=== PATIENT | female | born 2000 | race Caucasian/White ===

== ENCOUNTER 2023-03-21 08:12 | Emergency (ER) | payer BC, SELFPAY ==
[2023-03-21] VITALS (15 sets, daily range): BP systolic 108–192; BP diastolic 69–108; PULSE 79–118; RESP 2–32; TEMP 36.8; O2SAT 95–100; BMI 46.5
--- NOTE | 2023-03-21 08:24 | CT_ITS ---
The [address] [address] Patient Name: FOREIGN BOTELLO MRN: [id number] date: 2000 Sex: F Assigned Patient Location: ER Current Patient Location: ER Accession/Order Number: [id number] Exam Date: 03/21/2023 08:33 Report Date: 03/21/2023 08:50 At the request of: NAJMA PARIS Procedure: CT stroke head/brain wo con HEAD CT WITHOUT CONTRAST: 03/21/2023 8:33 AM EST Clinical Data: new onset seizure, headache Comparison: No previous Unenhanced axial data from base to vertex. INTRA-AXIAL: No acute hemorrhage. No acute infarction is evident. EXTRA-AXIAL: No acute hemorrhage. No focal fluid collection. BRAIN VOLUME: Unremarkable for age. VENTRICLES: No hydrocephalus PARANASAL SINUSES: No air-fluid levels in the included aspects. MASTOIDS: Clear. CALVARIUM: No acute finding. EXTRACALVARIAL: No acute findings CT/CT stroke head/brain wo con IMPRESSION: 1. No evidence of acute intracranial process on this unenhanced study as described. All CT scans at this facility use dose modulation, iterative reconstruction, and/or weight based dosing when appropriate to reduce radiation dose to as low as reasonably achievable. Electronically authenticated by: BASIL MEDINA Date: 03/21/2023 08:50
--- NOTE | 2023-03-21 08:24 | ECG_ITS ---
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
--- NOTE | 2023-03-21 08:37 | ED_ITS ---
HPI - Seizure General Chief Complaint: Seizure Stated Complaint: SEIZURE Time Seen by Provider: 03/21/23 08:21 Source: patient and family Mode of arrival: Wheelchair Limitations: no limitations History of Present Illness HPI Narrative: Patient had new onset seizure this morning around 7am. She was coming home after work and her sister witnessed the patient begin to shake before losing consciousness for an unknown period of time, during which she had additional shaking, according to what the sister told the patient. The patient is now awake and alert and answering all questions. She did not injure herself during the seizure but complains of a frontal headache that began a short time before the seizure. She worked last night and denied any use of alcohol or intoxicants. PMHx includes HTN, hypothyroidism. She takes BCPs and she takes effexor for psych Related Data Allergies Allergy/AdvReac Type Severity Reaction Status Date / Time No Known Drug Allergies Allergy Verified 03/21/23 08:25 PFS PFS Social History Smoking status: Current every day smoker Exam Narrative Exam Narrative: Nurses notes and vital signs reviewed and patient is not hypoxic. afebrile General: Well-appearing and in no apparent distress. Skin: Warm, dry, no pallor noted. Head: Normocephalic, atraumatic. Neck: Supple, non-tender. Eye: Pupils are equal, round and EOMI. No scleral icterus. Ears, Nose, Mouth, and Throat: No oral or intraoral injury. Oral mucosa is moist Cardiovascular: Regular Rate and Rhythm without murmur, gallop or rub. Respiratory: No accessory muscle use or respiratory distress. Lungs are clear to auscultation, no wheezing, rales or rhonchi Back: No midline thoracic or lumbar vertebral tenderness. No CVA tenderness Musculoskeletal: normal ROM, no calf or popliteal tenderness, no lower extremity edema/swelling GI: Abdomen is soft, non-distended. Normal bowel sounds. No tenderness to palpation. No rebound, guarding, or rigidity noted. Neurological: A&O x4. No cranial nerve dysfunction observed. No truncal ataxia. Moves all extremities. Sensation intact. Psychiatric: Cooperative and interactive. Normal mood and affect. Constitutional Vital Signs, click to edit/add: Last Vital Signs Temp 98.2 F 03/21/23 08:19 Pulse 79 03/21/23 09:29 Resp 19 03/21/23 09:29 BP 136/69 03/21/23 10:01 Pulse Ox 100 03/21/23 09:29 O2 Del Method Room Air 03/21/23 08:19 Course Vital Signs Vital signs: Vital Signs Blood Pressure 192/108 H 03/21/23 08:18 Pulse Oximetry 95 03/21/23 08:18 Temperature 98.2 F 03/21/23 08:19 Pulse Rate 79 03/21/23 09:29 Respiratory Rate 19 03/21/23 09:29 Blood Pressure 136/69 03/21/23 10:01 Pulse Oximetry 100 03/21/23 09:29 Oxygen Delivery Method Room Air 03/21/23 08:19 MDM - Seizure MDM Narrative Medical decision making narrative: Seizure precautions initiated. I asked the emergency department nurse to move the patient from moving forward to the trauma bay in room 6. Peripheral IV established and blood drawn and sent for testing. Patient was placed on conveyor monitor with continuous pulse ox. She was sent for noncontrast CT scan of the brain. Urine was also ordered to be obtained and sent for testing. I ordered her received normal saline IV fluid bolus and also a dose of IV Valium -Ativan is currently not available. Workup notable for elevated wbc 14, mildly decreased Na 135, mildly decreased K 3.3, normal CO2, renal function and LFTs. Unremarkable head CT, per radiologist. Results, diagnosis and dispo plan discussed with the patient and mother. Patient will be discharged home with referral to local Neurology group. No new meds at this time. Patient lives with her parents and does not drive - she wants to continue to work. Discussed ED return for any additional syncope or seizure and discussed that we will then likely admit/transfer to facility with neurology coverage. Lab Data Attestation: I reviewed the patient's lab results. Labs: Lab Results 03/21/23 Range/Units 09:03 WBC 14.5 H (4.0-11.0) 10^3/uL RBC 4.03 L (4.20-5.40) 10^6/uL Hgb 12.9 (12.0-16.0) g/dL Hct 37.4 (36.0-48.0) % MCV 92.8 (81.0-99.0) fL MCH 32.0 (26.7-34.0) pg MCHC 34.5 (29.9-35.2) g/dL RDW 11.9 (11.0-15.0) % Plt Count 247 (150-450) 10^3/uL MPV 11.8 (9.5-13.5) fL Neut % (Auto) 80.0 H (43.0-75.0) % Lymph % (Auto) 13.0 L (20.5-60.0) % [place] % (Auto) 5.4 (1.7-12.0) % Eos % (Auto) 0.6 L (0.9-7.0) % Baso % (Auto) 0.2 (0.2-2.0) % Neut # (Auto) 11.6 H (1.4-6.5) 10^3/uL Lymph # (Auto) 1.9 (1.2-3.8) 10^3/uL [place] # (Auto) 0.8 (0.3-0.8) 10^3/uL Eos # (Auto) 0.1 (0.0-0.7) 10^3/uL Baso # (Auto) 0.0 (0.0-0.1) 10^3/uL Abs Immat Gran (auto) 0.11 H (0.00-0.03) 10^3/uL Imm/Tot Granulo (auto) 0.8 H (0.0-0.5) % Sodium 135 L (136-145) mmol/L Potassium 3.3 L (3.5-5.1) mmol/L Chloride 99 (98-107) mmol/L Carbon Dioxide 28.1 (21.0-32.0) mmol/L Anion Gap 11.2 BUN 5.0 L (7.0-18.0) mg/dL Creatinine 0.68 (0.55-1.02) mg/dL Est GFR ( Amer) >60 (>=60) Est GFR (Non-Af Amer) >60 (>=60) BUN/Creatinine Ratio 7.4 Glucose 105 (74-106) mg/dL Calcium 8.8 (8.5-10.1) mg/dL Total Bilirubin 0.2 (0.2-1.0) mg/dL AST 17 (15-37) U/L ALT 22 (14-59) U/L Alkaline Phosphatase 100 (46-116) U/L Total Protein 6.6 (6.4-8.2) g/dL Albumin 3.0 L (3.4-5.0) g/dL Globulin 3.6 g/dL Albumin/Globulin Ratio 0.[address] scan - head: Radiologist's impression: Patient Name: FOREIGN BOTELLO MRN: [id number] date: 2000 Sex: F Assigned Patient Location: ER Current Patient Location: ER Accession/Order Number: [id number] Exam Date: 03/21/2023 08:33 Report Date: 03/21/2023 08:50 At the request of: NAJMA PARIS Procedure: CT stroke head/brain wo con HEAD CT WITHOUT CONTRAST: 03/21/2023 8:33 AM EST Clinical Data: new onset seizure, headache Comparison: No previous Unenhanced axial data from base to vertex. INTRA-AXIAL: No acute hemorrhage. No acute infarction is evident. EXTRA-AXIAL: No acute hemorrhage. No focal fluid collection. BRAIN VOLUME: Unremarkable for age. VENTRICLES: No hydrocephalus PARANASAL SINUSES: No air-fluid levels in the included aspects. MASTOIDS: Clear. CALVARIUM: No acute finding. EXTRACALVARIAL: No acute findings IMPRESSION: 1. No evidence of acute intracranial process on this unenhanced study as described. All CT scans at this facility use dose modulation, iterative reconstruction, and/or weight based dosing when appropriate to reduce radiation dose to as low as reasonably achievable. Electronically authenticated by: BASIL MEDINA Date: 03/21/2023 08:50 ECG Data Attestation: I personally reviewed and interpreted this ECG as follows: Interpretation: EKG interpretation: Emergency Department physician interpretation. Sinus tachycardia at 116bpm. Normal axis, normal intervals and no ST segment elevation or depression. Discharge Plan Discharge Chief Complaint: Seizure Clinical Impression: New onset seizure Patient Disposition: Home, Self-Care Time of Disposition Decision: 10:24 Instructions: New-Onset Seizure in Adults (ED) Stand Alone Forms: Portal Instructions Referrals: Celia Villegas MD [Primary Care Provider] - 1 week VIRGNIIE OMALLEY [Physician] - As soon as possible (ok to see any of the neurologists from the group)
[2023-03-21] MEDS: 0.9 % SODIUM CHLORIDE 1,000 ML 999 ML IV (09:08)
[2023-03-21] MEDS: DIAZEPAM 10 MG/2 ML SYRINGE 5 MG IV (09:08)
[2023-03-21 09:10] LABS: Basophils Percent Auto 0.2 % (0.2-2.0); Eosinophils Absolute Auto 0.1 10^3/uL (0.0-0.7); Eosinophils Percent Auto 0.6 % (0.9-7.0); Hematocrit 37.4 % (36.0-48.0); Hemoglobin 12.9 g/dL (12.0-16.0); Immature Granulocytes Abs Auto 0.11 10^3/uL (0.00-0.03); Immature Granulocytes Pct Auto 0.8 % (0.0-0.5); Lymphocytes Absolute Auto 1.9 10^3/uL (1.2-3.8); Mean Corpuscular HGB Conc 34.5 g/dL (29.9-35.2); Mean Corpuscular Volume 92.8 fL (81.0-99.0); Mean Platelet Volume 11.8 fL (9.5-13.5); Monocytes Absolute Auto 0.8 10^3/uL (0.3-0.8); Monocytes Percent Auto 5.4 % (1.7-12.0); Neutrophils Absolute Auto 11.6 10^3/uL (1.4-6.5); Platelet Count 247 10^3/uL (150-450); Red Blood Count 4.03 10^6/uL (4.20-5.40); Red Cell Distribution Width 11.9 % (11.0-15.0); White Blood Count 14.5 10^3/uL (4.0-11.0)
[2023-03-21 09:24] LABS: Alanine Aminotransferase 22 U/L (14-59); Albumin Globulin Ratio 0.8; Alkaline Phosphatase 100 U/L (46-116); Anion Gap 11.2; Aspartate Amino Transferase 17 U/L (15-37); BUN Creatinine Ratio 7.4; Bilirubin Total 0.2 mg/dL (0.2-1.0); Calcium 8.8 mg/dL (8.5-10.1); Carbon Dioxide 28.1 mmol/L (21.0-32.0); Chloride 99 mmol/L (98-107); Estimated GFR (African America >60 (>=60); Estimated GFR (Non-African Ame >60 (>=60); Globulin 3.6 g/dL; Glucose 105 mg/dL (74-106); Potassium 3.3 mmol/L (3.5-5.1); Sodium 135 mmol/L (136-145); Total Protein 6.6 g/dL (6.4-8.2)
[2023-03-21] MEDS: POTASSIUM CHLORIDE 10 MEQ ER TABLET 40 MEQ PO (10:17)
[2023-03-21] MEDS: ACETAMINOPHEN 500 MG TABLET 1000 MG PO (10:42)
[2023-03-22 04:07] LABS: Prolactin 55.9 ng/mL (4.8-33.4)
== END 2023-03-21 10:59 | disposition home or self-care (01) ==
PROVIDERS: Emergency Provider Emergency Medicine; PCP Family Medicine
DX: R56.9 Unspecified convulsions (principal); I10 Essential (primary) hypertension; E03.9 Hypothyroidism, unspecified; F17.200 Nicotine dependence, unspecified, uncomplicated; R51.9 Headache, unspecified
CPT/HCPCS: 36415; 70450; 80053; 84146; 85025; 93005; 96374; 99285

== ENCOUNTER 2023-04-11 21:04 | Outpatient (REF) | payer BC, SELFPAY ==
--- OUTSIDE RECORDS SUMMARY | 2023-04-11 21:08 | XMS_ITS | CCD ---
Author Name Unknown Address [address] [place] [address] Organization [facility] Care Team Providers Care Professional Shopper Name Role Phone Celia Gonzalez Primary Care Provider [phone] KRISTIE POWELL Attending Unavailable CELIA GONZALEZ Primary Care Unavailable KARASIK, DR SHELL Attending Unavailable GONZALEZ, DR CELIA Castillo Primary Care Unavailable KARASIK, DR SHELL Admitting Unavailable KARASIK, DR SHELL Consulting Unavailable GONZALEZ, DR CELIA Castillo Primary Care Unavailable KARASIK, DR SHELL Admitting Unavailable KARASIK, DR SHELL Consulting Unavailable KARASIK, DR SHELL Attending Unavailable Celia Gonzalez Unavailable CELIA GONZALEZ Primary Care Physician Napoleon LAWRENCE Attending Unavailable GONZALEZ, CELIA Referring Unavailable CELIA GONZALEZ Referring Unavailable NILL, Napoleon Dumas Attending Unavailable NILL, Napoleon Dumas Attending Unavailable NILL, Napoleon Dumas Attending Unavailable Allergies Allergy Classification Reported Allergen(s) Allergy Type Date of Onset Reaction(s) Facility (1 source) No Known Medication Allergies; Translations: [No Known Medication Allergies] Propensity to adverse reactions (disorder) [facility] Repository (1 source) patient allergy list reviewed by nurse or physicia Propensity to adverse reactions 9 Comment:Done [facility] Other (1 source) Allergies Reconciled Propensity to adverse reactions Unknown [facility] Other Medications Current Medications Medication Drug Class(es) Dates Sig (Normalized) Sig (Original) cephalexin 500 mg oral capsule (4 sources) Cephalosporin Antibacterial take 1 capsule by mouth every six hours Cephalexin 500 MG 1 capsule Orally Four times a day Active {21 (Ethinyl Estradiol 0.035 MG / norgestimate 0.25 MG Oral Tablet) / 7 (Inert Ingredients 1 MG Oral Tablet) } Pack [Sprintec 28 Day] (6 sources) Progestin, Estrogen Start: 08-30-2022 take 1 tablet by mouth once daily Sprintec oral tablet 1 tab(s), Oral, Daily, Refill(s) 0 Start Date: 08/30/22 Status: Ordered take 1 tablet by irene th every twenty-four hours Sprintec 28 0.25-35 MG-MCG 1 tablet Orally Once a day Active levothyroxine sodium 0.075 mg oral tablet (7 sources) l-Thyroxine Start: 08-30-2022 take 1 tablet by mouth once daily levothyroxine 75 mcg (0.075 mg) Tab 75 mcg = 1 tab(s), Oral, Daily, Refills(s) 0 Start Date: 08/30/22 Status: Ordered take 1 tablet by mouth once wale y Levothyroxine Sodium 88 MCG TAKE 1 TABLET BY MOUTH EVERY DAY Active take 1 tablet by irene th once daily in the morning Levothyroxine Sodium 75 MCG 1 tablet in the morning on an empty stomach Orally Once a day Active take 1 tablet by mouth once wale y levothyroxine (SYNTHROID) 75 MCG tablet Take 75 mcg by mouth Daily 0 Active lisinopril 20 mg oral tablet (7 sources) Angiotensin Converting Enzyme Inhibitor Start: 08-30-2022 take 1 tablet by mouth once daily lisinopril 20 mg Tab 20 mg = 1 tab(s), Oral, Daily, Refills(s) 0 Start Date: 08/30/22 Status: Ordered take 1 tablet by mouth once wale y lisinopril (PRINIVIL;ZESTRIL) 10 MG tablet Take 10 mg by mouth daily 0 Active nabumetone 750 mg oral tablet (4 sources) Nonsteroidal Anti-inflammatory Drug Nabumetone 750 MG as directed Orally Active Norgestimate-Eth Estradiol (SPRINTEC 28 PO) (1 source) Norgestimate-Eth Estradiol (SPRINTEC 28 PO) Take by mouth daily 0 Active ondansetron 4 mg disintegrating oral tablet (4 sources) Serotonin-3 Receptor Antagonist Start: 023 take 1 tablet by mouth three times daily as needed Ondansetron 4 MG 1 tablet on the tongue and allow to dissolve Orally tid prn for 5 days May, Active sertraline 20 mg/ml oral solution (1 source) Serotonin Reuptake Inhibitor take 25 mg by mouth once daily sertraline (ZOLOFT) 20 MG/ML concentrated solution Take 25 mg by mouth daily 0 Active sulfamethoxazole 800 mg / trimethoprim 160 mg oral tablet (4 sources) Dihydrofolate Reductase Inhibitor Antibacterial, Sulfonamide Antimicrobial take 1 tablet by mouth every twelve hours Sulfamethoxazole-T rimethoprim 800-160 MG 1 tablet Orally Twice a day Active 24 hr venlafaxine 75 mg extended release oral capsule (6 sources) Serotonin and Norepinephrine Reuptake Inhibitor Start: 023 take 1 capsule by mouth once daily Effexor XR 75 mg Cap-ER 75 mg = 1 cap(s), Oral, Daily, Refills(s) 0 Start Date: 08/30/22 Status: Ordered take 1 capsule by mouth once alexey ly Venlafaxine HCl ER 150 MG TAKE 1 CAPSULE BY MOUTH EVERY DAY for 90 days Active Completed/Discontinued Medications Medication Drug Class(es) Dates Sig (Normalized) Sig (Original) amoxicillin 875 mg / clavulanate 125 mg oral tablet (4 sources) Penicillin-class Antibacterial Start: 04-12-2022 take 1 tablet by mouth every twelve hours Amoxicillin-Pot Clavulanate 875-125 MG 1 tablet Orally every 12 hrs for 10 day(s) Mar, Not-Taking ibuprofen 200 mg oral tablet (1 source) Nonsteroidal Anti-inflammatory Drug Start: 12-28-2018 End: 12-28-2018 ibuprofen (ADVIL;MOTRIN) tablet 400 mg Problems Active Problems Problem Classification Problem Date Documented Date Episodic/Chronic Anxiety disorders (3 sources) Anxiety; Translations: [Anxiety disorder] Onset: 03-15-2018 08-30-2022 Chronic Contraceptive and procreative management (2 sources) Presence of (intrauterine) contraceptive device; Translations: [Initiation of transdermal contraception] Resolved: 10-28-2021 Episodic Diabetes mellitus without complication (2 sources) Other abnormal glucose; Translations: [Impaired fasting glycemia] Onset: 03-15-2018 Episodic Essential hypertension (3 sources) Hypertensive disorder; Translations: [Essential (primary) hypertension] 08-30-2022 Chronic Inflammatory diseases of female pelvic organs (1 source) Acute vaginitis; Translations: [Acute vaginitis] Episodic Malaise and fatigue (1 source) Fatigue; Translations: [Other fatigue] Episodic Menstrual disorders (1 source) Irregular menstruation, unspecified; Translations: [Irregular menstruation, unspecified] Chronic Mood disorders (3 sources) Depressive disorder; Translations: [Moderate major depression ] 08-30-2022 Chronic Other ear and sense organ disorders (1 source) Unspecified acute noninfective otitis externa, unspecified ear; Translations: [Unspecified acute noninfective otitis externa, unspecified ear] Episodic Other ear and sense organ disorders (1 source) Infective otitis externa; Translations: [Other infective otitis externa, right ear] Episodic Other nutritional; endocrine; and metabolic disorders (3 sources) Body mass index 40+ - severely obese; Translations: [Body mass index (BMI) 45.0-49.9, adult] Onset: 07-05-2016 Chronic Other nutritional; endocrine; and metabolic disorders (2 sources) Morbid obesity; Translations: [Morbid (severe) obesity due to excess calories] Onset: 07-05-2016 09-13-2022 Chronic Other screening for suspected conditions (not mental disorders or infectious disease) (5 sources) Encounter for screening for malignant neoplasm of cervix; Translations: [Cervical smear - inadequate specimen] Onset: 11-29-2021 Episodic Other upper respiratory infections (1 source) Chronic sinusitis, unspecified; Translations: [Chronic sinusitis, unspecified] Chronic Otitis media and related conditions (1 source) Unspecified nonsuppurative otitis media, right ear; Translations: [Unspecified nonsuppurative otitis media, right ear] Episodic Residual codes; unclassified (1 source) Tobacco user; Translations: [Tobacco use] Onset: 09-13-2022 Episodic Residual codes; unclassified (1 source) Nicotine-filled electronic cigarette user 09-13-2022 Episodic Skin and subcutaneous tissue infections (3 sources) Cutaneous abscess of limb, unspecified; Translations: [Abscess of limb] Onset: 09-13-2022 Episodic Superficial injury; contusion (1 source) Abrasion of finger; Translations: [Abrasion of right index finger, initial encounter] Episodic Thyroid disorders (6 sources) Hypothyroidism; Translations: [Acquired hypothyroidism] 08-30-2022 Chronic Unclassified (1 source) Cough, unspecified; Translations: [Cough, unspecified] Past or Other Problems Problem Classification Problem Date Documented Da te Episodic/Chronic Influenza (1 source) Influenza with other manifestations; Translations: [Influenza with other manifestations] Onset: 06-18-2018 Episodic Other ear and sense organ disorders (1 source) Acute otitis externa; Translations: [Acute swimmers' ear] Onset: 11-14-2016 Episodic Other inflammatory condition of skin (1 source) Sunburn of second degree; Translations: [Sunburn of second degree] Resolved: 10-28-2021 Episodic Other nutritional; endocrine; and metabolic disorders (1 source) Overweight; Translations: [Overweight] Resolved: 10-28-2021 Episodic Other upper respiratory infections (2 sources) Acute maxillary sinusitis, unspecified; Translations: [Acute recurrent maxillary sinusitis] Onset: 08-15-2016 Episodic Residual codes; unclassified (1 source) High risk heterosexual behavior; Translations: [High risk heterosexual behavior] Resolved: 10-28-2021 Episodic Unclassified (1 source) Health examination of defined subpopulation; Translations: [Health examination of defined subpopulation] Onset: 07-05-2016 Unclassified (1 source) Bacterial infection, unspecified, in conditions classified elsewhere and of unspecified site; Translations: [Bacterial infection, unspecified, in conditions classified elsewhere and of unspecified site] Onset: 05-27-2018 Unclassified (1 source) Volunteer activity; Translations: [Volunteer activity] Onset: 07-05-2016 Unclassified (1 source) Acute candidiasis of vulva and vagina; Translations: [Acute candidiasis of vulva and vagina] Resolved: 10-28-2021 Results Test Name Value Interpretation Reference Range Facil ity Ambulatory Visit Summaryon 0 10-18-2022 Ambulatory Visit Summary FOREIGN BOTELLO :2000 Visit Date:10/18/2022 Ambulatory Visit Instructions Your Diagnosis Axillary abscess BMI 45.0-49.9, adult Vapes nicotine containing substance Your Care Team Attending Physician - KARLA ALCARAZ, Napoleon Dumas Primary Care Physician - CELIA GONZALEZ MD This Is Your Medications List sulfamethoxazole-trimet hoprim (Bactrim D.S. 800 mg-160 mg Tab) Contact prescribing physician if questions or concerns ethinyl estradiol-norgestimate (Sprintec oral tablet) levothyroxine (levothyroxine 75 mcg (0.075 mg) Tab) lisinopril (lisinopril 20 mg Tab) venlafaxine (Effexor XR 75 mg Cap-ER) Procedures Performed Appendectomy, Implantable subdermal contraceptive insertion done, Incision and drainage of abscess. Discharge Vitals Heart Rate (Peripheral) 76 Respiratory Rate 16 Blood Pressure 126/86 Height 149 cm Height 59 in Weight 109 kg Weight 239.8 lb BMI 49.1 Medications What How Much When Why Instructions New sulfamethoxazole-trimet hoprim (Bactrim D.S. 800 mg-160 mg Tab) 1 Tablets By Mouth 2 times a day Axillary abscess BMI 45.0-49.9, adult Vapes nicotine containing substance Duration: 5 Days Pickup at [facility]/pharmacy #[id number] Unchanged ethinyl estradiol-norgestimate (Sprintec oral tablet) 1 Tablets By Mouth Every day Contact prescribing physician if questions or concerns Unchanged levothyroxine (levothyroxine 75 mcg (0.075 mg) Tab) 1 Tablets By Mouth Every day Contact prescribing physician if questions or concerns Unchanged lisinopril (lisinopril 20 mg Tab) 1 Tablets By Mouth Every day Contact prescribing physician if questions or concerns Unchanged venlafaxine (Effexor XR 75 mg Cap-ER) 1 Capsules By Mouth Every day Contact prescribing physician if questions or concerns Pharmacy Information [facility]/pharmacy #[id number]: [address], [place] [id number] [phone] Allergies No Known Allergies No Known Medication Allergies Problems Ongoing - Any problem that you are currently receiving treatment for. Anxiety Axillary abscess BMI 45.0-49.9, adult Depression HTN (hypertension) Hypothyroidism Morbid obesity Vapes nicotine containing substance [facility] Ambulatory Visit Summaryon 0 09-13-2022 Ambulatory Visit Summary FOREIGN BOTELLO :2000 Visit Date:09/13/2022 Ambulatory Visit Instructions Your Care Team Attending Physician - KARLA ALCARAZ, Napoleon Dumas Primary Care Physician - CELIA GONZALEZ MD This Is Your Medications List ethinyl estradiol-norgestimate (Sprintec oral tablet) levothyroxine (levothyroxine 75 mcg (0.075 mg) Tab) lisinopril (lisinopril 20 mg Tab) venlafaxine (Effexor XR 75 mg Cap-ER) Procedures Performed Appendectomy, Implantable subdermal contraceptive insertion done, Incision and drainage of abscess. Discharge Vitals Heart Rate (Peripheral) 70 Respiratory Rate 16 Blood Pressure 122/80 Height 149.8 cm Height 59 in Weight 111.9 kg Weight 246.18 lb BMI 49.87 Medications What How Much When Instructions Unchanged ethinyl estradiol-norgestimate (Sprintec oral tablet) 1 Tablets By Mouth Every day Unchanged levothyroxine (levothyroxine 75 mcg (0.075 mg) Tab) 1 Tablets By Mouth Every day Unchanged lisinopril (lisinopril 20 mg Tab) 1 Tablets By Mouth Every day Unchanged venlafaxine (Effexor XR 75 mg Cap-ER) 1 Capsules By Mouth Every day Allergies No Known Allergies No Known Medication Allergies Problems Ongoing - Any problem that you are currently receiving treatment for. Anxiety Axillary abscess BMI 45.0-49.9, adult Depression HTN (hypertension) Hypothyroidism Morbid obesity Normal [facility] ED Note-Physicianon 09-04-19 ED Note-Physician [id number] D:127 Normal [facility] Lab Reportson 09-03-2022 Lab Reports [id number] D:127 Normal [facility] Physician Referralon 023 Physician Referral [id number] D:127 Normal [facility] PAP ACOG PANEL 2: 21 to 29on 12-05-2021 . . Normal [facility] Comment on above: Performed By: #### [id number] #### [facility] [address] [address] [address] Ammon Urena Age Gdln ACOG Testing 21-29 Normal [facility] Comment on above: Performed By: #### [id number] #### [facility] [address] [address] [address] Ammon Urena DIAGNOSIS: Comment [facility] Comment on above: Result Comment: NEGA TIVE FOR INTRAEPITHELIAL LESION OR MALIGNANCY. Performed By: #### 4 [id number] #### [facility] [address] [address] [address] Ammon Urena Methodology: Comment [facility] Comment on above: Result Comment: This liquid based ThinPrep(R) pap test was screened with the use of an image guided system. Performed By: #### [id number] #### [facility] [address] [place] [address] Dr. Ammon Urena Note: Comment [facility] Comment on above: Result Comment: The Pap smear is a screening test designed to aid in the detection of premalignant and malignant conditions of the uterine cervix. It is not a diagnostic procedure and should not be used as the sole means of detecting cervical cancer. Both false-positive and false-negative reports do occur. . Performed By: #### [id number] #### [facility] [address] [place] [address] Dr. Ammon Urena Performed by: Comment Normal [facility] Comment on above: Result Comment: Joanne Sosa, Lacquer Polisher (ASCP) Performed By: #### 4 [id number] #### [facility] [address] [place] [address] Dr. Ammon Urena Reflex Criteria: Comment [facility] Comment on above: Result Comment: The HPV DNA reflex criteria were not met with this specimen result therefore, no HPV testing was performed. . Performed By: #### 4 [id number] #### [facility] [address] [place] [address] Dr. Ammon Urena Specimen adequacy: Comment Normal [facility] Comment on above: Result Comment: Sati sfactory for evaluation. Endocervical and/or squamous metaplastic cells (endocervical component) are present. Performed By: #### 4 [id number] #### [facility] [address] [place] [address] Dr. Ammon Urena PAP ACOG PANEL 2: 21 to 29on 11-04-2021 . . Normal [facility] Comment on above: Performed By: #### 4 [id number] #### [facility] [address] [place] [address] Dr. Ammon Urena Age Gdln ACOG Testing - [facility] Comment on above: Performed By: #### 4 [id number] #### [facility] [address] [address] [address] Ammon Urena DIAGNOSIS: Comment Normal [facility] Comment on above: Result Comment: UNSA TISFACTORY FOR EVALUATION. Performed By: #### [id number] #### [facility] [address] [place] [address] Dr. Ammon Urena Methodology: Comment Normal [facility] Comment on above: Result Comment: This liquid based ThinPrep(R) pap test was screened with the use of an image guided system. Performed By: #### [id number] #### [facility] [address] [place] [address] Dr. Ammon Urena Note: Comment Normal [facility] Comment on above: Result Comment: The Pap smear is a screening test designed to aid in the detection of premalignant and malignant conditions of the uterine cervix. It is not a diagnostic procedure and should not be used as the sole means of detecting cervical cancer. Both false-positive and false-negative reports do occur. . Performed By: #### 4 [id number] #### [facility] [address] [place] [address] Dr. Ammon Urena Performed by: Comment Normal [facility] Comment on above: Result Comment: Alexa Toledo, Lacquer Polisher (ASCP) Performed By: #### [id number] #### [facility] [address] [place] [address] Dr. Ammon Urena QC reviewed by: Comment Normal [facility] Comment on above: Result Comment: Josh Hartman, Supervisory Lacquer Polisher (ASCP) Performed By: #### 4 [id number] #### [facility] [address] [place] [address] Dr. Ammon Urena Recommendation: Comment Normal [facility] Comment on above: Result Comment: Sugg est follow up as clinically appropriate. Performed By: #### 4 [id number] #### [facility] [address] [place] [address] Dr. Ammon Urena Reflex Criteria: Comment Normal [facility] Comment on above: Result Comment: The HPV DNA reflex criteria were not met with this specimen result therefore, no HPV testing was performed. . Performed By: #### [id number] #### [facility] [address] [place] [address] Dr. Ammon Urena Specimen adequacy: Comment Normal [facility] Comment on above: Result Comment: Spec imen processed and examined but unsatisfactory for evaluation of epithelial abnormality because of obscuring inflammatory exudate. Performed By: #### [id number] #### [facility] [address] [place] [address] Dr. Ammon Urena CHLAMYDIA/GONOCOCCUS NATALI ( AB/URINE/PAPon 11-03-2021 Chlamydia trachomatis, NATALI Negative Normal Negative [facility] Comment on above: Performed By: #### C T/NGNA #### [facility] [address] [place] [address] Dr. Ammon Urena Neisseria gonorrhoeae, NATALI Negative Normal Negative [facility] Comment on above: Performed By: #### C T/NGNA #### [facility] [address] [place] [address] Dr. Ammon Urena VAGINITIS/VAGINOSIS DNA PROB [facility] 11-02-2021 Laura species Negative Normal Negative [facility] Comment on above: Performed By: #### V AGINT #### [facility] [address] [place] [address] Dr. Ammon Urena Gardnerella vaginalis Positive Abnormal Negative [facility] Comment on above: Performed By: #### V AGINT #### [facility] [address] [place] [address] Dr. Ammon Urena Trichomonas vaginalis Negative Normal Negative [facility] Comment on above: Performed By: #### V AGINT #### [facility] [address] [place] [address] Dr. Ammon Urena Vital Signs Date Time Vital Sign Value Performing Clinician Facility 02-07-2023 10:30-0500 Body height 149.86 cm Celia Gonzalez Other [facility] Other 02-07-2023 10:30-0500 Body mass index (BMI) [Ratio] 49.2 kg/m2 Celia Gonzalez Other [facility] Other 02-07-2023 10:30-0500 Body weight 110.5 kg Celia Gonzalez Other [facility] Other 02-07-2023 10:30-0500 Diastolic blood pressure 76 mm[Hg] Celia Gonzalez Other [facility] Other 02-07-2023 10:30-0500 Systolic blood pressure 149 mm[Hg] Celia Gonzalez Other [facility] Other 09-13-2022 15:04-0400 Blood Pressure Location Napoleon [employer] [facility] [place] 09-13-2022 15:04-0400 Diastolic blood pressure 80 mm[Hg] Napoleon NILL [facility] [place] 09-13-2022 15:04-0400 Heart rate 70 /min Napoleon NILL [facility] [place] 09-13-2022 15:04-0400 Respiratory rate 16 /min Napoleon NILL [facility] [place] 09-13-2022 15:04-0400 Systolic blood pressure 122 mm[Hg] Napoleon NILL [facility] 08-16-2022 09:30-0400 Body height 149.86 cm Celia Gonzalez Other [facility] Other 08-16-2022 09:30-0400 Body mass index (BMI) [Ratio] 48.67 kg/m2 Celia Gonzalez Other [facility] Other 08-16-2022 09:30-0400 Body weight 109.32 kg Celia Gonzalez Other [facility] Other 08-16-2022 09:30-0400 Diastolic blood pressure 82 mm[Hg] Celia Gonzalez Other [facility] Other 08-16-2022 09:30-0400 Systolic blood pressure 130 mm[Hg] Celia Gonzalez Other [facility] Other 12-28-2018 17:41-0400 BMI (Body Mass Index) 22.14 kg/m2 [place] 12-28-2018 17:41-0400 Body Temperature 97.2 [degF] [place] 12-28-2018 17:41-0400 Body weight 49.71 kg [place] 12-28-2018 17:41-0400 BP Diastolic 95 mm[Hg] [place] 12-28-2018 17:41-0400 BP Systolic 150 mm[Hg] [place] 12-28-2018 17:41-0400 Height 149.9 cm [place] 12-28-2018 17:41-0400 Pulse (Heart Rate) 83 /min [facility], [place] 12-28-2018 17:41-0400 Pulse Oximetry 98 % [place] 12-28-2018 17:41-0400 Respiratory Rate 20 /min [place] Encounters Encounter Date Encounter Type Care Provider Facility Start: 02-07-2023 End: 02-07-2023 ambulatory Celia Gonzalez Other [facility] Other Start: 02-07-2023 Office outpatient vi sit 15 minutes Celia Gonzalez [facility] Start: 10-18-2022 End: 10-19-2022 ambulatory Napoleon LAWRENCE Facility: [place] Start: 10-10-2022 End: 10-10-2022 ambulatory Celia Gonzalez Other [facility] Other Start: 10-10-2022 Telephone encounter Celia Gonzalez [facility] Start: 09-13-2022 End: 09-14-2022 ambulatory Napoleon Dumas [facility]IL[facility]ra Facility:[facility] Start: 09-13-2022 End: 09-13-2022 Patient encounter procedure Napoleon Dumas KARLA [facility] Start: 09-08-2022 ambulatory CELIA GONZALEZ Facility:[facility] [place] Start: 08-23-2022 ambulatory Napoleon R ELYSEL Facility :[facility] Start: 08-22-2022 End: 08-22-2022 ambulatory Celia Gonzalez Other [facility] Other Start: 08-22-2022 Telephone encounter Celia Gonzalez [employer] Start: 08-18-2022 End: 08-18-2022 ambulatory Celia Gonzalez Other [facility] Other Start: 08-18-2022 Telephone encounter Celia Gonzalez [facility] Start: 08-16-2022 End: 08-16-2022 ambulatory Celia Gonzalez Other [facility] Other Start: 08-16-2022 Office outpatient vi sit 15 minutes Celia Gonzalez [facility] Start: 01-25-2022 Gynecological examin ation normal Celia Gnozalez Other [facility] Other Start: 01-25-2022 Routine infant or ch ild health check Celia Gonzalez Other [facility] Other Start: 11-29-2021 End: 11-29-2021 ambulatory DR CELIA GONZALEZ Facility:[facility]1 Start: 10-31-2021 End: 10-31-[address] SULEMAN HUERTA Facility:[facility]1 Start: 12-28-2018 End: 12-28-2018 Emergency department patient visit [facility] Start: 12-28-2018 End: 12-28-2018 Emergency department patient visit Kristie Powell Work Phone: [facility] ED Comment on above: Abrasion of right in dex finger, initial encounter (Primary Dx) Procedures Date Procedure Procedure Detail Performing Clinician Start: 12-28-2018 WOUND CARE KRISTIE Cowart MARIA L Appendectomy Napoleon NILL Contraception care education Celia Gonzalez Other Incision and drainag e of abscess Napoleon NILL Comment on above: left axilla Insertion of subcuta neous contraceptive done MeetBallL Plan of Treatment Date Care Activity Detail Author Start: 11-24-2018 Influenza vaccination Flu vaccine (# 1) [place], [place] Start: 1999 Creatinine monitoring Creatinine mon [place], [place] Start: 1999 Potassium monitoring Potassium monit [place], [place] Immunizations Immunization Date Immunization Notes Care Provider Fa cili 07-13-2022 SARS-CoV-2 (COVID-19 ) mRNAMUL.[id number] Napoleon NILL [facility] 01-05-2022 SARS-CoV-2 (COVID-19 ) mRNAMUL.[id number] Napoleon NILL [facility] 05-09-2021 SARS-CoV-2 (COVID-19 ) mRNA BNT-162b2 vax Napoleon NILL [facility] 04-02-2020 SARS-CoV-2 (COVID-19 ) mRNA BNT-162b2 vax Napoleon NILL [facility] Comment on above: Result Comment: 2022: TPVAL 03-15-2020 SARS-CoV-2 (COVID-19 ) mRNA BNT-162b2 vax Napoleon NILL [facility] Comment on above: Result Comment: 2022: TPVAL 12-28-2018 diphtheria, tetanus toxoids and acellular pertussis vaccine, unspecified formulation Kristie [place], [place] 12-28-2018 tetanus toxoid, redu elva diphtheria toxoid, and acellular pertussis vaccine, adsorbed [place], [place] Payers Date Payer Category Payer Unknown [facility] [id number] 2018-Present [phone] [address] [address] [place] [address] [id number] [id number] 2018 Unknown [id number] 2018 Unknown BC[place] P PO xxxxxxxxxxxx 2018-Present [address] [place] [address] xxxxxxxxxxxx [id number] 1999 Unknown [id number] 1999 Unknown [id number] 1999 Unknown [id number] 1999 Unknown [id number] 1999 Unknown [id number] 1999 Unknown [id number] 1999 Unknown [id number] 1959 Unknown [id number] Social History Date Type Detail Facility Start: 12-28-2018 [place] [facility] Start: 12-28-2018 Alcohol intake Not Currently [facility] Sex Assigned At Not on file [place], [place] Start: 09-13-2022 Tobacco smoking status Ex-smoker (fi nding) [facility] Tobacco smoking status Smokeless tobacco user within last 30 days [facility] Functional Status Date Assessment Result Facility 09-13-2022 Functional Status N/A [facility] Clinical Notes 08-16-2022 to 02-07-2023 Note Date & Type Note Facility 02-07-2023 Evaluation note Encounter Date Diagnosis Assessment Notes Jan, Hypothyroidism, unspecified (ICD-10 - E03.9) Overdue for labs. Jan, Moderate major depression (ICD-10 - F32.1) Pt agreed to increase her dose. Consider counseling if needed. Jan, Essential (primary) hypertension (ICD-10 - I10) Check labs, eval renal function. [facility] Other 07-26-2023 NoteHPI Staff 22 year old female presents to re-evaluate left axillary abscess. Last evaluation completed 09/13. Abscess had resolved at that time. Was advised to keep area clean and dry. Reports starting 5-6 days ago, she developed tenderness and spontaneous drainage of small amount of white material. Pain and drainage resolved the following day. She did not take ATB for this. History of Present Illness 22 yo female with h/o left axillary abscess 6 weeks ago, now presents for recurrent area of swelling and spontaneous drainage, pain improved, no fevers, no ongoing drainage. Review of Systems PHQ Score Initial Depression Screen Score: 0 ROS - Provider Constitutional: no fever, no sweats, no weight loss. Eyes: no glasses, no blurred vision, no visual loss. ENMT: no dentures, no hoarseness, no swallowing difficulties, no hearing loss, no ear infection(s),no nose bleeds. Cardiovascular: normal blood pressure, no chest pain, regular heartbeat, no heart murmur. Respiratory: no shortness of breath, no cough, no asthma, no wheezing. Gastrointestinal: no nausea, no vomiting, no diarrhea, no constipation, no blood in stool, no change in bowel habits, no abdominal pain, no hepatitis. Genitourinary: no kidney stones, no urine infection, no dysuria. Musculoskeletal: no pain, no weakness. Skin: no changing moles, no rash, yes skin lumps. Neurologic: no seizures, no epilepsy, no headache. Psychiatric: no emotional or psychiatric problem. Heme/Lymph: no bleeding problems, no anemia, no blood clots, no transfusions. Allergy/Immunologic: no swollen lymph nodes/glands, no IV drug abuse. Other: Additional ROS info: Except as noted in the above Review of Systems and in the History of Present Illness, all other systems have been reviewed and are negative or noncontributory. Physical Exam Vitals & Measurements HR: 76(Peripheral) RR: 16 BP: 126/86 HT: 59 in HT: 149 cm WT: 109 kg WT: 239.8 lb BMI: 49.1 skin: 2 cm area of minimal induration central left axilla, in area of old scar; no open areas, no drainage or fluctuance, no cellulitis. Assessment/Plan 1. Axillary abscess (L02.419: Cutaneous abscess of limb, unspecified) recurrent superficial infection/folliculitis with spontaneous drainage; will place on Bactrim for 5days due to h/o previous MRSA; avoid irritation to axillary skin; loose clothing; no razor, use creams; recommend discontinuing nicotine products; call with problems/questions. Ordered: sulfamethoxazole-trimethoprim, 1 tab(s), Oral, BID for 5 day(s), 10 tab(s), Refill(s) 0, [id number], 149, cm, 10/18/22 15:26:00 EDT, Height/Length Dosing, 109, kg, 10/18/22 15:26:00 EDT, Weight Dosing 2. BMI 45.0-49.9, adult (Z68.42: Body mass index [BMI] 45.0-49.9, adult) recommend diet and exercise Ordered: sulfamethoxazole-trimethoprim, 1 tab(s), Oral, BID for 5 day(s), 10 tab(s), Refill(s) 0, [id number], 149, cm, 10/18/22 15:26:00 EDT, Height/Length Dosing, 109, kg, 10/18/22 15:26:00 EDT, Weight Dosing 3. Vapes nicotine containing substance (Z72.0: Tobacco use) We strongly recommend to quit tobacco use. Cigarette smoking harms nearly every organ of the body, causes many diseases, and reduces the health of smokers in general. Quitting smoking lowers your risk for smoking-related diseases and can add years to your life. We encourage you to visit www.smokefree.gov access to helpful resources including free telephone support. If you decide on prescription treatment to help you quit, your family doctor would be happy to provide these. Ordered: sulfamethoxazole-trimethoprim, 1 tab(s), Oral, BID for 5 day(s), 10 tab(s), Refill(s) 0, [id number], 149, cm, 10/18/22 15:26:00 EDT, Height/Length Dosing, 109, kg, 10/18/22 15:26:00 EDT, Weight Dosing Follow-up No qualifying data available Problem List/Past Medical History Ongoing Anxiety Axillary abscess BMI 45.0-49.9, adult Depression HTN (hypertension) Hypothyroidism Morbid obesity Vapes nicotine containing substance Historical No qualifying data Procedure/Surgical History Appendectomy, Implantable subdermal contraceptive insertion done, Incision and drainage of abscess. Medications Bactrim D.S. 800 mg-160 mg Tab, 1 tab(s), Oral, BID Effexor XR 75 mg Cap-ER, 75 mg= 1 cap(s), Oral, Daily levothyroxine 75 mcg (0.075 mg) Tab, 75 mcg= 1 tab(s), Oral, Daily lisinopril 20 mg Tab, 20 mg= 1 tab(s), Oral, Daily Sprintec oral tablet, 1 tab(s), Oral, Daily Allergies No Known Allergies No Known Medication Allergies Social History Alcohol - Denies Alcohol Use, 09/13/2022 Substance Abuse - Denies Substance Abuse, 09/13/2022 Tobacco Former smoker, quit more than 30 days ago Tobacco Use:. Smokeless tobacco user within last 30 days,Current vaping or e-cigarette use Smokeless Tobacco Use:. Cigarettes, Vaping, 1.5 per day. Started age 18.0 Years. Yes, 10/18/2022 Family History CAD - Coronary artery disease: Mother. Diabetes mellitus type (more content not included)...[facility] Comment on above:Result Comment: Electronically Signed By: KARLA ALCARAZ, Napoleon Smith\Date and Time Signed: 10/18/22 15:46 [id number] Evaluation note* Encounter Date Diagnosis Assessment Notes Treatment Notes Treatment Clinical Notes Sep, Hypothyroidism (acquired) (ICD-10 - E03.9) [place] [facility] Other 06-21-2023 NoteChief Complaint consultation for axillary abscess HPI Staff 22 year old female presents on consultation from Dr. Gonzalez for left axillary abscess. Presented to [facility] ED 08/12 with complaint of 2-3 week history of abscess. I/D completed with significant purulent drainage. Prescribed Keflex and Bactrim. PCP stopped Keflex 3-4 days after starting. Bactrim wascontinued and patient completed entire course. Wound cx with heavy growth of staph and isolated MRSA. Currently patient without pain, discharge or induration. History of Present Illness 22 yo female with h/o htn, hypothyroidism, morbid obesity, referred for left axillary abscess, began as folliculitis; seen in ED 1 month ago and had I & D; placed on Bactrim; cx with staph, and some MRSA; no h/o previous infections, no infection resolved, area healed, no pain or drainage. patient works in a f[employer]. Review of Systems PHQ Score Initial Depression Screen Score: 0 ROS - Provider Constitutional: no fever, no sweats, no weight loss. Eyes: no glasses, no blurred vision, no visual loss. ENMT: no dentures, no hoarseness, no swallowing difficulties, no hearing loss, no ear infection(s),no nose bleeds. Cardiovascular: normal blood pressure, no chest pain, regular heartbeat, no heart murmur. Respiratory: no shortness of breath, no cough, no asthma, no wheezing. Gastrointestinal: no nausea, no vomiting, no diarrhea, no constipation, no blood in stool, no change in bowel habits, no abdominal pain, no hepatitis. Genitourinary: no kidney stones, no urine infection, no dysuria. Musculoskeletal: no pain, no weakness. Skin: no changing moles, no rash, no skin lumps. Neurologic: no seizures, no epilepsy, no headache. Psychiatric: no emotional or psychiatric problem. Heme/Lymph: no bleeding problems, no anemia, no blood clots, no transfusions. Allergy/Immunologic: no swollen lymph nodes/glands, no IV drug abuse. Other: Additional ROS info: Except as noted in the above Review of Systems and in the History of Present Illness, all other systems have been reviewed and are negative or noncontributory. Physical Exam Vitals & Measurements HR: 70(Peripheral) RR: 16 BP: 122/80 HT: 59 in HT: 149.8 cm WT: 111.9 kg WT: 246.18 lb BMI: 49.87 skin: left axilla with well-healed scar, no induration or fluctuance, no erythema or drainage, nontender; no folliculitis. Assessment/Plan 1. Axillary abscess (L02.419: Cutaneous abscess of limb, unspecified) resolved; keep area clean and dry; avoid skin irritation. 2. BMI 45.0-49.9, adult (Z68.42: Body mass index [BMI] 45.0-49.9, adult) recommend diet and exercise 3. Vapes nicotine containing substance (Z72.0: Tobacco use) We strongly recommend to quit tobacco use. Cigarette smoking harms nearly every organ of the body, causes many diseases, and reduces the health of smokers in general. Quitting smoking lowers your risk for smoking-related diseases and can add years to your life. We encourage you to visit www.smokefree.gov access to helpful resources including free telephone support. If you decide on prescription treatment to help you quit, your family doctor would be happy to provide these. Follow-up No qualifying data available Problem List/Past Medical History Ongoing Anxiety Axillary abscess BMI 45.0-49.9, adult Depression HTN (hypertension) Hypothyroidism Morbid obesity Vapes nicotine containing substance Historical No qualifying data Procedure/Surgical History Appendectomy, Implantable subdermal contraceptive insertion done, Incision and drainage of abscess. Medications Effexor XR 75 mg Cap-ER, 75 mg= 1 cap(s), Oral, Daily levothyroxine 75 mcg (0.075 mg) Tab, 75 mcg= 1 tab(s), Oral, Daily lisinopril 20 mg Tab, 20 mg= 1 tab(s), Oral, Daily Sprintec oral tablet, 1 tab(s), Oral, Daily Allergies No Known Allergies No Known Medication Allergies Social History Alcohol - Denies Alcohol Use, 09/13/2022 Substance Abuse - Denies Substance Abuse, 09/13/2022 Tobacco Former smoker, quit more than 30 days ago Tobacco Use:. Smokeless tobacco user within last 30 days,Current vaping or e-cigarette use Smokeless Tobacco Use:. Cigarettes, Vaping, 1.5 per day. Started age 18.0 Years. Yes, 09/13/2022 Family History CAD - Coronary artery disease: Mother. Diabetes mellitus type 2: Father. Heart disease: Mother. Hyperthyroidism: Sister. Immunizations Vaccine Date Status Comments SARS-CoV-2 (COVID-19) mRNAMUL.[id number] 07/13/2022 Recorded SARS-CoV-2 (COVID-19) mRNAMUL.ORD![id number] 01/05/2022 Recorded SARS-CoV-2 (COVID-19) mRNA BNT-162b2 vax 05/09/2021 Recorded SARS-CoV-2 (COVID-19) mRNA BNT-162b2 vax 04/02/2020 Recorded 2022-08-30: TPVAL SARS-CoV-2 (COVID-19) mRNA BNT-162b2 vax 03/15/2020 Recorded 2022-08-30: [facility] Comment: Electronically Signed By: KARLA ALCARAZ, Napoleon Smith\Date and Time Signed: 09/13/22 21:07 EDT 08-16-2022 Evaluation note* Encounter Date Diagnosis Assessment Notes Treatment Notes Treatment Clinical Notes July, Abscess, axilla (ICD-10 - L02.419) [facility] Other Evaluation + Plan note No data available for this section [facility] Evaluation noteNo InformationN[facility] Other History general Narrative - Reported* Type Description Date Medical History Hypertension Medical History Depression/anxiety Medical History Hypothyroidism [facility] Other History general Narrative - Reported* Type Description Date Medical History Hypertension Medical History Depression/anxiety Medical History Hypothyroidism Surgical History Problem Title : appe ndectomy, history of, Problem Description : appendectomy, history of, Problem Comment : yes, Problem Status : Inactive, Surgical History Problem Title : Appendectomy, David aldana Status : Active, Surgical History Problem Title : past surgical history reviewed, Problem Description : past surgical history reviewed, Problem Comment : reviewed - no changes required, Problem Status : Inactive, Surgical History Problem Title : surg ical procedures, hx of, Problem Description : surgical procedures, hx of, Problem Comment : Appendectomy Tonsillectomy , Problem Status : Inactive, Surgical History Problem Title : Tonsillectomy, Problem Status : Active, [facility] Other Hospital Discharge instructions No data available for this section [facility] Progress note No data available for this section [facility] Discharge Instructions * Instructions* Kristie Powell MD - 12/28/2018 Return to the Emergency Department immediately if you develop signs of infection including redness,drainage, or you have any other concerns. Please follow up with your family doctor in 1-2 days. * Attachments The following attachments cannot be sent through Care Everywhere. * Abrasions (Cape Verdean) * Video: Care for a Skin Wound (C[place] Verdean) documented in this encounter Assessments Diagnosis Abrasion of right index finger, initial encounter- Primary Advance Directives Documents on File Type Date Recorded Patient Kiln Feeder Expl anation Advance Directives and Living Will Power of Gi Asst Summary Purpose Family History No Family History Records FoundNo Family History Records FoundNo Family History Records FoundNo Family History Records Found Reason for Referral Reason *FU 08/29 MRSA - E R visit, culture in chart from L axillary abscess. Diagnosis 1 Abscess, axilla (L02 .419) Referral Organization [facility] junior Referring Provider First Name Celia Referring Provider Last Name Nelly Referring Provider Specialty [facility] Referred Organization Unknown Facility Referred Provider Napoleon Lawrence Referred Provider Specialty Surgery Referral Priority Routine General Notes Haylee Briggs 02:00:49 PM >[id number] today, attachments made, waiting for notes to be locked Haylee Briggs 08/22/2022 02:50:28 PM >locked and referral faxed Clinical Notes F: [id number] Additional Source Comments Reason for Visit (unrecogniz ed section and content) medication discussion Reason Comments Hand Injury pinched right index finger in wheelchair at 4:40 Pt employee at [employer] INFORMATION SOURCE (unrecogn ized section and content) DATE CREATED AUTHOR 12/30/2018 [facility] DATE CREATED AUTHOR AUTHOR'S ORGANIZ ATION 09/08/2019 [facility] DATE CREATED AUTHOR AUTHOR'S ORGANIZ ATION 12/06/2021 [facility] DATE CREATED AUTHOR AUTHOR'S ORGANIZ ATION 10/19/2022 [facility] Patient Care team informatio n (unrecognized section and content) Personnel Name: CELIA GONZALEZ MD Address: Address: [address] [place] [address] FOR RECORDS PERTAINING TO PATIENTS WHO ARE OR HAVE BEEN ENROLLED IN A CHEMICAL DEPENDENCY/SUBSTANCEABUSE PROGRAM, SOME INFORMATION MAY BE OMITTED. This clinical summary was aggregated from multiple sources. Caution should be exercised in using it in the provision of clinical care. This summary normalizes information from multiple sources, and as a consequence, information in this document may materially change the coding, format and clinical context of patient data. In addition, data may be omitted in some cases. CLINICAL DECISIONS SHOULD BE BASED ON THE PRIMARY CLINICAL RECORDS. [employer] provides no warranty or guarantee of the accuracy or completeness of information in this document.
[2023-04-17 11:09] LABS: Age Gdln ACOG Testing Note (.); IGP, rfx Aptima HPV ASCU Note (.)
== END 2023-04-11 21:05 | disposition home or self-care (01) ==
LOC: LAB 21:04
PROVIDERS: PCP Family Medicine; Visit Provider Physician Assistant
DX: Z01.419 Encounter for gynecological examination (general) (routine) without abnormal findings (principal)
CPT/HCPCS: G0145

== ENCOUNTER 2023-08-23 17:01 | Emergency (ER) | payer BC, SELFPAY ==
[2023-08-23 17:03] VITALS: BP 153/96; PULSE 110; TEMP 36.6; O2SAT 97; BMI 49.5
--- NOTE | 2023-08-23 17:03 | ECG_ITS ---
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
--- NOTE | 2023-08-23 17:26 | ED.SEIZURE1 ---
HPI - Seizure General Chief Complaint: Seizure Stated Complaint: Seizure Time Seen by Provider: 08/23/23 17:08 Source: patient Mode of arrival: ambulance Limitations: no limitations History of Present Illness HPI Narrative: Patient brought to us by squad from her home. Apparently her parents called the rescue squad because they observed a seizure. This is history obtained from the patient. The family members are not here yet. Reviewing her old charts, she was here in February and had her first onset of a seizure. This is a very high working young lady who has not been able to follow-up with a neurologist. She does have insurance. She does have a family doctor but has not followed up with her family doctor either. She admits to nearly daily marijuana use, she is also taking antidepressants. She denies any other illicit drug use or alcohol. She tries to get 5 to 8 hours a good sleep hygiene. She snores, but has never been told that she has sleep apnea or apneic episodes. She does not had a headache or fever or other viral type symptoms. She denies any aches and pains or joint swelling. She was not incontinent of urine. She was awake and alert when the squad arrived. Her previous workup here included laboratory studies and CT imaging. She says she just been too busy to follow-up with any other doctor for any other testing. She does not drive a vehicle. Seizure History: No Related Data Home Medications ?Medication ?Instructions ?Recorded ?Confirmed levothyroxine 88 mcg tablet 88 mcg PO QDAY 08/23/23 08/23/23 lisinopril 20 mg tablet 20 mg PO QDAY 08/23/23 08/23/23 norgestimate 0.25 mg-ethinyl 1 tab PO QDAY 08/23/23 08/23/23 estradiol 35 mcg tablet (Fior) venlafaxine 150 mg 150 mg PO QDAY 08/23/23 08/23/23 capsule,extended release 24 hr Allergies Allergy/AdvReac Type Severity Reaction Status Date / Time No Known Drug Allergies Allergy Verified 08/23/23 17:02 [facility] Social History Smoking status: Current every day smoker Exam Narrative Exam Narrative: Patient was seen on arrival here. She does have slight increase in pulse and blood pressure. However overall she appears very healthy and she is very bright she is oriented x 3 she is not amnesic. I do not smell alcohol on her breath. GCS is 15. HEENT examination is unremarkable except she does have abrasions on the lateral aspect of the left and the right side of her tongue consistent with biting her tongue. Otherwise her uvula is normal her mandible is not recessed there is no tonsillar hypertrophy and her airway is normal. Her neck is soft and supple there is no meningeal irritation. Her lungs were clear with that she not having any coughing congestion or shortness of breath. Neurological examination shows cognition and mental status cranial nerves movement to be all normal. She was not incontinent of urine. Skin and integument are normal with no petechia purpura rash or exanthem. Constitutional Vital Signs, click to edit/add: Last Vital Signs Temp 98 F 08/23/23 17:03 Pulse 110 H 08/23/23 17:03 Resp 14 08/23/23 17:03 BP 153/96 H 08/23/23 17:03 Pulse Ox 97 08/23/23 17:03 O2 Del Method Room Air 08/23/23 17:03 Course Vital Signs Vital signs: Vital Signs Temperature 98 F 08/23/23 17:03 Pulse Rate 110 H 08/23/23 17:03 Respiratory Rate 14 08/23/23 17:03 Blood Pressure 153/96 H 08/23/23 17:03 Pulse Oximetry 97 08/23/23 17:03 Oxygen Delivery Method Room Air 08/23/23 17:03 Temperature 98 F 08/23/23 17:03 Pulse Rate 110 H 08/23/23 17:03 Respiratory Rate 14 08/23/23 17:03 Blood Pressure 153/96 H 08/23/23 17:03 Pulse Oximetry 97 08/23/23 17:03 Oxygen Delivery Method Room Air 08/23/23 17:03 MDM - Seizure MDM Narrative Medical decision making narrative: This patient presents emergency room now with her second episode of seizure. Her family has not come in as of the time of this note. I did speak with her primary care doctor. Under the circumstances we feel we can manage her safely as an outpatient and her PCP will arrange neurology follow-up. We strongly discussed the use of marijuana on a regular basis. We should avoid other environmental situations that can precipitate seizures such as sleep deprivation stimulants flashing lights etc. This lady is very intelligent and agrees for close follow-up and understands the severity of the situation. Care will be turned over to Dr. Kraus to evaluate the laboratory testing before discharge if they are not completed Discharge Plan Discharge Chief Complaint: Seizure Clinical Impression: New onset seizure Patient Disposition: Still a Patient Prescriptions / Home Meds: No Action venlafaxine 150 mg capsule,extended release 24hr 150 mg PO QDAY levothyroxine 88 mcg tablet 88 mcg PO QDAY lisinopril 20 mg tablet 20 mg PO QDAY norgestimate-ethinyl estradiol [Fior] 0.25-35 mg-mcg tablet 1 tab PO QDAY Print Language: [place] Referrals: Celia Villegas MD [Primary Care Provider] - 1 week
[2023-08-23 17:51] LABS: Basophils Percent Auto 0.2 % (0.2-2.0); Eosinophils Absolute Auto 0.1 10^3/uL (0.0-0.7); Eosinophils Percent Auto 0.8 % (0.9-7.0); Hematocrit 42.4 % (36.0-48.0); Hemoglobin 14.2 g/dL (12.0-16.0); Immature Granulocytes Abs Auto 0.08 10^3/uL (0.00-0.03); Immature Granulocytes Pct Auto 0.7 % (0.0-0.5); Lymphocytes Absolute Auto 1.5 10^3/uL (1.2-3.8); Lymphocytes Percent Auto 12.9 % (20.5-60.0); Mean Corpuscular HGB Conc 33.5 g/dL (29.9-35.2); Mean Corpuscular Hemoglobin 31.1 pg (26.7-34.0); Mean Platelet Volume 11.5 fL (9.5-13.5); Monocytes Absolute Auto 0.9 10^3/uL (0.3-0.8); Monocytes Percent Auto 7.6 % (1.7-12.0); Neutrophils Absolute Auto 9.3 10^3/uL (1.4-6.5); Neutrophils Percent Auto 77.8 % (43.0-75.0); Platelet Count 316 10^3/uL (150-450); Red Blood Count 4.56 10^6/uL (4.20-5.40); Red Cell Distribution Width 12.2 % (11.0-15.0); White Blood Count 11.9 10^3/uL (4.0-11.0)
[2023-08-23 18:09] LABS: Alanine Aminotransferase 34 U/L (14-59); Albumin Globulin Ratio 0.9; Albumin Level 3.2 g/dL (3.4-5.0); Alkaline Phosphatase 110 U/L (46-116); Anion Gap 10.5; Aspartate Amino Transferase 21 U/L (15-37); BUN Creatinine Ratio 10.5; Bilirubin Total 0.3 mg/dL (0.2-1.0); Calcium 8.9 mg/dL (8.5-10.1); Carbon Dioxide 27.5 mmol/L (21.0-32.0); Chloride 101 mmol/L (98-107); Estimated GFR (African America >60 (>=60); Estimated GFR (Non-African Ame >60 (>=60); Globulin 3.5 g/dL; Glucose 111 mg/dL (74-106); Sodium 135 mmol/L (136-145); Total Protein 6.7 g/dL (6.4-8.2)
[2023-08-23 18:15] LABS: Thyroid Stimulating Hormone 5.423 uIU/mL (0.358-3.740)
[2023-08-23 18:43] VITALS: BP 126/88; PULSE 82; O2SAT 98
[2023-08-23 19:34] LABS: Lactate/Lactic Acid 2.2 mmol/L (0.4-2.0)
== END 2023-08-23 18:44 | disposition home or self-care (01) ==
PROVIDERS: Emergency Provider Emergency Medicine Emergency Medical Services; PCP Family Medicine
DX: R56.9 Unspecified convulsions (principal); F12.90 Cannabis use, unspecified, uncomplicated; Z79.899 Other long term (current) drug therapy
CPT/HCPCS: 36415; 80053; 83605; 83735; 84443; 85025; 93005; 99284

== ENCOUNTER 2023-09-29 10:31 | Emergency (ER) | payer BC, SELFPAY ==
[2023-09-29] VITALS (10 sets, daily range): BP systolic 119–133; BP diastolic 72–87; PULSE 58–84; TEMP 37.1; O2SAT 88–99; BMI 48.5
--- NOTE | 2023-09-29 10:32 | ECG_ITS ---
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
--- NOTE | 2023-09-29 10:32 | CT_ITS ---
The [address] [address] Patient Name: FOREIGN BOTELLO MRN: [id number] date: 2000 Sex: F Assigned Patient Location: ED.MAIN Current Patient Location: ED.MAIN Accession/Order Number: [id number] Exam Date: 09/29/2023 11:00 Report Date: 09/29/2023 11:52 At the request of: DIALLO JOAQUIN Procedure: CT head/brain wo con EXAM: CT head/brain wo con HISTORY: head trauma . Fall from standing after seizure, closed cranial trauma. Head. COMPARISON: Head CT 03/21/2023 TECHNIQUE: CT head noncontrast. Axial scans with reformatted coronal sagittal images. Individualized dose reduction used for this exam. FINDINGS: No hemorrhage mass or edema seen. No subdural or extra-axial fluid or hematoma. Ventricles normal size midline without mass effect or shift. No fracture or focal bone lesion. Visualized mastoids, middle ear cavities and sinuses clear. Right occipital subcutaneous tissue nodularity is unchanged felt to be incidental. Slight asymmetric prominence left frontal subcutaneous tissues without hematoma or foreign body. CT/CT head/brain wo con IMPRESSION: Negative for acute abnormality brain or skull. No intracranial hemorrhage or evidence of fracture. Electronically authenticated by: APRIL LYNCH Date: 09/29/2023 11:52
[2023-09-29] MEDS: 0.9 % SODIUM CHLORIDE 1,000 ML 1000 ML IV (10:45)
--- NOTE | 2023-09-29 10:56 | ED.SEIZURE1 ---
HPI - Seizure General Chief Complaint: Seizure Stated Complaint: SEIZURE Time Seen by Provider: 09/29/23 10:35 Source: patient Mode of arrival: ambulance Limitations: no limitations History of Present Illness HPI Narrative: The patient comes after she had a seizure at home she have a history of seizure that was diagnosed almost 2 months ago, she was started then on Keppra but 2 days ago she was switched from Keppra to another medication that starts with oxcarbazepine and today is the second day that she is taking it Patient brought to us by the EMS after she had a seizure at home the patient mentioned that she when she woke up she was confused and her mother told her that she had a seizure during which she did bite her upper lip and her tongue. No other complaints at the moment and the patient is back to normal oriented x 3 and have no upper or lower extremity weakness or any other concerns She did mention she had a history of using marijuana Seizure History: Yes Related Data Home Medications ?Medication ?Instructions ?Recorded ?Confirmed levothyroxine 88 mcg tablet 100 mcg PO QDAY 08/23/23 09/29/23 lisinopril 20 mg tablet 20 mg PO QDAY 08/23/23 09/29/23 norgestimate 0.25 mg-ethinyl 1 tab PO QDAY 08/23/23 09/29/23 estradiol 35 mcg tablet (Fior) venlafaxine 150 mg 150 mg PO QDAY 08/23/23 09/29/23 capsule,extended release 24 hr oxcarbazepine 300 mg tablet 150 mg PO BID 09/29/23 09/29/23 Previous Rx's ?Medication ?Instructions ?Recorded amoxicillin 875 mg-potassium 1 tab PO Q12H #14 tabs 09/29/23 clavulanate 125 mg tablet Allergies Allergy/AdvReac Type Severity Reaction Status Date / Time No Known Drug Allergies Allergy Verified 08/23/23 17:02 Review of Systems ROS Status of ROS 10 or more systems reviewed and unremarkable except as noted in history and below [facility] Social History Smoking status: Current every day smoker Exam Narrative Exam Narrative: Nurses notes and vital signs reviewed and patient is not hypoxic. General: Well-appearing and in no apparent distress. Skin: Warm, dry, no pallor noted. No rash. Head: Normocephalic, there is a small hematoma almost 2 to 3 cm in the left forehead and no open wounds Neck: Supple, non-tender. Eye: Pupils are equal, round and EOMI. No scleral icterus. The patient have a small abrasion and almost 3 mm bite niharika on the upper lip from inside in the middle of the lip, small abrasion to the right side of the tongue as well due to irritation Respiratory: No accessory muscle use or respiratory distress. Lungs are clear to auscultation, no wheezing, rales or rhonchi Chest Wall: no tenderness Back: No midline thoracic or lumbar vertebral tenderness. No CVA tenderness Musculoskeletal: normal ROM, no calf or popliteal tenderness, no lower extremity edema/swelling GI: Abdomen is soft, non-distended. Normal bowel sounds. No masses appreciated. No tenderness to palpation. No rebound, guarding, or rigidity noted. Neurological: A&O x4. No cranial nerve dysfunction observed. No truncal ataxia. Moves all extremities. Sensation intact. Psychiatric: Cooperative and interactive. Normal mood and affect. Constitutional Vital Signs, click to edit/add: Last Vital Signs Temp 98.7 F 09/29/23 10:40 Pulse 63 09/29/23 11:45 Resp 22 H 09/29/23 11:45 BP 131/87 09/29/23 11:45 Pulse Ox 99 09/29/23 11:45 O2 Del Method Room Air 09/29/23 10:56 Course Vital Signs Vital signs: Vital Signs Pulse Rate 58 L 09/29/23 10:29 Respiratory Rate 18 09/29/23 10:29 Blood Pressure 133/82 09/29/23 10:29 Pulse Oximetry 96 09/29/23 10:29 Oxygen Delivery Method Room Air 09/29/23 10:29 Temperature 98.7 F 09/29/23 10:40 Pulse Rate 63 09/29/23 11:45 Respiratory Rate 22 H 09/29/23 11:45 Blood Pressure 131/87 09/29/23 11:45 Pulse Oximetry 99 09/29/23 11:45 Oxygen Delivery Method Room Air 09/29/23 10:56 MDM - Seizure MDM Narrative Medical decision making narrative: EKG showing sinus rhythm with a heart rate of [address] elevation or depression The patient CBC and chemistry showed no acute pathology She was provided with an extra dose of her antiseizure medication and she was instructed that for the next few days as she is just starting a new medication she have to be cautious when she is at as she could possibly have another seizure Patient will follow-up with her doctor within the week for further evaluation management Augmentin provided as a prophylaxis for the lip wound The patient is to follow up with primary care physician in next 2-3 days or to return to the emergency department should any of the signs or symptoms worsen or new symptoms develop. The patient agrees with the following Diagnosis and Treatment plan and the patient will be discharged home. Lab Data Labs: Lab Results 09/29/23 Range/Units 10:42 WBC 12.0 H (4.0-11.0) 10^3/uL RBC 4.44 (4.20-5.40) 10^6/uL Hgb 14.1 (12.0-16.0) g/dL Hct 41.3 (36.0-48.0) % MCV 93.0 (81.0-99.0) fL MCH 31.8 (26.7-34.0) pg MCHC 34.1 (29.9-35.2) g/dL RDW 12.0 (11.0-15.0) % Plt Count 339 (150-450) 10^3/uL MPV 11.6 (9.5-13.5) fL Neut % (Auto) 75.8 H (43.0-75.0) % Lymph % (Auto) 14.5 L (20.5-60.0) % [place] % (Auto) 7.0 (1.7-12.0) % Eos % (Auto) 1.3 (0.9-7.0) % Baso % (Auto) 0.3 (0.2-2.0) % Neut # (Auto) 9.1 H (1.4-6.5) 10^3/uL Lymph # (Auto) 1.7 (1.2-3.8) 10^3/uL [place] # (Auto) 0.8 (0.3-0.8) 10^3/uL Eos # (Auto) 0.2 (0.0-0.7) 10^3/uL Baso # (Auto) 0.0 (0.0-0.1) 10^3/uL Abs Immat Gran (auto) 0.13 H (0.00-0.03) 10^3/uL Imm/Tot Granulo (auto) 1.1 H (0.0-0.5) % Sodium 138 (136-145) mmol/L Potassium 4.1 (3.5-5.1) mmol/L Chloride 104 (98-107) mmol/L Carbon Dioxide 27.2 (21.0-32.0) mmol/L Anion Gap 10.9 BUN 8.0 (7.0-18.0) mg/dL Creatinine 0.72 (0.55-1.02) mg/dL Est GFR ( Amer) >60 (>=60) Est GFR (Non-Af Amer) >60 (>=60) BUN/Creatinine Ratio 11.1 Glucose 93 (74-106) mg/dL Calcium 8.9 (8.5-10.1) mg/dL Magnesium 2.0 (1.8-2.4) mg/dL Total Bilirubin 0.3 (0.2-1.0) mg/dL AST 16 (15-37) U/L ALT 27 (14-59) U/L Alkaline Phosphatase 121 H (46-116) U/L Total Protein 6.5 (6.4-8.2) g/dL Albumin 2.8 L (3.4-5.0) g/dL Globulin 3.7 g/dL Albumin/Globulin Ratio 0.8 Serum HCG, Qual Negative (NEGATIVE) Discharge Plan Discharge Stand Alone Forms: Portal Instructions Chief Complaint: Seizure Clinical Impression: Seizure, Other superficial bite of lip, subsequent encounter Patient Disposition: Home, Self-Care Time of Disposition Decision: 12:13 Condition: Good Prescriptions / Home Meds: New amoxicillin-pot clavulanate 875-125 mg tablet 1 tab PO Q12H Qty: 14 0RF No Action venlafaxine 150 mg capsule,extended release 24hr 150 mg PO QDAY levothyroxine 88 mcg tablet 100 mcg PO QDAY lisinopril 20 mg tablet 20 mg PO QDAY norgestimate-ethinyl estradiol [Fior] 0.25-35 mg-mcg tablet 1 tab PO QDAY oxcarbazepine 300 mg tablet 150 mg PO BID Patient Comments: for 1 week, then 1 tab 2x daily for 1 week, then 1 tab in morning and 2 tabs in bedtime. Print Language: Divehi Instructions: Epilepsy in Older Adults (ED) Referrals: Celia Villegas MD [Primary Care Provider] - 1 week Discharge Date/Time: 09/29/23 12:24
--- OUTSIDE RECORDS SUMMARY | 2023-09-29 11:04 | XMS_ITS | CCD ---
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 Role Phone Celia Gonzalez Primary Care Provider KRISTIE POWELL Attending Unavailable CARLOS, CELIA Primary Care Unavailable KARASIK, DR SHELL Attending Unavailable GONZALEZ, DR CELIA Castillo Primary Care Unavailable KARASIK, DR SHELL Admitting Unavailable KARASIK, DR SHELL Consulting Unavailable GONZALEZ, DR CELIA Castillo Primary Care Unavailable KARASIK, DR SHELL Admitting Unavailable KARASIK, DR SHELL Consulting Unavailable KARASIK, DR SHELL Attending Unavailable Celia Gonzalez Unavailable CELIA GONZALEZ Primary Care Physician Napoleon LAWRENCE Attending Unavailable GONZALEZ, CELIA Referring Unavailable GONZALEZ, CELIA Referring Unavailable NILL, Napoleon Dumas Attending Unavailable NILL, Napoleon Dumas Attending Unavailable NILL, Napoleon Dumas Attending Unavailable OLGAMARY Attending Unavailable ANNIKAYANA Attending Unavailable CARLOS, CELIA Referring Unavailable Allergies Allergy Classification Reported Allergen(s) Allergy Type Date of Onset Reaction(s) Facility (1 source) No Known Medication Allergies; Translations: [No Known Medication Allergies] Propensity to adverse reactions (disorder) [facility] Repository (1 source) patient allergy list reviewed by nurse or physicia Propensity to adverse reactions 9 Comment:Done [employer] Other (1 source) Allergies Reconciled Propensity to adverse reactions Unknown [employer] Other Medications Current Medications Medication Drug Class(es) Dates Sig (Normalized) Sig (Original) cephalexin 500 mg oral capsule (4 sources) Cephalosporin Antibacterial take 1 capsule by mouth every six hours Cephalexin 500 MG 1 capsule Orally Four times a day Active Norgestimate-Ethi nyl Estradiol (7 sources) Progestin, Estrogen Start: 08-24-2023 take 1 tablet by mouth once daily Norgestimate-Ethi nyl Estradiol (Sprintec (28)) 0.25-35 mg-mcg tablet Active 1 TAB PO Daily August 24, 2023 12:00am [employer] tablet Orally Once a day; Note: Source Status: Taking; Provider: Carlos Yang ( ) Start: 08-30-2022 take 1 tablet by irene th once daily Sprintec oral tablet 1 tab(s), Oral, Daily, Refill(s) 0 Start Date: 08/30/22 Status: Ordered take 1 tablet by irene th every twenty-four hours Sprintec 28 0.25-35 MG-MCG 1 tablet Orally Once a day Active levothyroxine sodium 0.1 mg oral tablet (10 sources) l-Thyroxine Start: 08-27-2023 take 100 ug by mouth once daily Levothyroxine Active 100 MCG PO Daily August 27, 2023 12:00am Start: 08-01-2023 End: 08-27-2023 take 1 tablet by mouth once daily in the morning Levothyroxine Discontinued 0 .ROUTE .COMPLEX August 01, 2023 1:48pm August 27, 2023 1:42pm TAKE 1 TABLET BY MOUTH EVERY DAY IN THE MORNING ON EMPTY STOMACH FOR 90 DAYS Start: 08-01-2023 End: 08-01-2023 take 88 ug by mouth once daily Levothyroxine Discontin ued 88 MCG PO Daily August 01, 2023 12:00am August 01, 2023 1:48pm Start: 08-30-2022 take 1 tablet by irene th once daily levothyroxine 75 mcg (0.075 mg) Tab 75 mcg = 1 tab(s), Oral, Daily, Refills(s) 0 Start Date: 08/30/22 Status: Ordered take 1 tablet by irene th once daily Levothyroxine Sodium 88 MCG TAKE 1 TABLET BY MOUTH EVERY DAY Active take 1 tablet by irene th once daily in the morning Levothyroxine Sodium 75 MCG 1 tablet in the morning on an empty stomach Orally Once a day Active take 1 tablet by irene th once daily levothyroxine (SYNTHROID) 75 MCG tablet Take 75 mcg by mouth Daily 0 Active lisinopril 20 mg oral tablet (8 sources) Angiotensin Converting Enzyme Inhibitor Start: 08-24-2023 take 1 tablet by mouth once daily Lisinopril Active 20 MG PO Daily August 24, 2023 12:00am Free[employer]: TAKE 1 TABLET BY MOUTH EVERY DAY; Note: Source Status: Continue; Provider: Carlos Yang ( ) Start: 08-30-2022 take 1 tablet by irene th once daily lisinopril 20 mg Tab 20 mg = 1 tab(s), Oral, Daily, Refills(s) 0 Start Date: 08/30/22 Status: Ordered take 1 tablet by irene th once daily lisinopril (PRINIVIL;ZESTRIL) 10 MG tablet Take 10 [...] 25 mg by mouth daily 0 Active 24 hr venlafaxine 150 mg extended release oral capsule (7 sources) Serotonin and Norepinephrine Reuptake Inhibitor Start: 024 take 1 capsule by mouth once daily Venlafaxine Active 1 CAP PO Daily August 24, 2023 12:00am [employer]: TAKE 1 CAPSULE BY MOUTH EVERY DAY; Note: Source Status: Refill; Refills: 3; Qty: 90 Capsule; Provider: Carlos Castillo Start: 08-30-2022 take 1 capsule by mo [facility] once daily Effexor XR 75 mg Cap-ER 75 mg = 1 cap(s), Oral, Daily, Refills(s) 0 Start Date: 08/30/22 Status: Ordered take 1 capsule by mo ut once daily Venlafaxine HCl ER 150 MG TAKE 1 [...] End: 12-28-2018 ibuprofen (ADVIL;MOTRIN) tablet 400 mg sulfamethoxazole 800 mg / trimethoprim 160 mg oral tablet (5 sources) Dihydrofolate Reductase Inhibitor Antibacterial, Sulfonamide Antimicrobial Start: 08-02-2023 End: 08-27-2023 take 1 tablet by mouth twice daily Sulfamethoxazole- Trimethoprim Discontinued 1 TAB PO Twice daily August 02, 2023 12:00am August 27, 2023 1:41pm take 1 tablet by irene th every twelve hours Sulfamethoxazole-Trimethoprim 800-160 MG 1 tablet Orally Twice a day Active Problems Active Problems Problem Classification Problem Date [...] Results Test Name Value Interpretation Reference Range Facility Basophils Auto (Bld) [#/Vol] on 08-23-2023 Basophils (Bld) [#/Vol] 0.0 10 3/uL 0.0-0.1 [facility] Basophils/100 WBC Auto (Bld) on 08-23-2023 Basophils/100 WBC (Bld) 0.2 % 0.2-2.0 [facility] Eosinophils/100 WBC Auto (Bl d)on 08-23-2023 Eosinophils/100 WBC (Bld) 0.8 % 0.9-7.0 [facility] Erythrocyte distribution wid th Auto (RBC) [Ratio]on 08-23-2023 Erythrocyte distribution width (RBC) [Ratio] 12.2 % 11.0-15.0 [facility] Estimated glomerular filtrat ion rate (GFR) non- Americanon 08-23-2023 GFR/1.73 sq M.predicted among non-blacks MDRD (S/P/Bld) [Vol rate/Area] mL/min/{1.73_m2} >=60 [facility] Globulin Calc (S) [Mass/Vol] on 08-23-2023 Globulin (S) [Mass/Vol] 3.5 g/dL [facility] Hematocrit Auto (Bld) [Volum e fraction]on 08-23-2023 Hematocrit (Bld) [Volume fraction] 42.4 % 36.0-48.0 [facility] Hemoglobin [Mass/volume] in Bloodon 08-23-2023 Hemoglobin (Bld) [Mass/Vol] 14.2 g/dL 12.0-16.0 [facility] Laboratory - Chemistry and C hemistry - challengeon 08-23-2023 Albumin [Mass/Vol] 3.2 g/dL 3.4-5.0 [facility] ALP [Catalytic activity/Vol] 110 U/L 46-116 [facility] ALT [Catalytic activity/Vol] 34 U/L 14-59 [facility] AST [Catalytic activity/Vol] 21 U/L 15-37 [facility] Bilirubin [Mass/Vol] 0.3 mg/dL 0.2-1.0 [facility] Calcium [Mass/Vol] 8.9 mg/dL 8.5-10.1 [facility] Chloride [Moles/Vol] 101 mmol/L 98-107 [facility] CO2 [Moles/Vol] 27.5 mmol/L 21.0-32.0 [facility] Creatinine [Mass/Vol] 0.76 mg/dL 0.55-1.02 [facility] GFR/1.73 sq M.predicted MDRD (S/P/Bld) [Vol rate/Area] mL/min/{1.73_m2} >=60 [facility] Glucose [Mass/Vol] 111 mg/dL 74-106 [facility] Lactate [Moles/Vol] 2.2 mmol/L 0.4-2.0 [facility] Comment on above: RESULTS CALLED TO Stephanie LIU)@BY DARI Saini at 191 Magnesium [Mass/Vol] 2.0 mg/dL 1.8-2.4 [facility] Potassium [Moles/Vol] 4.0 mmol/L 3.5-5.1 [facility] Protein [Mass/Vol] 6.7 g/dL 6.4-8.2 [facility] Sodium [Moles/Vol] 135 mmol/L 136-145 [facility] TSH Qn 5.423 m[IU]/L 0.358-3.740 [facility] Urea nitrogen [Mass/Vol] 8.0 mg/dL 7.0-18.0 [facility] Urea nitrogen/Creatinine [Mass ratio] 10.5 mg/mg [facility] Laboratory - Hematology and Cell countson 08-23-2023 Immature granulocytes/100 WBC (Bld) 0.7 % 0.0-0.5 [facility] Leukocytes [#/volume] correc marisel for nucleated erythrocytes in Blood by Automated counon 08-23-2023 WBC corrected for nucl RBC Auto (Bld) [#/Vol] 11.9 10 3/uL 4.0-11.0 [facility] Lymphocytes Auto (Bld) [#/Vo l]on 08-23-2023 Lymphocytes (Bld) [#/Vol] 1.5 10 3/uL 1.2-3.8 [facility] Lymphocytes/100 WBC Auto (Bl d)on 08-23-2023 Lymphocytes/100 WBC (Bld) 12.9 % 20.5-60.0 [facility] MCH Auto (RBC) [Entitic mass ]on 08-23-2023 MCH (RBC) [Entitic mass] 31.1 pg 26.7-34.0 [facility] MCHC Auto (RBC) [Mass/Vol]on 08-23-2023 MCHC (RBC) [Mass/Vol] 33.5 g/dL 29.9-35.2 [facility] MCV Auto (RBC) [Entitic vol] on 08-23-2023 MCV (RBC) [Entitic vol] 93.0 fL 81.0-99.0 [facility] Monocytes Auto (Bld) [#/Vol] on 08-23-2023 Monocytes (Bld) [#/Vol] 0.9 10 3/uL 0.3-0.8 [facility] Monocytes/100 WBC Auto (Bld) on 08-23-2023 Monocytes/100 WBC (Bld) 7.6 % 1.7-12.0 [facility] Neutrophils Auto (Bld) [#/Vo l]on 08-23-2023 Neutrophils (Bld) [#/Vol] 9.3 10 3/uL 1.4-6.5 [facility] Neutrophils/100 WBC Auto (Bl d)on 08-23-2023 Neutrophils/100 WBC (Bld) 77.8 % 43.0-75.0 [facility] No Panel Informationon 08-22 Eosinophils # (Auto) 0.1 10 3/uL 0.0-0.7 [facility] Immature Granulocyte # (Auto) 0.08 10 3/uL 0.00-0.03 [facility] Platelet mean volume Auto (B ld) [Entitic vol]on 08-23-2023 Platelet mean volume (Bld) [Entitic vol] 11.5 fL 9.5-13.5 [facility] Platelets Auto (Bld) [#/Vol] on 08-23-2023 Platelets (Bld) [#/Vol] 316 10 3/uL 150-450 [facility] RBC Auto (Bld) [#/Vol]on RBC (Bld) [#/Vol] 4.56 10 6/uL 4.20-5.40 [facility] Serum or plasma albumin/glob ulin mass ratioon 08-23-2023 Albumin/Globulin [Mass ratio] 0.9 {ratio} [facility] Serum or plasma anion gap de terminationon 08-23-2023 Anion gap [Moles/Vol] 10.5 mmol/L [facility] Ambulatory Visit Summaryon 0 10-18-2022 Ambulatory Visit Summary FOREIGN BOTELLO :2000 Visit Date:10/18/2022 Ambulatory Visit Instructions Your Diagnosis Axillary abscess BMI 45.0-49.9, adult Vapes nicotine containing substance Your Care Team Attending Physician - KARLA ALCARAZ, Napoleon Dumas Primary Care Physician - CARLOS ALCARAZ, CELIA This Is Your Medications List sulfamethoxazole-trim ethoprim (Bactrim D.S. 800 mg-160 mg Tab) Contact prescribing physician if questions or concerns ethinyl estradiol-norgestimat e (Sprintec oral tablet) levothyroxine (levothyroxine 75 mcg [...] What How Much When Why Instructions New sulfamethoxazole-trim ethoprim (Bactrim D.S. 800 mg-160 mg Tab) 1 Tablets By Mouth 2 times a day Axillary abscess BMI 45.0-49.9, adult Vapes nicotine containing substance Duration: 5 Days Pickup at [facility]/pharmacy #[id number] Unchanged ethinyl estradiol-norgestimat e (Sprintec oral tablet) 1 Tablets By Mouth [...] physician if questions or concerns Pharmacy Information [facility]/pharmacy #[id number]: [address], [place] [id number] [phone] Allergies No Known Allergies No Known Medication Allergies Problems Ongoing - Any problem that you are currently receiving treatment for. Anxiety Axillary abscess BMI 45.0-49.9, adult Depression HTN (hypertension) Hypothyroidism Morbid obesity Vapes nicotine containing substance [facility] Ambulatory Visit Summaryon 0 09-13-2022 Ambulatory Visit Summary FOREIGN BOTELLO :2000 Visit Date:09/13/2022 Ambulatory Visit Instructions Your Care Team Attending Physician - KARLA ALCARAZ, Napoleon Dumas Primary Care Physician - CARLOS ALCARAZ, CELIA This Is Your Medications List ethinyl estradiol-norgestimat e (Sprintec oral tablet) levothyroxine (levothyroxine 75 mcg [...] What How Much When Instructions Unchanged ethinyl estradiol-norgestimat e (Sprintec oral tablet) 1 Tablets By Mouth [...] Depression HTN (hypertension) Hypothyroidism Morbid obesity Normal [facility] ED Note-Physicianon 09-04-19 ED Note-Physician [id number]:127 [facility] Lab Reportson 09-03-2022 Lab Reports [id number]:127 [facility] Physician Referralon 023 Physician Referral [id number]:127 [facility] PAP ACOG PANEL 2: 21 to 29on 12-05-2021 . . [facility] Comment on above: Performed By: #### [id number] #### [facility] [address] [place] [address] Dr. Ammon Urena Age Gdln ACOG Testing - [facility] Comment on above: Performed By: #### [id number] #### [facility] [address] [address] [address] Ammon Urena DIAGNOSIS: Comment [facility] Comment on above: Result Comment: NEGA TIVE FOR INTRAEPITHELIAL LESION OR MALIGNANCY. Performed By: #### 4 [id number] #### [facility] [address] [place] [address] Dr. Ammon Urena Methodology: Comment [facility] Comment on above: Result Comment: This liquid based ThinPrep(R) pap test was screened with the use of an image guided system. Performed By: #### [id number] #### [facility] [address] [place] [address] Dr. Ammon Urena Note: Comment [facility] Comment on above: Result Comment: The Pap smear is a screening test designed to aid in the detection of premalignant and malignant conditions of the uterine cervix. It is not a diagnostic procedure and should not be used as the sole means of detecting cervical cancer. Both false-positive and false-negative reports do occur. . Performed By: #### [id number] #### [facility] [address] [place] [address] Dr. Ammon Urena Performed by: Comment Normal [facility] Comment on above: Result Comment: Joanne Sosa, Photographer Apprentice (ASCP) Performed By: #### [id number] #### [facility] [address] [place] [address] Dr. Ammon Urena Reflex Criteria: Comment [facility] Comment on above: Result Comment: The HPV DNA reflex criteria were not met with this specimen result therefore, no HPV testing was performed. . Performed By: #### 4 [id number] #### [facility] [address] [place] [address] Dr. Ammon Urena Specimen adequacy: Comment Normal [facility] Comment on above: Result Comment: Sati sfactory for evaluation. Endocervical and/or squamous metaplastic cells (endocervical component) are present. Performed By: #### 4 [id number] #### [facility] [address] [place] [address] Dr. Ammon Urena PAP ACOG PANEL 2: 21 to 29on 11-04-2021 . . Normal [facility] Comment on above: Performed By: #### 4 [id number] #### [facility] [address] [place] [address] Dr. Ammon Urena Age Gdln ACOG Testing 21-29 Normal [facility] Comment on above: Performed By: #### 4 [id number] #### [facility] [address] [place] [address] Dr. Ammon Urena DIAGNOSIS: Comment [facility] Comment on above: Result Comment: UNSA TISFACTORY FOR EVALUATION. Performed By: #### 4 [id number] #### [facility] [address] [place] [address] Dr. Ammon Urena Methodology: Comment [facility] Comment on above: Result Comment: This liquid based ThinPrep(R) pap test was screened with the use of an image guided system. Performed By: #### 4 [id number] #### [facility] [address] [place] [address] Dr. Ammon Urena Note: Comment [facility] Comment on above: Result Comment: The Pap smear is a screening test designed to aid in the detection of premalignant and malignant conditions of the uterine cervix. It is not a diagnostic procedure and should not be used as the sole means of detecting cervical cancer. Both false-positive and false-negative reports do occur. . Performed By: #### [id number] #### [facility] [address] [place] [address] Dr. Ammon Urena Performed by: Comment Normal [facility] Comment on above: Result Comment: Alexa Toledo, Photographer Apprentice (ASCP) Performed By: #### 4 [id number] #### [facility] [address] [place] [address] Dr. Ammon Urena QC reviewed by: Comment [facility] Comment on above: Result Comment: Josh Hartman, Supervisory Photographer Apprentice (ASCP) Performed By: #### 4 [id number] #### [facility] [address] [place] [address] Dr. Ammon Urena Recommendation: Comment Normal [facility] Comment on above: Result Comment: Sugg est follow up as clinically appropriate. Performed By: #### 4 [id number] #### [facility] [address] [place] [address] Dr. Ammon Urena Reflex Criteria: Comment Normal [facility] Comment on above: Result Comment: The HPV DNA reflex criteria were not met with this specimen result therefore, no HPV testing was performed. . Performed By: #### 4 [id number] #### [facility] [address] [place] [address] Dr. Ammon Urena Specimen adequacy: Comment Normal [facility] Comment on above: Result Comment: Spec imen processed and examined but unsatisfactory for evaluation of epithelial abnormality because of obscuring inflammatory exudate. Performed By: #### [id number] #### [facility] [address] [place] [address] Dr. Ammon Urena CHLAMYDIA/GONOCOCCUS NATALI ( AB/URINE/PAPon 11-03-2021 Chlamydia trachomatis, NATALI Negative Normal Negative [facility] Comment on above: Performed By: #### C T/NGNA #### [facility] [address] [place] [address] Dr. Ammon Urena Neisseria gonorrhoeae, NATALI Negative Normal Negative [facility] Comment on above: Performed By: #### C T/NGNA #### [facility] [address] [place] [address] Dr. Ammon Urena VAGINITIS/VAGINOSIS DNA PROB [place] 11-02-2021 Laura species Negative Normal Negative [facility] Comment on above: Performed By: #### V AGINT #### [facility] [address] [place] [address] Dr. Ammon Urena Gardnerella vaginalis Positive Abnormal Negative [facility] Comment on above: Performed By: #### V AGINT #### [facility] [address] [place] [address] Dr. Ammon Urena Trichomonas vaginalis Negative Normal Negative [facility] Comment on above: Performed By: #### V AGINT #### [facility] [address] [place] [address] Dr. Ammon Urena Vital Signs Date Time Vital Sign Value Performing Clinician Facility 08-27-2023 13:18-0400 Body height 149.86 cm [facility] 08-27-2023 13:18-0400 Body mass index (BMI) [Ratio] 50.1 kg/m2 [facility] 08-27-2023 13:18-0400 Body weight 112.49 kg [facility] 08-27-2023 13:18-0400 Diastolic blood pressure 80 mm[Hg] [facility] 08-27-2023 13:18-0400 Heart rate 78 /min [facility] 08-27-2023 13:18-0400 Systolic blood pressure 130 mm[Hg] [facility] 02-07-2023 10:30-0500 Body height 149.86 cm Celia Gonzalez Other [facility] [employer] Other 02-07-2023 10:30-0500 Body mass index (BMI) [Ratio] 49.2 kg/m2 Celia Gonzalez Other [employer] Other 02-07-2023 10:30-0500 Body weight 110.5 kg Celia Gonzalez Other [employer] Other 02-07-2023 10:30-0500 Diastolic blood pressure 76 mm[Hg] Celia Gonzalez Other [employer] Other 02-07-2023 10:30-0500 Systolic blood pressure 149 mm[Hg] Celia Gonzalez Other [employer] Other 09-13-2022 15:04-0400 Blood Pressure Location Napoleon LAWRENCE [facility] [place] 09-13-2022 15:04-0400 Diastolic blood pressure 80 mm[Hg] Napoleon LAWRENCE [facility] [place] 09-13-2022 15:04-0400 Heart rate 70 /min Napoleon LAWRENCE [facility] [place] 09-13-2022 15:04-0400 Respiratory rate 16 /min Napoleon LAWRENCE [facility] [place] 09-13-2022 15:04-0400 Systolic blood pressure 122 mm[Hg] Napoleon LAWRENCE [facility] [place] 08-16-2022 09:30-0400 Body height 149.86 cm Celia Gonzalez Other [employer] Other 08-16-2022 09:30-0400 Body mass index (BMI) [Ratio] 48.67 kg/m2 Celia Gonzalez Other [employer] Other 08-16-2022 09:30-0400 Body weight 109.32 kg Celia Gonzalez Other [employer] Other 08-16-2022 09:30-0400 Diastolic blood pressure 82 mm[Hg] Celia Gonzalez Other [employer] Other 08-16-2022 09:30-0400 Systolic blood pressure 130 mm[Hg] Celia Gonzalez Other [employer] Other 12-28-2018 17:41-0400 BMI (Body Mass Index) 22.14 kg/m2 [facility] 12-28-2018 17:41-0400 Body Temperature 97.2 [degF] [facility] 12-28-2018 17:41-0400 Body weight 49.[address] [facility] 12-28-2018 17:41-0400 BP Diastolic 95 mm[Hg] [facility] 12-28-2018 17:41-0400 BP Systolic 150 mm[Hg] [facility] 12-28-2018 17:41-0400 Height 149.[address] [facility] 12-28-2018 17:41-0400 Pulse (Heart Rate) 83 /min [facility] 12-28-2018 17:41-0400 Pulse Oximetry 98 % [facility] 12-28-2018 17:41-0400 Respiratory Rate 20 /min [facility] Encounters Encounter Date Encounter Type Care Provider Facility Start: 09-26-2023 End: 09-26-2023 ambulatory YANA ROBLERO Not Available Start: 08-27-2023 End: 08-27-2023 ambulatory [facility] Work Phone: Start: 08-27-2023 End: 08-27-2023 Patient encounter procedure [facility] Physician [facility] Work Phone: Start: 08-23-2023 Non-patient / Non-visit [facility] Start: 08-01-2023 Non-patient / Non-visit [facility] Physician [facility] Work Phone: Start: 04-11-2023 End: 04-11-2023 ambulatory MARY ESPINOZA Not Available Start: 02-07-2023 End: 02-07-2023 ambulatory Celia Gonzalez Other [employer] Other Start: 02-07-2023 Office outpatient vi sit 15 minutes Celia Gonzalez [facility] Start: 10-18-2022 End: 10-19-2022 ambulatory Napoleon R NILL Facility: [facility] Start: 10-10-2022 End: 10-10-2022 ambulatory Celia Gonzalez Other [employer] Other Start: 10-10-2022 Telephone encounter Celia Gonzalez [facility] Start: 09-13-2022 End: 09-14-2022 ambulatory Napoleon R NILL Facility: [place] Start: 09-13-2022 End: 09-13-2022 Patient encounter procedure Napoleon R NILL [facility] Nill[facility] [place] Start: 09-08-2022 ambulatory CELIA GONZALEZ Facility:[facility] Start: 08-23-2022 ambulatory Napoleon LAWRENCE Facility :[facility] Start: 08-22-2022 End: 08-22-2022 ambulatory Celia Gonzalez Other [employer] Other Start: 08-22-2022 Telephone encounter Celia Gonzalez [facility] 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[employer] Start: 08-18-2022 End: 08-18-2022 ambulatory Celia Gonzalez Other [employer] Other Start: 08-18-2022 Telephone encounter Celia Gonzalez [facility] Start: 08-16-2022 End: 08-16-2022 ambulatory Celia Gonzalez Other [employer] Other Start: 08-16-2022 Office outpatient vi sit 15 minutes Celia Gonzalez [facility] Start: 01-25-2022 Gynecological examin ation normal Celia Gonzalez Other [employer] Other Start: 01-25-2022 Routine or ch ild health check Celia Gonzalez Other [employer] Other Start: 11-29-2021 End: 11-29-[address] CELIA GONZALEZ Facility:[facility] Start: 10-31-2021 End: 10-31-[address] SULEMNA HUERTA Facility:[facility] Start: 12-28-2018 End: 12-28-2018 Emergency department [facility] Start: 12-28-2018 End: 12-28-2018 Emergency department patient visit [facility] Work Phone: [facility] Comment on above: Abrasion of right in dex finger, initial encounter (Primary Dx) Procedures Date Procedure Procedure Detail Performing Clinician Start: 12-28-2018 WOUND CARE KRISTIE LISA Appendectomy Napoleon LAWRENCE Contraception care education Celia Gonzalez Other Incision and drainag e of abscess Napoleon LAWRENCE Comment on above: left axilla Insertion of subcuta neous contraceptive done Napoleon PAPPASMitra Plan of Treatment Date Care Activity Detail Author Start: 11-24-2018 Influenza vaccination Flu vaccine (# 1) [place], [place] Start: 1999 Creatinine monitoring Creatinine mon itoring [place], [place] Start: 1999 Potassium monitoring [facility] [place] [place] Immunizations Immunization Date Immunization Notes Care Provider Fa cility 07-13-2022 SARS-CoV-2 (COVID-19 ) [id number] Napoleon PAPPASL [facility] [place] 01-05-2022 SARS-CoV-2 (COVID-19 ) [id number].[id number] Napoleon PAPPASL [facility] [place] 05-09-2021 SARS-CoV-2 (COVID-19 ) mRNA BNT-162b2 vax Napoleon PAPPASL [facility] [place] 04-02-2020 SARS-CoV-2 (COVID-19 ) mRNA BNT-162b2 vax Napoleon PAPPASL [facility] Comment on above: Result Comment: 2022: TPVAL 03-15-2020 SARS-CoV-2 (COVID-19 ) mRNA BNT-162b2 vax Napoleon PAPPASL [facility] [place] Comment on above: Result Comment: 2022: TPVAL 12-28-2018 diphtheria, tetanus toxoids and acellular pertussis vaccine, unspecified formulation [place], [place] 12-28-2018 tetanus toxoid, redu elva diphtheria toxoid, and acellular pertussis vaccine, adsorbed [place], [place] Payers Date Payer Category Payer Unknown [facility] [id number] 2018-Present [phone] [address] [address] [place] [address] [id number] 2018 Unknown [id number] 2018 Unknown BCBS [place] P PO xxxxxxxxxxxx 2018-Present [address] [place] [address] xxxxxxxxxxxx [id number] 1999 Unknown [id number] 1999 Unknown [id number] 1999 Unknown [id number] 1999 Unknown [id number] 1999 Unknown [id number] 1999 Unknown [id number] 1999 Unknown [id number] [id number] 1999 Unknown [id number] 9 1999 Unknown [id number] 9 1959 Unknown [id number] Social History Date Type Detail Facility [facility] [place] [place] Start: 12-28-2018 Alcohol intake Not Currently [facility] Sex Assigned At Not on file [place] Start: 09-13-2022 Tobacco smoking status Ex-smoker (fi nding) [facility] Tobacco smoking status Smokeless tobacco user within last 30 days [facility] Start: 1999 Sex Assigned At Female F [facility] Functional Status Date Assessment Result Facility 09-13-2022 Functional Status N/A General Sy karl Clarke Clinical Notes 08-16-2022 to 02-07-2023 Note Date & Type Note Facility 02-07-2023 Evaluation note Encounter Date Diagnosis Assessment Notes Jan, Hypothyroidism, unspecified (ICD-10 - E03.9) Overdue for labs. Jan, Moderate major depression (ICD-10 - F32.1) Pt agreed to increase her dose. Consider counseling if needed. Jan, Essential (primary) hypertension (ICD-10 - I10) Check labs, eval renal function. [employer] Other 07-26-2023 NoteHPI Staff 22 year old [...] for 5 day(s), 10 tab(s), Refill(s) 0, [id number], 149, cm, 10/18/22 15:26:00 EDT, Height/Length Dosing, 109, kg, 10/18/22 15:26:00 EDT, Weight Dosing 2. BMI 45.0-49.9, adult (Z68.42: Body mass index [BMI] 45.0-49.9, adult) recommend diet and exercise Ordered: sulfamethoxazole-trimethoprim, 1 tab(s), Oral, BID for 5 day(s), 10 tab(s), Refill(s) 0, [id number], 149, cm, 10/18/22 15:26:00 EDT, Height/Length [...] Mother. Diabetes mellitus type (more content not included)...[facility] Comment on above:Result Comment: Electronically Signed By: KARLA ALCARAZ, Napoleon Smith\Date and Time Signed: 10/18/22 15:46 [id number] Evaluation note* Encounter Date Diagnosis Assessment Notes Treatment Notes Treatment Clinical Notes Sep, Hypothyroidism (acquired) (ICD-10 - E03.9) [employer] Other 06-21-2023 NoteChief Complaint consultation for axillary abscess HPI Staff 22 year old female presents on consultation from Dr. Gonzalez for left axillary abscess. Presented to [place] ED 08/12 with complaint of 2-3 week [...] pain or drainage. 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 Review of Systems PHQ Score Initial Depression [...] Immunizations Vaccine Date Status Comments SARS-CoV-2 (COVID-19) mRNAMUL.[id number] 07/13/2022 Recorded SARS-CoV-2 (COVID-19) mRNAMUL.[id number] 01/05/2022 Recorded SARS-CoV-2 (COVID-19) mRNA BNT-162b2 vax 05/09/2021 Recorded SARS-CoV-2 (COVID-19) mRNA BNT-162b2 vax 04/02/2020 Recorded 2022-08-30: TPVAL SARS-CoV-2 (COVID-19) mRNA BNT-162b2 vax 03/15/2020 Recorded 2022-08-30: [facility] Comment: Electronically Signed By: KARLA ALCARAZ, Napoleon Smith\Date and Time Signed: 09/13/22 21:07 EDT 08-16-2022 Evaluation note* Encounter Date Diagnosis Assessment Notes Treatment Notes Treatment Clinical Notes July, Abscess, axilla (ICD-10 - L02.419) [employer] Other Evaluation + Plan note No data available for this section [facility] [place] Evaluation noteNo InformationNort [email or web address] Other Evaluation noteNo assessment information available [facility] Work Phone: History general Narrative - Reported* Type Description Date Medical History Hypertension Medical History Depression/anxiety Medical History Hypothyroidism [employer] Other History general Narrative - Reported* Type [...] Title : Tonsillectomy, Problem Status : Active, [employer] Other Hospital Discharge instructions No data available [...] be sent through Care Everywhere. * Abrasions (Ukrainian) * Video: Care for a Skin Wound (Ukrainian) documented in this encounter Assessments Diagnosis Abrasion of right index finger, initial encounter- Primary Advance Directives No Advanced Directives Records FoundDocuments on File Type Date Recorded Patient Service Dispatcher Expl anation Advance Directives and Living Will Power of Presentation Specialist Advance Directive Response Recorded Date/ Time Advance Directives No August 26 4 1:12pm Summary Purpose Family History No Family History Records FoundNo Family History Records FoundNo Family History Records FoundNo Family History Records FoundNo Family History Records Found Reason for Referral Reason *FU 08/29 MRSA - E R visit, culture in chart from L axillary abscess. Diagnosis 1 Abscess, axilla (L02 .419) Referral Organization [facility] Referring Provider First Name Celia Referring Provider Last Name Carlos Referring Provider Specialty Family [facility] Referred Organization Unknown Facility Referred Provider Napoleon Lawrence Referred Provider Specialty Surgery Referral Priority Routine General Notes Haylee Briggs 02:00:49 PM >[id number] today, attachments made, waiting for notes to be locked Haylee Briggs 08/22/2022 02:50:28 PM >locked and referral faxed Clinical Notes F: [id number] Chief Complaint and Reason for Visit Chief Complaint Amb Documentation [facility] follow up, seizure Additional Source Comments Reason for Visit (unrecogniz ed section and content) Reason Comments Hand Injury pinched right index finger in wheelchair at 4:40 Pt employee at [employer] INFORMATION SOURCE (unrecogn ized section and content) DATE CREATED AUTHOR 12/30/2018 [facility] DATE CREATED AUTHOR AUTHOR'S ORGANIZ ATION 09/08/2019 [facility] DATE CREATED AUTHOR AUTHOR'S ORGANIZ ATION 12/06/2021 [facility] DATE CREATED AUTHOR AUTHOR'S ORGANIZ ATION 10/19/2022 [facility] DATE CREATED AUTHOR AUTHOR'S ORGANIZ ATION 09/28/2023 [facility] EPIC Patient Care team informatio n (unrecognized section and content) Team Status: Active Member Role Status Dates Celia Gonzalez MD Primary Care Provider Active Team Status: Active Member Role Status Dates Celia Gonzalez MD Primary Care Provider Active Start: August 01, 2023 JENNY Fabian Attending Provider Active Start : August 01, 2023 Team Status: Active Member Role Status Dates Celia Gonzalez MD Primary Care Provider Active Start: August 23, 2023 Manan Alvarado Attending Provider Active Start: August 23, 2023 Team Status: Inactive Member Role Status Dates Celia Gonzalez MD Primary Care Provide r, Attending Provider Active Start: August 27, 2023 End: August 27, 2023 Goals (unrecognized section and content) Goals may be documented in a n alternate section FOR RECORDS PERTAINING TO PATIENTS WHO ARE [...] BE BASED ON THE PRIMARY CLINICAL RECORDS. [employer] provides no warranty or guarantee of the accuracy or completeness of information in this document.
[2023-09-29 11:20] LABS: Basophils Percent Auto 0.3 % (0.2-2.0); Eosinophils Absolute Auto 0.2 10^3/uL (0.0-0.7); Eosinophils Percent Auto 1.3 % (0.9-7.0); Hematocrit 41.3 % (36.0-48.0); Hemoglobin 14.1 g/dL (12.0-16.0); Immature Granulocytes Abs Auto 0.13 10^3/uL (0.00-0.03); Immature Granulocytes Pct Auto 1.1 % (0.0-0.5); Lymphocytes Absolute Auto 1.7 10^3/uL (1.2-3.8); Lymphocytes Percent Auto 14.5 % (20.5-60.0); Mean Corpuscular HGB Conc 34.1 g/dL (29.9-35.2); Mean Corpuscular Hemoglobin 31.8 pg (26.7-34.0); Mean Platelet Volume 11.6 fL (9.5-13.5); Monocytes Absolute Auto 0.8 10^3/uL (0.3-0.8); Neutrophils Absolute Auto 9.1 10^3/uL (1.4-6.5); Neutrophils Percent Auto 75.8 % (43.0-75.0); Platelet Count 339 10^3/uL (150-450); Red Blood Count 4.44 10^6/uL (4.20-5.40)
[2023-09-29 11:32] LABS: HCG Qualitative NEGATIVE (NEGATIVE); Internal Control Within Normal Limits
[2023-09-29 11:40] LABS: Alanine Aminotransferase 27 U/L (14-59); Albumin Globulin Ratio 0.8; Albumin Level 2.8 g/dL (3.4-5.0); Alkaline Phosphatase 121 U/L (46-116); Anion Gap 10.9; Aspartate Amino Transferase 16 U/L (15-37); BUN Creatinine Ratio 11.1; Bilirubin Total 0.3 mg/dL (0.2-1.0); Calcium 8.9 mg/dL (8.5-10.1); Carbon Dioxide 27.2 mmol/L (21.0-32.0); Chloride 104 mmol/L (98-107); Estimated GFR (African America >60 (>=60); Estimated GFR (Non-African Ame >60 (>=60); Globulin 3.7 g/dL; Glucose 93 mg/dL (74-106); Potassium 4.1 mmol/L (3.5-5.1); Sodium 138 mmol/L (136-145); Total Protein 6.5 g/dL (6.4-8.2)
[2023-09-29] MEDS: OXcarbazepine 150 MG TABLET PO (11:58)
[2023-09-29] MEDS: BACITRACIN 0.9 GM PACKET 1 PACKET TOPICAL (12:12)
== END 2023-09-29 12:24 | disposition home or self-care (01) ==
PROVIDERS: Emergency Provider Emergency Medicine; PCP Family Medicine
DX: R56.9 Unspecified convulsions (principal); S00.571A Other superficial bite of lip, initial encounter; F17.200 Nicotine dependence, unspecified, uncomplicated
CPT/HCPCS: 36415; 70450; 80053; 83735; 84703; 85025; 93005; 99285

== ENCOUNTER 2024-01-31 09:23 | Outpatient (OUT) | payer BC, SELFPAY ==
--- NOTE | 2024-01-31 09:32 | MR_ITS ---
[facility] [place] [id number] Patient Name: FOREIGN BOTELLO MRN: [id number] date: 2000 Sex: F Assigned Patient Location: MRI Current Patient Location: MRI Accession/Order Number: [id number] Exam Date: 01/31/2024 09:45 Report Date: 02/03/2024 19:44 At the request of: DAMIEN MCKEON Procedure: MR head/brain wo/w con EXAM: MR of the brain with and without contrast. TECHNIQUE: Sagittal T1, axial FLAIR, SHWETA T2, diffusion imaging without contrast and postcontrast sagittal, axial, and coronal T1-weighted images performed. COMPARISON: CT scan performed 09/29/2023. Contrast: 20 mL Dotarem. HISTORY: Seizures. FINDINGS: No evidence of acute intracranial disease. No evidence of mass. Ventricles, sulci, and basilar cisterns are normal in appearance. No evidence of mass, signal, or enhancement abnormality. No evidence of diffusion abnormality. The cerebral hemispheres, brain stem and cerebellar hemispheres are normal. Good flow void is seen in the vertebral basilar and carotid circulation as well as the sagittal and transverse sinus. The orbital apices and the infratemporal fossa are normal. Empty enlarged sella. MR/MR head/brain wo/w con IMPRESSION: Normal examination of the brain. Electronically authenticated by: Lis CHERRY Date: 02/03/2024 19:44
--- OUTSIDE RECORDS SUMMARY | 2024-01-31 09:47 | XMS_ITS | CCD ---
Author Organization [facility] Care Team Providers Care Oil Analyst Name Role Phone Celia Gonzalez Primary Care [...] Gonzalez Unavailable CELIA GONZALEZ Primary Care Physician [phone] Napoleon LAWRENCE Attending Unavailable GONZALEZ, CELIA Referring Unavailable GONZALEZ, CELIA Referring Unavailable NILL, Napoleon Dumas Attending Unavailable NILL, Napoleon Dumas Attending Unavailable NILL, Napoleon Dumas Attending Unavailable OLGAMARY GUTIERREZ Attending Unavailable ANNIKA, YANA Attending Unavailable GONZALEZ, CELIA Referring Unavailable ANNIKA, YANA Referring Unavailable ANNIKA, YANA Referring Unavailable GILLMODAMIEN Dumas Attending Unavailable MARY REED Attending Unavailable GONZALEZ, CELIA FELIX Primary Care Unavaila ble Allergies Allergy Classification Reported Allergen(s) Allergy Type Date of Onset Reaction(s) Facility (1 source) No Known Medication Allergies; Translations: [No Known Medication Allergies] Propensity to adverse reactions (disorder) [facility] Repository (1 source) patient allergy list reviewed by nurse or physicia Propensity to adverse reactions Comment:Done [employer] Other (1 source) Allergies Reconciled Propensity to adverse reactions Unknown [employer] Other Medications Current Medications Medication Drug Class(es) Dates Sig (Normalized) Sig (Original) amoxicillin 875 mg / clavulanate 125 mg oral tablet (5 sources) Penicillin-class Antibacterial Start: 12-06-2023 take 1 tablet by mouth twice daily Amoxicillin-Pot Clavulanate Active 1 TAB PO Twice daily 12 01December 06, 2023 12:00am Start: 04-12-2022 take 1 tablet by irene th every twelve hours Amoxicillin-Pot Clavulanate 875-125 MG 1 tablet Orally every 12 hrs for 10 day(s) Mar, Not-Taking cephalexin 500 mg oral capsule (4 sources) Cephalosporin Antibacterial take 1 capsule by mouth every six hours Cephalexin 500 MG 1 capsule Orally Four times a day Active Norgestimate-Ethiny l Estradiol (8 sources) Progestin, Estrogen Start: take 1 tablet by mouth once daily Norgestimate-Ethiny l Estradiol (Sprintec (28)) 0.25-35 mg-mcg tablet Active 1 TAB PO Daily August 24, 2023 12:00am FreeTextSi tablet Orally Once a day; Note: Source Status: Taking; Provider: Carlos Yang ( ) Start: 08-30-2022 take 1 tablet by irene th once daily Sprintec oral tablet 1 tab(s), Oral, Daily, Refill(s) 0 Start Date: 08/30/22 Status: Ordered take 1 tablet by irene every twenty-four hours Sprintec 28 0.25-35 MG-MCG 1 tablet Orally Once a day Active fexofenadine hydrochloride 180 mg oral tablet (1 source) Histamine-1 Receptor Antagonist Start: 12-06-2023 take 1 tablet by mouth once daily Fexofenadine (Jacqueline Allergy) 180 mg tablet Active 180 MG PO Daily December 06, 2023 12:00am fluticasone propionate 0.05 mg/actuat metered dose nasal spray (1 source) Corticosteroid Start: 12-06-2023 take 1 spray(s) nasal route twice daily Fluticasone Propionate (Flonase Allergy Relief) 50 mcg/actuation spray,suspension Active 1 SPRAY INTRANASAL Twice daily December 06, 2023 12:00am administer into each nostril levothyroxine sodium 0.1 mg oral tablet (15 sources) l-Thyroxine Start: 08-27-2023 End: 10-18-2023 take 100 ug by mouth once daily Levothyroxine Active 100 MCG PO Daily October 18, 2023 11:38am Start: 08-01-2023 End: 08-27-2023 take 1 tablet by mouth once daily in the morning Levothyroxine Discontinued 0 .ROUTE .COMPLEX 90 August 01, 2023 1:48pm August 27, 2023 [...] 0 Active lisinopril 20 mg oral tablet (9 sources) Angiotensin Converting Enzyme Inhibitor Start: 08-24-2023 [...] tablet (4 sources) Serotonin-3 Receptor Antagonist Start: take 1 tablet by mouth three times daily as needed Ondansetron 4 MG 1 tablet on the tongue and allow to dissolve Orally tid prn for 5 days May, Active OXcarbazepine 150 mg oral tablet (1 source) Anti-epileptic Agent Start: take 150 mg by mouth twice daily Oxcarbazepine Active 150 MG PO Twice daily December 06, 2023 12:00am sertraline 20 mg/ml oral solution (1 source) Serotonin Reuptake Inhibitor take 25 mg by mouth once daily sertraline (ZOLOFT) 20 MG/ML concentrated solution Take 25 mg by mouth daily 0 Active 24 hr venlafaxine 150 mg extended release oral capsule (9 sources) Serotonin and Norepinephrine Reuptake Inhibitor Start: End: take 150 mg by mouth once daily Venlafaxine Active 150 MG PO Daily 90 90 December 05, 2023 8:03am Start: 08-30-2022 take 1 capsule by [facility] once daily Effexor XR 75 mg Cap-ER 75 mg = 1 cap(s), Oral, Daily, Refills(s) 0 Start Date: 08/30/22 Status: Ordered take 1 capsule by [facility] once daily Venlafaxine HCl ER 150 MG TAKE 1 CAPSULE BY MOUTH EVERY DAY for 90 days Active Completed/Discontinued Medications Medication Drug Class(es) Dates Sig (Normalized) Sig (Original) ibuprofen 200 mg oral tablet (1 source) Nonsteroidal Anti-inflammatory Drug Start: 12-28-2018 End: 12-28-2018 ibuprofen (ADVIL;MOTRIN) tablet 400 mg levETIRAcetam 500 mg oral tablet (3 sources) Start: 08-28-2023 End: 12-06-2023 take 1 tablet by mouth twice daily Levetiracetam (Keppra) 500 mg tablet Discontinued 500 MG PO Twice daily 60 30 September 04, 2023 3:37pm December 06, 2023 9:37am sulfamethoxazole 800 mg / trimethoprim 160 mg oral tablet (6 sources) Dihydrofolate Reductase Inhibitor Antibacterial, Sulfonamide Antimicrobial Start: 08-02-2023 End: 08-27-2023 take 1 tablet by mouth twice daily Sulfamethoxazole-T rimethoprim Discontinued 1 TAB PO Twice daily August [...] Translations: [Impaired fasting glycemia] Onset: 03-15-2018 Episodic Epilepsy; convulsions (1 source) Epilepsy, unspecified, not intractable, without status epilepticus; Translations: [EPILEPSY, UNSP, NOT INTRACTABLE, WITHOUT STATUS EPILEPTICUS] Onset: 12-17-2023 Chronic Epilepsy; convulsions (1 source) Seizure; Translations: [Unspecified convulsions] 08-28-2023 Episodic Essential hypertension (3 sources) Hypertensive disorder; Translations: [Essential (primary) hypertension] 08-30-2022 Chronic Headache; including migraine (1 source) Headache; including migraine; Translations: [HEADACHE, UNSPECIFIED] Onset: 12-17-2023 Inflammatory diseases of female pelvic organs (1 [...] Onset: 11-29-2021 Episodic Other upper respiratory infections (3 sources) Chronic sinusitis, unspecified; Translations: [Maxillary sinusitis] 12-06-2023 Chronic Otitis media and related conditions (1 [...] (1 source) Cough, unspecified; Translations: [Cough, unspecified] Unclassified (1 source) PT NONCOMPL WITH OTHER MED TRTMT AND REGIMEN FOR OTHER RSN; Translations: [PT NONCOMPL WITH OTHER MED TRTMT AND REGIMEN FOR OTHER RSN] Onset: 12-17-2023 Past or Other Problems Problem Classification Problem Date Documented Da te Episodic/Chronic Influenza (1 source) Influenza with other manifestations; Translations: [Influenza with other manifestations] Onset: 06-18-2018 Episodic Other ear and sense organ disorders (1 source) Acute otitis externa; Translations: [Acute swimmers' ear] Onset: 11-14-2016 Episodic Other inflammatory condition of skin (1 source) Sunburn of second degree; Translations: [Sunburn of second degree] Resolved: 08-05-2022 Episodic Other nutritional; endocrine; and metabolic disorders [...] Test Name Value Interpretation Reference Range Facility Basic Metabolic panelon 11-25 Anion gap [Moles/Vol] 17 mmol/L Normal 10-20 [facility] Comment on above: Performed By: #### B MP #### [facility] (DEFAULT) [address], [place] [address] Calcium [Mass/Vol] 9.2 mg/dL Normal 8.4-10.2 [facility] Comment on above: Performed By: #### B MP #### [facility] (DEFAULT) [address], [place] [address] Chloride [Moles/Vol] 103 mmol/L Normal 98-108 [facility] Comment on above: Performed By: #### B MP #### [facility] (DEFAULT) [address], [place] [address] CO2 [Moles/Vol] 24.0 mmol/L Normal 21.0-32.0 [facility] Comment on above: Performed By: #### B MP #### [facility] (DEFAULT) [address], [place] [address] Creatinine [Mass/Vol] 0.6 mg/dL Normal 0.4-1.1 [facility] Comment on above: Performed By: #### B MP #### [facility] (DEFAULT) [address] [place], [place] [address] GFR/1.73 sq M.predicted MDRD (S/P/Bld) [Vol rate/Area] 128 mL/min/{1.73_m2} Normal 60-1000 [facility] Comment on above: Result Comment: The eGFR should be used for monitoring renal function only and not for medication dosing. Performed By: #### B MP #### [facility] (DEFAULT) [address] [place], [place] [address] Glucose [Mass/Vol] 108 mg/dL High 65-99 [facility] Comment on above: Performed By: #### B MP #### [facility] (DEFAULT) [address] [place], [place] [address] Potassium [Moles/Vol] 3.9 mmol/L Normal 3.5-5.1 [facility] Comment on above: Performed By: #### B MP #### [facility] (DEFAULT) [address] [place], [place] [address] Sodium [Moles/Vol] 140 mmol/L Normal 135-145 [facility] Comment on above: Performed By: #### B MP #### [facility] (DEFAULT) [address] [place], [place] [address] Urea nitrogen [Mass/Vol] 7 mg/dL Low 8-25 [facility] Comment on above: Performed By: #### B MP #### [facility] (DEFAULT) [address] 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 The patient does have a history of epilepsy and is on medication however states she has not taken it for the last 2 days because she forgot her pills. Patient says that at this point she has a mild frontal headache although no neurosymptoms otherwise. This is your was typical for her. Patient denies fever chills or other symptoms of illness. Past Medical History Allergies No Known Allergies Allergy (Verified 12/17/23 10:19) Review Of Systems All Other Systems: Reviewed and negative for new complaints Constitutional: Reports: No Symptoms Reported EENT: Reports: No Symptoms Reported Respiratory: Reports: No Symptoms Reported Cardiac (ROS): Reports: No Symptoms Reported ABD/GI: Reports: No Symptoms Reported : Reports: No Symptoms Reported Musculoskeletal: Reports: No Symptoms Reported Skin: Reports: No Symptoms Reported Neurological/Psych: Reports: See HPI Hematologic/Lymphatic : Reports: No Symptoms Reported Physical Exam General Appearance: Yes:: No Acute Distress, Alert ENT: Yes:: ENT Inspection Normal, Other Neck: Yes:: Normal Inspection Respiratory: Yes:: Breath Sounds Normal Cardiovascular: Reg Rate Rhythm Peripheral Pulses: Radial (R): 2+ Abdomen: Yes:: Non-Tender Skin: Color Normal Extremities: Non-Tender Neurologic/Psychiatri c: Oriented x3, CN's Normal (2-12), Motor Normal, Sensation Normal Results - Lab Results Laboratory Tests 12/17/23 12/17/23 10:16 10:16 Sodium 140 Potassium 3.9 Chloride 103 Carbon Dioxide 24.0 Anion Gap 17 BUN 7 L Creatinine 0.6 Estimated GFR 128 Glucose 108 H Calcium 9.2 Serum HCG, Qual Negative Departure Initial Vital Signs Temp Pulse Resp BP Pulse Ox 98.3 F 108 H 18 142/95 95 12/17/23 10:16 12/17/23 10:16 12/17/23 10:16 12/17/23 10:16 12/17/23 10:16 Last Set of Vital Signs Temp Pulse Resp BP Pulse Ox O2 Flow Rate 98.3 F 108 H 18 142/95 95 12/17/23 10:16 12/17/23 10:16 12/17/23 10:16 12/17/23 10:16 12/17/23 10:16 Impression: Patient is alert and oriented. Patient says she has forgotten her seizure medications over the last 2 days. While in the ER the patient was alert and stable as a precaution a dose of Ativan was given. Patient's mom ultimately brought her medication and patient took her seizure medicine here orally. Patient is able to be released in stable condition for follow-up with her doctor. Diagnosis Epilepsy Medical noncompliance This dictation was generated by voice recognition computer software. Although all attempts are made to edit the dictation for accuracy, there may be errors in the leadership coach that are not intended. Decision to Admit/Discharge/Trans enrike: 11:06 Instructions: Recurrent Seizures in Adults (ED) Additional Instructions: Avoid skipping your seizure medication in the future Disposition: HOME/SELF CARE ROUTINE Referrals: CELIA GONZALEZ MD [Primary Care Provider] - Condition: Stable 12/17/23 [id number] [phone] CC: Celia Gonzalez MD Normal [facility] Serum HCGon 12-17-2023 Serum HCG Negative Normal Negative [facility] Comment on above: Performed By: #### H CG #### [facility] (DEFAULT) [address] [address] Basophils Auto (Bld) [#/Vol] on 09-29-2023 Basophils (Bld) [#/Vol] 0.0 10 3/uL 0.0-0.1 [facility] Basophils/100 WBC Auto (Bld) on 09-29-2023 Basophils/100 WBC (Bld) 0.3 % 0.2-2.0 [facility] Eosinophils/100 WBC Auto (Bl d)on 09-29-2023 Eosinophils/100 WBC (Bld) 1.3 % 0.9-7.0 [facility] Erythrocyte distribution wid th Auto (RBC) [Ratio]on 09-29-2023 Erythrocyte distribution width (RBC) [Ratio] 12.0 % 11.0-15.0 [facility] Estimated glomerular filtrat ion rate (GFR) non- Americanon 09-29-2023 GFR/1.73 sq M.predicted among non-blacks MDRD (S/P/Bld) [Vol rate/Area] mL/min/{1.73_m2} >=60 [facility] Globulin Calc (S) [Mass/Vol] on 09-29-2023 Globulin (S) [Mass/Vol] 3.7 g/dL [facility] Hematocrit Auto (Bld) [Volum e fraction]on 09-29-2023 Hematocrit (Bld) [Volume fraction] 41.3 % 36.0-48.0 [facility] Hemoglobin [Mass/volume] in Bloodon 09-29-2023 Hemoglobin (Bld) [Mass/Vol] 14.1 g/dL 12.0-16.0 [facility] Laboratory - Chemistry and C hemistry - challengeon 09-29-2023 Albumin [Mass/Vol] 2.8 g/dL Low 3.4-5.0 [facility] ALP [Catalytic activity/Vol] 121 U/L High 46-116 [facility] ALT [Catalytic activity/Vol] 27 U/L 14-59 [facility] AST [Catalytic activity/Vol] 16 U/L 15-37 [facility] Bilirubin [Mass/Vol] 0.3 mg/dL 0.2-1.0 [facility] Calcium [Mass/Vol] 8.9 mg/dL 8.5-10.1 [facility] Chloride [Moles/Vol] 104 mmol/L 98-107 [facility] CO2 [Moles/Vol] 27.2 mmol/L 21.0-32.0 [facility] Creatinine [Mass/Vol] 0.72 mg/dL 0.55-1.02 [facility] GFR/1.73 sq M.predicted MDRD (S/P/Bld) [Vol rate/Area] mL/min/{1.73_m2} >=60 [facility] Glucose [Mass/Vol] 93 mg/dL 74-106 [facility] Magnesium [Mass/Vol] 2.0 mg/dL 1.8-2.4 [facility] Potassium [Moles/Vol] 4.1 mmol/L 3.5-5.1 [facility] Protein [Mass/Vol] 6.5 g/dL 6.4-8.2 [facility] Sodium [Moles/Vol] 138 mmol/L 136-145 [facility] Urea nitrogen [Mass/Vol] 8.0 mg/dL 7.0-18.0 [facility] Urea nitrogen/Creatinine [Mass ratio] 11.1 mg/mg [facility] Laboratory - Hematology and Cell countson 09-29-2023 Immature granulocytes/100 WBC (Bld) 1.1 % High 0.0-0.5 [facility] Leukocytes [#/volume] correc marisel for nucleated erythrocytes in Blood by Automated counon 09-29-2023 WBC corrected for nucl RBC Auto (Bld) [#/Vol] 12.0 10 3/uL High 4.0-11.0 [facility] Lymphocytes Auto (Bld) [#/Vo l]on 09-29-2023 Lymphocytes (Bld) [#/Vol] 1.7 10 3/uL 1.2-3.8 [facility] Lymphocytes/100 WBC Auto (Bl d)on 09-29-2023 Lymphocytes/100 WBC (Bld) 14.5 % Low 20.5-60.0 [facility] MCH Auto (RBC) [Entitic mass ]on 09-29-2023 MCH (RBC) [Entitic mass] 31.8 pg 26.7-34.0 [facility] MCHC Auto (RBC) [Mass/Vol]on 09-29-2023 MCHC (RBC) [Mass/Vol] 34.1 g/dL 29.9-35.2 [facility] MCV Auto (RBC) [Entitic vol] on 09-29-2023 MCV (RBC) [Entitic vol] 93.0 fL 81.0-99.0 [facility] Monocytes Auto (Bld) [#/Vol] on 09-29-2023 Monocytes (Bld) [#/Vol] 0.8 10 3/uL 0.3-0.8 [facility] Monocytes/100 WBC Auto (Bld) on 09-29-2023 Monocytes/100 WBC (Bld) 7.0 % 1.7-12.0 [facility] Neutrophils Auto (Bld) [#/Vo l]on 09-29-2023 Neutrophils (Bld) [#/Vol] 9.1 10 3/uL High 1.4-6.5 [facility] Neutrophils/100 WBC Auto (Bl d)on 09-29-2023 Neutrophils/100 WBC (Bld) 75.8 % High 43.0-75.0 [facility] No Panel Informationon 09-28 Eosinophils # (Auto) 0.2 10 3/uL 0.0-0.7 [facility] Chorionic Gonadotropin, Qual Negative NEGATIVE [facility] Immature Granulocyte # (Auto) 0.13 10 3/uL High 0.00-0.03 [facility] Platelet mean volume Auto (B ld) [Entitic vol]on 09-29-2023 Platelet mean volume (Bld) [Entitic vol] 11.6 fL 9.5-13.5 [facility] Platelets Auto (Bld) [#/Vol] on 09-29-2023 Platelets (Bld) [#/Vol] 339 10 3/uL 150-450 [facility] RBC Auto (Bld) [#/Vol]on RBC (Bld) [#/Vol] 4.44 10 6/uL 4.20-5.40 [place] Serum or plasma albumin/glob ulin mass ratioon 09-29-2023 Albumin/Globulin [Mass ratio] 0.8 {ratio} [facility] Serum or plasma anion gap de terminationon 09-29-2023 Anion gap [Moles/Vol] 10.9 [facility] Basophils Auto (Bld) [#/Vol] on 08-23-2023 Basophils (Bld) [#/Vol] 0.0 10 3/uL 0.0-0.1 [facility] Basophils/100 WBC Auto (Bld) on 08-23-2023 Basophils/100 WBC (Bld) 0.2 % 0.2-2.0 [facility] Eosinophils/100 WBC Auto (Bl d)on 08-23-2023 Eosinophils/100 WBC (Bld) 0.8 % 0.9-7.0 [facility] Erythrocyte distribution wid th Auto (RBC) [Ratio]on 08-23-2023 Erythrocyte distribution width (RBC) [Ratio] 12.2 % 11.0-15.0 [facility] Estimated glomerular filtrat ion rate (GFR) non- Americanon 08-23-2023 GFR/1.73 sq M.predicted among non-blacks MDRD (S/P/Bld) [Vol rate/Area] mL/min/{1.73_m2} >=60 [facility] Globulin Calc (S) [Mass/Vol] on 08-23-2023 Globulin (S) [Mass/Vol] 3.5 g/dL [facility] Hematocrit Auto (Bld) [Volum e fraction]on 08-23-2023 Hematocrit (Bld) [Volume fraction] 42.4 % 36.0-48.0 [facility] Hemoglobin [Mass/volume] in Bloodon 08-23-2023 Hemoglobin (Bld) [Mass/Vol] 14.2 g/dL 12.0-16.0 [facility] Laboratory - Chemistry and C hemistry - challengeon 08-23-2023 Albumin [Mass/Vol] 3.2 g/dL 3.4-5.0 [facility] ALP [Catalytic activity/Vol] 110 U/L 46-116 [facility] ALT [Catalytic activity/Vol] 34 U/L 14-59 [facility] AST [Catalytic activity/Vol] 21 U/L 15-37 [facility] Bilirubin [Mass/Vol] 0.3 mg/dL 0.2-1.0 [facility] Calcium [Mass/Vol] 8.9 mg/dL 8.5-10.1 [facility] Chloride [Moles/Vol] 101 mmol/L 98-107 [facility] CO2 [Moles/Vol] 27.5 mmol/L 21.0-32.0 [facility] Creatinine [Mass/Vol] 0.76 mg/dL 0.55-1.02 [facility] GFR/1.73 sq M.predicted MDRD (S/P/Bld) [Vol rate/Area] mL/min/{1.73_m2} >=60 [facility] Glucose [Mass/Vol] 111 mg/dL 74-106 [facility] Lactate [Moles/Vol] 2.2 mmol/L 0.4-2.0 [place] Comment on above: RESULTS CALLED TO Stephanie LIU)@BY DARI Saini at 191 Magnesium [Mass/Vol] 2.0 mg/dL 1.8-2.4 [facility] Potassium [Moles/Vol] 4.0 mmol/L 3.5-5.1 [facility] Protein [Mass/Vol] 6.7 g/dL 6.4-8.2 [facility] Sodium [Moles/Vol] 135 mmol/L 136-145 [facility] TSH Qn 5.423 m[IU]/L 0.358-3.740 [facility] Urea nitrogen [Mass/Vol] 8.0 mg/dL 7.0-18.0 [facility] Urea nitrogen/Creatinine [Mass ratio] 10.5 mg/mg [facility] Laboratory - Hematology and Cell countson 08-23-2023 Immature granulocytes/100 WBC (Bld) 0.7 % 0.0-0.5 [facility] Leukocytes [#/volume] correc marisel for nucleated erythrocytes in Blood by Automated counon 08-23-2023 WBC corrected for nucl RBC Auto (Bld) [#/Vol] 11.9 10 3/uL 4.0-11.0 [facility] Lymphocytes Auto (Bld) [#/Vo l]on 08-23-2023 Lymphocytes (Bld) [#/Vol] 1.5 10 3/uL 1.2-3.8 [facility] Lymphocytes/100 WBC Auto (Bl d)on 08-23-2023 Lymphocytes/100 WBC (Bld) 12.9 % 20.5-60.0 [facility] MCH Auto (RBC) [Entitic mass ]on 08-23-2023 MCH (RBC) [Entitic mass] 31.1 pg 26.7-34.0 [facility] MCHC Auto (RBC) [Mass/Vol]on 08-23-2023 MCHC (RBC) [Mass/Vol] 33.5 g/dL 29.9-35.2 [facility] MCV Auto (RBC) [Entitic vol] on 08-23-2023 MCV (RBC) [Entitic vol] 93.0 fL 81.0-99.0 [facility] Monocytes Auto (Bld) [#/Vol] on 08-23-2023 Monocytes (Bld) [#/Vol] 0.9 10 3/uL 0.3-0.8 [facility] Monocytes/100 WBC Auto (Bld) on 08-23-2023 Monocytes/100 WBC (Bld) 7.6 % 1.7-12.0 [facility] Neutrophils Auto (Bld) [#/Vo l]on 08-23-2023 Neutrophils (Bld) [#/Vol] 9.3 10 3/uL 1.4-6.5 [facility] Neutrophils/100 WBC Auto (Bl d)on 08-23-2023 Neutrophils/100 WBC (Bld) 77.8 % 43.0-75.0 [facility] No Panel Informationon 08-22 Eosinophils # (Auto) 0.1 10 3/uL 0.0-0.7 [facility] Immature Granulocyte # (Auto) 0.08 10 3/uL 0.00-0.03 [facility] Platelet mean volume Auto (B ld) [Entitic vol]on 08-23-2023 Platelet mean volume (Bld) [Entitic vol] 11.5 fL 9.5-13.5 [facility] Platelets Auto (Bld) [#/Vol] on 08-23-2023 Platelets (Bld) [#/Vol] 316 10 3/uL 150-450 [facility] RBC Auto (Bld) [#/Vol]on RBC (Bld) [#/Vol] 4.56 10 6/uL 4.20-5.40 [place] Serum or plasma albumin/glob ulin mass ratioon 08-23-2023 Albumin/Globulin [Mass ratio] 0.9 {ratio} [facility] Serum or plasma anion gap de terminationon 08-23-2023 Anion gap [Moles/Vol] 10.5 mmol/L [facility] Ambulatory Visit Summaryon 0 10-18-2022 Ambulatory Visit [...] containing substance Duration: 5 Days Pickup at [id number] Unchanged ethinyl estradiol-norgestimat e (Sprintec oral [...] physician if questions or concerns Pharmacy Information [facility] #[id number]: [address], [place] [phone] Allergies No Known Allergies No Known Medication Allergies Problems Ongoing - Any problem that you are currently receiving treatment for. Anxiety Axillary abscess BMI 45.0-49.9, adult Depression HTN (hypertension) Hypothyroidism Morbid obesity Vapes nicotine containing substance Normal [facility] Ambulatory Visit Summaryon 0 09-13-2022 [...] Depression HTN (hypertension) Hypothyroidism Morbid obesity Normal [facility] ED Note-Physicianon 09-04-19 23 ED Note-Physician [id number]:127 Normal [facility] Lab Reportson 09-03-2022 Lab Reports [id number] .[id number]:127 Normal [facility] Physician Referralon 023 Physician Referral [phone] [id number] Normal [facility] PAP ACOG PANEL 2: 21 to 29on 12-05-2021 . . Normal [facility] Comment on above: Performed By: #### [id number] #### [facility] [address] [place] [address] Dr. Ammon Urena Age Gdln ACOG Testing 21-29 Normal [facility] Comment on above: Performed By: #### [id number] #### [facility] [address] [place] [address] Dr. Ammon Urena DIAGNOSIS: Comment Normal [facility] Comment on above: Result Comment: NEGA TIVE FOR INTRAEPITHELIAL LESION OR MALIGNANCY. Performed By: #### [id number] #### [facility] [address] [place] [address] Dr. Ammon Urena Methodology: Comment [facility] Comment on above: Result Comment: This liquid based ThinPrep(R) pap test was screened with the use of an image guided system. Performed By: #### [id number] #### [facility] [address] [place] [address] Dr. Ammon Urena Note: Comment Normal [facility] Comment on above: Result Comment: The Pap smear is a screening test designed to aid in the detection of premalignant and malignant conditions of the uterine cervix. It is not a diagnostic procedure and should not be used as the sole means of detecting cervical cancer. Both false-positive and false-negative reports do occur. . Performed By: #### [id number] #### [facility] [address] [place] [address] Dr. Ammon Urena Performed by: Comment Normal [facility] Comment on above: Result Comment: Joanne Sosa, Associate Relations Specialist (ASCP) Performed By: #### [id number] #### [facility] [address] [place] [address] Dr. Ammon Urena Reflex Criteria: Comment [facility] Comment on above: Result Comment: The HPV DNA reflex criteria were not met with this specimen result therefore, no HPV testing was performed. . Performed By: #### [id number] #### [facility] [address] [place] [address] Dr. Ammon Urena Specimen adequacy: Comment Normal [facility] Comment on above: Result Comment: Sati sfactory for evaluation. Endocervical and/or squamous metaplastic cells (endocervical component) are present. Performed By: #### [id number] #### [facility] [address] [place] [address] Dr. Ammon Urena PAP ACOG PANEL 2: 21 to 29on 11-04-2021 . . Normal [facility] Comment on above: Performed By: #### [id number] #### [facility] [address] [place] [address] Dr. Ammon Urena Age Gdln ACOG Testing 20- [facility] Comment on above: Performed By: #### [id number] #### [facility] [address] [place] [address] Dr. Ammon Urena DIAGNOSIS: Comment [facility] Comment on above: Result Comment: UNSA TISFACTORY FOR EVALUATION. Performed By: #### [id number] #### [facility] [address] [place] [address] Dr. Ammon Urena Methodology: Comment [facility] Comment on above: Result Comment: This liquid based ThinPrep(R) pap test was screened with the use of an image guided system. Performed By: #### 4 [id number] #### [facility] [address] [place] [address] Dr. Ammon Urena Note: Comment [facility] Comment on above: Result Comment: The Pap smear is a screening test designed to aid in the detection of premalignant and malignant conditions of the uterine cervix. It is not a diagnostic procedure and should not be used as the sole means of detecting cervical cancer. Both false-positive and false-negative reports do occur. . Performed By: #### [id number] #### [facility] [address] [place] [address] Dr. Ammon Urena Performed by: Comment Normal [facility] Comment on above: Result Comment: Alexa Toledo, Associate Relations Specialist (ASCP) Performed By: #### [id number] #### [facility] [address] [place] [address] Dr. Ammon Urena QC reviewed by: Comment Normal [facility] Comment on above: Result Comment: Josh Hartman, Supervisory Associate Relations Specialist (ASCP) Performed By: #### [id number] #### [facility] [address] [place] [address] Dr. Ammon Urena Recommendation: Comment Normal [facility] Comment on above: Result Comment: Sugg est follow up as clinically appropriate. Performed By: #### 4 [id number] #### [facility] [address] [place] [address] Dr. Ammon Urena Reflex Criteria: Comment Normal [facility] Comment on above: Result Comment: The HPV DNA reflex criteria were not met with this specimen result therefore, no HPV testing was performed. . Performed By: #### 4 [id number] #### [facility] [address] [place] [address] Dr. Ammon Urena Specimen adequacy: Comment Normal [facility] Comment on above: Result Comment: Spec imen processed and examined but unsatisfactory for evaluation of epithelial abnormality because of obscuring inflammatory exudate. Performed By: #### 4 [id number] #### [facility] [address] [place] [address] Dr. Ammon Urena CHLAMYDIA/GONOCOCCUS NATALI (SW AB/URINE/PAPon 11-03-2021 Chlamydia trachomatis, NATALI Negative Normal Negative [facility] Comment on above: Performed By: #### C T/NGNA #### [facility] [address] [place] [address] Dr. Ammon Urena Neisseria gonorrhoeae, NATALI Negative Normal Negative [facility] Comment on above: Performed By: #### C T/NGNA #### [facility] [address] [place] [address] Dr. Ammon Urena VAGINITIS/VAGINOSIS DNA PROB [facility] 11-02-2021 Laura species Negative Normal Negative [facility] Comment on above: Performed By: #### V AGINT #### [facility] [address] [place] [address] Dr. Ammon Urena Gardnerella vaginalis Positive Abnormal Negative [facility] Comment on above: Performed By: #### V AGINT #### [facility] [address] [address] [address] Ammon Urena Trichomonas vaginalis Negative Normal Negative [facility] Comment on above: Performed By: #### V AGINT #### [facility] [address] [address] [address] Ammon Urena Vital Signs Date Time Vital Sign Value Performing Clinician Facility 12-06-2023 09:32-0400 Body height 149.86 cm [facility] 12-06-2023 09:32-0400 Body mass index (BMI) [Ratio] 50.1 kg/m2 [facility] 12-06-2023 09:32-0400 Body temperature 98.4 [degF] [facility] 12-06-2023 09:32-0400 Body weight 112.66 kg [facility] 12-06-2023 09:32-0400 Diastolic blood pressure 80 mm[Hg] [facility] 12-06-2023 09:32-0400 Heart rate 73 /min [facility] 12-06-2023 09:32-0400 Respiratory rate 18 /min [facility] 12-06-2023 09:32-0400 SaO2% (BldA) [Mass fraction] 96 % [facility] 12-06-2023 09:32-0400 Systolic blood pressure 130 mm[Hg] [facility] 08-27-2023 13:18-0400 Body height 149.86 cm [facility] 08-27-2023 13:18-0400 Body mass index (BMI) [Ratio] 50.1 kg/m2 [facility] 08-27-2023 13:18-0400 Body weight 112.49 kg [facility] 08-27-2023 13:18-0400 Diastolic blood pressure 80 mm[Hg] [facility] 08-27-2023 13:18-0400 Heart rate 78 /min [facility] 08-27-2023 13:18-0400 Systolic blood pressure 130 mm[Hg] [facility] 02-07-2023 10:30-0500 Body height 149.86 cm Celia Gonzalez Other [facility] 02-07-2023 10:30-0500 Body mass index (BMI) [Ratio] 49.2 kg/m2 Celia Gonzalez Other [facility] Other 02-07-2023 10:30-0500 Body weight 110.5 kg Celia Gonzalez Other [facility] Other 02-07-2023 10:30-0500 Diastolic blood pressure 76 mm[Hg] Celia Gonzalez Other [facility] Other 02-07-2023 10:30-0500 Systolic blood pressure 149 mm[Hg] Celia Gonzalez Other [facility] Other 09-13-2022 15:04-0400 Blood Pressure Location Napoleon NILL [facility] 09-13-2022 15:04-0400 Diastolic blood pressure 80 mm[Hg] Napoleon NILL [facility] [place] 09-13-2022 15:04-0400 Heart rate 70 /min Napoleon NILL [facility] [place] 09-13-2022 15:04-0400 Respiratory rate 16 /min Napoleon NILL [facility] [place] 09-13-2022 15:04-0400 Systolic blood pressure 122 mm[Hg] Napoleon NILL [facility] [place] 08-16-2022 09:30-0400 Body height 149.86 cm Celia Gonzalez Other [facility] Other 08-16-2022 09:30-0400 Body mass index (BMI) [Ratio] 48.67 kg/m2 Celia Gonzalez Other [facility] Other 08-16-2022 09:30-0400 Body weight 109.32 kg Celia Carlos Other [facility] Other 08-16-2022 09:30-0400 Diastolic blood pressure 82 mm[Hg] Celia Carlos Other [facility] Other 08-16-2022 09:30-0400 Systolic blood pressure 130 mm[Hg] Celia Carlos Other [facility] Other 12-28-2018 17:41-0400 BMI (Body Mass Index) 22.14 kg/m2 [place], [place] 12-28-2018 17:41-0400 Body Temperature 97.2 [degF] [place] 12-28-2018 17:41-0400 Body weight 49.71 kg [place] 12-28-2018 17:41-0400 BP Diastolic 95 mm[Hg] [place] 12-28-2018 17:41-0400 BP Systolic 150 mm[Hg] [facility] [place] 12-28-2018 17:41-0400 Height 149.9 cm [place] 12-28-2018 17:41-0400 Pulse (Heart Rate) 83 /min [place] 12-28-2018 17:41-0400 Pulse Oximetry 98 % [place] 12-28-2018 17:41-0400 Respiratory Rate 20 /min [place] Encounters Encounter Date Encounter Type Care Provider Facility Start: 12-17-2023 End: 12-17-2023 Emergency department patient visit MARY REED Facility:[facility] Start: 12-06-2023 End: 12-06-2023 [facility] Work Phone: Start: 12-06-2023 End: 12-06-2023 Patient encounter procedure [facility] Physician [facility] Work Phone: Start: 11-21-2023 End: 11-21-2023 ambulatory DAMIEN MCKEON Not Available Start: 10-25-2023 End: 10-25-2023 ambulatory MARY ESPINOZA Not Available Start: 10-24-2023 End: 10-24-2023 ambulatory YANA ANNIKA Not Available Start: 10-09-2023 End: 10-09-2023 ambulatory YANA ANNIKA Not Available Start: 09-30-2023 Non-patient / Non-visit [facility] Work Phone: Start: 09-29-2023 Non-patient / Non-visit [facility] Physician [facility] Work Phone: Start: 09-26-2023 End: 09-26-2023 ambulatory YANA ROBLERO Not Available Start: 08-27-2023 End: 08-27-2023 ambulatory [facility] Work Phone: Start: 08-27-2023 End: 08-27-2023 Patient encounter procedure [facility] Work Phone: Start: 08-23-2023 Non-patient / Non-visit [facility] Work Phone: Start: 08-01-2023 Non-patient / Non-visit [facility] Work Phone: Start: 04-11-2023 End: 04-11-2023 ambulatory MARY ESPINOZA Not Available Start: 02-07-2023 End: 02-07-2023 ambulatory eClia Gonzalez Other [facility] Other Start: 02-07-2023 Office outpatient vi sit 15 minutes Celia Gonzalez [facility] Start: 10-18-2022 End: 10-19-2022 ambulatory Napoleon LAWRENCE Facility:[facility] Start: 10-10-2022 End: 10-10-2022 ambulatory Celia Gonzalez Other [facility] Other Start: 10-10-2022 Telephone encounter Celia Gonzalez [facility] Start: 09-13-2022 End: 09-14-2022 ambulatory Napoleon Dumas NILL Facility:[facility] Start: 09-13-2022 End: 09-13-2022 Patient encounter procedure Napoleon [facility] [place] Start: 09-08-2022 ambulatory CELIA GONZALEZ Facility:[facility] Start: 08-23-2022 ambulatory Napoleon R NILL Facility :[facility] Start: 08-22-2022 End: 08-22-2022 ambulatory Celia Gonzalez Other [facility] Other Start: 08-22-2022 Telephone encounter Celia Gonzalez [facility] Start: 08-18-2022 End: 08-18-2022 ambulatory Celia Gonzalez Other [facility] Other Start: 08-18-2022 Telephone encounter Celia Gonzalez [facility] Start: 08-16-2022 End: 08-16-2022 ambulatory Celia Gonzalez Other [facility] Other Start: 08-16-2022 Office outpatient vi sit 15 minutes Celia Gonzalez [facility] Start: 01-25-2022 Gynecological examin ation normal Celia Gonzalez Other [facility] Other Start: 01-25-2022 Routine infant or ch ild health check Celia Gonzalez Other [facility] Other Start: 11-29-2021 End: 11-29-[address] CELIA GONZALEZ Facility:[facility] Start: 10-31-2021 End: 10-31-[address] SULEMAN HUERTA Facility:[facility] Start: 12-28-2018 End: 12-28-2018 Emergency department patient visit [facility] Start: 12-28-2018 End: 12-28-2018 Emergency department patient visit Kristie Powell Work Phone: [facility] ED Comment on above: Abrasion of right in dex finger, initial encounter (Primary Dx) Procedures Date Procedure Procedure Detail Performing Clinician Start: 12-28-2018 WOUND CARE KRISTIE NORTONSELINBRENDA Appendectomy Napoleon NILL Contraception care education Celia Gonzalez Other Incision and drainag e of abscess Napoleon NILL Comment on above: left axilla Insertion of subcuta neous contraceptive done Napoleon NILL Plan of Treatment Date Care Activity Detail Author Start: 11-24-2018 Influenza vaccination Flu vaccine (# 1) [place], [place] Start: 1999 Creatinine monitoring Creatinine mon [place], [place] Start: 1999 Potassium monitoring Potassium monit [place], [place] Immunizations Immunization Date Immunization Notes Care Provider Fa cility 07-13-2022 SARS-CoV-2 (COVID-19 ) [id number] Napoleon NILL [facility] 01-05-2022 SARS-CoV-2 (COVID-19 ) [id number] Napoleon NILL [facility] 05-09-2021 SARS-CoV-2 (COVID-19 ) mRNA BNT-162b2 vax Napoleon NILL [facility] 04-02-2020 SARS-CoV-2 (COVID-19 ) mRNA BNT-162b2 vax Napoleon NILL [facility] Comment on above: Result Comment: 2022: TPVAL 03-15-2020 SARS-CoV-2 (COVID-19 ) mRNA BNT-162b2 vax Napoleon NILL [facility] Comment on above: Result Comment: 2022: T[facility]AL 12-28-2018 diphtheria, tetanus toxoids and acellular pertussis vaccine, unspecified formulation [place], [place] 12-28-2018 tetanus toxoid, redu elva diphtheria toxoid, and acellular pertussis vaccine, adsorbed [place], [place] Payers Date Payer Category Payer Unknown [facility] [id number] 2018-Present [phone] [address] [address] [place] [address] [id number] 2018 Unknown [id number] 2018 Unknown BC[place] - [place] P PO xxxxxxxxxxxx 2018-Present [address] [place] [address] xxxxxxxxxxxx [id number] 1999 Unknown [id number] 1999 Unknown [id number] [id number] 1999 Unknown [id number] [id number] 1999 Unknown [id number] [id number] 1999 Unknown [id number] [id number] 1999 Unknown [id number] [id number] 1999 Unknown [id number] [id number] 1999 Unknown [id number] [id number] 9 1999 Unknown [id number] 2.16.840.1.151063.3.579.2.125 9 1999 Unknown [id number] 2.16.840.1.723989.3.579.2.125 9 1999 Unknown [id number] 2.16.840.1.823867.3.579.2.125 9 1999 Unknown [id number] 2.16.840.1.485189.3.579.2.125 9 1999 Unknown [id number] [id number] 9 1959 Unknown [id number] Self-pay Unknown [id number] Social History Date Type Detail Facility Start: 12-28-[facility] [place] [place] Start: 12-28-2018 Alcohol intake Not Currently [facility] Sex Assigned At Not on file [place] Start: 09-13-2022 Tobacco smoking status Ex-smoker (fi nding) [facility] [place] Tobacco smoking status Smokeless tobacco user within last 30 days [facility] Start: 1999 Sex Assigned At Female F [facility] Functional Status Date Assessment Result Facility 09-13-2022 Functional Status N/A [facility] Clinical Notes 08-16-2022 to 02-07-2023 Note Date & Type Note Facility 02-07-2023 Evaluation note Encounter Date Diagnosis Assessment Notes Jan, Hypothyroidism, unspecified (ICD-10 - E03.9) Overdue for labs. Jan, Moderate major depression (ICD-10 - F32.1) Pt agreed to increase her dose. Consider counseling if needed. Jan, Essential (primary) hypertension (ICD-10 - I10) Check labs, eval renal function. [facility] Other 07-26-2023 NoteHPI Staff 22 year old [...] Mother. Diabetes mellitus type (more content not included)...[facility] Comment on above:Result Comment: Electronically Signed By: KARLA ALCARAZ, Napoleon Smith\Date and Time Signed: 10/18/22 15:46 [id number] Evaluation note* Encounter Date Diagnosis Assessment Notes Treatment Notes Treatment Clinical Notes Sep, Hypothyroidism (acquired) (ICD-10 - E03.9) [facility] Other 06-21-2023 NoteChief Complaint consultation for axillary abscess HPI Staff 22 year old female presents on consultation from Dr. Gonzalez for left axillary abscess. Presented to [place] ED 08/12 with complaint of 2-3 week [...] pain or drainage. 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 Review of Systems PHQ Score Initial Depression [...] Immunizations Vaccine Date Status Comments SARS-CoV-2 (COVID-19) [id number].[id number] 07/13/2022 Recorded SARS-CoV-2 (COVID-19) mRNAMUL.[id number] 01/05/2022 Recorded SARS-CoV-2 (COVID-19) mRNA BNT-162b2 vax 05/09/2021 Recorded SARS-CoV-2 (COVID-19) mRNA BNT-162b2 vax 04/02/2020 Recorded 2022-08-30: T[facility]AL SARS-CoV-2 (COVID-19) mRNA BNT-162b2 vax 03/15/2020 Recorded 2022-08-30: [facility] Comment: Electronically Signed By: KARLA ALCARAZ, Napoleon Smith\Date and Time Signed: 09/13/22 21:07 EDT 08-16-2022 Evaluation note* Encounter Date Diagnosis Assessment Notes Treatment Notes Treatment Clinical Notes July, Abscess, axilla (ICD-10 - L02.419) [facility] Other Evaluation + Plan note No data available for this section General Surgery [employer] Evaluation noteNo InformationNort [employer] Other Evaluation noteNo assessment information available [facility] Work Phone: Evaluation note* Diagnosis Onset Date Resolution Status Maxillary sinusitis acute [facility] Work Phone: [facility] general Narrative - Reported* Type Description Date Medical History Hypertension Medical History Depression/anxiety Medical History Hypothyroidism [facility] Other Hisvn[facility] general Narrative - Reported* Type Description Date Medical History Hypertension Medical History Depression/anxiety Medical History Hypothyroidism Surgical History Problem Title : appe ndectomy, history of, Problem Description : appendectomy, history of, Problem Comment : yes, Problem Status : Inactive, Surgical History Problem Title : Appendectomy, P roblem Status : Active, Surgical History Problem Title [...] Title : Tonsillectomy, Problem Status : Active, [facility] Other Hospital Discharge instructions No data available for this section General Surgery [employer] Progress note No data available for this section [facility] Discharge Instructions * Instructions* Kristie Powell MD - 12/28/2018 Return to the Emergency Department immediately if you develop signs of infection including redness,drainage, or you have any other concerns. Please follow up with your family doctor in 1-2 days. * Attachments The following attachments cannot be sent through Care Everywhere. 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 Advance Directive Response Recorded Date/ Time Advance [...] 1 Abscess, axilla (L02 .419) Referral Organization [facility] Referring Provider First Name Celia Referring Provider Last Name Carlos Referring Provider Specialty Family Medi cine Referred Organization Unknown Facility Referred Provider Napoleon Lawrence Referred Provider Specialty Surgery Referral Priority Routine General Notes Haylee Briggs 02:00:49 PM >[id number] today, attachments made, waiting for notes to be locked Haylee Briggs 08/22/2022 02:50:28 PM >locked and referral faxed Clinical Notes F: [id number] Chief Complaint and Reason for Visit Chief Complaint Amb Documentation [facility] follow up, seizure Chief Complaint cough, sinus pressur e 5 days Reason for Visit Maxillary sinusitis Additional Source Comments Reason for Visit (unrecogniz ed section and content) Reason Comments Hand Injury pinched right index finger in wheelchair at 4:40 Pt employee at [employer] INFORMATION SOURCE (unrecogn ized section and content) DATE CREATED AUTHOR [facility]30/[facility] DATE CREATED AUTHOR AUTHOR'S ORGANIZ ATION 09/08/2019 [facility] DATE CREATED AUTHOR AUTHOR'S ORGANIZ ATION 12/06/2021 [facility] DATE CREATED AUTHOR AUTHOR'S ORGANIZ ATION 10/19/2022 [facility] DATE CREATED AUTHOR AUTHOR'S ORGANIZ ATION 11/23/2023 [facility] DATE CREATED AUTHOR AUTHOR'S ORGANIZ ATION 12/29/2023 [facility] Patient Care team informatio n (unrecognized section and content) Team Status: Active Member Role Status Dates Celia Gonzalez MD Primary Care Provider Active Team Status: Active Member Role Status Hayde Gonzalez MD Primary Care Provider Active Start: August 01, 2023 JENNY Fabian Attending Provider Active Start : August 01, 2023 Team Status: Active Member Role Status Hayde Gonzalez MD Primary Care Provider Active Start: August 23, 2023 Manan Jenny Attending Provider Active Start: August 23, 2023 Team Status: Inactive Member Role Status Hayde Gonzalez MD Primary Care Provide r, Attending Provider Active Start: August 27, 2023 End: August 27, 2023 Team Status: Active Member Role Status Hayde Gonzalez MD Primary Care Provider Active Start: September 29, 2023 Rosa Bhatia MD Attending Provider Active Sta rt: September 29, 2023 Team Status: Active Member Role Status Hayde Gonzalez MD Primary Care Provider Active Start: September 30, 2023 Gabo France DO Attending Provider Active Sta rt: September 30, 2023 Team Status: Inactive Member Role Status Hayde Gonzalez MD Primary Care Provider Active Start: December 06, 2023 End: December 06, 2023 Radha Gann APRN WELL REACTIVATOR OPERATOR-C Attending Provider Active Start: November End: December 06, 2023 Goals (unrecognized section and content) Goals [...] BE BASED ON THE PRIMARY CLINICAL RECORDS. [employer] provides no warranty or guarantee of the accuracy or completeness of information in this document.
== END 2024-01-31 09:24 | disposition home or self-care (01) ==
LOC: MRI 09:24
PROVIDERS: PCP Family Medicine; Visit Provider Nurse Practitioner Family
DX: R56.9 Unspecified convulsions (principal)
CPT/HCPCS: 70553; A9575

== ENCOUNTER 2024-06-26 18:05 | Outpatient (REF) | payer BC, SELFPAY ==
--- OUTSIDE RECORDS SUMMARY | 2024-06-26 18:11 | XMS_ITS ---
Author Name Auto Generated Organization OHIP Support Name Relationship Address Phone MARY BOTELLO Next of Kin [address] [place] [address] + JASON BOTELLO Next of Kin [address] [place] [address] + MARY BOTELLO Next of Kin [address] [place] [address] + JASON BOTELLO Next of Kin [address] [place] [address] + [facility] Next of Kin [address] [place] [address] + MARY BOTELLO Next of Kin Unknown + [facility] Next of Kin [address] [place] [address] + MARY BOTELLO Next of Kin Unknown + MARY BOTELLO Next of Kin [address] [place] [address] + JASON BOTELLO Next of Kin [address] [place] [address] + MARY BOTELLO Next of Kin [address] [place] [address] + JASON BOTELLO Next of Kin [address] [place] [address] + MARY BOTELLO Next of Kin [address] [place] [address] + JASON BOTELLO Next of Kin [address] [place] [address] + MARY BOTELLO Next of Kin [address] [place] [address] + JASON BOTELLO Next of Kin [address] [place] [address] + MARY BOTELLO Next of Kin [address] [place] [address] + JASON BOTELLO Next of Kin [address] [place] [address] + Care Team Providers Care Aircraft Manager Name Role Phone YANA ROBLERO Attending Unavailable MARY ESPINOZA Attending Unavailable ANNIKA, YANA Attending Unavailable CELIA VILLEGAS Referring Unavailable ANNIKA, YANA Referring Unavailable ANNIKA, YANA Referring Unavailable DAMIEN MCKEON Attending Unavailable MARY SWEENEY Attending Unavailable CELIA VILLEGAS Primary Care Unavaila ble ZAY SILVEIRA Attending Unavaila ble VILLEGASCELIA ISIDRO [facility] Unavaila ble MOSTOWYZAY Attending Unavaila ble PROBLEMS DATE TYPE CONDITION / CODE ATTENDING STATUS [facility] 04/12/2024 Admitting diagnosis Encounter for general adult medical examination without abnormal findings / Z00.00(ICD-10) ZAY SILVEIRA [facility] 12/17/2023 Final diagnosis (discharge) HEADACHE, UNSPECIFIED / R51.9(ICD-10) MARY SWEENEY [facility] 12/17/2023 Final diagnosis (discharge) EPILEPSY, UNSP, NOT INTRACTABLE, WITHOUT STATUS EPILEPTICUS / G40.909(ICD-10) MARY SWEENEY [facility] 12/17/2023 Final diagnosis (discharge) PT NONCOMPL WITH OTHER MED TRTMT AND REGIMEN FOR OTHER RSN / Z91.198(ICD-10) DEREK PENFIELD [place] [facility] PROCEDURES No Procedure Records Found RESULTS URINE TEST Collected: 025 1:30 PM Status: F Source: [facility] REPOSITORY TYPE CODE TESTS RESULT OUT OF RANGE REFERENCE UNITS LAB UPT(LOINC) Urine HCG Negative Normal Negative Performed By: #### UPT #### [facility] (DEFAULT) [address] [place], [place] [address] URINE DRUG SCREEN Collected: 5 1:30 PM Status: F Source: [facility] REPOSITORY Order Comment: Urine drug s creening tests are to be used for medical purposes only. TYPE CODE TESTS RESULT OUT OF RANGE REFERENCE UNITS LAB UFEN(LOINC) UFEN None Detected Normal None Detected Result Comment: CUT-OFF: 1 n g/mL LAB AMPH(LOINC) Amphetamines. None Detected Normal None Detected Result Comment: CUT-OFF: 100 0 ng/mL LAB MARILYN(LOINC) Barbiturates None Detected Normal N one Detected Result Comment: CUT-OFF: 200 ng/mL LAB BENZO(LOINC) Benzodiazepines . None Detected Normal None Detected Result Comment: CUT-OFF: 200 ng/mL LAB UBUP(LOINC) UBUP None Detected Normal None Detected Result Comment: CUT-OFF: 5 n g/mL LAB METH(LOINC) Methadone None Detected Normal None Detected Result Comment: CUT-OFF: 300 ng/mL LAB DEONNA(LOINC) Cocaine. None Detected Normal None Detected Result Comment: CUT-OFF: 300 ng/mL LAB OPI(LOINC) Opiates None Detected Normal None Detected Result Comment: CUT-OFF: 300 ng/mL LAB PCP(LOINC) Phencyclidine. None Detected Normal None Detected Result Comment: CUT-OFF: 25 ng/mL LAB THC(LOINC) THC. Presumptive Positive Abnormal None Detected Result Comment: CUT-OFF: 50 ng/mL LAB OXYC(LOINC) Oxycodone None Detected Normal None Detected Result Comment: DETECTABLE L EVEL IS 100 ng/mL Performed By: #### UDS #### [facility] (DEFAULT) [address] [place], [place] [address] URINE MICROSCOPIC Collected: 5 1:30 PM Status: F Source: [facility] REPOSITORY TYPE CODE TESTS RESULT OUT OF RANGE REFERENCE UNITS LAB UWBC(LOINC) UWBC 0-1 Normal 0-5 /hpf LAB URBC(LOINC) URBC 0-1 Abnormal None;0-3 /hpf LAB UBAC(LOINC) UBacteria Rare Abnormal None /hpf LAB USEPI(LOINC) USquamous Epithelial Cells 0-1 Normal 0-4 /hpf LAB MUCUS(LOINC) Mucus Rare Abnormal None /hpf Performed By: #### MILANA #### [facility] (DEFAULT) [address] [place] [address] URINE CULTURE Observed: 04/12/2024 1:30 PM Status: F Source: [facility] URINE CULTURE: > 10 000 CFU/mL mixture of normal urogenital microbiota Testi g Performed At: [facility] [address] [place], [place] [address]URINE CULTURE: Group B Streptococci present in quantity >= 10 000 CFU/mL. This patient should receive intrapartum antibiotic prophylaxis if . Testi g Performed At: [facility] [address] [place] [address] Performed By: #### CXU #### [facility] (DEFAULT) [address] [place] [address] URINALYSIS Collected: 04/12/2024 1:30 PM Status: F Source: [facility] TYPE CODE TESTS RESULT OUT OF RANGE REFERENCE UNITS LAB UCOLO(LOINC) Urine Color Yellow Normal LAB UCLAR(LOINC) Urine Clarity Clear Normal Clear LAB UGLU(LOINC) Glucose Negative Normal Negative LAB ULEUK(LOINC) Leukocytes Negative Normal Negative LAB UBIL(LOINC) Bilirubin Negative Normal Negative LAB UKET(LOINC) Urine Ketones Negative Normal Negative LAB USG(LOINC) Urine Specific Wayne 1.020 Normal 1.005-1.025 LAB UPH(LOINC) UpH 6.5 Normal 5.0-6.5 LAB UPRO(LOINC) Urine Protein Negative Normal Negative LAB URO(LOINC) Urobilinogen 0.2 Normal <2.0 LAB UNIT(LOINC) Urine Nitrite Negative Normal Negative LAB UBLD(LOINC) Blood Trace Abnormal Negative LAB URINE(LOINC) Urine Specimen Type Clean Catch Normal Performed By: #### UA #### [facility] (DEFAULT) [address] [place] [address] COMPREHENSIVE METABOLIC PANEL Collected : 04/12/2024 1:06 PM Status: F Source: [facility] TYPE CODE TESTS RESULT OUT OF RANGE REFERENCE UNITS LAB NA(LOINC) Sodium 139 Normal 135-145 mmol/L LAB K(LOINC) Potassium 3.9 Normal 3.5-5.1 mmol/L LAB CL(LOINC) Chloride 104 Normal 98-108 mmol/L LAB CO2(LOINC) Carbon Dioxide 24.0 Normal 21.0-32.0 mmol /L LAB AGAP(LOINC) Anion Gap 16 Normal 10-20 mmol/L LAB BUN(LOINC) BUN 4 Low 8-25 mg/dL LAB CREAT(LOINC) Creatinine 0.5 Normal 0.4-1.1 mg/dL LAB GLU(LOINC) Glucose 96 Normal 65-99 mg/dL LAB ALB(LOINC) Albumin 3.7 Normal 3.2-5.2 g/dL LAB CA(LOINC) Calcium 8.6 Normal 8.4-10.2 mg/dL LAB TP(LOINC) Total Protein 6.1 Normal 6.0-8.0 g/dL LAB ALKP(LOINC) ALKP 100 Normal 40-140 U/L LAB ALT(LOINC) ALT (SPGT) 8 Normal 0-35 U/L LAB AST(LOINC) AST (SGOT) 20 Normal 0-35 U/L LAB TBIL(LOINC) Total Bilirubin <0.2 Normal 0.0-1.3 mg/dL LAB GFR(LOINC) eGFR. 133 Normal 60-1000 mL/min/1 .73m2 Result Comment: The eGFR lucila uld be used for monitoring renal function only and not for medication dosing. Performed By: #### CMP #### [facility] (DEFAULT) [address] [facility]. [place] [address] CBC WITH AUTO DIFF. Collected: 04/12/19 1:06 PM Status: F Source: [facility] REPOSITORY Order Comment: Regulatory Re quirements State: Only Absolute Cell Counts are reported with their reference ranges.Regulatory Requirements State: Only Absolute Cell Counts are reported with their reference ranges. TYPE CODE TESTS RESULT OUT OF RANGE REFERENCE UNITS LAB WBC(LOINC) WBC 8.66 Normal 4.50-11.00 K/uL LAB RBC(LOINC) RBC 4.26 Normal 4.00-5.20 M/uL LAB HGB(LOINC) HGB 13.5 Normal 12.0-16.0 g/dL LAB HCT(LOINC) HCT 38.5 Normal 36.0-46.0 % LAB MCV(LOINC) MCV 90 Normal 80-100 fL LAB MCH(LOINC) MCH 31.7 Normal 26.0-34.0 pg LAB MCHC(LOINC) MCHC 35.1 Normal 31.0-37.0 g/dL LAB PLT(LOINC) PLT 269 Normal 150-400 K/uL LAB RDW(LOINC) RDW 12.6 Normal 11.6-14.8 % LAB MPV(LOINC) MPV 11.7 Normal 9.0-15.5 fL LAB NEUT%(LOINC) NEUT% 74.0 Normal % LAB LYM%(LOINC) LYM% 16.6 Normal % LAB MONO%(LOINC) MONO% 7.4 Normal % LAB EOS%(LOINC) EOS% 1.2 Normal % LAB BASO%(LOINC) BASO% 0.2 Normal % LAB IG1%(LOINC) Ig% 0.6 Normal 0.0-4.0 % LAB NEUT#(LOINC) NEUT# 6.41 Normal 1.70-7.00 K/uL LAB LYM#(LOINC) LYM# 1.44 Normal 0.90-4.00 K/uL LAB MONO#(LOINC) MONO# 0.64 Normal 0.30-0.90 K/uL LAB EOS#(LOINC) EOS# 0.10 Normal 0.00-0.50 K/uL LAB BASO#(LOINC) BASO# 0.02 Normal 0.00-0.30 K/uL Performed By: #### CBC #### [facility] ([facility]) [address] [place] [address] EDREPT Observed: 04/12/2024 12:57 PM Status: F Source: [facility] REPOSITORY [facility] Patient: FOREIGN BOTELLO EMERGENCY DEPARTMENT PHYSICIAN REPORT Admit Date: 04/12/24 /Age: 11 2000/ ED Physician: Zay Silveira MD Med Rec #: [id number] History Of Present Illness - General General Complaints: Seizure Time Seen by Provider: 04/12/24 12:56 History Provided By: Patient Exam Limitations: No Limitations HPI: This is a very pleasant 24-year-old female with past medical history significant for seizure disorder hypertension who presents by EMS after experiencing a witnessed seizure. Patient states she was in bed when she began to feel weird after which she began to shake for approximately 1 minute patient was postictal for approximately 10 minutes. On arrival she feels well she denies any headache vision change or weakness paresthesias or numbness. Patient's last seizure was in November she is currently on Trileptal and has been compliant with her medications patient does admit to smoking marijuana she denies any illicit drug use her Accu-Chek at the scene was 124 Timing/Duration: 1/2 hour Associated Signs/Symptoms: seizure Past Medical History Medical History: Anxiety, Depression, Hypertension, Seizures Past Surgical History: No Allergies No Known Allergies Allergy (Verified 04/12/24 12:58) - Psychosocial History Hx Alcohol Use: No Hx Substance Use: Yes - marijuana Smoking Status: Current every day smoker Hx Physical Abuse: No - Vaccination History Hx Tetanus, Diphtheria Vaccination: No Hx Influenza Vaccination: No Hx Pneumococcal Vaccination: No Immunizations Up to Date: No Review Of Systems All Other Systems: Reviewed and negative for new complaints Constitutional: Reports: No Symptoms Reported EENT: Reports: No Symptoms Reported Respiratory: Reports: No Symptoms Reported Cardiac (ROS): Reports: No Symptoms Reported ABD/GI: Reports: No Symptoms Reported Musculoskeletal: Reports: No Symptoms Reported Skin: Reports: No Symptoms Reported Neurological/Psych: Reports: No Symptoms Reported Physical Exam General Appearance: Yes:: No Acute Distress, Alert Eyes Bilateral: Yes:: Normal Inspection, PERRL, EOMI ENT: Yes:: No Signs of Dehydration Neck: Yes:: Normal Inspection Respiratory: Yes:: No Respiratory Distress, Breath Sounds Normal Cardiovascular: Reg Rate Rhythm Abdomen: Yes:: Non-Tender Back: Normal Inspection Skin: No Rash Extremities: Full ROM Neurologic/Psychiatric: Oriented x3, CN's Normal (2-12), Motor Normal, Sensation Normal, Mood/Affect Normal Results - Lab Results Laboratory Tests 04/12/24 04/12/24 04/12/24 13:06 13:06 13:30 WBC 8.66 RBC 4.26 Hgb 13.5 Hct 38.5 MCV 90 MCH 31.7 MCHC 35.1 RDW 12.6 Plt Count 269 MPV 11.7 Immature Gran % (Auto) 0.6 Neutrophils % 74.0 Lymphocytes % 16.6 Monocytes % 7.4 Eosinophils % 1.2 Basophils % 0.2 Neutrophils # 6.41 Lymphocytes # 1.44 Monocytes # 0.64 Basophils # 0.02 Eosinophilia # 0.10 Sodium 139 Potassium 3.9 Chloride 104 Carbon Dioxide 24.0 Anion Gap 16 BUN 4 L Creatinine 0.5 Estimated GFR 133 Glucose 96 Calcium 8.6 Total Bilirubin <0.2 AST 20 ALT 8 Alkaline Phosphatase 100 Total Protein 6.1 Albumin 3.7 Specimen Type Urine Color Urine Clarity Urine pH Ur Specific Wayne Urine Protein Urine Ketones Urine Blood Urine Nitrite Urine Bilirubin Urine Urobilinogen Ur Leukocyte Esterase Urine RBC Urine WBC Ur Squamous Epith Cells Urine Bacteria Urine Mucus Urine Glucose Urine Test Urine Opiates Screen None detected Ur Buprenorphine Scrn None detected Ur Oxycodone Screen None detected Urine Methadone Screen None detected Urine Fentanyl Screen None detected Ur Barbiturates Screen None detected Urine Phencyclidine (PCP) Comment None detected Ur Amphetamines Screen None detected U Benzodiazepines Scrn None detected Urine Cocaine Screen None detected U Marijuana (THC) Screen Presumptive positive H 04/12/24 04/12/24 04/12/24 13:30 13:30 13:30 WBC RBC Hgb Hct MCV MCH MCHC RDW Plt Count MPV Immature Gran % (Auto) Neutrophils % Lymphocytes % Monocytes % Eosinophils % Basophils % Neutrophils # Lymphocytes # Monocytes # Basophils # Eosinophilia # Sodium Potassium Chloride Carbon Dioxide Anion Gap BUN Creatinine Estimated GFR Glucose Calcium Total Bilirubin AST ALT Alkaline Phosphatase Total Protein Albumin Specimen Type Clean catch Urine Color Yellow Urine Clarity Clear Urine pH 6.5 Ur Specific Wayne 1.020 Urine Protein Negative Urine Ketones Negative Urine Blood Trace H Urine Nitrite Negative Urine Bilirubin Negative Urine Urobilinogen 0.2 Ur Leukocyte Esterase Negative Urine RBC 0-1 H Urine WBC 0-1 Ur Squamous Epith Cells 0-1 Urine Bacteria Rare H Urine Mucus Rare H Urine Glucose Negative Urine Test Negative Urine Opiates Screen Ur Buprenorphine Scrn Ur Oxycodone Screen Urine Methadone Screen Urine Fentanyl Screen Ur Barbiturates Screen Urine Phencyclidine (PCP) Comment Ur Amphetamines Screen U Benzodiazepines Scrn Urine Cocaine Screen U Marijuana (THC) Screen Medical Decision Making ED Course/Plan: Very pleasant 24-year-old female with past medical history significant for hypertension as well as seizure disorder presents by EMS after experiencing a witnessed seizure which lasted approximately 1 minute as noted above on arrival patient feels well she has no complaints her Accu-Chek was 124 at the scene her vital signs are stable patient did undergo the workup as noted patient CBC was unremarkable with a white cell count of 8.6 hemoglobin 13.5 CMP was unremarkable her glucose is 96 BUN 4 creatinine 0.5 urinalysis was negative for any signs of infection patient is not and her drug screen is positive for marijuana but no other illicit drugs patient continues to improve while in the emergency department patient was advised to continue to take her medications as prescribed she is to follow-up with her doctor return for worsening of her symptoms Departure Initial Vital Signs Temp Pulse Resp BP Pulse Ox 96.3 F L 99 18 126/77 92 L 04/12/24 12:50 04/12/24 12:50 04/12/24 12:50 04/12/24 12:50 04/12/24 12:50 Last Set of Vital Signs Temp Pulse Resp BP Pulse Ox O2 Flow Rate 96.3 F L 99 16 116/74 95 04/12/24 12:50 04/12/24 13:02 04/12/24 13:02 04/12/24 13:02 04/12/24 13:02 Impression: Seizure Decision to Admit/Discharge/Transfer: 14:06 Instructions: Epilepsy (ED) Disposition: HOME/SELF CARE ROUTINE Referrals: CELIA VILLEGAS MD [Primary Care Provider] - Condition: Good <Electronically signed by Zay Silveira MD> 04/12/24 [phone] CC: Celia Villegas MD SERUM HCG Collected: 10:16 AM Status: F Source: [facility] REPOSITORY TYPE CODE TESTS RESULT OUT OF RANGE REFERENCE UNITS LAB HCG(LOINC) Serum HCG Negative Normal Negative Performed By: #### HCG #### [facility] (DEFAULT) [address] [place] [address] BASIC METABOLIC PANEL Collected: 2023 10:16 AM Status: F Source: [facility] REPOSITORY TYPE CODE TESTS RESULT OUT OF RANGE REFERENCE UNITS LAB NA(LOINC) Sodium 140 Normal 135-145 mmol/L LAB K(LOINC) Potassium 3.9 Normal 3.5-5.1 mmol/L LAB CL(LOINC) Chloride 103 Normal 98-108 mmol/L LAB CO2(LOINC) Carbon Dioxide 24.0 Normal 21.0-32.0 mmol /L LAB AGAP(LOINC) Anion Gap 17 Normal 10-20 mmol/L LAB BUN(LOINC) BUN 7 Low 8-25 mg/dL LAB CREAT(LOINC) Creatinine 0.6 Normal 0.4-1.1 mg/dL LAB CA(LOINC) Calcium 9.2 Normal 8.4-10.2 mg/dL LAB GLU(LOINC) Glucose 108 High 65-99 mg/dL LAB GFR(LOINC) eGFR. 128 Normal 60-1000 mL/min/1. 73m2 Result Comment: The eGFR lucila uld be used for monitoring renal function only and not for medication dosing. Performed By: #### BMP #### [facility] (DEFAULT) [address] [facility]. [place] [address] EDREPT Observed: 12/17/2023 10:10 AM Status: F Source: [facility] REPOSITORY [facility] Patient: FOREIGN BOTELLO EMERGENCY DEPARTMENT PHYSICIAN REPORT Admit Date: 12/17/23 /Age: 10 2000/ ED Physician: Mary Sweeney DO Med Rec #: [id number] History Of Present Illness - General Time [...] No Symptoms Reported Neurological/Psych: Reports: See HPI Hematologic/Lymphatic: Reports: No Symptoms Reported Physical Exam General Appearance: Yes:: No Acute Distress, Alert ENT: Yes:: ENT Inspection Normal, Other Neck: Yes:: Normal Inspection Respiratory: Yes:: Breath Sounds Normal Cardiovascular: Reg Rate Rhythm Peripheral Pulses: Radial (R): 2+ Abdomen: Yes:: Non-Tender Skin: Color Normal Extremities: Non-Tender Neurologic/Psychiatric: Oriented x3, CN's Normal (2-12), Motor Normal, [...] accuracy, there may be errors in the vp information technology that are not intended. Decision to Admit/Discharge/Transfer: 11:06 Instructions: Recurrent Seizures in Adults (ED) Additional Instructions: Avoid skipping your seizure medication in the future Disposition: HOME/SELF CARE ROUTINE Referrals: CELIA VILLEGAS MD [Primary Care Provider] - Condition: Stable <Electronically signed by Mary Sweeney, DO> 12/17/23 1119 [id number] [phone] CC: Celia Villegas MD ALLERGIES DATE TYPE / CODE NAME / CODE REACTION SEVERITY SOURCE 04/12/2024 Drug Allergy/461038723 (SNOMED CT) No Known Allergies/[id number](RXNORM) UNKNOWN [facility] ENCOUNTERS ADMIT/DISCHARGE ACCOUNT NUMBER ADMITTING ENCOUNTER CLASS LOCATION SOURCE 06/26/2024/ 5 [id number] Ambulatory Building:NOM S BCP OB [facility] [place] 05/29/2024/ 5 [id number] Ambulatory Building:BSR NEURO [facility] [place] 04/12/2024/ 5 [id number] Ambulatory Building:[facility] 04/12/2024/ 5 [id number] Emergency [facility] 12/17/2023/ 4 [id number] [facility] 11/21/2023/ 4 [id number] Ambulatory Building:BSR NEURO [facility] [place] 10/25/2023/ 4 [id number] Ambulatory Building:BSR NEURO [facility] [place] 10/24/2023/ 4 [id number] Ambulatory Building:BSR [facility]URO [facility] [place] 10/09/2023/ 4 [id number] Ambulatory Building:BSR [facility]URO [facility] [place] 09/26/2023/ 4 [id number] Ambulatory Building:BSR NEURO [facility] [place] PAYERS ENCOUNTER GUARANTOR PAYER SUBSCRIBER SOURCE 06/26/2024 FOREIGN LEUNGB: [place] [address]Kpa: () Primary Insurance:[facility] cy Number: [id number] ziggy Date:2022-03-26 KARISSA LEUNGB: [id number] [place] [address] [facility] [place] 05/29/2024 FOREIGN BOTELLODOB: E [place] [facility]Pcy: (HP) Primary Insurance:BCBSPoli cy Number: [id number] ziggy Date:2022-03-26 KARISSA Kathy AYANDOB: [id number] [place] [facility] [address] [facility] [place] 04/12/[address] [address]Jvb: (HP) Primary Insurance:SELF PAYPolicy Number: Effective Date: [facility] 12/17/[address] [address]Pcv: (HP) Primary Insurance:SELF PAYPolicy Number: Effective Date: [facility] 11/21/2023 FOREIGN Hays AYANDOB: [place] [id number]: (HP) Primary Insurance:BCBSPoli cy Number: [id number] ziggy Date:2022-03-26 KARISSA BOTELLODOB: [id number] E [place] [facility] [address] [facility] [place] 10/25/2023 FOREIGN [place] AYANDOB: [place] [id number]: (HP) Primary Insurance:BCBSPoli cy Number: [id number] ziggy Date:2022-03-26 KARISSA BOTELLODOB: [id number] E [place] [facility] [place] 10/24/2023 FOREIGN [place] AYANDOB: [place] [id number]: (HP) Primary Insurance:BCBSPoli cy Number: [id number] ziggy Date:2022-03-26 KARISSA BOTELLODOB: [id number] E [place] [facility]07 [facility] [place] 10/09/2023 FOREIGN LEUNGB: [place] [address]Mfn: (HP) Primary Insurance:[facility] cy Number: [id number] ziggy Date:2022-03-26 KARISSA LEUNGB: [id number] E [facility]07 [facility] [place] 09/26/2023 FOREIGN LEUNGB: [place] [address]Jjc: (HP) [facility] cy Number: [id number] ziggy Date:2022-03-26 KARISSA MAURICE: [id number] [place] [id number] [facility]
== END 2024-06-26 18:06 | disposition home or self-care (01) ==
LOC: LAB 18:05
PROVIDERS: PCP Family Medicine; Visit Provider Physician Assistant
DX: Z01.419 Encounter for gynecological examination (general) (routine) without abnormal findings (principal)
CPT/HCPCS: 88175

== ENCOUNTER 2025-02-21 08:17 | Outpatient (OUT) | payer MEDICAID, SELFPAY ==
--- OUTSIDE RECORDS SUMMARY | 2025-02-21 08:20 | XMS_ITS | CCD ---
Author Organization [facility] Care Team Providers Care Flagger Name Role Phone Zahra Gonzalez Primary Care Provider KRISTIE POWELL Attending Unavailable ZAHRA GONZALEZ Primary Care Unavailable KARASIK, DR SHELL Attending Unavailable GONZALEZ, DR ZAHRA Castillo Primary Care Unavailable KARASIK, DR SHELL Admitting Unavailable KARASIK, DR SHELL Consulting Unavailable GONZALEZ, DR ZAHRA Castillo Primary Care Unavailable KARASIK, DR SHELL Admitting Unavailable KARASIK, DR SHELL Consulting Unavailable KARASIK, DR SHELL Attending Unavailable Zahra Gonzalez Unavailable ZAHRA GONZALEZ Primary Care Physician [phone] Napoleon ACOSTA Attending Unavailable ZAHRA GONZALEZ Referring Unavailable ZAHRA GONZALEZ Referring Unavailable Napoleon ACOSTA Attending Unavailable KARLA, Napoleon Dumas Attending Unavailable Napoleon ACOSTA Attending Unavailable Zahra Gonzalez MD Primary Care Provider ZAY LIEBERMAN Attending UnavailZAHRA Davey Primary Care UnavailMARY Middleton Attending Unavailable ZAHRA GONZALEZ Primary Care UnavailZAY Grossman Attending UnavailZahra Davey MD Primary Care Provider [phone] LAURI ALVARADO Attending Unavailable ZAHRA GONZALEZ Primary Care Unavailable Zahra Gonzalez MD Primary Care Provider YANA GRAMAJO Attending Unavailable AMANDA JHAVERI Attending Unavailable YANA GRAMAJO Attending Unavailable ZAHRA GONZALEZ Referring Unavailable YANA GRAMAJO Referring Unavailable YANA GRAMAJO Referring Unavailable MONIQUE MALDONADO Attending Unavailable MONIQUE MALDONADO Attending Unavailable ZAHRA GONZALEZ Primary Care Unavailable YOEL CRUZ Attending Unavailable ZAHRA GONZALEZ Primary Care Unavailable MARIA INES HENDERSON Attending Unavailable Zahra Gonzalez MD Primary Care Provider [phone] Kendra Naranjo CMA Attending Provider Zahra Brumfield MD Attending Provider Zahra Gonzalez MD Primary Care Provider Allergies Allergy ClassificationReported Allergen(s)Allergy TypeDate of OnsetReaction(s) Facility (1 source)No Known Medication Allergies; Translations: [No Known Medication Allergies]Propensity to adverse reactions (disorder)[facility] [place] Repository (1 source)patient allergy list reviewed by nurse or physiciaPropensity to adverse [id number]:[facility]Add[facility] Other (1 source)Allergies ReconciledPropensity to adverse reactionsRush Memorial HospitalSynthelis Other Medications Current Medications MedicationDrug Class(es)DatesSig (Normalized)Sig (Original)brivaracetam 100 mg oral tablet (2 sources)Start: 11-04-2024 End: 52-95-8977ldji 1 tablet by mouth twice dailyBrivaracetam (Briviact) 100 mg tablet Active 100 MG PO Twice daily December 15, 2024 12:00am Complies with drug therapycephalexin 500 mg oral capsule (4 sources)Cephalosporin Antibacterialtake 1 capsule by mouth every six hours Cephalexin 500 MG 1 capsule Orally Four times a day ActiveNorgestimate-Ethinyl Estradiol (20 sources)Progestin, EstrogenStart: 86-61-8750ifjd 1 tablet by mouth once dailyNorgestimate-Ethinyl Estradiol (Sprintec (28)) 0.25-35 mg-mcg tablet Active 1 TAB PO Daily August 24, 2023 12:00am FreeTextSi tablet Orally Once a day; Note: Source Status: Taking; Provider: Carlos Yang ( ) Complies with drug therapyStart: 08-69-6605crif 1 tablet by mouth once dailyNorgestimate- Ethinyl Estradiol (Sprintec (28)) 0.25-35 mg-mcg tablet Active 1 TAB PO Daily August 23, 2023 11:00pm FreeTextSi tablet Orally Once a day; Note: Source Status: Taking; Provider: Carlos Yang ( )Start: 13-87-6322kfzx 1 tablet by mouth once dailyNorgestimate-Ethinyl Estradiol (Sprintec (28)) 0.25-35 mg-mcg tablet Active 1 TAB PO Daily August 24, 2023 12:00am FreeTextSi tablet Orally Once a day; Note: Source Status: Taking; Provider: Carlos Yang ( )Start: 08-23-2023 End: 45-64-4911noil 1 tablet by mouth once daily in the morningMili 0.25-35 MG- MCG tablet Indications: Uses control TAKE 1 TABLET BY MOUTH EVERY DAY IN THE MORNING 84 tablet 4 06/03/2024 ActiveStart: 87-07-0845hvto 1 tablet by mouth once dailySprintec oral tablet 1 tab(s), Oral, Daily, Refill(s) 0 Start Date: 08/30/22 Status: Orderedtake 1 tablet by mouth every twenty-four hoursSprintec 28 0.25-35 MG-MCG 1 tablet Orally Once a day ActiveFLUoxetine 20 mg oral capsule (16 sources)Serotonin Reuptake InhibitorStart: 04-07-2024 End: 77-26-5691utpa 1 capsule by mouth once dailyFluoxetine 20 mg capsule Active 0 .ROUTE .COMPLEX October 03, 2024 8:06am TAKE 1 CAPSULE BY MOUTHEVERY DAY Complies with drug therapyStart: 03-13-2024 End: 37-24-4740luet 1 capsule by mouth once dailyFluoxetine 20 mg capsule Discontinued 20 MG PO Daily March 13, 2024 1:00am April 07, 2024 3:04pmtake 1 capsule by mouth once dailyFLUoxetine (PROZAC) 10 MG capsule Take 1 capsule by mouth daily Activelevothyroxine sodium 0.1 mg oral tablet (20 sources)l-ThyroxineStart: 08-27-2023 End: 27-67-9630cbeq 1 tablet by mouth once dailyLevothyroxine 100 mcg tablet Active 100 MCG PO Daily September 22, 2024 12:17pm Complies with drug therapy Start: 08-01-2023 End: 35-22-5075rmoe 1 tablet by mouth once daily in the morningLevothyroxine 88 mcg tablet Discontinued 0 .ROUTE .COMPLEX 90 August 01, 2023 1:48pm August 27, 2023 1:42pm TAKE 1 TABLET BY MOUTH EVERY DAY IN THE MORNING ON EMPTY STOMACH FOR 90 DAYSStart: 08-01-2023 End: 05-93-6695weym 1 tablet by mouth once dailyLevothyroxine 88 mcg tablet Discontinued 88 MCG PO Daily August 01, 2023 12:00am August 01, 2023 1:48pmStart: 65-06-3965yviz 1 tablet by mouth once dailylevothyroxine 75 mcg (0.075 mg) Tab 75 mcg = 1 tab(s), Oral, Daily, Refills(s) 0 Start Date: 08/30/22Status: Ordered take 1 tablet by mouth once dailylevothyroxine (SYNTHROID) 75 MCG tablet Take 75 mcg by mouth Daily Activetake 1 tablet by mouth once dailyLevothyroxine Sodium 88 MCG TAKE 1 TABLET BY MOUTH EVERY DAY Activetake 1 tablet by mouth once daily in the morningLevothyroxine Sodium 75 MCG 1 tablet in the morning on an empty stomach Orally Once a day Activenabumetone 750 mg oral tablet (4 sources)Nonsteroidal Anti-inflammatory DrugNabumetone 750 MG as directed Orally ActiveNorgestimate-Eth Estradiol (SPRINTEC 28 PO) (3 sources)Norgestimate-Eth Estradiol (SPRINTEC 28 PO) Take by mouth daily ActiveNorgestimate-Eth Estradiol (SPRINTEC 28 PO) Take by mouth daily 0 Active ondansetron 4 mg disintegrating oral tablet (4 sources)Serotonin-3 Receptor AntagonistStart: 54-81-5038ykwy 1 tablet by mouth three times daily as neededOndansetron 4 MG 1 tablet on the tongue and allow to dissolve Orally tid prn for 5 days May, ActiveOXcarbazepine 300 mg oral tablet (20 sources)Anti-epileptic AgentStart: 08-27-2024 End: 15-06-3845hdcn 1 dose by mouth mmbc990 mg, Oral, Once, 1 dose, On Sun11/04/24 at 0830Start: 12-02-4209GWwpppvhumast (Trileptal) 300 MG tablet Indications: Seizure (CMS/HCC) 1 tab added to bedtime dose to equal 900 mg (continue with 600 mg in the am) 60 tablet 2 07/30/2024 ActiveStart: 07-30-2024 OXcarbazepine (Trileptal) 300 MG tablet Indications: Seizure (CMS/HCC) 1 tab added to bedtime dose to equal 900 mg (continue with 600 mg in the am) 60 tablet 2 07/30/2024 ActiveStart: 05-29-2024 End: 37-08-4702xwnb 1 tablet by mouth twice dailyOxcarbazepine (Trileptal) 600 mg tablet Discontinued 600 MG PO Twice daily 60 August 27, 2024 4:49pmAugus2024 12:36pm in addition to the 300 mg doseStart: 04-28-2024 End: 53-38-3414qxlu 1 tablet by mouth once daily in the morning, then take 2 tablets by mouth once daily in the eveningOxcarbazepine 150 mg tablet Discontinued 150 MG PO Twice daily April 28, 2024 3:09pm June 04, 2024 11:17am 1 po qam, 2 po qpmStart: 08-11-0669CRppqllwqvell (Trileptal) 300 MG tablet Indications: Seizure (CMS/HCC) 1 TAB IN THE MORNING AND 2 TABS AT BEDTIME 270 tablet 1 03/24/2024 ActiveStart: 12-06-2023 End: 42-88-9383srow 1 tablet by mouth twice dailyOxcarbazepine 150 mg tablet Discontinued 150 MG PO Twice daily December 06, 2023 12:00am April 28, 2024 3:10pmStart: 71-04-1960fbcq 0.5 tablet by mouth twice daily, then take 1 tablet by mouth twice daily in the morning, then take 2 tablets by mouth at bedtimeOXcarbazepine (Trileptal) 300 MG tablet Indications: Seizure (CMS/HCC) TAKE 1/2 TAB BY MOUTH TWICE DAILY X1WEEK,1 TAB TWICE DAILY X1WEEK,1 TAB IN MORNING & 2 TABS BEDTIME 270 tablet 1 10/22/2023 Active Completed/Discontinued Medications MedicationDrug Class(es)DatesSig (Normalized)Sig (Original)acetaminophen 500 mg oral tablet (1 source)Start: 07-12-2024 End: 67-65-1948ukpr 4000 mg by mouth every twenty-four hours1,000 mg, Oral, Once, 1 dose, On 07/12/24 at 2000, Maximum dose of acetaminophen is 4000 mg fromall sources in 24 hours.amoxicillin 875 mg / clavulanate 125 mg oral tablet (8 sources)Penicillin-class AntibacterialStart: 12-06-2023 End: 25-96-6759oixd 1 tablet by mouth twice dailyAmoxicillin-Pot Clavulanate 875-125 mg tablet Discontinued 1 TAB PO Twice daily 12 01December 06, 2023 12:00am March 13, 2024 12:44pmStart: 26-77-5641tegz 1 tablet by mouth every twelve hoursAmoxicillin-Pot Clavulanate 875-125 MG 1 tablet Orally every 12 hrs for 10 day(s) Mar, Not-Takingbacitracin 0.5 unt/mg topical ointment (1 source)Start: 11-04-2024 End: 70-54-9504hgdsn 1 dose topically onceTopical, Once, On e 11/04/24 at 1130, For 1 dose, Apply to Right big toe.fexofenadine hydrochloride 180 mg oral tablet (4 sources)Histamine-1 Receptor AntagonistStart: 12-06-2023 End: 75-26-2260nmea 1 tablet by mouth once dailyFexofenadine (Jacqueline Allergy) 180 mg tablet Discontinued 180 MG PO Daily December 06, 2023 12:00am March 13, 2024 12:44pmfluticasone propionate 0.05 mg/actuat metered dose nasal spray (4 sources)CorticosteroidStart: 12-06-2023 End: 45-47-3197cjsw 1 spray(s) nasal route twice dailyFluticasone Propionate (Flonase Allergy Relief) 50 mcg/actuation spray,suspension Discontinued 1 SPRAY INTRANASAL Twice daily December 06, 2023 12:00am March 13, 2024 12:44pm administer into each nostrilibuprofen 200 mg oral tablet (3 sources)Nonsteroidal Anti-inflammatory DrugStart: 12-28-2018 End: 56-48-9138ighwtasjs (ADVIL;MOTRIN) tablet 400 mgtake 1 tablet by mouth every six hours as needed for painibuprofen (ADVIL;MOTRIN) 400 MG tablet Take 1 tablet by mouth every 6 hours as needed for Pain ActivelevETIRAcetam 500 mg oral tablet (12 sources)Start: 08-28-2023 End: 32-11-3635yrvx 1 tablet by mouth twice dailyLevetiracetam (Keppra) 500 mg tablet Discontinued 500 MG PO Twice daily 30 August 28, 2023 8:24amJune 2023 3:38pmlisinopril 20 mg oral tablet (20 sources)Angiotensin Converting Enzyme InhibitorStart: 12-25-2023 End: 53-35-4429xvzd 1 tablet by mouth once dailyLisinopril 20 mg tablet Discontinued 0 .ROUTE .COMPLEX 90 March 24, 2024 5:43pm April 03, 2024 3:20pm TAKE 1 TABLET BY MOUTH EVERY DAYStart: 08-30-2022 End: 25-61-5177womg 1 tablet by mouth once dailyLisinopril 20 mg tablet Discontinued 20 MG PO Daily August 24, 2023 12:00am December 25, 2023 8:36am FreeTextSig: TAKE 1 TABLET BY MOUTH EVERY DAY; Note: Source Status: Continue; Provider: Carlos Yang ( )take 1 tablet by mouth once daily lisinopril (PRINIVIL;ZESTRIL) 10 MG tablet Take 10 mg by mouth daily Active sertraline 20 mg/ml oral solution (2 sources)Serotonin Reuptake Inhibitor End: 05-29-1313gohz 25 mg by mouth once dailysertraline (ZOLOFT) 20 MG/ML concentrated solution Take 25 mg by mouth daily 07/12/2024 Discontinued (LIST CLEANUP)1000 ml sodium chloride 9 mg/ml injection (1 source)Start: 07-12-2024 End: 07-20-0415370 mL (4.27 mL/kg), IntraVENous, at 967.7 mL/hr, Administer over 31 Minutes, ONCE, On 07/12/24 at 1945, For 1 dosesulfamethoxazole 800 mg / trimethoprim 160 mg oral tablet (9 sources)Dihydrofolate Reductase Inhibitor Antibacterial, Sulfonamide AntimicrobialStart: 08-02-2023 End: 40-41-1467nojf 1 tablet by mouth twice dailySulfamethoxazole-Trimethoprim 800-160 mg tablet Discontinued 1 TAB PO Twice daily August 02, 2023 12:00am August 27, 2023 1:41pmtake 1 tablet by mouth every twelve hoursSulfamethoxazole- Trimethoprim 800-160 MG 1 tablet Orally Twice a day Gcxidv84 hr venlafaxine 150 mg extended release oral capsule (20 sources)Serotonin and Norepinephrine Reuptake InhibitorStart: 08-24-2023 End: 14-24-6625apzp 1 capsule by mouth once dailyVenlafaxine 150 mg capsule,extended release 24hr Discontinued 150 MG PO Daily 90 90 December 05, 2023 8:03am March 13, 2024 1:21pmStart: 62-53-9454Mdkarrq XR 150 MG 24 hr capsule 02/07/2023 ActiveStart: 66-19-9197arvv 1 capsule by mouth once daily Effexor XR 75 mg Cap-ER 75 mg = 1 cap(s), Oral, Daily, Refills(s) 0 Start Date: 08/30/22 Status: Orderedtake 1 capsule by mouth once dailyVenlafaxine HCl ER 150 MG TAKE 1 CAPSULE BY MOUTH EVERY DAY for 90 days Active Problems Active Problems Problem ClassificationProblemDateDocumented DateEpisodic/ChronicAnxiety disorders (20 sources)Anxiety; Translations: [Anxiety disorder]Onset: 343706-30-4639 ChronicContraceptive and procreative management (2 sources)Presence of (intrauterine) contraceptive device; Translations: [Initiation of transdermal contraception] Resolved: 72-82-4917KdqtvxyiRckftbrt; convulsions (5 sources)Epilepsy, unspecified, not intractable, without status epilepticus; Translations: [Seizure disorder]Onset: 136626-11-9621MmmnumoWjcryquzu hypertension (20 sources)Hypertensive disorder; Translations: [Essential (primary) hypertension]Onset: 592143-36-9103PblgdlaEzryasyl; including migraine (1 source)Headache; including migraine; Translations: [HEADACHE, UNSPECIFIED] Onset: 58-36-4063Ounvetdbqazd diseases of female pelvic organs (1 source)Acute vaginitis; Translations: [Acute vaginitis]EpisodicMalaise and fatigue (1 source)Fatigue; Translations: [Other fatigue]EpisodicMenstrual disorders (1 source)Irregular menstruation, unspecified; Translations: [Irregular menstruation, unspecified]ChronicMiscellaneous mental health disorders (15 sources)Primary insomnia; Translations: [Primary insomnia]Onset: 11-21-2023 16-01-9354VprpptlTprh disorders (3 sources)Depressive disorder; Translations: [Moderate major depression ] 16-50-8535EhkvlpqKacrz ear and sense organ disorders (1 source)Unspecified acute noninfective otitis externa, unspecified ear; Translations: [Unspecified acute noninfective otitis externa, unspecified ear] EpisodicOther ear and sense organ disorders (1 source)Infective otitis externa; Translations: [Other infective otitis externa, right ear]EpisodicOther nervous system disorders (17 sources)Circadian rhythm sleep disorder of shift work type; Translations: [Circadian rhythm sleep disorder,shift work type]Onset: ChronicOther nutritional; endocrine; and metabolic disorders (3 sources)Body mass index 40+ - severely obese; Translations: [Body mass index (BMI) 45.0-49.9, adult]Onset: 50-87-1764XrpbrrlGoxvm nutritional; endocrine; and metabolic disorders (2 sources)Morbid obesity; Translations: [Morbid (severe) obesity due to excess calories]Onset: 001357-22-0856WstowskTwdov nutritional; endocrine; and metabolic disorders (2 sources)Severe obesity; Translations: [Morbid (severe) obesity due to excess calories]26-66-7268RqgpavmSykjr screening for suspected conditions (not mental disorders or infectious disease) (5 sources)Encounter for screening for malignant neoplasm of cervix; Translations: [Cervical smear - inadequate specimen]Onset: 84-84-6087Uuchqgwv Other upper respiratory infections (6 sources)Chronic sinusitis, unspecified; Translations: [Maxillary sinusitis] 84-15-9219JmqqjiyXcsuum media and related conditions (1 source)Unspecified nonsuppurative otitis media, right ear; Translations: [Unspecified nonsuppurative otitis media, right ear]EpisodicResidual codes; unclassified (19 sources)Hypersomnia; Translations: [Hypersomnia, unspecified]Onset: 528162-64-9505SlseryoQasomijn codes; unclassified (20 sources)Obstructive sleep apnea syndrome; Translations: [Obstructive sleep apnea (adult) (pediatric)]Onset: 017305-45-6353SwqnzmnJslsqbxv codes; unclassified (1 source)Obstructive sleep apnea (adult) (pediatric); Translations: [Obstructive sleep apnea (adult)(pediatric)]71-97-6725LrzytvzWkwhplwv codes; unclassified (1 source)Tobacco user; Translations: [Tobacco use]Onset: 40-36-4669Wddpgxje Residual codes; unclassified (1 source)Nicotine-filled electronic cigarette detk30-03-2809EnkzacjbWapo and subcutaneous tissue infections (3 sources)Cutaneous abscess of limb, unspecified; Translations: [Abscess of limb]Onset: 43-63-4549ZqolewcuRfvnyvypp-related disorders (15 sources)Psychoactive substance abuse; Translations: [Cannabis abuse, uncomplicated]Onset: 795480-36-3488EnzjlcrDmxbjswckxl injury; contusion (1 source)Abrasion of finger; Translations: [Abrasion of right index finger, initial encounter]EpisodicThyroid disorders (20 sources)Hypothyroidism; Translations: [Acquired hypothyroidism]Onset: 180980-62-8776UjeubokCplrfukpcnes (1 source)Cough, unspecified; Translations: [Cough, unspecified]Unclassified (1 source)PT NONCOMPL WITH OTHER MED TRTMT AND REGIMEN FOR OTHER RSN; Translations: [PT NONCOMPL WITH OTHER MED TRTMT AND REGIMEN FOR OTHER RSN]Onset: 15-29-3322Ygdraym tract infections (1 source)Acute cystitis without hematuria; Translations: [Acute cystitis without hematuria]Onset: 70-51-9693Yaalkkro Past or Other Problems Problem ClassificationProblemDateDocumented DateEpisodic/ChronicDiabetes mellitus without complication (16 sources)Other abnormal glucose; Translations: [Impaired fasting glycemia] Onset: 692597-62-8816UrxqxepqIuinlwxm; convulsions (20 sources)Seizure; Translations: [Unspecified convulsions]Onset: 11-21-2023 65-83-8825PcjrdahgYziohqvoz (1 source)Influenza with other manifestations; Translations: [Influenza with other manifestations]Onset: 79-96-9242MiygnipbPyrwz ear and sense organ disorders (1 source)Acute otitis externa; Translations: [Acute swimmers' ear]Onset: 83-92-1233AzabkheuVoytg inflammatory condition of skin (1 source)Sunburn of second degree; Translations: [Sunburn of second degree] Resolved: 47-31-0340OdilvoxnTqjsk nutritional; endocrine; and metabolic disorders (1 source)Overweight; Translations: [Overweight] Resolved: 82-25-2814OfavthkjIlygx upper respiratory infections (2 sources)Acute maxillary sinusitis, unspecified; Translations: [Acute recurrent maxillary sinusitis]Onset: 24-93-4605KxryruwhUahxgveq codes; unclassified (1 source)High risk heterosexual behavior; Translations: [High risk heterosexual behavior] Resolved: 13-09-4349GkjllcsxPrwpaaiu codes; unclassified (15 sources)Sleep deprivation; Translations: [Sleep deprivation]Onset: 424797-44-4938KvkcihlcXvjjxxsaslro (1 source)Health examination of defined subpopulation; Translations: [Health examination of defined subpopulation]Onset: 55-54-1755Toorpjzdxlqb (1 source)Bacterial infection, unspecified, in conditions classified elsewhere and of unspecified site; Translations: [Bacterial infection, unspecified, in conditions classified elsewhere and of unspecified site]Onset: 05-27-2018 Unclassified (1 source)Volunteer activity; Translations: [Volunteer activity]Onset: 62-67-7406Ralzhkrqjcks (1 source)Acute candidiasis of vulva and vagina; Translations: [Acute candidiasis of vulva and vagina] Resolved: 10-28-2021 Results Test NameValueInterpretationReference RangeFacilityCult,Urineon 12-09-2024 Cult,UrineSpecimen Description .CLEAN CATCH URINE Special Requests Site: Urine Culture NO SIGNIFICANT GROWTH Report Status FINAL 12/09/2024NormalMerVeterans Administration Medical CenterComment on above: Performed By: #### UR #### [facility] [address] [place] [address] Supervisor Data Processing: Henok Fortune MD [facility] [address] [place] [address] Supervisor Data Processing: Neo Mauro [facility] with Diffon 15-00-6818Cvs. Basophil0.00 k/uL Normal0.0-0.2[facility] HospitalComment on above:Performed By: #### UHCG, UAX, SHUKRI, UMICAO #### [address] [place] [address] Supervisor Data Processing: Claudia Kebede.Imm.Granulocyte0.08 k/uLNormal0.00-0.30[facility] HospitalComment on above:Performed By: #### UHCG, UAX, SHUKRI, UMICAO #### [address] [place], [place] [address] Supervisor Data Processing: MDAbs. DelioNeutrophil (Seg)5.19 k/uLNormal1.50-8.10[facility] HospitalComment on above:Performed By: #### UHCG, UAX, SHUKRI, UMICAO #### [address] [place], [place] [address] Supervisor Data Processing: Neo Mauro MDBasophils/100 WBC (Bld)0 %Normal0-2MUniversity Hospitals Conneaut Medical Center HospitalComment on above:Performed By: #### UHCG, UAX, SHUKRI, UMICAO #### [address] [place], [facility] Supervisor Data Processing: Neo Mauro MDEosinophils (Bld) [#/Vol]0.24 10*3/uLNormal 0.00-0.44[facility] HospitalComment on above:Performed By: #### UHCG, UAX, SHUKRI, UMICAO #### [address] [place], [place] [id number] Supervisor Data Processing: LUCIA Kebedeosinophils/100 WBC (Bld)3 %Normal1-4[facility] HospitalComment on above:Performed By: #### UHCG, UAX, SHUKRI, UMICAO #### [address] [place], [place] [address] Supervisor Data Processing: Neo Mauro MDImmature granulocytes/100 WBC (Bld)1 %Ddte5YsxsxProvidence HospitalComment on above:Performed By: #### UHCG, UAX, SHUKRI, UMICAO #### [address] [place], [place] [address] Supervisor Data Processing: Neo Mauro MDLymphocytes (Bld) [#/Vol]1.94 10*3/uLNormal 1.10-3.70[facility] HospitalComment on above:Performed By: #### UHCG, UAX, SHUKRI, UMICAO #### [address] [place], [place] [address] Supervisor Data Processing: Petar Kebedemphocytes/100 WBC (Bld)24 %Hkbmkf71-73FgkynProvidence HospitalComment on above:Performed By: #### UHCG, UAX, SHUKRI, UMICAO #### [address] [place], [place] [address] Supervisor Data Processing: AKIL Kebedeonocytes (Bld) [#/Vol]0.65 10*3/uLNormal0.10-1.20 [facility] HospitalComment on above:Performed By: #### UHCG, UAX, SHUKRI, UMICAO #### [address] [place], [place] [address] Supervisor Data Processing: AKIL Kebedeonocytes/100 WBC (Bld)8 %Normal3-12Prov[facility] HospitalComment on above:Performed By: #### UHCG, UAX, SHUKRI, UMICAO #### [address] [place], [facility] Supervisor Data Processing: AKIL Kebedeorphology Javier (Bld) [Interp]Platelet clumps present, count appears adequate.NormalAdena Pike Medical Center HospitalComment on above: Performed By: #### UHCG, UAX, SHUKRI, UMICAO #### [address] [place], [place] [id number] Supervisor Data Processing: Neo Mauro MDNeutrophil (Seg)64 %Gzylft96-29Gcxsn [facility] HospitalComment on above:Performed By: #### UHCG, UAX, SHUKRI, UMICAO #### [address] [place], [facility] Supervisor Data Processing: Warren Kebede Fluoresc.[facility] k/qPNay413-254UhqtuProvidence HospitalComment on above:Performed By: #### UHCG, UAX, SHUKRI, UMICAO #### [address] [place] [address] Supervisor Data Processing: LEONARD KebedeLT, Immature Fract.14.7 %High1.1-10.3[facility] HospitalComment on above:Performed By: #### UHCG, UAX, SHUKRI, UMICAO #### [address] [place], [place] [id number] Supervisor Data Processing: Neo Mauro MDErythrocyte distribution width (RBC) [Ratio]12.6 % Gvmmgq60.8-14.4[facility] HospitalComment on above:Performed By: #### UHCG, UAX, SHUKRI, UMICAO #### [address] [place], [place] [id number] Supervisor Data Processing: Neo Mauro MDHematocrit (Bld) [Volume fraction]40.5 %Normal 36.3-47.1MUniversity Hospitals Conneaut Medical Center HospitalComment on above:Performed By: #### UHCG, UAX, SHUKRI, UMICAO #### [address] [place], [place] [id number] Supervisor Data Processing: Neo Mauro MDHemoglobin (Bld) [Mass/Vol]14.1 g/dLNormal 11.9-15.1MUniversity Hospitals Conneaut Medical Center HospitalComment on above:Performed By: #### UHCG, UAX, SHUKRI, UMICAO #### [address] [place] [address] Supervisor Data Processing: ALEX Kebede (RBC) [Entitic mass]32.3 saVkfgsn50.2-33.5 [facility] HospitalComment on above:Performed By: #### UHCG, UAX, SHUKRI, UMICAO #### [address] [place] [address] Supervisor Data Processing: ALEX KebedeC (RBC) [Mass/Vol]34.8 g/gGHpjvva88.4-34.8Providence HospitalComment on above:Performed By: #### UHCG, UAX, SHUKRI, UMICAO #### [address] [place], [place] [phone] Supervisor Data Processing: GODWIN Kebede (RBC) [Entitic vol]92.7 zOBiwoiy13.6-102.9 [facility] HospitalComment on above:Performed By: #### UHCG, UAX, SHUKRI, UMICAO #### [address] [place] [address] Supervisor Data Processing: ESTUARDO KebedeBC Automated0.0 per 100 WBCNormal0.0Providence HospitalComment on above:Performed By: #### UHCG, UAX, SHUKRI, UMICAO #### [address] [place] [address] Supervisor Data Processing: Warren Kebede CountSee Reflexed IPF WtnrnnMkkupn190-407 [facility] HospitalComment on above:Performed By: #### UHCG, UAX, SHUKRI, UMICAO #### [facility] [address] [place] [address] Supervisor Data Processing: CARL Kebede (Blalex) [#/Vol]4.37 10*6/uLNormal3.95-5.11Providence HospitalComment on above:Performed By: #### UHCG, UAX, SHUKRI, UMICAO #### [facility] [address] [place] [phone] Supervisor Data Processing: KODY Kebede ([facility]) [#/Vol]8.1 10*3/uLNormal3.5-11.3MWilson Memorial HospitalComment on above:Performed By: #### UHCG, UAX, SHUKRI, UMICAO #### [address] [place] [address] Supervisor Data Processing: Neo Mauro MDCT HEAD CONTRASTon 08-23-5491IF HEAD WO CONTRASTEXAMINATION: CT OF THE HEAD WITHOUT CONTRAST 12/08/2024 10:10 am TECHNIQUE: CT of the head was performed without the administration of intravenous contrast. Automated exposure control, iterative reconstruction, and/or weight based adjustment of the mA/kV was utilized to reduce the radiation dose to as low as reasonably achievable. COMPARISON: None. HISTORY: ORDERING SYSTEM PROVIDED HISTORY: seizure TECHNOLOGIST PROVIDED HISTORY: seizure Decision Support Exception - unselect if not a suspected or confirmed emergency medical condition->Emergency Medical Condition (MA) FINDINGS: BRAIN/VENTRICLES: There is no acute intracranial hemorrhage, mass effect, or midline shift. There is satisfactory overall cespedes-white matter differentiation. The ventricular structures are symmetric and unremarkable. The infratentorial structures are unremarkable. ORBITS: The visualized portion of the orbits demonstrate no acute abnormality. SINUSES: There is a polyp versus mucous retention cyst in the right maxillary sinus. The mastoid air cells are normally aerated. SOFT TISSUES/SKULL: No acute abnormality of the visualized skull or soft tissues. IMPRESSION: No acute intracranial abnormality. Interpreted by: Kurt Mcmullen MD Signed by: Kurt Mcmullen MD 12/08/24 Final resultNormalProtestant Deaconess Hospitalp Metabolic Profon 17-28-5433Opeqimm [Mass/Vol]3.9 g/dLNormal3.5-5.2MWilson Memorial HospitalComment on above:Performed By: #### UHCG, UAX, SHUKRI, UMICAO #### [address] [place], [place] [phone] Supervisor Data Processing: Neo Mauro MDAlbumin/Glob Ratio1.0Blbiyz3.0-2.5[facility] on above:Performed By: #### UHCG, UAX, SHUKRI, UMICAO #### [address] [place], [place] [phone] Supervisor Data Processing: Lakeshia Kebedeline Wosy005 U/QYhbm64-042WfcfwLicking Memorial Hospital on above:Performed By: #### UHCG, UAX, SHUKRI, UMICAO #### [address] [place], [place] [phone] Supervisor Data Processing: Neo Mauro MDALT [Catalytic activity/Vol]22 U/VIbpzhp82-78OhgizLicking Memorial Hospital on above:Performed By: #### UHCG, UAX, SHUKRI, UMICAO #### [address] [place], [place] 9493483 Supervisor Data Processing: Abebe Kebede gap [Moles/Vol]12 mmol/LNormal9-16[facility] on above:Performed By: #### UHCG, UAX, SHUKRI, UMICAO #### [address] [place] [address] Supervisor Data Processing: Neo Mauro MDAST [Catalytic activity/Vol]27 U/ZEtkixa08-81ShfdeLicking Memorial Hospital on above:Performed By: #### UHCG, UAX, SHUKRI, UMICAO #### [address] [place], [place] [phone] Supervisor Data Processing: Neo Mauro MDBilirubin [Mass/Vol]mg/dLNormal0.00-1.20Providence HospitalComment on above:Performed By: #### UHCG, UAX, SHUKRI, UMICAO #### [address] [place], [place] [phone] Supervisor Data Processing: Neo Mauro MDBUN/CRE Ujmef65Xchjro9-63[facility] Comment on above:Performed By: #### UHCG, UAX, SHUKRI, UMICAO #### [address] [place], [place] [phone] Supervisor Data Processing: KATIE Kebedealcium [Mass/Vol]9.0 mg/dLNormal8.6-10.4[facility] HospitalComment on above:Performed By: #### UHCG, UAX, SHUKRI, UMICAO #### [address] [place], [place] [phone] Supervisor Data Processing: KATIE Kebedehloride [Moles/Vol]102 mmol/IWlegul46-716TaoexProvidence HospitalComment on above:Performed By: #### UHCG, UAX, SHUKRI, UMICAO #### [address] [place], [place] [phone] Supervisor Data Processing: Neo Mauro MDCO2 [Moles/Vol]23 mmol/ZNnnqpl60-20Pgtvb [facility] HospitalComment on above:Performed By: #### UHCG, UAX, SHUKRI, UMICAO #### [address] [place] [address] Supervisor Data Processing: KATIE Kebedereatinine [Mass/Vol]0.6 mg/dLNormal0.50-0.90[facility] HospitalComment on above:Performed By: #### UHCG, UAX, SHUKRI, UMICAO #### [address] [place] [address] Supervisor Data Processing: Neo Mauro MDGFR/1.73 sq M.predicted among non-blacks MDRD (S/P/Bld) [Vol rate/Area]mL/min/{1.73_m2}Normal>60Providence HospitalComment on above:Result Comment: These results are not intended for use in patients <18 years of age. eGFR results are calculated without a race factor using the 2020 CKD-EPI equation. Careful clinical correlation is recommended, particularly when comparing to results calculated using previous equations. The CKD-EPI equation is less accurate in patients with extremes of muscle mass, extra-renal metabolism of creatine, excessive creatine ingestion, or following therapy that affects renal tubular secretion.Performed By: #### UHCG, UAX, SHUKRI, UMICAO #### [address] [place] [address] Supervisor Data Processing: Neo Mauro MDGlucose [Mass/Vol]90 mg/oVOzmhox68-93MmhzoWilson Memorial HospitalComment on above:Performed By: #### UHCG, UAX, SHUKRI, UMICAO #### [address] [place] [address] Supervisor Data Processing: LEONARD Kebedeotassium [Moles/Vol]3.7 mmol/LNormal3.7-5.3MUniversity Hospitals Conneaut Medical Center HospitalComment on above:Performed By: #### UHCG, UAX, SHUKRI, UMICAO #### [address] [place] [address] Supervisor Data Processing: Neo Mauro MDProtein [Mass/Vol]6.3 g/dLLow6.6-8.7Providence HospitalComment on above:Performed By: #### UHCG, UAX, SHUKRI, UMICAO #### [address] [place], [place] [phone] Supervisor Data Processing: EMILY Kebedeodium [Moles/Vol]137 mmol/KDaxppr497-558Fbvwg [facility] HospitalComment on above:Performed By: #### UHCG, UAX, SHUKRI, UMICAO #### [address] [place], [place] 2305183 Supervisor Data Processing: Neo Mauro MDUrea nitrogen [Mass/Vol]7 mg/dLNormal6-20[facility] HospitalComment on above:Performed By: #### UHCG, UAX, SHUKRI, UMICAO #### [address] [place] [phone] Supervisor Data Processing: MORALES Kebederug Scr, Abuse, Uron 10-51-9671Aliirrkyhjz(s),Ur PositiveAbnormalNEGMercy Albuquerque HospitalComment on above:Result Comment: Cutoff: 50 ng/mlPerformed By: #### UHCG, UAX, SHUKRI, UMICAO #### [address] [place], [facility]83 Supervisor Data Processing: Neo Mauro MDAmphetamine(s),UrNegativeNormalNEGMercy Albuquerque HospitalComment on above:Result Comment: Cutoff: 1000 ng/mLPerformed By: #### UHCG, UAX, SHUKRI, UMICAO #### [address] [place], [facility]83 Supervisor Data Processing: Neo Mauro MDBarbiturate(s),UrNegativeNormalNEGMercy Albuquerque HospitalComment on above:Result Comment: Cutoff: 200 ng/mlPerformed By: #### UHCG, UAX, SHUKRI, UMICAO #### [address] [place], [place] [phone] Supervisor Data Processing: Neo Mauro MDBenzodiazepine(s)NegativeNormalNEGMercy Albuquerque HospitalComment on above:Result Comment: Cutoff: 200 ng/mlPerformed By: #### UHCG, UAX, SHUKRI, UMICAO #### [address] [place], [place] [phone] Supervisor Data Processing: KATIE Kebedeocaine MetaboliteNegativeNormalNEGMercy Johnson Memorial HospitalComcorewell health gerber hospital on above:Result Comment: Cutoff: 300 ng/mlPerformed By: #### UHCG, UAX, SHUKRI, UMICAO #### [address] [place], [place] [phone] Supervisor Data Processing: Sai Kebedetanyl, UrineNegativeNormalNEGMercy Johnson Memorial HospitalComcorewell health gerber hospital on above:Result Comment: Cutoff: 5 ng/mlPerformed By: #### UHCG, UAX, SHUKRI, UMICAO #### [address] [place], [place] [phone] Supervisor Data Processing: Neo Mauro MDInterpretive InfoThis method is a screening test to detect only these drug classes as part of aNormalMercy Johnson Memorial HospitalComcorewell health gerber hospital on above:Result Comment: medical workup. Confirmatory testing by another method should be ordered if clinically indicated.Performed By: #### UHCG, UAX, SHUKRI, UMICAO #### [address] [place], [place] [phone] Supervisor Data Processing: AKIL Kebedeethadone Ql (U)NegativeNormalNEGMercy Albuquerque HospitalComcorewell health gerber hospital on above:Result Comment: Cutoff: 300 ng/mlPerformed By: #### UHCG, UAX, SHUKRI, UMICAO #### [address] [place] [address] Supervisor Data Processing: Neo Mauro MDOpiate(s), UrNegativeNormalNEGMercy Albuquerque HospitalLee'S Summit Hospital on above:Result Comment: Cutoff: 300 ng/ml Note: The Opiate screen is not intended to detect Oxycodone.Performed By: #### UHCG, UAX, SHUKRI, UMICAO #### [address] [place] [address] Supervisor Data Processing: Neo Mauro MDOxycodone, UrineNegativeNormalNEGMercy Johnson Memorial HospitalComment on above:Result Comment: Cutoff: 100 ng/mlPerformed By: #### UHCG, UAX, SHUKRI, UMICAO #### [address] [place], [place] [phone] Supervisor Data Processing: Mindy Kebedecyclidine, UrNegativeNormalNEGMercy Johnson Memorial HospitalComment on above:Result Comment: Cutoff: 25 ng/mlPerformed By: #### UHCG, UAX, SHUKRI, UMICAO #### [address] [place] [address] Supervisor Data Processing: Neo Mauro MDHCG, ,Urineon 35-03-1620Jvoe HCG ( test) Ql (U)NegativeNormalNEGMercy Johnson Memorial HospitalComment on above: Result Comment: Specimens with hCG levels near the threshold of the test (25 mIU/mL) may give a negative or indeterminate result. In such cases, another test should be performed with a new specimen in 48-72 hours. If early is suspected clinically in this setting, correlation with quantitative serum b-hCG level is suggested.Performed By: #### UHCG, UAX, SHUKRI, UMICAO #### [address] [place] [address] Supervisor Data Processing: Neo Mauro MDMagnesiumon 77-27-0914Olqcndcju [Mass/Vol]2.0 mg/dLNormal1.6-2.6Mercy Johnson Memorial HospitalComment on above:Performed By: #### UHCG, UAX, SHUKRI, UMICAO #### [address] [place] [address] Supervisor Data Processing: GISELLE Kebede w/Reflex Cultureon 62-80-9559Uokjetmli, SemiQt,UrNegativeNormalNEGMerVeterans Administration Medical CenterComment on above:Performed By: #### UHCG, UAX, SHUKRI, UMICAO #### [facility] [address] [place], [place] [phone] Supervisor Data Processing: Nessa Kebede, Urine2+AbnormalNEGProvidence Hospital Comment on above:Performed By: #### UHCG, UAX, SHUKRI, UMICAO #### [facility] [address] [place], [place] [phone] Supervisor Data Processing: KATIE Kebedelarity ()ClearNormalCLEARProvidence Hospital Comment on above:Performed By: #### UHCG, UAX, SHUKRI, UMICAO #### [facility] [address] [place] [address] Dr[address] [place], [place] [phone] Supervisor Data Processing: KATIE Kebedeolor ()YellowNoalYTrinity Health System West Campus Comment on above:Performed By: #### UHCG, UAX, SHUKRI, UMICAO #### [facility] [address] [place] [address] Dr[address] [place], [place] [phone] Supervisor Data Processing: Neo Mauro MDGlucose Ql (U)NegativeNormalNEGMerVeterans Administration Medical CenterComment on above:Performed By: #### UHCG, UAX, SHUKRI, UMICAO #### [facility] [address] [place] [address] Dr[address] [place], [place] [phone] Supervisor Data Processing: Neo Mauro MDKetones Ql (U)NegativeNormalNEGMerVeterans Administration Medical CenterComment on above:Performed By: #### UHCG, UAX, SHUKRI, UMICAO #### [facility] [address] [place] [address] [place] [address] Supervisor Data Processing: Neo Mauro MDLeukocyte esterase Test strip Ql (U)SMALLAbnormal NEGMerUniversity Hospitals Geneva Medical Centerfin HospitalComment on above:Performed By: #### UHCG, UAX, SHUKRI, UMICAO #### [address] [place], [place] [phone] Supervisor Data Processing: Neo Mauro MDNitrite,UrNegativeNormalNEGProvidence Hospital Comment on above:Performed By: #### UHCG, UAX, SHUKRI, UMICAO #### [facility] [address] [place] [address] Dr[address] [place], [place] [phone] Supervisor Data Processing: LEONARD Kebede,Ur6.4Ytfgsk3.0-9.0Providence HospitalComment on above:Performed By: #### UHCG, UAX, SHUKRI, UMICAO #### [address] [place], [place] 9358083 Supervisor Data Processing: LEONARD Kebedejfk [facility] Ql (U)TRACEAbnormalNEGProvidence HospitalComment on above:Performed By: #### UHCG, UAX, SHUKRI, UMICAO #### [address] [place], [place] 1135983 Supervisor Data Processing: EMILY Kebedepec. Raymond,Ur1.819Otoh3.010-1.020Providence HospitalComment on above:Performed By: #### UHCG, UAX, SHUKRI, UMICAO #### [facility] [address] [place] [address] Dr[place], [place] [phone] Supervisor Data Processing: Neo Mauro MDUrobilinogen,UrNormalNormal0.0-1.0Providence HospitalComment on above:Performed By: #### UHCG, UAX, SHUKRI, UMICAO #### [address] [place], [place] [phone] Supervisor Data Processing: Neo Mauro MDUrinalysis,Microon 72-96-1707Twdjndckd sediment LM Ql (Urine sed)1+AbnormalNONThe [facility] HospitalComment on above:Performed By: #### UHCG, UAX, SHUKRI, UMICAO #### [facility] [address] [place] [address] [place] [address] Supervisor Data Processing: Neo Mauro MDBacteria2+AbnormalChillicothe Hospital HospitalComment on above:Performed By: #### UHCG, UAX, SHUKRI, UMICAO #### [facility] [address] [place] [address] [place] [address] Supervisor Data Processing: Neo Mauro [facility] – HUGOasts0 TO 2NormalProvidence HospitalComment on above:Result Comment: HYALINEPerformed By: #### UHCG, UAX, SHUKRI, UMICAO #### [address] [place] [address] Supervisor Data Processing: Neo Mauro MDEpithelial cells LM Ql (Urine sed)2 TO 2Orvmsm1-75 Providence HospitalComment on above:Performed By: #### UHCG, UAX, SHUKRI, UMICAO #### [facility] [address] [place] [address] [place] [address] Supervisor Data Processing: AKIL Kebedeucus Strands1+[facility] Comment on above:Performed By: #### UHCG, UAX, SHUKRI, UMICAO #### [facility] [address] [place] [address] [place] [address] Supervisor Data Processing: Neo Mauro MDOther ObservationsQuantity not sufficient.Abnormal NREQProvidence HospitalComment on above:Result Comment: MICROSCOPIC PERFORMED ON UNSPUN URINEPerformed By: #### UHCG, UAX, SHUKRI, UMICAO #### [facility] [address] [place] [address] Dr[address] [place], [place] [phone] Supervisor Data Processing: Neo Mauro MDUrine RBC's0 TO 6Ntfeoq1-5Utfdf [facility] Comment on above:Performed By: #### UHCG, UAX, SHUKRI, UMICAO #### [facility] [address] [place] [address] Supervisor Data Processing: Neo Mauro MDUrine WBC's2 TO 7Nhwlkj6-1AeephProvidence Hospital Comment on above:Performed By: #### UHCG, UAX, SHUKRI, UMICAO #### [facility] [address] [place] [address] Supervisor Data Processing: Neo Mauro MDOxcarbazepineon 47-05-4400Vhalmitztgdlw22.7 ug/mL Ftycjm43.0-35.0Providence HospitalComment on above:Result Comment: (NOTE) INTERPRETIVE INFORMATION: Oxcarbazepine Metabolite, Serum Therapeutic Range: 10.0 - 35.0 ug/mL Toxic Range: >=40.0 ug/mL This test measures monohydroxyoxcarbazepine (MHD). Adverse effects may include dizziness, fatigue, nausea, headache, somnolence, ataxia, and tremor. Performed By: [facility] [address] [place] [address] Lunchroom Operator: Tai Canas MD, PhD CLIA Number: [id number] By: #### AOXCAR #### [address] [address] Supervisor Data Processing: Miguel Angel Pinzon MD #### HCG #### [facility] [address] [place] [address] Supervisor Data Processing: Neo Mauro [facility] with Auto Differentialon 47-83-9002Eozsfbnod (Bld) [#/Vol][facility] HealthBasophils/100 WBC (Bld)0 %0 - 2 %[facility] HealthEosinophils (Bld) [#/Vol]0.29 10*3/uLBon Secours [facility] HealthEosinophils/100 WBC (Bld)3 %1 - 4 %[facility] HealthErythrocyte distribution width (RBC) [Ratio]12.4 %11.8 - 14.4 %[facility] Hematocrit (Bld) [Volume fraction]39.4 %36.3 - 47.1 %[facility] Hemoglobin (Bld) [Mass/Vol]13.5 g/dL11.9 - 15.1 g/dLBon [facility] Immature granulocytes (Bld) [#/Vol]0.08 10*3/uLBon [facility] St[facility] Medical CenterImmature granulocytes/100 WBC (Bld)1 %Tnkz5HaoVirginia Hospital CenterInterpretation and review of laboratory resultsAbnormalVirginia Hospital CenterLymphocytes/100 WBC (Bld)23 %Low24 - 43 %[facility] CenterLymphocytes/100 WBC (Bld)2.01 %[facility] CenterH (RBC) [Entitic mass]31.9 pg25.2 - 33.5 pgRiverside Behavioral Health CenterHC (RBC) [Mass/Vol]34.3 g/dL28.4 - 34.8 g/dLBon [facility] St[facility] Medical CenterMCV (RBC) [Entitic vol]93.1 fL82.6 - 102.9 fLVirginia Hospital Center Monocytes/100 WBC (Bld)8 %3 - 12 %[facility] CenterMonocytes/100 WBC (Bld)0.69 %[facility] CenterNeutrophils/100 WBC (Bld)65 %36 - 65 %[facility] CenterNucleated RBC/100 WBC (Bld) [Ratio]0.0 %0.0 per 100 WBCVirginia Hospital CenterPlatelet mean volume (Bld) [Entitic vol]12.2 fL8.1 - 13.5 fL [facility] CenterPlatelets (Bld) [#/Vol]253 10*3/uLBon [facility] St[facility] Medical CenterRBC (Bld) [#/Vol]4.23 10*6/uL3.95 - 5.11 m/uLVirginia Hospital Center Segmented neutrophils/100 WBC (Bld)5.69 %[facility] CenterWBC other (Bld) [#/Vol]8.8Bon [facility] Medical CenterBon [facility] with Diffon 58-95-2725Ije. Basophil<0.38Vwwxqg3.00-0.20MerCleveland Clinic Avon Hospital HospitalComment on above:Performed By: #### UHCG, UAX, SHUKRI, UMICAO #### [facility] [address] [place] [address] [place] [address] Supervisor Data Processing: MDAbs. DelioImm.Granulocyte0.08 k/uLNormal0.00-0.30MerCleveland Clinic Avon Hospital HospitalComment on above:Performed By: #### UHCG, UAX, SHUKRI, UMICAO #### [address] [place] [address] Supervisor Data Processing: Claudia Kebede.Neutrophil (Seg)5.69 k/uLNormal1.50-8.10[facility] HospitalComment on above:Performed By: #### UHCG, UAX, SHUKRI, UMICAO #### [address] [place] [address] Supervisor Data Processing: Neo Mauro MDBasophils/100 WBC (Bld)0 %Normal0-2Mercy [facility] HospitalComment on above:Performed By: #### UHCG, UAX, SHUKRI, UMICAO #### [address] [place] [address] Supervisor Data Processing: Neo Mauro MDEosinophils (Bld) [#/Vol]0.29 10*3/uLNormal 0.00-0.44[facility] HospitalComment on above:Performed By: #### UHCG, UAX, SHUKRI, UMICAO #### [address] [place] [address] Supervisor Data Processing: LUCIA Kebedeosinophils/100 WBC (Bld)3 %Normal1-4MerCleveland Clinic Avon Hospital HospitalComment on above:Performed By: #### UHCG, UAX, SHUKRI, UMICAO #### [address] [place] [phone] Supervisor Data Processing: Neo Mauro MDErythrocyte distribution width (RBC) [Ratio]12.4 % Rhjvjk28.8-14.4Providence HospitalComment on above:Performed By: #### UHCG, UAX, SHUKRI, UMICAO #### [address] [place], [facility]83 Supervisor Data Processing: Neo Mauro MDHematocrit (Bld) [Volume fraction]39.4 %Normal 36.3-47.1MWilson Memorial HospitalComment on above:Performed By: #### UHCG, UAX, SHUKRI, UMICAO #### [address] [place], [place] [address] Supervisor Data Processing: Neo Mauro MDHemoglobin (Bld) [Mass/Vol]13.5 g/dLNormal 11.9-15.1MWilson Memorial HospitalComment on above:Performed By: #### UHCG, UAX, SHUKRI, UMICAO #### [address] [place], [facility]83 Supervisor Data Processing: Neo Mauro MDImmature granulocytes/100 WBC (Bld)1 %Lmwc0NsynsLicking Memorial Hospital on above:Performed By: #### UHCG, UAX, SHKURI, UMICAO #### [address] [place], [facility]83 Supervisor Data Processing: Neo Mauro MDLymphocytes (Bld) [#/Vol]2.01 10*3/uLNormal 1.10-3.70Prov[facility] HospitalComcorewell health gerber hospital on above:Performed By: #### UHCG, UAX, SHUKRI, UMICAO #### [address] [place], [place] [phone] Supervisor Data Processing: Petar Kebedemphocytes/100 WBC (Bld)23 %Kon35-40FayaxProvidence HospitalComment on above:Performed By: #### UHCG, UAX, SHUKRI, UMICAO #### [address] [place], [place] [phone] Supervisor Data Processing: ALEX Kebede (RBC) [Entitic mass]31.9 lyNjuubh93.2-33.5 [facility] HospitalComment on above:Performed By: #### UHCG, UAX, SHUKRI, UMICAO #### [address] [place], [place] 7869483 Supervisor Data Processing: ALEX KebedeC (RBC) [Mass/Vol]34.3 g/mKAgdbdv00.4-34.8Providence HospitalComment on above:Performed By: #### UHCG, UAX, SHUKRI, UMICAO #### [address] [place], [place] [phone] Supervisor Data Processing: AKIL KebedeCV (RBC) [Entitic vol]93.1 yHPtcarv46.6-102.9 [facility] HospitalComment on above:Performed By: #### UHCG, UAX, SHUKRI, UMICAO #### [address] [place], [place] 8028083 Supervisor Data Processing: AKIL Kebedeonocytes (Bld) [#/Vol]0.69 10*3/uLNormal0.10-1.20 [facility] HospitalComment on above:Performed By: #### UHCG, UAX, SHUKRI, UMICAO #### [address] [place], [place] 317[address] Supervisor Data Processing: AKIL Kebedeonocytes/100 WBC (Bld)8 %Normal3-12Providence HospitalComment on above:Performed By: #### UHCG, UAX, SHUKRI, UMICAO #### [address] [place], [place] 0582483 Supervisor Data Processing: Amie Kebeedophil (Seg)65 %Wzeqbn42-93Jhgxf [facility]iffin HospitalComment on above:Performed By: #### UHCG, UAX, SHUKRI, UMICAO #### [address] [place], [place] [phone] Supervisor Data Processing: CHRIS Kebede Automated0.0 per 100 WBCNormal0.0Providence HospitalComment on above:Performed By: #### UHCG, UAX, SHUKRI, UMICAO #### [address] [place], [place] [phone] Supervisor Data Processing: Warren Kebede mean volume (Bld) [Entitic vol]12.2 fL Normal8.1-13.5Providence HospitalComment on above:Performed By: #### UHCG, UAX, SHUKRI, UMICAO #### [address] [place], [place] [phone] Supervisor Data Processing: Randy Kebede (Bld) [#/Vol]253 10*3/nSVxmjjy390-958 [facility] HospitalComment on above:Performed By: #### UHCG, UAX, SHUKRI, UMICAO #### [address] [place], [place] 956[address]83 Supervisor Data Processing: CARL Kebede (Bld) [#/Vol]4.23 10*6/uLNormal3.95-5.11Providence HospitalComment on above:Performed By: #### UHCG, UAX, SHUKRI, UMICAO #### [address] [place], [place] [phone] Supervisor Data Processing: SPRING KebedeBC (d) [#/Vol]8.8 10*3/uLNormal3.5-11.3MUniversity Hospitals Conneaut Medical Center HospitalComment on above:Performed By: #### UHCG, UAX, SHUKRI, UMICAO #### [address] [place], [place] 0689183 Supervisor Data Processing: KATIE Kebedeomp Metabolic Profon 81-69-4770Jdtsapc [Mass/Vol] 3.7 g/dLNormal3.5-5.2MUniversity Hospitals Conneaut Medical Center HospitalComment on above:Performed By: #### UHCG, UAX, SHUKRI, UMICAO #### [address] [place], [place] [id number] Supervisor Data Processing: Neo Mauro MDAlbumin/Glob Ratio1.0Sxfgsz7.0-2.5Providence HospitalComment on above:Performed By: #### UHCG, UAX, SHUKRI, UMICAO #### [address] [place], [place] [id number] Supervisor Data Processing: Lakeshia Kebedeline Usbs907 U/NShqe69-772RafurProvidence HospitalComment on above:Performed By: #### UHCG, UAX, SHUKRI, UMICAO #### [address] [place], [place] [id number] Supervisor Data Processing: Neo Mauro MDALT [Catalytic activity/Vol]21 U/OGbgtyp49-18SwtjjProvidence HospitalComment on above:Performed By: #### UHCG, UAX, SHUKRI, UMICAO #### [address] [place], [place] 18[address]683 Supervisor Data Processing: Abebe Kebede gap [Moles/Vol]5 mmol/LLow9-16Providence HospitalComment on above:Performed By: #### UHCG, UAX, SHUKRI, UMICAO #### [address] [place], [place] [id number] Supervisor Data Processing: Neo Mauro MDAST [Catalytic activity/Vol]22 U/JVcxkxr52-77FoowbProvidence HospitalComment on above:Performed By: #### UHCG, UAX, SHUKRI, UMICAO #### [address] [place], [place] [id number] Supervisor Data Processing: Neo Mauro MDBilirubin [Mass/Vol]mg/dLNormal0.00-1.20Providence HospitalComment on above:Performed By: #### UHCG, UAX, SHUKRI, UMICAO #### [address] [place] [address] Supervisor Data Processing: Neo Mauro MDBUN/CRE Qklqn02Gdjlew3-80Awtgp [facility] Comment on above:Performed By: #### UHCG, UAX, SHUKRI, UMICAO #### [address] [place], [place] [phone] Supervisor Data Processing: KATIE Kebedealcium [Mass/Vol]9.0 mg/dLNormal8.6-10.4Providence HospitalComment on above:Performed By: #### UHCG, UAX, SHUKRI, UMICAO #### [address] [place] [address] Supervisor Data Processing: KATIE Kebedehloride [Moles/Vol]102 mmol/FJpprva23-494PfcfdProvidence HospitalComment on above:Performed By: #### UHCG, UAX, SHUKRI, UMICAO #### [address] [place], [place] [phone] Supervisor Data Processing: Neo Mauro MDCO2 [Moles/Vol]30 mmol/PRbhzxj08-60VodoqProvidence HospitalComment on above:Performed By: #### CURTIS UAX, SHUKRI, UMICAO #### [address] [place] [address] Supervisor Data Processing: KATIE Kebedereatinine [Mass/Vol]0.6 mg/dLNormal0.50-0.90Providence HospitalComment on above:Performed By: #### MANDYCG, UAX, SHUKRI, UMICAO #### [address] [place] [address] Supervisor Data Processing: Neo Mauro MDGFR/1.73 sq M.predicted among non-blacks MDRD (S/P/Bld) [Vol rate/Area]mL/min/{1.73_m2}Normal>60Providence HospitalComment on above:Result Comment: These results are not intended for use in patients <18 years of age. eGFR results are calculated without a race factor using the 2020 CKD-EPI equation. Careful clinical correlation is recommended, particularly when comparing to results calculated using previous equations. The CKD-EPI equation is less accurate in patients with extremes of muscle mass, extra-renal metabolism of creatine, excessive creatine ingestion, or following therapy that affects renal tubular secretion.Performed By: #### CURTIS UAX, SHUKRI, UMICAO #### [address] [place] [address] Supervisor Data Processing: Neo Mauro MDGlucose [Mass/Vol]89 mg/vUBqrmmn05-03HpggjWilson Memorial HospitalComment on above:Performed By: #### CURTIS UAX, SHUKRI, UMICAO #### [address] [place] [address] Supervisor Data Processing: LEONARD Kebedeotassium [Moles/Vol]3.7 mmol/LNormal3.7-5.3MWilson Memorial HospitalComment on above:Performed By: #### REA ACEVEDOX, SHUKRI, UMICAO #### [address] [place] [address] Supervisor Data Processing: LEONARD Kebederotein [Mass/Vol]6.3 g/dLLow6.6-8.7Providence HospitalComment on above:Performed By: #### UHCG, UAX, SHUKRI, UMICAO #### [facility] [address] [place] [address] Supervisor Data Processing: EMILY Kebedeodium [Moles/Vol]137 mmol/IKwipbf687-647TtedaProvidence HospitalComment on above:Performed By: #### UHCG, UAX, SHUKRI, UMICAO #### [address] [place] [address] Supervisor Data Processing: Neo Mauro MDUrea nitrogen [Mass/Vol]6 mg/dLNormal6-20Providence HospitalComment on above:Performed By: #### UHCG, UAX, SHUKRI, UMICAO #### [address] [place] [address] Supervisor Data Processing: KATIE Kebedeomprehensive Metabolic Panelon 56-25-5734Duekwkj [Mass/Vol]3.7 g/dL3.5 - 5.2 g/dLBon [facility] Medical CenterAlbumin/Globulin [Mass ratio]1.4 {ratio}1.0 - 2.5Bon [facility] HealthALP [Catalytic activity/Vol] 109 U/LHigh35 - 104 U/LBon [facility] HealthALT [Catalytic activity/Vol]21 U/L10 - 35 U/LBon [facility] Medical CenterAnion gap [Moles/Vol]5 mmol/LLow9 - 16 mmol/LBon [facility] HealthAST [Catalytic activity/Vol]22 U/L10 - 35 U/LBon [facility] Medical CenterBilirubin [Mass/Vol]mg/dL0.00 - 1.20 mg/dLBon [facility] Medical CenterCalcium [Mass/Vol]9.0 mg/dL8.6 - 10.4 mg/dLBon [facility] Chloride [Moles/Vol]102 mmol/L98 - 107 mmol/LBon [facility] Medical CenterCO2 [Moles/Vol]30 mmol/L20 - 31 mmol/LBon [facility] Medical CenterCreatinine [Mass/Vol] 0.6 mg/dL0.50 - 0.90 mg/dLBon [facility] Medical CenterEst, Glom Filt Rate- PINFBon [facility] St. John Medical CenterComment on above: These results are not intended for use in patients <18 years of age. eGFR results are calculated without a race factor using the 2020 CKD-EPI equation. Careful clinical correlation is recommended, particularly when comparing to results calculated using previous equations. The CKD-EPI equation is less accurate in patients with extremes of muscle mass, extra-renal metabolism of creatine, excessive creatine ingestion, or following therapy that affects renal tubular secretion. Glucose [Mass/Vol]89 mg/dL74 - 99 mg/dLBon [facility] Medical CenterInterpretation and review of laboratory resultsAbnormalVirginia Hospital CenterPotassium [Moles/Vol]3.7 mmol/L3.7 - 5.3 mmol/LBon [facility] Medical CenterProtein [Mass/Vol] 6.3 g/dLLow6.6 - 8.7 g/dLBon [facility] Medical CenterSodium [Moles/Vol]137 mmol/L136 - 145 mmol/LBon [facility] Medical CenterUrea nitrogen [Mass/Vol]6 mg/dL6 - 20 mg/dL [facility] Hospital CenterUrea nitrogen/Creatinine [Mass ratio]10 mg/mg9 - 20Bon [facility] CenterDrug Scr, Abuse, Uron 11-04-2024 Cannabinoid(s),UrPositiveAbnormalNEGMerVeterans Administration Medical CenterComcorewell health gerber hospital on above:Result Comment: Cutoff: 50 ng/mlPerformed By: #### SHUKRIJAZ, UAX #### [facility] [address] [place] [address] Supervisor Data Processing: Stanislav Kebedetamine(s),UrNegativeNormalNEGMercy Albuquerque HospitalComment on above:Result Comment: Cutoff: 1000 ng/mLPerformed By: #### SHUKRI, UMICAO, UAX #### [address] [place], [place] [phone] Supervisor Data Processing: Neo Mauro MDBarbiturate(s),UrNegativeNormalNEGMercy Albuquerque HospitalComment on above:Result Comment: Cutoff: 200 ng/mlPerformed By: #### SHUKRI, UMICAO, UAX #### [address] [place], [place] [phone] Supervisor Data Processing: Neo Mauro MDBenzodiazepine(s)NegativeNormalNEGMercy Johnson Memorial HospitalComcorewell health gerber hospital on above:Result Comment: Cutoff: 200 ng/mlPerformed By: #### HSUKRI, UMICAO, UAX #### [address] [place], [place] [phone] Supervisor Data Processing: KATIE Kebedeocaine MetaboliteNegativeNormalNEGMercy Albuquerque HospitalComcorewell health gerber hospital on above:Result Comment: Cutoff: 300 ng/mlPerformed By: #### SHUKRI, UMICAO, UAX #### [address] [place], [place] [phone] Supervisor Data Processing: Neo Mauor MDFentanyl, UrineNegativeNormalNEGMercy Albuquerque HospitalComcorewell health gerber hospital on above:Result Comment: Cutoff: 5 ng/mlPerformed By: #### SHUKRI, UMICAO, UAX #### [address] [place], [place] [phone] Supervisor Data Processing: Neo Mauro MDInterpretive InfoThis method is a screening test to detect only these drug classes as part of aNormalMercy Albuquerque HospitalComcorewell health gerber hospital on above:Result Comment: medical workup. Confirmatory testing by another method should be ordered if clinically indicated.Performed By: #### SHUKRI, UMICAO, UAX #### [address] [place] [phone] Supervisor Data Processing: AKIL Kebedeethadone Ql (U)NegativeNormalNEGMercy Albuquerque HospitalComment on above:Result Comment: Cutoff: 300 ng/mlPerformed By: #### SHUKRI, UMICAO, UAX #### [address] [place], [place] [phone] Supervisor Data Processing: Neo Mauro MDOpiate(s), UrNegativeNormalNEGMercy Albuquerque HospitalComment on above:Result Comment: Cutoff: 300 ng/ml Note: The Opiate screen is not intended to detect Oxycodone.Performed By: #### SHUKRI, UMICAO, UAX #### [address] [place], [place] [phone] Supervisor Data Processing: Neo Mauro MDOxycodone, UrineNegativeNormalNEGMercy Albuquerque HospitalComment on above:Result Comment: Cutoff: 100 ng/mlPerformed By: #### SHUKRI, UMICAO, UAX #### [address] [place], [place] [phone] Supervisor Data Processing: Mindy Kebedecyclidine, UrNegativeNormalNEGMercy Albuquerque HospitalComcorewell health gerber hospital on above:Result Comment: Cutoff: 25 ng/mlPerformed By: #### SHUKRI, UMICAO, UAX #### [address] [place], [place] [phone] Supervisor Data Processing: Neo Mauro MDEKG 12 LeadOrdered By: Jose Alfredo Hernandez on 11-04-2024 Atrial Jpto45SYWBpm GiggleHealthSouth Rehabilitation Hospital [facility] BrightRoll Phone: P [id number] [facility] [employer] Phone: P-R [id number] msDignity Health [facility] GiggleMarietta Osteopathic Clinic [employer] Phone: Q-T [id number] [facility] [employer] Phone: QRS [id number] msBon [employer] Work Phone: QTc Calculation (Bazett)451 JD [facility] [employer] Work Phone: R [id number] [employer] Work Phone: T [id number] [employer] Work Phone: Ventricular [id number] GLO Phone: Bon [employer] Work Phone: EKG 12 Leadon [id number] sinus rhythm Normal ECG ECG not diagnostic for Acute Coronary Syndrome; consider clinical findings When compared with ECG of 26-Oct-2016 12:39, QRS axis Shifted right Criteria for Inferior infarct are no longer Present Nonspecific T wave abnormality no longer evident in Anterior leads Confirmed by Jose Alfredo Hernandez ([id number]) on 11/04/2024 8:25:47 AMNovant Health, Encompass HealthJose Alfredo johnson MD - 11/04/2024 Normal sinus rhythm Normal ECG ECG not diagnostic for Acute Coronary Syndrome; consider clinical findings When compared with ECG of 26-Oct-2016 12:39, QRS axis Shifted right Criteria for Inferior infarct are no longer Present Nonspecific T wave abnormality no longer evident in Anterior leads Confirmed by Jose Alfredo Hernandez ([id number]) on 11/04/2024 8:25:47 AM Bon Advanced In Vitro Cell TechnologiesHCG Qualitative, Serumon [id number] ( test) QlNegativeNEGATIVEDignity Health East Valley Rehabilitation Hospital [employer] Cell TechnologiesComment on above:Specimens with hCG levels near the threshold of the test (25 mIU/mL) may give a negative or indeterminate result. In such cases, another test should be performed with a new specimen in 48-72 hours. If early is suspected clinically in this setting, correlation with quantitative serum b-hCG level is suggested. nLife TherapeuticsHCG Screen, Bloodon [id number] Screen, BloodNegative NormalNEGMercy Johnson Memorial HospitalComment on above:Result Comment: Specimens with hCG levels near the threshold of the test (25 mIU/mL) may give a negative or indeterminate result. In such cases, another test should be performed with a new specimen in 48-72 hours. If early is suspected clinically in this setting, correlation with quantitative serum b-hCG level is suggested.Performed By: #### AOXCAR #### [facility] [address] [place] [address] Supervisor Data Processing: Miguel Angel Pinzon MD #### HCG #### [facility] [address] [place] [address] Supervisor Data Processing: AKIL Kebedeicroscopic Urinalysison [id number] LM Ql (Urine sed)1+AbnormalNoneBon [facility] Medical CenterEpithelial cells LM.HPF (Urine sed) [#/Area]5 TO [address] [facility] Medical CenterInterpretation and review of laboratory resultsAbnoInova Fair Oaks HospitalRBC LM.HPF (Urine sed) [#/Area]5 TO 10[address] [facility] Medical CenterWBC LM.HPF (Urine sed) [#/Area]5 TO 10Bon [facility] CenterUA w/Reflex Cultureon 11-04-2024 Bilirubin, SemiQt,UrNegativeNormalNEGProvidence HospitalComment on above: Performed By: #### JAZ WATT UAX #### [facility] [address] [place] [address] [place] [address] Supervisor Data Processing: Neo Mauro MDBlood, Urine3+AbnormalNEGProvidence Hospital Comment on above:Performed By: #### JAZ WATT, UAX #### [facility] [address] [place] [address] Supervisor Data Processing: KATIE Kebedelarity (U)ClearNormalCLEARProvidence Hospital Comment on above:Performed By: #### JAZ WATT, UAX #### [facility] [address] [place] [address] Supervisor Data Processing: KATIE Kebedeolor (U)YellowNormalYTrinity Health System West Campus Comment on above:Performed By: #### SHUKRI, UMICAO, UAX #### [facility] [address] [place] [address] Dr. [place], [facility] Supervisor Data Processing: Neo Mauro MDGlucose Ql (U)NegativeNormalNEGProvidence HospitalComment on above:Performed By: #### SHUKRI, UMICAO, UAX #### [facility] [address] [place] [address] Dr. [place], [facility] Supervisor Data Processing: Neo Mauro MDKetones Ql (U)NegativeNormalNEGProvidence HospitalComment on above:Performed By: #### SHUKRI, UMICAO, UAX #### [address] [place], [facility]83 Supervisor Data Processing: Neo Mauro MDLeukocyte esterase Test strip Ql (U)SMALLAbnormal NEGProvidence HospitalComment on above:Performed By: #### SHUKRI, UMICAO, UAX #### [address] [place], [facility] Supervisor Data Processing: Eduardo Kebedetrite,UrNegativeSamaritan Hospital Comment on above:Performed By: #### SHUKRI, UMICAO, UAX #### [facility] [address] [place] [address] Dr. [place], [facility] Supervisor Data Processing: LEONARD Kebede,Ur6.8Edoczz5.0-9.0Providence HospitalComment on above:Performed By: #### SHUKRI, UMICAO, UAX #### [address] [place], [facility] Supervisor Data Processing: LEONARD Kebederotein Ql (U)NegativeNormalNEGProvidence HospitalComment on above:Performed By: #### SHUKRI, UMICAO, UAX #### [address] [place] [address] Supervisor Data Processing: EMILY Kebedepec. Raymond,Ur1.713Dtxzdm0.010-1.020Providence HospitalComment on above:Performed By: #### JAZ WATT, UAX #### [facility] [address] [place] [address] Supervisor Data Processing: Neo Mauro MDUrobilinogen,UrNormalNormal0.0-1.0Providence HospitalComment on above:Performed By: #### JAZ WATT, UAX #### [facility] [address] [place] [address] Supervisor Data Processing: Neo Mauro MDUrinalysis with Reflex to Cultureon 11-04-2024 Bilirubin Ql (U)NegativeNEGATIVEBon SecSt. Elizabeth Hospitaly HealthClarity (U)ClearClearBon SecHealthSouth Rehabilitation Hospital [facility] HealthColor (U)YellowYellowBon [facility] Medical CenterGlucose Test strip (U) [Mass/Vol]NegativeNEGATIVE mg/dLBon SecMarietta Osteopathic ClinicHemoglobin Auto test strip Ql (U)3+AbnormalNEGATIVEBon SecSt. Elizabeth Hospitaly HealthInterpretation and review of laboratory resultsAbnormalBon [facility] HealthKetones (U) [Mass/Vol]NegativeNEGATIVE mg/dLBon SecMarietta Osteopathic ClinicLeukocyte esterase Test strip Ql (U)SMALLAbnormalNEGATIVEBon [facility] HealthNitrite Ql (U)Negative NEGATIVEBon [facility]ours [facility] HealthpH (U)6.0 [pH]5.0 - 9.0Bon SecHealthSouth [facility] Health Protein (U) [Mass/Vol]NegativeNEGATIVE mg/dLBon Secours [facility] HealthSpecific gravity (U) [Rel density]1.0101.010 - 1.020Bon SecMarietta Osteopathic ClinicUrobilinogen Qn (U)Normal0.0 - 1.0 EU/dLBon [facility]ours [facility] HealthShenandoah Memorial Hospital Health Urinalysis,Microon [id number]+AbnormalNONEMeConnecticut Children's Medical CenterComment on above:Performed By: #### LIS WATTICAO, UAX #### [facility] [address] [place], [place] [id number] Supervisor Data Processing: Neo Mauro MDEpithelial cells LM Ql (Urine sed)5 TO 10Normal 0-25MerVeterans Administration Medical CenterComment on above:Performed By: #### SHUKRIODALYS OneilO, UAX #### [facility] [address] [place], [place] [phone] Supervisor Data Processing: Ale Kebede RBC's5 TO 67Wxxdjf8-2[facility] Comment on above:Performed By: #### SHUKRIJAZ Oneil, UAX #### [facility] [address] [place], [place] 134[address]83 Supervisor Data Processing: Neo Mauro MDUrine WBC's5 TO 31Nwriox9-7UmvflProvidence Hospital Comment on above:Performed By: #### JAZ WATT, UAX #### [facility] [address] [place], [place] [phone] Supervisor Data Processing: Ale Kebede Drug Screenon [id number] Ql (U) NegativeNEGATIVEBon Secours Mercy HealthComment on above:Cutoff: 1000 ng/mL Barbiturates Screen Ql (U)NegativeNEGATIVEBon Secours Mercy HealthComment on above:Cutoff: 200 ng/mlBenzodiazepines Ql (U)NegativeNEGATIVEBon Secours Mercy HealthComment on above:Cutoff: 200 ng/mlCannabinoids Screen Ql (U)Positive AbnormalNEGATIVEBon Secours Mercy HealthComment on above:Cutoff: 50 ng/mlCocaine Ql (U)NegativeNEGATIVEBon Secours Mercy HealthComment on above:Cutoff: 300 ng/ml fentaNYL Ql (U)NegativeNEGATIVEBon Secours Mercy HealthComment on above:Cutoff: 5 ng/mlInterpretation and review of laboratory resultsAbnormalBon Secours Mercy HealthMethadone Ql (U)NegativeNEGATIVEBon Secours Mercy HealthComment on above: Cutoff: 300 ng/mlOpiates Screen Ql (U)NegativeNEGATIVEVirginia Hospital Center Comment on above:Cutoff: 300 ng/ml Note: The Opiate screen is not intended to detect Oxycodone. oxyCODONE Ql (U)NegativeNEGATIVEVirginia Hospital CenterComment on above:Cutoff: 100 ng/mlPhencyclidine Ql (U)NegativeNEGATIVEVirginia Hospital CenterComment on above:Cutoff: 25 ng/mlTest InformationThis method is a screening test to detect only these drug classes as part of a medical workup. Confirmatory testing by another method should be ordered if clinically indicated.[facility] CenterCult,Urineon [id number],UrineSpecimen Description .URINE, MIDSTREAM Culture NO SIGNIFICANT GROWTH Report Status FINAL 07/14/2024NoSouthview Medical CenterComment on above: Performed By: #### URC #### [facility] [address] [place] [address] Supervisor Data Processing: Henok Fortune MD [facility] [address] [place] [address] Supervisor Data Processing: Neo Mauro [facility] with Auto Differentialon [id number] (Bld) [#/Vol]0.01 10*3/uLBon [facility] Medical CenterBasophils/100 WBC (Bld)0 %0 - 2 %[facility] CenterEosinophils (Bld) [#/Vol]0.27 10*3/uLBon [facility]ours [facility], Cancer CenterEosinophils/100 WBC (Bld)2 %0 - 5 %[facility] Hospital CenterErythrocyte distribution width (RBC) [Ratio]12.8 %12.1 - 15.2 %[facility] Hematocrit (Bld) [Volume fraction]39.6 %36.0 - 46.0 %[facility] Hemoglobin (Bld) [Mass/Vol]13.5 g/dL12.0 - 16.0 g/dLBon [facility] Immature granulocytes (Bld) [#/Vol]0.04 10*3/uLBon SecMarietta Osteopathic ClinicImmature granulocytes/100 WBC (Bld)0 %0 - 5 %[facility] CenterInterpretation and review of laboratory resultsAbnormalVirginia Hospital CenterLymphocytes/100 WBC (Bld)9 %Low15 - 40 %[facility] CenterLymphocytes/100 WBC (Bld)1.06 %[facility] CenterH (RBC) [Entitic mass]31.2 pg26.0 - 34.0 pgBon [facility] HospitalHC (RBC) [Mass/Vol]34.1 g/dL31.0 - 37.0 g/dLBon [facility] HospitalV (RBC) [Entitic vol]91.5 fL80.0 - 100.0 fLVirginia Hospital Center Monocytes/100 WBC (Bld)6 %4 - 8 %[facility] CenterMonocytes/100 WBC (Bld) 0.71 %[facility] CenterNeutrophils/100 WBC (Bld)83 %High47 - 75 %[facility] CenterPlatelet mean volume (Bld) [Entitic vol]11.5 fL6.0 - 12.0 fL [facility] CenterPlatelets (Bld) [#/Vol]295 10*3/uLVirginia Hospital CenterRBC (Bld) [#/Vol]4.33 10*6/uL4.00 - 5.20 m/[facility] Segmented neutrophils/100 WBC (Bld)9.22 %HighVirginia Hospital CenterWBC other (Bld) [#/Vol]11.3HighSentara Northern Virginia Medical CenterCBC with Diffon [id number]. Basophil0.01 k/uLNormal0.00-0.20[facility] Comment on above:Performed By: #### CDP, LACTIC, MG, CP #### [facility] [address] [place] [address] Supervisor Data Processing: Claudia Kebede.Imm.Granulocyte0.04 k/uLNormal0.00-0.30[facility] ToledoComment on above:Performed By: #### CDP, LACTIC, MG, CP #### [facility] [address] [place] [address] Supervisor Data Processing: Claudia Kebede.Neutrophil (Seg)9.22 k/uLHigh2.5-7.0[facility]ain Hospitalment on above:Performed By: #### CDP, LACTIC, MG, CP #### [facility] [address] [place] [address] Supervisor Data Processing: Neo Mauro MDBasophils/100 WBC (Bld)0 %Normal0-2MCleveland Clinic Mercy HospitalComment on above:Performed By: #### CDP, LACTIC, MG, CP #### [facility] [address] [place] [address] Supervisor Data Processing: Neo Mauro MDEosinophils (Bld) [#/Vol]0.27 10*3/uLNormal 0.00-0.40[facility] Hospital ToledoComment on above:Performed By: #### CDP, LACTIC, MG, CP #### [facility] [address] [place] [address] Supervisor Data Processing: LUCIA Kebedeosinophils/100 WBC (Bld)2 %Normal0-5[facility] Hospital ToledoComment on above:Performed By: #### CDP, LACTIC, MG, CP #### [facility] [address] [place] [address] Supervisor Data Processing: Neo Mauro MDErythrocyte distribution width (RBC) [Ratio]12.8 % Inuqrr05.1-15.2MCleveland Clinic Mercy HospitalComment on above:Performed By: #### CDP, LACTIC, MG, CP #### [facility] [address] [place] [address] Supervisor Data Processing: Neo Mauro MDHematocrit (Bld) [Volume fraction]39.6 %Normal 36.0-46.0[facility] Hospital ToledoComment on above:Performed By: #### CDP, LACTIC, MG, CP #### [facility] [address] [place] [address] Supervisor Data Processing: Neo Mauro MDHemoglobin (Bld) [Mass/Vol]13.5 g/dLNormal 12.0-16.0[facility] ToledoComcorewell health gerber hospital on above:Performed By: #### CDP, LACTIC, MG, CP #### [facility] [address] [place] [address] Supervisor Data Processing: Anirudh Kebedemature granulocytes/100 WBC (Bld)0 %Normal0-5 [facility] ToledoComcorewell health gerber hospital on above:Performed By: #### CDP, LACTIC, MG, CP #### [facility] [address] [place] [address] Supervisor Data Processing: Neo Mauro MDLymphocytes (Bld) [#/Vol]1.06 10*3/uLNormal 1.00-4.80[facility]Com[facility] on above:Performed By: #### CDP, LACTIC, MG, CP #### [facility] [address] [place] [address] Supervisor Data Processing: Petar Kebedemphocytes/100 WBC (Bld)9 %Ihb93-51ZistuRegency Hospital ToledoComcorewell health gerber hospital on above:Performed By: #### CDP, LACTIC, MG, CP #### [facility] [address] [place] [address] Supervisor Data Processing: AKIL KebedeCH (RBC) [Entitic mass]31.2 xaZqctur93.0-34.0 [facility]Comcore[facility] on above:Performed By: #### CDP, LACTIC, MG, CP #### [facility] [address] [place] [address] Supervisor Data Processing: ALEX KebedeC (RBC) [Mass/Vol]34.1 g/pRFxldwt47.0-37.0[facility]edoComcore[facility] ger[facility] on above:Performed By: #### CDP, LACTIC, MG, CP #### [facility] [address] [place], [place] [phone] Supervisor Data Processing: AKIL KebedeCV (RBC) [Entitic vol]91.5 oBHmoxjn66.0-100.0 [facility] on above:Performed By: #### CDP, LACTIC, MG, CP #### [facility] [address] [place] [address] Supervisor Data Processing: AKIL Kebedeonocytes (Bld) [#/Vol]0.71 10*3/uLNormal0.00-1.00 [facility] on above:Performed By: #### CDP, LACTIC, MG, CP #### [facility] [address] [place] [phone] Supervisor Data Processing: AKIL Kebedeonocytes/100 WBC (Bld)6 %Normal4-8[facility] on above:Performed By: #### CDP, LACTIC, MG, CP #### [facility] [address] [place] [id number] Supervisor Data Processing: Neo Mauro MDNeutrophil (Seg)83 %Fmwj41-82FaxnyRegency Hospital ToledoComcorewell health gerber hospital on above:Performed By: #### CDP, LACTIC, MG, CP #### [facility] [address] [place] [phone] Supervisor Data Processing: LEONARD Kebedelatelet mean volume (Bld) [Entitic vol]11.5 fL Normal6.0-12.0[facility]edoComcore[facility] ger[facility] on above:Performed By: #### CDP, LACTIC, MG, CP #### [facility] [address] [place] [address] Supervisor Data Processing: LEONARD Kebedelatelets (Bld) [#/Vol]295 10*3/yTScnikf622-565 [facility] ToledoComment on above:Performed By: #### CDP, LACTIC, MG, CP #### [facility] [address] [place], [place] [phone] Supervisor Data Processing: CHRIS Kebede ([facility]) [#/Vol]4.33 10*6/uLNormal4.00-5.20[facility] ToledoComment on above:Performed By: #### CDP, LACTIC, MG, CP #### [facility] [address] [place] [phone] Supervisor Data Processing: KODY Kebede ([facility]) [#/Vol]11.3 10*3/uLHigh3.5-11.0[facility] ToledoComment on above:Performed By: #### CDP, LACTIC, MG, CP #### [facility] [address] [place] [phone] Supervisor Data Processing: KATIE Kebededaniel 56-87-5550Cyictal [Mass/Vol]3.8 g/dL3.5 - 5.2 g/dLBon [facility] HealthAlbumin/Globulin [Mass ratio]1.5 {ratio}1.0 - 2.5[facility] HealthALP [Catalytic activity/Vol]97 U/L35 - 104 U/LBon [facility] HealthALT [Catalytic activity/Vol]11 U/L5 - 33 U/LBon [facility]ours Mercy HealthAnion gap [Moles/Vol]10 mmol/L9 - 17 mmol/LBon [facility] AST [Catalytic activity/Vol]22 U/LNINF - 32 U/LBon [facility] HealthBilirubin [Mass/Vol]mg/dLLow0.3 - 1.2 mg/dLBon Secours Mercy HealthCalcium [Mass/Vol]8.9 mg/dL8.6 - 10.4 mg/dLBon Secours Mercy HealthChloride [Moles/Vol]100 mmol/L98 - 107 mmol/LBon Secours Mercy HealthCO2 [Moles/Vol]26 mmol/L20 - 31 mmol/LBon [facility] Medical CenterCreatinine [Mass/Vol]0.7 mg/dL0.5 - 0.9 mg/dLBon [facility] Medical CenterEst, Glom Filt Rate- PINFBon [facility] St. John Medical CenterComment on above: These results are not intended for use in patients <18 years of age. eGFR results are calculated without a race factor using the 2020 CKD-EPI equation. Careful clinical correlation is recommended, particularly when comparing to results calculated using previous equations. The CKD-EPI equation is less accurate in patients with extremes of muscle mass, extra-renal metabolism of creatine, excessive creatine ingestion, or following therapy that affects renal tubular secretion. Glucose [Mass/Vol]118 mg/bWWuxl79 - 99 mg/dLBon [facility] Interpretation and review of laboratory resultsAbnormalBon [facility] Potassium [Moles/Vol]4 mmol/L3.7 - 5.3 mmol/LBon [facility] Medical CenterProtein [Mass/Vol]6.3 g/dLLow6.4 - 8.3 g/dLBon [facility] Medical CenterSodium [Moles/Vol]136 mmol/L135 - 144 mmol/LBon [facility] John Medical CenterUrea nitrogen [Mass/Vol]9 mg/dL6 - 20 mg/dLBon St. Rita's Hospitalp Metabolic Profon 15-28-5204Rljafxw [Mass/Vol]3.8 g/dLNormal3.5-5.2MCleveland Clinic Mercy HospitalComment on above:Performed By: #### CDP, LACTIC, MG, CP #### [facility] [address] [place] [address] Supervisor Data Processing: Neo Mauro, MDAlbumin/Glob Ratio1.4Vjglrz8.0-2.5[facility] ToledoComcorewell health ger[facility] hospital on above:Performed By: #### CDP, LACTIC, MG, CP #### [facility] [address] [place] [phone] Supervisor Data Processing: Neo Mauro MDAlkaline Phos97 U/HGpvalm21-326VzkopRegency Hospital ToledoComment on above:Performed By: #### CDP, LACTIC, MG, CP #### [facility] [address] [place] [phone] Supervisor Data Processing: Neo Mauro MDALT [Catalytic activity/Vol]11 U/LNormal5-33[facility] Hospital ToledoComment on above:Performed By: #### CDP, LACTIC, MG, CP #### [facility] [address] [place] [address] Supervisor Data Processing: Neo Mauro MDAnion gap [Moles/Vol]10 mmol/LNormal9-17[facility] ToledoComment on above:Performed By: #### CDP, LACTIC, MG, CP #### [facility] [address] [place] [address] Supervisor Data Processing: Neo Mauro MDAST [Catalytic activity/Vol]22 U/LNormal<32[facility] Hospital ToledoComment on above:Performed By: #### CDP, LACTIC, MG, CP #### [facility] [address] [place] [address] Supervisor Data Processing: Neo Mauro MDBilirubin [Mass/Vol]mg/dLLow0.3-1.2MCleveland Clinic Mercy HospitalComment on above:Performed By: #### CDP, LACTIC, MG, CP #### [facility] [address] [place] [address] Supervisor Data Processing: KATIE Kebedealcium [Mass/Vol]8.9 mg/dLNormal8.6-10.4[facility] Hospital ToledoComment on above:Performed By: #### CDP, LACTIC, MG, CP #### [facility] [address] [place] [phone] Supervisor Data Processing: KATIE Kebedehloride [Moles/Vol]100 mmol/LXxdujf35-973IfnnyRegency Hospital ToledoComment on above:Performed By: #### CDP, LACTIC, MG, CP #### [facility] [address] [place] [phone] Supervisor Data Processing: KATIE KebedeO2 [Moles/Vol]26 mmol/FKiikxw14-77JzxniFisher-[facility] Center on above:Performed By: #### CDP, LACTIC, MG, CP #### [facility] [address] [place] [phone] Supervisor Data Processing: KATIE Kebedereatinine [Mass/Vol]0.7 mg/dLNormal0.5-0.9[facility] ToledoComcorewell health gerber hospital on above:Performed By: #### CDP, LACTIC, MG, CP #### [facility] [address] [place] [address] Supervisor Data Processing: Neo Mauro MDGFR/1.73 sq M.predicted among non-blacks MDRD (S/P/Bld) [Vol rate/Area]mL/min/{1.73_m2}Normal>60[facility] on above:Result Comment: These results are not intended for use in patients <18 years of age. eGFR results are calculated without a race factor using the 2020 CKD-EPI equation. Careful clinical correlation is recommended, particularly when comparing to results calculated using previous equations. The CKD-EPI equation is less accurate in patients with extremes of muscle mass, extra-renal metabolism of creatine, excessive creatine ingestion, or following therapy that affects renal tubular secretion.Performed By: #### CDP, LACTIC, MG, CP #### [facility] [address] [place] [address] Supervisor Data Processing: Neo Mauro MDGlucose [Mass/Vol]118 mg/cVDeli84-44BonnlCleveland Clinic Mercy HospitalComcorewell health gerber hospital on above:Performed By: #### CDP, LACTIC, MG, CP #### [facility] [address] [place] [phone] Supervisor Data Processing: LEONARD Kebedeotassium [Moles/Vol]4.0 mmol/LNormal3.7-5.3Mer[facility] Annette HospitalComment on above:Performed By: #### CDP, LACTIC, MG, CP #### [facility] [address] [place] [phone] Supervisor Data Processing: LEONARD Kebederotein [Mass/Vol]6.3 g/dLLow6.4-8.3MCleveland Clinic Mercy HospitalComment on above:Performed By: #### CDP, LACTIC, MG, CP #### [facility] [address] [place] [address] Supervisor Data Processing: EMILY Kebedeodium [Moles/Vol]136 mmol/YAiejyp397-875SksvtRegency Hospital ToledoComment on above:Performed By: #### CDP, LACTIC, MG, CP #### [facility] [address] [place] [address] Supervisor Data Processing: Neo Mauro MDUrea nitrogen [Mass/Vol]9 mg/dLNormal6-20[facility] Hospital ToledoComment on above:Performed By: #### CDP, LACTIC, MG, CP #### [facility] [address] [place] [phone] Supervisor Data Processing: Neo Mauro MDHCLis, ,Urineon 24-15-0947Nshc HCG ( test) Ql (U)NegativeNormalNEGRegency Hospital ToledoComcorewell health gerber hospital on above: Performed By: #### UAX, UHCG, UMICAO #### [facility] [address] [place] [address] Supervisor Data Processing: Neo Mauro MDLactic Acidon 63-27-2886Mozkkzf (BldV) [Moles/Vol] 1.8 mmol/L0.5 - 2.2 mmol/LBon [facility] Medical CenterBon [facility] Lactate [Moles/Vol]1.8 mmol/LNormal0.5-2.2MCleveland Clinic Mercy HospitalComcorewell health gerber hospital on above:Performed By: #### CDP, LACTIC, MG, CP #### [facility] [address] [place] [address] Supervisor Data Processing: Ari Kebedegnesiumon 00-32-3567Lgaffzvbe [Mass/Vol]2 mg/dL 1.6 - 2.6 mg/dLBon [facility] Medical CenterMagnesium [Mass/Vol]2.0 mg/dLNormal 1.6-2.6Mer[facility] County Medical CenterComment on above:Performed By: #### CDP, LACTIC, MG, CP #### [facility] [address] [place] [address] Supervisor Data Processing: Neo Mauro MDMicroscopic Urinalysison 07-12-2024-[facility] CenterEpithelial cells LM.HPF (Urine sed) [#/Area]0 TO 2/HPFVirginia Hospital CenterRBC LM.HPF (Urine sed) [#/Area]2 TO 5Bon [facility] Medical CenterWBC LM.HPF (Urine sed) [#/Area]0 TO 20 /HPFSentara Northern Virginia Medical CenterNo Panel Informationon 60-65-1283Sez [facility] Medical CenterPregnancy, Urine on 00-01-7056PZB ( test) Ql (U)NegativeNEGATIVELewisgale Hospital MontgomeryUA w/Reflex Cultureon 42-76-3118Ixcqdopyl, SemiQt,Ur NegativeNormalNEGRegency Hospital ToledoComment on above:Performed By: #### UAMckenzie UHCG, UMICAO #### [facility] [address] [place] [address] Supervisor Data Processing: Nessa Kebede, Urine1+AbnormalNEGRegency Hospital Toledo Comment on above:Performed By: #### MANDY BELCHERCG, UMICAO #### [facility] [address] [place] [address] Supervisor Data Processing: Neo Mauro MDClarity (U)ClearNormalCLEARRegency Hospital Toledo Comment on above:Performed By: #### UAX UHCG, UMICAO #### [facility] [address] [place] [address] Supervisor Data Processing: KATIE Kebedeolor (U)YellowNoalYFayette County Memorial Hospital Comment on above:Performed By: #### UAX, UHCG, UMICAO #### [facility] [address] [place] [address] Supervisor Data Processing: KATIE KebedeommentNormalRegency Hospital ToledoComment on above:Performed By: #### UAX, [facility], UMICAO #### [facility] [address] [place] [address] Supervisor Data Processing: Neo Mauro MDGlucose Ql (U)NegativeNormalNEGRegency Hospital ToledoComment on above:Performed By: #### UAX, [facility], UMICAO #### [facility] [address] [place] [address] Supervisor Data Processing: Neo Mauro MDKetones Ql (U)NegativeNormalNEGRegency Hospital ToledoComment on above:Performed By: #### UAX, [facility], UMICAO #### [facility] [address] [place] [address] Supervisor Data Processing: Neo Mauro MDLeukocyte esterase Test strip Ql (U)1+AbnormalNEG [facility] ToledoComment on above:Performed By: #### UAX, [facility], UMICAO #### [facility] [address] [place] [address] Supervisor Data Processing: Eduardo Kebedetrite,UrNegativeNoMercy Hospital Comment on above:Performed By: #### UAX, UHCG, UMICAO #### [facility] [address] [place] [address] Supervisor Data Processing: Neo Mauro MDPH,Ur6.3Hrkvph8.0-8.0[facility] ToledoComment on above:Performed By: #### UAX, [facility], UMICAO #### [facility] [address] [place] [address] Supervisor Data Processing: LEONARD Kebederotein Ql (U)TRACEAbnormalNEGRegency Hospital ToledoComcorewell health gerber hospital on above:Performed By: #### UAX, [facility], UMICAO #### [facility] [address] [place] [address] Supervisor Data Processing: EMILY Kebedepec. Raymond,Ur1.550Lyfvlt0.005-1.030[facility] ToledoComcorewell health gerber hospital on above:Performed By: #### REAX, [facility], UMICAO #### [facility] [address] [place] [address] Supervisor Data Processing: Neo Mauro MDUrobilinogen,UrNormalNormal0.0-1.0[facility] ToledoComcorewell health gerber hospital on above:Performed By: #### SIMI, [facility], UMICAO #### [facility] [address] [place] [address] Supervisor Data Processing: Neo Mauro MDUrinalysis with Reflex to Cultureon 07-12-2024 Bilirubin Ql (U)NegativeNEGATIVEBon [facility] HealthClarity (U)ClearClearBon [facility] HealthColor (U)YellowYellowBon Secours [facility], Cancer CenterCommentBon [facility] HealthGlucose Test strip (U) [Mass/Vol]NegativeNEGATIVE mg/dLBon Secours [facility] HealthHemoglobin Auto test strip Ql (U)1+AbnormalNEGATIVEBon Secours Mercy HealthInterpretation and review of laboratory resultsAbnormalBon [facility] HealthKetones (U) [Mass/Vol]NegativeNEGATIVE mg/dLBon [facility]ours [facility] Md, Cancer CenterLeukocyte esterase Test strip Ql (U)1+AbnormalNEGATIVEBon [facility] HealthNitrite Ql (U)NegativeNEGATIVEBon Secours Mercy HealthpH (U)6 [pH] 5.0 - 8.0Bon [facility] Medical CenterProtein (U) [Mass/Vol]TRACEAbnormalNEGATIVE mg/dLBon [facility] Medical CenterSpecific gravity (U) [Rel density]1.0151.005 - 1.030Bon [facility] Medical CenterUrobilinogen Qn (U)Normal0.0 - 1.0 EU/dLBon [facility] Medical CenterBon [facility] Medical CenterUrinalysis,Microon 07-12-2024-----Normal [facility] ToledoComment on above:Performed By: #### SIMI, [facility], UMICAO #### [facility] [address] [place] [address] Supervisor Data Processing: Noe Mauro MDEpithelial cells LM Ql (Urine sed)0 TO 2Normal [facility] ToledoComment on above:Performed By: #### SIMI [facility], UMICAO #### [facility] [address] [place] [address] Supervisor Data Processing: Ale Kebede RBC's2 TO 7Hvijzg5-3AefxsCleveland Clinic Mercy Hospital Comment on above:Performed By: #### SIMI [facility], UMICAO #### [facility] [address] [place] [address] Supervisor Data Processing: Ale Kebede WBC's0 TO 0Ayzvlx0UuzfwRegency Hospital Toledo Comment on above:Performed By: #### SIMI, [facility], UMICAO #### [facility] [address] [place] [phone] Supervisor Data Processing: Neo Mauro MDIGP,APTIMA HPV,AGE GDLNon 62-23-4441RQX GDLN ACOG TESTINGNote.NOMS HealthcareComment on above:TESTS RESULT FLAG UNITS REF RANGE LAB Clinician Provided Cytology Information Source.............Cervix;Endocervix No. of containers..01 ThinPrep Vial Age Anthony Tierney... FLAG LEGEND: L-Low Normal,H-High Normal,LL-Alert Low,HH-Alert High <-Panic Low,>-Panic High,A-Abnormal,AA-Critical Abnormal Performed at: 01 =G [facility] [phone] Magalis Reym MD, IGP, RFX APTIMA HPV ASCUNote.[facility] HealthcareComment on above:TESTS RESULT FLAG UNITS REF RANGE LAB DIAGNOSIS: 02 NEGATIVE FOR INTRAEPITHELIAL LESION OR MALIGNANCY. THIS SPECIMEN WAS RESCREENED PART OF OUR SUPERVISOR ASSEMBLING PROGRAM. Specimen adequacy: 02 Satisfactory for evaluation. Endocervical and/or squamous metaplastic cells (endocervical component) are present. Performed by: 03 Chantal López Devops ([facility]) QC reviewed by: 02 Danya Conley Devops . 02 Note: Note 02 The Pap smear is a screening test designed to aid in the detection of premalignant and malignant conditions of the uterine cervix. It is not a diagnostic procedure and should not be used as the sole means of detecting cervical cancer. Both false-positive and false-negative reports do occur. Test Methodology: Note 02 This liquid based ThinPrep(R) pap test was screened with the use of an image guided system. . 02 The HPV DNA reflex criteria were not met with this specimen result therefore, no HPV testing was performed. FLAG LEGEND: L-Low Normal,H-High Normal,LL-Alert Low,HH-Alert High <-Panic Low,>-Panic High,A-Abnormal,AA-Critical Abnormal Performed at: 02 [facility] [address] [phone] Magalis Remy MD, 03 KWCYT [facility] [address] [place] [phone] Candido Montes MD, Performed at: =G - [facility] [address] [id number] Supervisor Data Processing: Magalis Remy MD, Phone: [phone] Performed at: - [facility] [id number] Supervisor Data Processing: Magalis Remy MD, Phone: [phone] [facility]A CERVIX ENDOCERVIX CLINISYGateway Medical Center With Auto Diff.on 88-75-5602Laoapmwbw (Bld) [#/Vol] 0.02 10*3/uLNormal0.00-0.30[facility] HospitalComcorewell health gerber hospital on above:Order Comment: Regulatory Requirements State: Only Absolute Cell Counts are reported with their reference ranges. Regulatory Requirements State: Only Absolute Cell Counts are reported with their reference ranges.Performed By: #### CBC #### [facility] (DEFAULT) [address] [place] [address]Oczscgufi/100 WBC (Bld)0.2 %[facility] Comment on above:Order Comment: Regulatory Requirements State: Only Absolute Cell Counts are reported with their reference ranges. Regulatory Requirements State: Only Absolute Cell Counts are reported with their reference ranges.Performed By: #### CBC #### [facility] (DEFAULT) [address] [place] [address]Mkavaumarvs (Bld) [#/Vol]0.10 10*3/uLNormal0.00-0.50[facility] HospitalComment on above:Order Comment: Regulatory Requirements State: Only Absolute Cell Counts are reported with their reference ranges. Regulatory Requirements State: Only Absolute Cell Counts are reported with their reference ranges.Performed By: #### CBC #### [facility] (DEFAULT) [address] [place] [address]Dsslnwbablm/100 WBC (Bld)1.2 %[facility] Comment on above:Order Comment: Regulatory Requirements State: Only Absolute Cell Counts are reported with their reference ranges. Regulatory Requirements State: Only Absolute Cell Counts are reported with their reference ranges.Performed By: #### CBC #### [facility] (DEFAULT) [address] [place] [address]Msnkkqwylsr distribution width (RBC) [Ratio]12.6 %Normal 11.6-14.8[facility] HospitalComment on above:Order Comment: Regulatory Requirements State: Only Absolute Cell Counts are reported with their reference ranges. Regulatory Requirements State: Only Absolute Cell Counts are reported with their reference ranges.Performed By: #### CBC #### [facility] (DEFAULT) [address] [place] [address]Jpscmmgeax (Bld) [Volume fraction]38.5 %Pikpjf45.0-46.[address] [facility] HospitalComment on above:Order Comment: Regulatory Requirements State: Only Absolute Cell Counts are reported with their reference ranges. Regulatory Requirements State: Only Absolute Cell Counts are reported with their reference ranges.Performed By: #### CBC #### [facility] (DEFAULT) [address] [place], [place] [address]Qzzelestle (Bld) [Mass/Vol]13.5 g/sGWyvorl29.0-16.0[facility] HospitalComment on above:Order Comment: Regulatory Requirements State: Only Absolute Cell Counts are reported with their reference ranges. Regulatory Requirements State: Only Absolute Cell Counts are reported with their reference ranges.Performed By: #### CBC #### [facility] (DEFAULT) [address] [place], [place] [address]Rh%0.6 %Normal0.0-4.0[facility] HospitalComcorewell health gerber hospital on above:Order Comment: Regulatory Requirements State: Only Absolute Cell Counts are reported with their reference ranges. Regulatory Requirements State: Only Absolute Cell Counts are reported with their reference ranges.Performed By: #### CBC #### [facility] (DEFAULT) [address] [place] [address]Jcfdvefmztm (Bld) [#/Vol]1.44 10*3/uLNormal0.90-4.00[facility] HospitalComcorewell health gerber hospital on above:Order Comment: Regulatory Requirements State: Only Absolute Cell Counts are reported with their reference ranges. Regulatory Requirements State: Only Absolute Cell Counts are reported with their reference ranges.Performed By: #### CBC #### [facility] (DEFAULT) [address] [place] [address]Ssalklzwakc/100 WBC (Bld)16.6 %NormalMercy Health St. Elizabeth [facility] HospitalComcorewell health gerber hospital on above:Order Comment: Regulatory Requirements State: Only Absolute Cell Counts are reported with their reference ranges. Regulatory Requirements State: Only Absolute Cell Counts are reported with their reference ranges.Performed By: #### CBC #### [facility] (DEFAULT) [address] [place] [address] 73234SEY (RBC) [Entitic mass]31.7 kpBznmgq66.0-34.0[facility] HospitalComcorewell [facility] ger[facility] on above:Order Comment: Regulatory Requirements State: Only Absolute Cell Counts are reported with their reference ranges. Regulatory Requirements State: Only Absolute Cell Counts are reported with their reference ranges.Performed By: #### CBC #### [facility] (DEFAULT) [address] [place] [address] 42885CMGX (RBC) [Mass/Vol]35.1 g/nERkehud09.0-37.0[facility] HospitalComment on above:Order Comment: Regulatory Requirements State: Only Absolute Cell Counts are reported with their reference ranges. Regulatory Requirements State: Only Absolute Cell Counts are reported with their reference ranges.Performed By: #### CBC #### [facility] (DEFAULT) [address] [place] [address] 24074HZI (RBC) [Entitic vol]90 vEVyxbrf21-240CvjdxlMercy Health St[facility] HospitalComment on above:Order Comment: Regulatory Requirements State: Only Absolute Cell Counts are reported with their reference ranges. Regulatory Requirements State: Only Absolute Cell Counts are reported with their reference ranges.Performed By: #### CBC #### [facility] (DEFAULT) [address] [place] [address] 51491Gwihtixsa (Bld) [#/Vol]0.64 10*3/uLNormal0.30-0.90[facility] HospitalComment on above:Order Comment: Regulatory Requirements State: Only Absolute Cell Counts are reported with their reference ranges. Regulatory Requirements State: Only Absolute Cell Counts are reported with their reference ranges.Performed By: #### CBC #### [facility] (DEFAULT) [address] [place] [address] 60263Pgcrudgve/100 WBC (Bld)7.4 %NormalMercy Health St. [facility] Comment on above:Order Comment: Regulatory Requirements State: Only Absolute Cell Counts are reported with their reference ranges. Regulatory Requirements State: Only Absolute Cell Counts are reported with their reference ranges.Performed By: #### CBC #### [facility] (DEFAULT) [address] [place] [address] 75655Ivmfgdzvreo (Bld) [#/Vol]6.41 10*3/uLNormal1.70-7.00[facility] HospitalComcorewell health ger[facility] hospital on above:Order Comment: Regulatory Requirements State: Only Absolute Cell Counts are reported with their reference ranges. Regulatory Requirements State: Only Absolute Cell Counts are reported with their reference ranges.Performed By: #### CBC #### [facility] (DEFAULT) [address] [place] [address] 10286Uhshqeghvmp/100 WBC (Bld)74.0 %NormalMemorial Health System [facility] on above:Order Comment: Regulatory Requirements State: Only Absolute Cell Counts are reported with their reference ranges. Regulatory Requirements State: Only Absolute Cell Counts are reported with their reference ranges.Performed By: #### CBC #### [facility] (DEFAULT) [address] [place] [address] 00256Oajxfvac mean volume (Bld) [Entitic vol]11.7 fLNormal 9.0-15.5[facility] on above:Order Comment: Regulatory Requirements State: Only Absolute Cell Counts are reported with their reference ranges. Regulatory Requirements State: Only Absolute Cell Counts are reported with their reference ranges.Performed By: #### CBC #### [facility] (DEFAULT) [address] [place] [address] 86805Dwfdigkoo (Bld) [#/Vol]269 10*3/mAWrfpct075-242NvzgcwMercy Health St. [facility] HospitalComcorewell health gerber hospital on above:Order Comment: Regulatory Requirements State: Only Absolute Cell Counts are reported with their reference ranges. Regulatory Requirements State: Only Absolute Cell Counts are reported with their reference ranges.Performed By: #### CBC #### [facility] (DEFAULT) [address] [place] [address] 17044AGV (Bld) [#/Vol]4.26 10*6/uLNormal4.00-5.20[facility] on above:Order Comment: Regulatory Requirements State: Only Absolute Cell Counts are reported with their reference ranges. Regulatory Requirements State: Only Absolute Cell Counts are reported with their reference ranges.Performed By: #### CBC #### [facility] (DEFAULT) [address] [place] [address] 71167CPJ (Bld) [#/Vol]8.66 10*3/uLNormal4.50-11.00[facility] HospitalComcorewell health ger[facility] hospital on above:Order Comment: Regulatory Requirements State: Only Absolute Cell Counts are reported with their reference ranges. Regulatory Requirements State: Only Absolute Cell Counts are reported with their reference ranges.Performed By: #### CBC #### [facility] (DEFAULT) [address] [place], [place] [address]daniel [place], [place] [address]Frvgnktxjmmfm Metabolic Panelon 48-96-3008Bnslyhk [Mass/Vol]3.7 g/dLNormal3.2-5.2MDiley Ridge Medical Center HospitalComment on above:Performed By: #### CMP #### [facility] (DEFAULT) [address] [place], [place] [address]daniel [place], [place] [address]HTS [Catalytic activity/Vol]100 U/YKraeiz84-652Qgfrhm County HospitalComment on above:Performed By: #### CMP #### [facility] (DEFAULT) [address] [place] [address] 15310WHI [Catalytic activity/Vol]8 U/LNormal0-35[facility] HospitalComment on above:Performed By: #### CMP #### [facility] (DEFAULT) [address] [place] [address] 38494Pbtyz gap [Moles/Vol]16 mmol/SXgxnxq41-88Vjizaz County HospitalComment on above:Performed By: #### CMP #### [facility] (DEFAULT) [address] [place] [address] 61379MNJ [Catalytic activity/Vol]20 U/LNormal0-35[facility] HospitalComment on above:Performed By: #### CMP #### [facility] (DEFAULT) [address] [place] [address] 59967Uvedjhokz [Mass/Vol]mg/dLNormal0.0-1.3MDiley Ridge Medical Center HospitalComment on above:Performed By: #### CMP #### [facility] (DEFAULT) [address] [place] [address] 67796Ktkeoyq [Mass/Vol]8.6 mg/dLNormal8.4-10.2MDiley Ridge Medical Center HospitalComment on above:Performed By: #### CMP #### [facility] (DEFAULT) [address] [place] [address] 01631Xwsddlpp [Moles/Vol]104 mmol/TDtraor66-518Ckcyll County HospitalComment on above:Performed By: #### CMP #### [facility] (DEFAULT) [address] [place], [place] [address]daniel [place], [place] [address]NG4 [Moles/Vol]24.0 mmol/PGighwx58.0-32.0[facility] HospitalComment on above:Performed By: #### CMP #### [facility] (DEFAULT) [address] [place], [place] [address]daniel [place], [place] [address]Tiokpambli [Mass/Vol]0.5 mg/dLNormal0.4-1.1MDiley Ridge Medical Center HospitalComment on above:Performed By: #### CMP #### [facility] (DEFAULT) [address] [place] [address] 15533JJO/1.73 sq M.predicted MDRD (S/P/Bld) [Vol rate/Area]133 mL/min/{1.73_m2}Qllkxw24-1416Fvimvg County HospitalComment on above:Result Comment: The eGFR should be used for monitoring renal function only and not for medication dosing.Performed By: #### CMP #### [facility] (DEFAULT) [address] [place] [address] 61625Avcrttr [Mass/Vol]96 mg/aHFrxtpj07-86MkjbqlSelect Medical Specialty Hospital - YoungstownComment on above:Performed By: #### CMP #### [facility] (DEFAULT) [address] [place], [place] [address]on [place], [place] [address]Ejrputpnn [Moles/Vol]3.9 mmol/LNormal3.5-5.1MDiley Ridge Medical Center HospitalComment on above:Performed By: #### CMP #### [facility] (DEFAULT) [address] [place] [address] Fritz[place], [place] [address]Zuviund [Mass/Vol]6.1 g/dLNormal6.0-8.0[facility] HospitalComment on above:Performed By: #### CMP #### [facility] (DEFAULT) [address] [place] [address] Fritz[place], [place] [address]Vlkvuq [Moles/Vol]139 mmol/BEmmwlw033-160YtsksrMercy Health St. [facility] HospitalComment on above:Performed By: #### CMP #### [facility] (DEFAULT) [address] [place], [place] [address]Ztmz nitrogen [Mass/Vol]4 mg/dLLow8-[facility] HospitalComment on above:Performed By: #### CMP #### [facility] (DEFAULT) [address] 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 Admit Date: 04/12/24 /Age: 11 2000/ ED Physician: Zay Lieberman MD Med Rec #: [id number] History Of Present Illness - General General [...] Color Urine Clarity Urine pH Ur Specific Raymond Urine Protein Urine Ketones Urine Blood Urine [...] Clarity Clear Urine pH 6.5 Ur Specific Raymond 1.020 Urine Protein Negative Urine Ketones Negative Urine Blood Trace H Urine Nitrite Negative Urine Bilirubin Negative Urine Urobilinogen 0.2 Ur Leukocyte Esterase Negative Urine RBC 0-1 H Urine WBC 0-1 Ur Squamous Epith Cells 0-1 Urine Bacteria Rare H Urine Mucus Rare H Urine Glucose Negative Urine Pre (more content not included)...NormalMercy Health St. [facility] HospitalUrinalysison 98-53-3908Rubikuzby Ql (U)NegativeNormalNegativeSelect [facility] HospitalComment on above:Performed By: #### UA ####[facility] (DEFAULT)[address] [place] [address] 52397Hlfhvbx (U)ClearNormalClearSelect Medical [facility] HospitalComment on above:Performed By: #### UA ####[facility] (DEFAULT)[address] [place] [address] 91852Unwgf (U)YellowNormalSelect [facility] HospitalComment on above:Performed By: #### UA ####[facility] (DEFAULT)[address] [place] [address] 24459Wxsdina Ql (U)NegativeNormal NegativeSelect Medical [facility] HospitalComment on above:Performed By: #### UA ####[facility] (DEFAULT)[address] [place] [address] 24070Gadcxejjbo Ql (U)TraceAbnormalNegativeSelect [facility] HospitalComment on above:Performed By: #### UA ####[facility] (DEFAULT)[address] [place] [address] 00673Lgmxinq Ql (U)NegativeNormalNegativeSelect [facility] HospitalComment on above: Performed By: #### UA ####[facility] (DEFAULT)[address] [place] [address] 28995MsmysygtnaFzhghpxaMkgvuyZytdwmjqXstqmr County HospitalComment on above:Performed By: #### UA ####[facility] (DEFAULT)[address] [place] [address] 99060Ehdptts Ql (U)NegativeNormalNegativeMercy Health St. [facility] HospitalComment on above:Performed By: #### UA ####[facility] (DEFAULT)[address] [place] [address] 75583Ofmlagu Ql (U)NegativeNormal NegativeMercy Health St. Elizabeth [facility] HospitalComment on above:Performed By: #### UA ####[facility] (DEFAULT)[address] [place] [address] 35342Cnerqehh gravity (U) [Rel density]1.087Kdwcjj1.005-1.025[facility] HospitalComment on above:Performed By: #### UA ####[facility] (DEFAULT)[address] [place] [address] 52769JlH1.1Cfjwqq1.0-6.5[facility] HospitalComment on above:Performed By: #### UA ####[facility] (DEFAULT)[address] [place] [address] 47076Mvkmi Specimen TypeClean CatchNormalMercy Health St. [facility] HospitalComment on above:Performed By: #### UA ####[facility] (DEFAULT)[address] [place] [address] 90066Bwbdkevrlzzz (U) [Mass/Vol]0.2 mg/dLNormal<2.0[facility] HospitalComment on above:Performed By: #### UA ####[facility] (DEFAULT)[address] [place] [address] 88767 Urine Cultureon 61-51-2667Dpovewsp identified Cx Nom (U)URINE CULTURE: > 10 000 CFU/mL mixture of normal urogenital microbiota Testi g Performed At: [facility] [address] [place] [address] URINE CULTURE: Group B Streptococci present in quantity >= 10 000 CFU/mL. This patient should receive intrapartum antibiotic prophylaxis if . Testi g Performed At: [facility] [address] [place], [place] [address]NormalSelect Medical [facility] HospitalComment on above:Performed By: #### CXU #### [facility] (DEFAULT) [address] [place] [address] 65580Ivony Drug Screenon 44-06-7914Iftcbljcvkqv.Not detected NormalNone DetectedSelect Medical [facility] Rehabilitation Hospital, [facility] HospitalComment on above:Order Comment: Urine drug screening tests are to be used for medical purposes only. Result Comment: CUT-OFF: 1000 ng/mLPerformed By: #### UDS #### [facility] (DEFAULT) [address] [place] [address] 00806HkgvopncruooQne detectedNormalNone DetectedSelect Medical [facility] HospitalComment on above:Order Comment: Urine drug screening tests are to be used for medical purposes only. Result Comment: CUT-OFF: 200 ng/mLPerformed By: #### UDS #### [facility] (DEFAULT) [address] [place] [address] 01764Pobwvtzsaactqtb.Not detectedNormalNone DetectedSelect Medical [facility] HospitalComment on above:Order Comment: Urine drug screening tests are to be used for medical purposes only. Result Comment: CUT-OFF: 200 ng/mL Performed By: #### UDS #### [facility] (DEFAULT) [address] [place] [address] 85982Ziksyiz.Not detectedNormalNone DetectedSelect Medical [facility] HospitalComment on above:Order Comment: Urine drug screening tests are to be used for medical purposes only. Result Comment: CUT-OFF: 300 ng/mLPerformed By: #### UDS #### [facility] (DEFAULT) [address] [place] [address] 25989JwxrwlfxhNuw detectedNormalNone DetectedSelect Medical [facility] HospitalComment on above:Order Comment: Urine drug screening tests are to be used for medical purposes only. Result Comment: CUT-OFF: 300 ng/mLPerformed By: #### UDS #### [facility] (DEFAULT) [address] [place] [address] 98159VbawegbVwz detectedNormalNone DetectedMercy Health St. [facility] HospitalComment on above:Order Comment: Urine drug screening tests are to be used for medical purposes only. Result Comment: CUT-OFF: 300 ng/mLPerformed By: #### UDS #### [facility] (DEFAULT) [address] [place] [address] 81821IiulraecvMxd detectedNormalNone DetectedMercy Health St. [facility] HospitalComment on above:Order Comment: Urine drug screening tests are to be used for medical purposes only. Result Comment: DETECTABLE LEVEL IS 100 ng/mL Performed By: #### UDS #### [facility] (DEFAULT) [address] [place] [address] 50203Qmdtfdkamuqzo.Not detectedNormalNone DetectedMercy Health St. [facility] HospitalComment on above:Order Comment: Urine drug screening tests are to be used for medical purposes only. Result Comment: CUT-OFF: 25 ng/mLPerformed By: #### UDS #### [facility] (DEFAULT) [address] [place] [address] 94464PPS.PositiveAbnormalNone [facility] Comment on above:Order Comment: Urine drug screening tests are to be used for medical purposes only. Result Comment: CUT-OFF: 50 ng/mLPerformed By: #### UDS #### [facility] (DEFAULT) [address] [place] [address] 26378KGOLJtt detectedNormalNone [facility] Comment on above:Order Comment: Urine drug screening tests are to be used for medical purposes only. Result Comment: CUT-OFF: 5 ng/mLPerformed By: #### UDS #### [facility] (DEFAULT) [address] [place] [address] 59252GAYBRpt detectedNormalNone [facility] Comment on above:Order Comment: Urine drug screening tests are to be used for medical purposes only. Result Comment: CUT-OFF: 1 ng/mLPerformed By: #### UDS #### [facility] (DEFAULT) [address] [place] [address] 76279Jdyzk Microscopicon 21-37-7108Geeqs Ql (Urine sed)Rare AbnormalNonKettering Health [facility] HospitalComment on above:Performed By: #### MILANA #### [facility] (DEFAULT) [address] [place] [address] 28041XLiubqkvxGlssVqaelootFtqfThfxrc County HospitalComment on above:Performed By: #### MILANA #### [facility] (DEFAULT) [address] [place] [address] 21341RLVM1-5JoxbroqcBfyl;0-3MorrWay[facility] HospitalComment on above:Performed By: #### MILANA #### [facility] (DEFAULT) [address] [place] [address] 72590RMvjvyokq Epithelial Tprvv3-1Hwxowc7-4Utanyj County HospitalComment on above:Performed By: #### MILANA #### [facility] (DEFAULT) [address] [place] [address] 05311KCUY6-0Amszfh6-6Rhqpyq County HospitalComment on above: Performed By: #### MILANA #### [facility] (DEFAULT) [address] [place] [address] 70730Qqkyq Teston 68-19-0758Iqux HCG ( test) Ql (U)NegativeNormalNegativeMercy Health St. [facility] HospitalComment on above:Performed By: #### UPT #### [facility] (DEFAULT) [address] [place] [address] 51157VBO HEAD/BRAIN WO/W CONTRon 55-76-2896[place]su[place]illatoba[place] [address] Magnetic Resonance Report Signed Patient: MINISTERIO BOTELLO MR#: [id number] : 2000 Acct:[id number] Age/Sex: 23 / F ADM Date: 01/31/24 Loc: MRI Attending Dr: Monique Maldonado NP Ordering Physician: Monique Maldonado NP Date of Service: 01/31/24 Procedure(s): MR head/brain wo/w con Accession Number(s): [id number] cc: Zahra Gonzalez M.D.; Monique Maldonado NP [facility] [place] [address] Patient Name: MINISTERIO BOTELLO MRN: [facility]:[id number] date: 2000 Sex: F Assigned Patient Location: MRI Current Patient Location: MRI Accession/Order Number: [id number] Exam Date: 01/31/2024 09:45 Report Date: 02/03/2024 19:44 At the request of: MONIQUE MALDONADO Procedure: MR head/brain wo/w con EXAM: MR of the brain with and without contrast. TECHNIQUE: Sagittal T1, axial FLAIR, SHWETA T2, diffusion imaging without contrast and postcontrast sagittal, axial, and coronal T1-weighted images performed. COMPARISON: CT scan performed 09/29/2023. Contrast: 20 mL Dotarem. HISTORY: Seizures. FINDINGS: No evidence of acute intracranial disease. No evidence of mass. Ventricles, sulci, and basilar cisterns are normal in appearance. No evidence of mass, signal, or enhancement abnormality. No evidence of diffusion abnormality. The cerebral hemispheres, brain stem and cerebellar hemispheres are normal. Good flow void is seen in the vertebral basilar and carotid circulation as well as the sagittal and transverse sinus. The orbital apices and the infratemporal fossa are normal. Empty enlarged sella. MR/MR head/brain wo/w con IMPRESSION: Normal examination of the brain. Electronically authenticated by: Lis CHERRY Date: 02/03/2024 19:44 Dictated By: Jovan Cherry M.D. Signed By: 02/03/241946 DD/ 43 TD/TT: Freelance Art Director:TBHRadiology, Radiologist, MD - 02/03/2024 [place] [address] Magnetic Resonance Report Signed Patient: MINISTERIO BOTELLO MR#: [id number] : 2000 Acct:[id number] Age/Sex: 23 / F ADM Date: 01/31/24 Loc: MRI Attending Dr: Monique Maldonado NP Ordering Physician: Monique Maldonado NP Date of Service: 01/31/24 Procedure(s): MR head/brain wo/w con Accession Number(s): [id number] cc: Zahra Gonzalez M.D.; Monique Maldonado NP [place] [id number] Patient Name: MINISTERIO BOTELLO MRN: [id number] date: 2000 Sex: F Assigned Patient Location: MRI Current Patient Location: MRI Accession/Order Number: [id number] Exam Date: 01/31/2024 09:45 Report Date: 02/03/2024 19:44 At the request of: MONIQUE MALDONADO Procedure: MR head/brain wo/w con EXAM: MR of the brain with and without contrast. TECHNIQUE: Sagittal T1, axial FLAIR, SHWETA T2, diffusion imaging without contrast and postcontrast sagittal, axial, and coronal T1-weighted images performed. COMPARISON: CT scan performed 09/29/2023. Contrast: 20 mL Dotarem. HISTORY: Seizures. FINDINGS: No evidence of acute intracranial disease. No evidence of mass. Ventricles, sulci, and basilar cisterns are normal in appearance. No evidence of mass, signal, or enhancement abnormality. No evidence of diffusion abnormality. The cerebral hemispheres, brain stem and cerebellar hemispheres are normal. Good flow void is seen in the vertebral basilar and carotid circulation as well as the sagittal and transverse sinus. The orbital apices and the infratemporal fossa are normal. Empty enlarged sella. MR/MR head/brain wo/w con IMPRESSION: Normal examination of the brain. Electronically authenticated by: Lis CHERRY Date: 02/03/2024 19:44 Dictated By: Jovan Cherry M.D. Signed By: 02/03/241946 DD/ 43 TD/TT: Freelance Art Director: LATOYA HealthcareRadiology Study observation (narrative)[facility] HealthcareMRI HEAD/BRAIN WO/W CONTROrdered By: Radiologist Radiology on [id number] Work Phone: basic Metabolic panelon 40-87-4481Usioh gap [Moles/Vol]17 mmol/ZFjadul56-61KhontfMercy Health St. [facility] HospitalComment on above:Performed By: #### BMP #### [facility] (DEFAULT) [address] [place] [address] 22841Szdinfp [Mass/Vol]9.2 mg/dLNormal8.4-10.2MDiley Ridge Medical Center HospitalComment on above:Performed By: #### BMP #### [facility] (DEFAULT) [address] [place] [address] 71085Azweuyar [Moles/Vol]103 mmol/XQirvne58-963Ztkfgn County HospitalComment on above:Performed By: #### BMP #### [facility] (DEFAULT) [address] [place] [address] 06416UB0 [Moles/Vol]24.0 mmol/BXosbus34.0-32.0[facility] HospitalComment on above:Performed By: #### BMP #### [facility] (DEFAULT) [address] [place] [address] 55967Pvkrnxwvtk [Mass/Vol]0.6 mg/dLNormal0.4-1.1MDiley Ridge Medical Center HospitalComment on above:Performed By: #### BMP #### [facility] (DEFAULT) [address] [place] [address] 62992VFN/1.73 sq M.predicted MDRD (S/P/Bld) [Vol rate/Area]128 mL/min/{1.73_m2}Twdqyc86-3452MzvvvbPaulding County HospitalComment on above:Result Comment: The eGFR should be used for monitoring renal function only and not for medication dosing.Performed By: #### BMP #### [facility] (DEFAULT) [address] [place] [address]Khmxxzy [Mass/Vol]108 mg/dAQgot62-99[facility] Comment on above:Performed By: #### BMP #### [facility] (DEFAULT) [address] [place] [address]Pdpqnuukm [Moles/Vol]3.9 mmol/LNormal3.5-5.1MDiley Ridge Medical Center HospitalComment on above:Performed By: #### BMP #### [facility] (DEFAULT) [address] [place], [place] [address]Spsjwa [Moles/Vol]140 mmol/LPjkvvn496-446NwttwwMercy Health St[address] [facility] HospitalComment on above:Performed By: #### BMP #### [facility] (DEFAULT) [address] [place], [place] [address]Ijvc nitrogen [Mass/Vol]7 mg/dLLow8-25[facility] HospitalComment on above:Performed By: #### BMP #### [facility] (DEFAULT) [address] [place], [place] [address]DVEBRMmg 01-02-3243GHJYDFJGMWYUFAYETTE [facility] Patient: MINISTERIO BOTELLO EMERGENCY DEPARTMENT PHYSICIAN REPORT Admit Date: 12/17/23 /Age: 10 2000/ ED Physician: Mary Sweeney DO Med Rec #: [id number] History Of Present Illness - General Time [...] accuracy, there may be errors in the environmental law professor that are not intended. Decision to Admit/Discharge/Transfer: 11:06 Instructions: Recurrent Seizures in Adults (ED) Additional Instructions: Avoid skipping your seizure medication in the future Disposition: HOME/SELF CARE ROUTINE Referrals: ZAHRA GONZALEZ MD [Primary Care Provider] - Condition: Stable 12/17/23 1119 [id number] [phone] CC: Zahra Gonzalez MDUniversity Hospitals St. John Medical Centeron 01-12-4916Mdedf HCGNegativeNormalNegBrown Memorial HospitalComment on above:Performed By: #### HCG #### [facility] (DEFAULT) [address] [place], [place] [address]Jvradkxnj Auto (Bld) [#/Vol]on 43-55-1385Ulorihtbp (Bld) [#/Vol]0.0 10 3/uL0.0-0.1FZanesville City HospitalBasophils/100 WBC Auto (Bld)on 52-13-4350Qbgjetpjx/100 WBC (Bld)0.3 %0.2-2.0[facility] CenterEosinophils/100 WBC Auto (Bld)on 73-87-3558Fksqttwatmr/100 WBC (Bld)1.3 % 0.9-7.0[facility] CenterErythrocyte distribution width Auto (RBC) [Ratio]on 25-32-4964Dyndivaebyp distribution width (RBC) [Ratio]12.0 % 11.0-15.0[facility] CenterEstimated glomerular filtration rate (GFR) non- Americanon 55-39-9232QJT/1.73 sq M.predicted among non-blacks MDRD (S/P/Bld) [Vol rate/Area]mL/min/{1.73_m2}>=60[facility] CenterGlobulin Calc (S) [Mass/Vol]on 96-76-6596Zinahlcw (S) [Mass/Vol]3.7 g/dL [facility] CenterHematocrit Auto (Bld) [Volume fraction]on 36-07-0888Sbhovbpyyg (Bld) [Volume fraction]41.3 %36.0-48.0[facility] CenterHemoglobin [Mass/volume] in Bloodon 56-42-9529Rlcnswrkcf (Bld) [Mass/Vol]14.1 g/dL12.0-16.0[facility] CenterLaboratory - Chemistry and Chemistry - challengeon 77-95-5764Qzyfhjy [Mass/Vol]2.8 g/dLLow 3.4-5.0[facility] CenterALP [Catalytic activity/Vol]121 U/LHigh 46-116[facility] CenterALT [Catalytic activity/Vol]27 U/L14-59 [facility] CenterAST [Catalytic activity/Vol]16 U/L15-37 [facility] CenterBilirubin [Mass/Vol]0.3 mg/dL0.2-1.0[facility] CenterCalcium [Mass/Vol]8.9 mg/dL8.5-10.1FZanesville City HospitalChloride [Moles/Vol]104 mmol/E80-173SionxvbufUniversity Hospitals Conneaut Medical CenterCO2 [Moles/Vol]27.2 mmol/L21.0-32.0[facility] Creatinine [Mass/Vol]0.72 mg/dL0.55-1.02[facility] GFR/1.73 sq M.predicted MDRD (S/P/Bld) [Vol rate/Area]mL/min/{1.73_m2}>=60 [facility] CenterGlucose [Mass/Vol]93 mg/iI58-598AtrrtkdvjUniversity Hospitals Conneaut Medical CenterMagnesium [Mass/Vol]2.0 mg/dL1.8-2.4FZanesville City HospitalPotassium [Moles/Vol]4.1 mmol/L3.5-5.1FZanesville City HospitalProtein [Mass/Vol]6.5 g/dL6.4-8.2FOhioHealth Berger Hospitalodium [Moles/Vol]138 mmol/P653-773EtrfeuojxUniversity Hospitals Conneaut Medical CenterUrea nitrogen [Mass/Vol]8.0 mg/dL7.0-18.0[facility] CenterUrea nitrogen/Creatinine [Mass ratio]11.1 mg/mgUniversity Hospitals Conne[facility] Center Laboratory - Hematology and Cell countson 71-22-7250Unvehfdo granulocytes/100 WBC (Bld)1.1 %High0.0-0.5FZanesville City HospitalLeukocytes [#/volume] corrected for nucleated erythrocytes in Blood by Automated counon 55-93-2498YFB corrected for nucl RBC Auto (Bld) [#/Vol]12.0 10 3/uLHigh4.0-11.0[facility] Medical CenterLymphocytes Auto (Bld) [#/Vol]on 31-80-5964Vnzrcbnjksj (Bld) [#/Vol]1.7 10 3/uL1.2-3.8[facility] CenterLymphocytes/100 WBC Auto (Bld)on 37-96-5593Ixicxwzwtxx/100 WBC (Bld)14.5 %Low20.5-60.0[facility] HospitalH Auto (RBC) [Entitic mass]on 77-89-2361USM (RBC) [Entitic mass]31.8 pg26.7-34.0[facility] County HospitalHC Auto (RBC) [Mass/Vol]on 78-51-7063EQPV (RBC) [Mass/Vol]34.1 g/dL29.9-35.2FZanesville City HospitalMCV Auto (RBC) [Entitic vol]on 09-43-5159JLS (RBC) [Entitic vol] 93.0 fL81.0-99.0[facility] CenterMonocytes Auto (Bld) [#/Vol]on 05-21-0140Qigtucsdy (Bld) [#/Vol]0.8 10 3/uL0.3-0.8[facility] CenterMonocytes/100 WBC Auto (Bld)on 31-45-6866Vfqqcevam/100 WBC (Bld)7.0 % 1.7-12.0[facility] CenterNeutrophils Auto (Bld) [#/Vol]on 11-89-2578Ppaurjfslzo (Bld) [#/Vol]9.1 10 3/uLHigh1.4-6.5FZanesville City HospitalNeutrophils/100 WBC Auto (Bld)on 17-99-8869Zhbqihrojpy/100 WBC (Bld)75.8 %High43.0-75.0[facility] CenterNo Panel Informationon 82-32-1571Jdjldoeigkc # (Auto)0.2 10 3/uL0.0-0.7FZanesville City HospitalHuman Chorionic Gonadotropin, QualNegativeNEGATIVEUniversity Hospitals Conneaut Medical CenterImmature Granulocyte # (Auto)0.13 10 3/uLHigh0.00-0.03[facility] CenterPlatelet mean volume Auto (Bld) [Entitic vol]on 87-42-6698Kgrtudmu mean volume (Bld) [Entitic vol]11.6 fL9.5-13.5FZanesville City HospitalPlatelets Auto (Bld) [#/Vol]on 58-26-7145Cqbdvckxm (Bld) [#/Vol]339 10 3/lM666-980GfvqxgrnoUniversity Hospitals Conneaut Medical CenterRBC Auto (Bld) [#/Vol] on 58-11-9933UCD (Bld) [#/Vol]4.44 10 6/uL4.20-5.40[facility] or plasma albumin/globulin mass ratioon 49-75-6901Qvfjjhs/Globulin [Mass ratio]0.8 {ratio}[facility] or plasma anion gap determinationon 25-27-2651Lydag gap [Moles/Vol]10.9 mmol/LFZanesville City HospitalBasophils Auto (Bld) [#/Vol]on 03-17-1216Laxzalrat (Bld) [#/Vol] 0.0 10 3/uL0.0-0.1FZanesville City HospitalBasophils/100 WBC Auto (Bld) on 96-90-4395Wpgbgpugf/100 WBC (Bld)0.2 %0.2-2.0[facility] CenterEosinophils/100 WBC Auto (Bld)on 66-58-3134Afxijlsdtqn/100 WBC (Bld)0.8 % 0.9-7.0[facility] CenterErythrocyte distribution width Auto (RBC) [Ratio]on 73-27-5551Nmnuomztbtq distribution width (RBC) [Ratio]12.2 % 11.0-15.0[facility] CenterEstimated glomerular filtration rate (GFR) non- Americanon 53-15-1787ISC/1.73 sq M.predicted among non-blacks MDRD (S/P/Bld) [Vol rate/Area]mL/min/{1.73_m2}>=60[facility] CenterGlobulin Calc (S) [Mass/Vol]on 45-01-4010Yqtnfvry (S) [Mass/Vol]3.5 g/dL [facility] CenterHematocrit Auto (Bld) [Volume fraction]on 05-59-7104Pqijdbixbb (Bld) [Volume fraction]42.4 %36.0-48.0[facility] CenterHemoglobin [Mass/volume] in Bloodon 08-81-4259Lojotubouu (Bld) [Mass/Vol]14.2 g/dL12.0-16.0[facility] CenterLaboratory - Chemistry and Chemistry - challengeon 29-91-6412Gunmhis [Mass/Vol]3.2 g/dL 3.4-5.0[facility] CenterALP [Catalytic activity/Vol]110 U/L 46-116[facility] CenterALT [Catalytic activity/Vol]34 U/L14-59 [facility] CenterAST [Catalytic activity/Vol]21 U/L15-37 [facility] CenterBilirubin [Mass/Vol]0.3 mg/dL0.2-1.0[facility] CenterCalcium [Mass/Vol]8.9 mg/dL8.5-10.1FZanesville City HospitalChloride [Moles/Vol]101 mmol/M20-090AgtkyfsakUniversity Hospitals Conneaut Medical CenterCO2 [Moles/Vol]27.5 mmol/L21.0-32.0[facility] Creatinine [Mass/Vol]0.76 mg/dL0.55-1.02[facility] GFR/1.73 sq M.predicted MDRD (S/P/Bld) [Vol rate/Area]mL/min/{1.73_m2}>=60 [facility] CenterGlucose [Mass/Vol]111 mg/cA04-360HoyyxwnyqUniversity Hospitals Conneaut Medical CenterLactate [Moles/Vol]2.2 mmol/L0.4-2.0[facility] CenterComment on above:RESULTS CALLED TO Kaitlin LIU)@BY [employer] HIDE INSPECTOR AND SORTER at 1918Magnesium [Mass/Vol]2.0 mg/dL1.8-2.4FZanesville City HospitalPotassium [Moles/Vol]4.0 mmol/L3.5-5.1FZanesville City HospitalProtein [Mass/Vol]6.7 g/dL6.4-8.2FZanesville City Hospital Sodium [Moles/Vol]135 mmol/P788-365ZvqawralxUniversity Hospitals Conneaut Medical CenterTSH Qn5.423 m[IU]/L0.358-3.740[facility] CenterUrea nitrogen [Mass/Vol]8.0 mg/dL7.0-18.0[facility] CenterUrea nitrogen/Creatinine [Mass ratio]10.5 mg/mgUniversity Hospitals Conneaut Medical CenterLaboratory - Hematology and Cell countson 29-38-4702Lolvvxqs granulocytes/100 WBC (Bld)0.7 %0.0-0.5FZanesville City HospitalLeukocytes [#/volume] corrected for nucleated erythrocytes in Blood by Automated counon 44-32-8253UOM corrected for nucl RBC Auto (Bld) [#/Vol]11.9 10 3/uL4.0-11.0[facility] Lymphocytes Auto (Bld) [#/Vol]on 32-51-2753Aegcvcaulom (Bld) [#/Vol]1.5 10 3/uL 1.2-3.8[facility] CenterLymphocytes/100 WBC Auto (Bld)on 06-17-0360Brcskapmdcr/100 WBC (Bld)12.9 %20.5-60.0[facility] HospitalH Auto (RBC) [Entitic mass]on 62-49-1721HWS (RBC) [Entitic mass]31.1 pg 26.7-34.0[facility] Medical CenterMCHC Auto (RBC) [Mass/Vol]on 33-01-9237WZXL (RBC) [Mass/Vol]33.5 g/dL29.9-35.2FZanesville City HospitalMCV Auto (RBC) [Entitic vol]on 37-49-4550BBO (RBC) [Entitic vol]93.0 fL 81.0-99.0[facility] CenterMonocytes Auto (Bld) [#/Vol]on 60-69-9931Fqcxyffqk (Bld) [#/Vol]0.9 10 3/uL0.3-0.8[facility] CenterMonocytes/100 WBC Auto (Bld)on 02-51-8511Typfhaogc/100 WBC (Bld)7.6 % 1.7-12.0[facility] Medical CenterNeutrophils Auto (Bld) [#/Vol]on 22-68-7746Tbkptywtqyw (Bld) [#/Vol]9.3 10 3/uL1.4-6.5FZanesville City HospitalNeutrophils/100 WBC Auto (Bld)on 12-84-3812Umxfotgkyhf/100 WBC (Bld)77.8 % 43.0-75.0[facility] CenterNo Panel Informationon 08-23-2023 Eosinophils # (Auto)0.1 10 3/uL0.0-0.7FZanesville City HospitalImmature Granulocyte # (Auto)0.08 10 3/uL0.00-0.03[facility] Platelet mean volume Auto (Bld) [Entitic vol]on 59-35-9846Alnhxqfi mean volume (Bld) [Entitic vol]11.5 fL9.5-13.5FZanesville City HospitalPlatelets Auto (Bld) [#/Vol]on 07-74-9714Jdujsyjtq (Bld) [#/Vol]316 10 3/aA858-272 [facility] CenterRBC Auto (Bld) [#/Vol]on 28-00-8633HYG (Bld) [#/Vol]4.56 10 6/uL4.20-5.40[facility] or plasma albumin/globulin mass ratioon 62-61-9141Dftljcu/Globulin [Mass ratio]0.9 {ratio} [facility] or plasma anion gap determinationon 07-60-8296Fnnho gap [Moles/Vol]10.5 mmol/LFZanesville City Hospital Ambulatory Visit Summaryon 93-31-3382Xwlzemvpum Visit Summary MINISTERIO BOTELLO :2000 Visit Date:10/18/2022 Ambulatory Visit Instructions Your Diagnosis Axillary abscess BMI 45.0-49.9, adult Vapes nicotine containing substance Your Care Team Attending Physician - KARLA ALCARAZ, Napoleon Dumas Primary Care Physician - CARLOS ALCARAZ, ZAHRA This Is Your Medications List sulfamethoxazole-trimethoprim (Bactrim D.S. 800 mg-160 mg Tab) Contact [...] What How Much When Why Instructions New sulfamethoxazole-trimethoprim (Bactrim D.S. 800 mg-160 mg Tab) 1 Tablets By Mouth 2 times a dayAxillary abscess BMI 45.0-49.9, adult Vapes nicotine containing substance Duration: [address] [facility]/pharmacy #[id number] Unchanged ethinyl estradiol-norgestimate (Sprintec oral tablet) [...] physician if questions or concerns Pharmacy Information [facility]/pharmacy #[id number]: [address], [place] [id number] [phone] Allergies No Known Allergies No Known Medication Allergies Problems Ongoing - Any problem that you are currently receiving treatment for. Anxiety Axillary abscess BMI 45.0-49.9, adult Depression HTN (hypertension) Hypothyroidism Morbid obesity Vapes nicotine containing substance [facility] CenterAmb[facility] Visit Summaryon 64-87-2209Ehamzutrui Visit Summary MINISTERIO BOTELLO :2000 Visit Date:09/13/2022 Ambulatory Visit Instructions Your Care Team Attending Physician - KARLA ALCARAZ, Napoleon Dumas Primary Care Physician - ZAHRA GONZALEZ MD This Is Your Medications List [...] adult Depression HTN (hypertension) Hypothyroidism Morbid obesity [facility] Note-Physicianon 02-50-4130HS Note-[id number]#1.00CD:[address] [place], [place] [address]Lab Reportson 59-71-5015Mii Reports [id number]#1.00CD:[address] [place], [place] [address]Physician Referralon 06-21-4362Tqjlxcvbl Referral [id number]#1.00CD:[address] [place], [place] [address]PAP ACOG PANEL 2: 21 to 29on 12-05-2021..[facility] Comment on above:Performed By: #### [id number] #### [facility] [address] [place] [address] Dr. Ammon Oliver Gdln ACOG Bemcklo50-03BqhgluTlaKettering Health Main CampusComment on above:Performed By: #### [id number] #### [facility] [address] [place] [address] Dr. Ammon UrenaDIAGNOSIS:CommentOhio Valley Surgical Hospital on above: Result Comment: NEGATIVE FOR INTRAEPITHELIAL LESION OR MALIGNANCY.Performed By: #### [id number] #### [facility] [address] [place] [address] Dr. Ammon UrenaMethodology:CommentOhio Valley Surgical Hospital on above: Result Comment: This liquid based ThinPrep(R) pap test was screened with the use of an image guided system.Performed By: #### [id number] #### [place] [address] Dr. Ammon UrenaNote:CommentOhio Valley Surgical Hospital on above:Result Comment: The Pap smear is a screening test designed to aid in the detection of premalignant and malignant conditions of the uterine cervix. It is not a diagnostic procedure and should not be used as the sole means of detecting cervical cancer. Both false-positive and false-negative reports do occur. .Performed By: #### [id number] #### [facility] [address] [place] [address] Dr. Ammon UrenaPerformed by:CommentOhio Valley Surgical Hospital on above: Result Comment: Veronika Sosa, Devops (ASCP)Performed By: #### [id number] #### [place] [address] Dr. Ammon UrenaReflex Criteria:[facility] on above:Result Comment: The HPV DNA reflex criteria were not met with this specimen result therefore, no HPV testing was performed. .Performed By: #### [id number] #### [facility] [address] [place] [address] Dr. Ammon UrenaSpecimen adequacy:CommentOhio Valley Surgical Hospital on above:Result Comment: Satisfactory for evaluation. Endocervical and/or squamous metaplastic cells (endocervical component) are present.Performed By: #### [id number] #### [facility] [address] [place] [address] Dr. Ammon UrenaPAP ACOG PANEL 2: 21 to 29on 11-04-2021..NormalThe [facility] on above:Performed By: #### [id number] #### [facility] [address] [place] [address] Dr. Ammon Oliver Gdln OG Ijjjhbm53-76NjuwlhWbaGalion Hospital on above:Performed By: #### [id number] #### [facility] [address] [place] [address] Dr. Ammon UrenaDIAGNOSIS:CommentOhio Valley Surgical Hospital on above: Result Comment: UNSATISFACTORY FOR EVALUATION.Performed By: #### [id number] #### [place] [address] Dr[address] Ammon UrenaMethodology:CommentOhio Valley Surgical Hospital on above: Result Comment: This liquid based ThinPrep(R) pap test was screened with the use of an image guided system.Performed By: #### [id number] #### [place] [address] Dr. Ammon UrenaNote:CommentOhio Valley Surgical Hospital on above:Result Comment: The Pap smear is a screening test designed to aid in the detection of premalignant and malignant conditions of the uterine cervix. It is not a diagnostic procedure and should not be used as the sole means of detecting cervical cancer. Both false-positive and false-negative reports do occur. .Performed By: #### [id number] #### [facility] [address] [place] [address] Dr. Ammon UrenaPerformed by:CommentOhio Valley Surgical Hospital on above: Result Comment: Dennys Toledo, Devops (ASCP)Performed By: #### [id number] #### [facility] [address] [place] [address] Dr. Ammon UrenaQC reviewed by:[facility] on above:Result Comment: Georgia Hartman, Supervisory Devops (ASCP)Performed By: #### [id number] #### [facility] [address] [place] [address] Dr. Ammon UrenaRecommendation:CommentMiami Valley HospitalComcorewell health gerber hospital on above:Result Comment: Suggest follow up as clinically appropriate.Performed By: #### [id number] #### [facility] [address] [place] [address] Dr. Ammon UrenaRefzia Criteria:CommentOhio Valley Surgical Hospital on above:Result Comment: The HPV DNA reflex criteria were not met with this specimen result therefore, no HPV testing was performed. .Performed By: #### [id number] #### [facility] [address] [place] [address] Dr. Ammon UrenaSpecimen adequacy:CommentOhio Valley Surgical Hospital on above:Result Comment: Specimen processed and examined but unsatisfactory for evaluation of epithelial abnormality because of obscuring inflammatory exudate.Performed By: #### [id number] #### [facility] [address] [place] [address] Dr. Ammon UrenaCHLAMYDIA/GONOCOCCUS NATALI (SWAB/URINE/PAPon 85-69-0668Veogmnvuv trachomatis, NAANegativeNormalNegativeThe [facility]ita Health SystemComment on above: Performed By: #### CT/NGNA #### [facility] [address] [place] [address] Dr. Ammon UrenaNeisseria gonorrhoeae, NAANegativeNormalNegativeOhio Valley HospitalComment on above:Performed By: #### CT/NGNA #### [facility] [address] [place] [address] Dr. Ammon UrenaVAGINITIS/VAGINOSIS DNA PROBEon 78-30-8878Rkapszq speciesNegative NormalNegativeOhio Valley HospitalComment on above:Performed By: #### VAGINT #### [facility] [address] [place] [address] Dr. Ammon Payandnerella vaginalisPositiveAbnormalNegativeOhio Valley HospitalComment on above:Performed By: #### VAGINT #### [facility] [address] [place] [address] Dr. Yilan ChangTrichomonas vaginalisNegativeNormalNegativeThe [facility] Comment on above:Performed By: #### VAGINT #### [facility] [address] [place] [address] [address] Ammon Urena Vital Signs Date TimeVital SignValuePerforming HdiroeqolVnpiwkkh94-15-4249 10:56-0400Body atfofd190.86 cmZahra Gonzalez MD Work Phone: [phone]09-22-2025 10:56-0400 Body mass index (BMI) [Ratio]50.3 kg/i3CfetcoZahra Gonzalez MD Work Phone: [phone]09-22-2025 10:56-0400 Body uwjdjh440.94 kgZahra Gonzalez MD Work Phone: [phone]09-22-2025 10:56-0400 Diastolic blood mm[Hg]Zahra Gonzalez MD Work Phone: [phone]09-22-2025 10:56-0400 Heart rate56 /minZahra Gonzalez MD Work Phone: [phone]09-22-2025 10:56-0400 Systolic blood yanmvonj971 mm[Hg]Zahra Gonzalez MD Work Phone: [phone]84[facility]08-12-2025 11:15-0400 Diastolic blood tzsyfnna69 mm[Hg]Maria Ines Henderson DO Work Phone: Bon [facility]08-12-2025 11:15-0400Heart rate74 /minChlux Henderson DO Work Phone: Bon [facility]08-12-2025 11:15-0400 Respiratory rate18 /minChrishafsa Henderson DO Work Phone: Bon [facility]08-12-2025 11:15-4853PzJ2% (BldA) [Mass fraction]97 %Maria Ines Henderson DO Work Phone: Bon [facility]08-12-2025 11:15-0400Systolic blood dcgmhcre007 mm[Hg]Maria Ines Henderson DO Work Phone: BBon [facility]08-12-2025 08:08-0400Body mass index (BMI) [Ratio]49.48 kg/f2PvoorrxybMaria Ines Henderson DO Work Phone: [phone] [facility]08-12-2025 08:08-0400Body ylbjppdocew66.49 [degF]Maria Ines Henderson DO Work Phone: BBon [facility]08-12-2025 08:08-0400Body fqlboz475.13 kgMaria Ines Henderson DO Work Phone: [phone] [facility]05-07-2025 09:02-0400Body buekvr782.9 cmAedd Maldonado CYBER OPS PLANNER Work Phone: [facility] HealthcareZlrhexnpgk81-65-0500 09:02-0400Body mass index (BMI) [Ratio]49.48 kg/e6ZovhsuMonique Maldonado CYBER OPS PLANNER Work Phone: [facility] HealthcareGjpncfzxuv46-98-7041 09:02-0400Body .13 kgMonique Maldonado CYBER OPS PLANNER Work Phone: NOPA HealthcareComment on above:pt -25-9919 09:02-0400Diastolic blood isinlvdm95 mm[Hg]Monique Maldonado [employer]BER OPS PLANNER Work Phone: [facility] HealthcareAoqnexwtrz88-43-9709 09:02-0400Heart rate75 /min Monique Maldonado CYBER OPS PLANNER Work Phone: [facility] HealthcareGxrmgzcjbg96-15-5526 09:02-6704LwJ2% (BldA) [Mass fraction]98 %Monique Maldonado CYBER OPS PLANNER Work Phone: NOSouthPointe HospitalGwftfiokns69-30-5592 09:02-0400Systolic blood efcozfkw851 mm[Hg]Monique Maldonado CYBER OPS PLANNER Work Phone: NOSouthPointe HospitalKzktjcdius23-72-0056 19:19-0400Body mrjbwu503.9 Naseem Alvarado MD Work Phone: [facility]04-19-2025 19:19-0400Body mass index (BMI) [Ratio]52.13 kg/d2ZbbkllLauri Alvarado MD Work Phone: [phone] IES [facility] CenterUwdhht46-82-8064 19:19-0400Body fmtsyn438.07 kgLauri Alvarado MD Work Phone: [phone] IES [facility]hillDnev[facility] Wjhwhg07-07-2108 19:18-0400Body xycbolxfwvm73.2 [degF]Lauri Alvarado MD Work Phone: [phone] IES [facility] CenterQqajsu30-80-9987 19:18-0400Diastolic blood eowykkfb29 mm[Hg]Lauri Alvarado MD Work Phone: [phone] IES [facility]hillDnev[facility] Ouyngk64-85-6943 19:18-0400Heart rate75 /minLauri Alvarado MD Work Phone: [phone] [facility]ES [facility]hillD[facility] Eaohmw58-48-7386 19:18-0400 Respiratory rate18 /minLauri Alvarado MD Work Phone: [phone] IES [facility]hillDnev[facility] Xgowgx86-35-5690 19:18-8096DiL7% (BldA) [Mass fraction]95 %Lauri Alvarado MD Work Phone: [facility]hillDne[facility] Gtytyt19-00-4356 19:18-0400Systolic blood sqknuypj755 mm[Hg]Lauri Alvarado MD Work Phone: Bon [facility]hillD[facility] Qhuejx90-35-4920 15:09-0400Body mass index (BMI) [Ratio]51.2 kg/m2Amanda DALY Work Phone: NOSouthPointe HospitalFrsqupocau87-40-9183 15:09-0400Body .99 kgAmanda DALY Work Phone: [facility] HospitalOifmlykdao57-83-2468 15:09-0400Diastolic blood antkmphe03 mm[Hg]Amanda DALY Work Phone: [facility] HospitalMmzcqrmceu53-72-9571 15:09-0400Systolic blood myosuqxp072 mm[Hg]Amanda DALY Work Phone: [facility] HealthcareIvvmzjqchr47-22-2464 13:05-0500Body wvgovg114.86 [facility]02-03-2025 13:05-0500Body mass index (BMI) [Ratio]49.6 kg/h6DxdjjswlrUniversity [facility]02-03-2025 13:05-0500Body iwiouk843.58 [facility]02-03-2025 13:05-0500Diastolic blood ubuxpotb00 mm[Hg][facility]02-03-2025 13:05-0500 Heart rate64 /[facility]02-03-2025 13:05-0500Systolic blood kapnsvmm870 mm[Hg][facility]01-09-2025 13:54-0500 Body sxyhrh459.86 cmUniversity Hospitals [facility]01-09-2025 13:54-0500Body mass index (BMI) [Ratio]49.6 kg/j6UjcothoofUniversity Hospitals Conneaut Medical Center01-09-2025 13:54-0500Body hriigs194.58 [facility]01-09-2025 13:54-0500Diastolic blood raqsibhh29 mm[Hg][facility] 04-03-2024 13:54-0500Heart rate66 /[facility] 04-03-2024 13:54-0500Systolic blood elaaeymi844 mm[Hg][facility]12-19-2024 11:39-0500Body flymed313.86 [facility]12-19-2024 11:39-0500Body mass index (BMI) [Ratio]50.8 kg/v3TsnrovvpnUniversity Hospitals Conneaut Medical Center12-19-2024 11:39-0500Body rgwoxr204.3 [facility]12-19-2024 11:39-0500Diastolic blood fgqyltpy69 mm[Hg] [facility]12-19-2024 11:39-0500Heart rate83 /[facility]12-19-2024 11:39-0500Systolic blood bbwflytn635 mm[Hg] [facility]09-12-2024 09:32-0400Body oqpvcl182.86 cm [facility]09-12-2024 09:32-0400Body mass index (BMI) [Ratio]50.1 kg/o8YzajpujlqUniversity Hospitals Conneaut Medical Center09-12-2024 09:32-0400Body .4 [degF][facility]09-12-2024 09:32-0400Body yleial105.66 kgUniversity Hospitals [facility] Center09-12-2024 09:32-0400Diastolic blood genbkqkh22 mm[Hg][facility]09-12-2024 09:32-0400 Heart rate73 /[facility]09-12-2024 09:32-0400 Respiratory rate18 /[facility]09-12-2024 09:32-0400 SaO2% (BldA) [Mass fraction]96 %[facility]09-12-2024 09:32-0400Systolic blood sutibigr111 mm[Hg][facility] 11-21-2023 08:45-0400Body ghwbxo598.9 cmAedd Maldonado [employer] Work Phone: [phone] HealthcareYjzuaxdmrp48-90-8836 08:45-0400Body mass index (BMI) [Ratio]50.29 kg/w3KkosgwMonique Boykinr [employer]NER Work Phone: [phone] HealthcareEnzzupdlte91-40-5279 08:45-0400Body ilohjv821.95 kgMonique Boykinr [employer] PL[employer]NER Work Phone: [phone] HealthcareGykfxapgur39-78-4838 08:45-0400Diastolic blood aclrvoml353 mm[Hg]Monique Boykinr [employer]NER Work Phone: [facility] HealthcareLkapgrehti21-93-9282 08:45-0400Heart rate83 /min Monique Maldonado [employer] Work Phone: [facility] HealthcareDrxwhipqqw03-97-9750 08:45-0400Systolic blood xwydozyx191 mm[Hg]Monique Boykinr [employer]NER Work Phone: [facility] HealthcareIsxlpkoyhd80-57-9524 13:18-0400Body .86 cmUniversity [facility]06-03-2024 13:18-0400Body mass index (BMI) [Ratio]50.1 kg/u4CevsnxkffUniversity Hospitals Conneaut Medical Center06-03-2024 13:18-0400Body kyazow872.49 kgUniversity Hospitals Conneaut [facility] Center06-03-2024 13:18-0400Diastolic blood ihjekcsl67 mm[Hg][facility]06-03-2024 13:18-0400 Heart rate78 /minUniversity Hospitals Conneaut Medical Center06-03-2024 13:18-0400Systolic blood eltnvgmv810 mm[Hg][facility]11-15-2023 10:30-0500 Body lgzevd577.86 cmJessieesme Carlos Other [employer] Other 11-15-2023 10:30-0500Body mass index (BMI) [Ratio]49.2 kg/w6FdsmlyZahra Gonzalez Other [employer] Other 11-15-2023 10:30-0500Body qudzmh215.5 kgZahra Carlos Other [employer] Other 11-15-2023 10:30-0500Diastolic blood vnqqyubz10 mm[Hg] Zahra Gonzalez Other [employer] Other 11-15-2023 10:30-0500Systolic blood qasjrfis455 mm[Hg] Zahra Gonzalez Other [employer] Other 06-21-2023 15:04-0400Blood Pressure LocationMichael NILL [facility] Pwoqfolf03-83-8916 15:04-0400Diastolic blood usovvmao29 mm[Hg]Napoleon NILL [facility] Bsuyugbr97-49-2964 15:04-0400Heart rate 70 /minMichael NILL [facility] Lgbmwcik45-96-9658 15:04-0400 Respiratory rate16 /minMichael NILL [facility] Inlyriqq49-71-0771 15:04-0400Systolic blood tzvshgwy818 mm[Hg]Napoleon NILL [facility] Nwlmjabc92-32-2153 09:30-0400Body lfmxva698.86 cmZahra Carlos Other [employer] Other 05-24-2023 09:30-0400Body mass index (BMI) [Ratio] 48.67 kg/t2RlbgmfZahra Gonzalez Other [employer] Other 05-24-2023 09:30-0400Body uyuhyi633.32 kgJessieesme Gonzalez Other [employer] Other 05-24-2023 09:30-0400Diastolic blood ojwqqeuo96 mm[Hg] Zahra Gonzalez Other [employer] Other 05-24-2023 09:30-0400Systolic blood ebqftphv270 mm[Hg] Zahra Gonzalez Other [employer] Other 474212-06-0305 17:41-0400BMI (Body Mass Index)22.14 kg/m2 [facility], GT27-70-7031 17:41-0400Body Metusxldnhx93.2 [degF][facility], KA88-28-7928 17:41-0400Body vyonyr50.71 kg[facility], MH39-48-6298 17:41-0400BP Wogewkafo92 mm[Hg][facility], TC90-59-5207 17:41-0400BP Zfnseyqr829 mm[Hg]Kristie [facility], RT75-09-4897 17:41-0163Ndaaxc919.9 cm Kristie [facility], TH91-04-5651 17:41-0400Pulse (Heart Rate)83 /minAvita Health System, IH93-56-1274 17:41-0400Pulse Dfpodrgx51 % Kristie [facility], GZ98-10-9255 17:41-0400Respiratory Rate20 /minPraOur Lady of Mercy [facility] [place] Encounters Encounter DateEncounter TypeCare ProviderFacilityStart: 12-15-2024 End: 38-54-5826xglomwgipdRazknw E Braun MD Work Phone: [facility] Work Phone: Start: 12-15-2024 End: 07-43-9800Yppiwpb encounter procedureZahra Gonzalez MD-[facility] Work Phone: Start: 98-72-3298Xsb-patient / Non-visitCatherine Jose [facility] Work Phone: Start: 12-08-2024 End: 02-61-8529Xacmneirm department patient visitZAHRA GONZALEZAdena [facility] HospitalStart: 86-86-0717Llg-patient / Non-visitCatherine Jose [facility] Work Phone: Start: 11-04-2024 End: 49-24-1156Qfpgykhok department patient visitMaria Ines Henderson DO Work Phone: [facility] Emergency DepartmentComment on above: Seizure (HCC) (Primary Dx); Breakthrough seizure (HCC)Start: 07-30-2024 End: 13-26-1439Eqvgdo Rosa Maldonado [employer] Work Phone: aNA KASSYEVUEStart: 07-30-2024 End: 23-47-1883Cdrryd Rosa Maldonado [employer]NER Work Phone: ana BELLEVUEStart: 07-30-2024 End: 74-75-5724Eosrjm outpatient visit 25 minutesMonique Maldonado NP Work Phone: ana BELLEVUEComment on above:Seizure (CMS/HCC) (Primary Dx); PAUL (obstructive sleep apnea); Hypersomnia; Shift work sleep disorderStart: 07-30-2024 End: 21-68-3440rkvutzjoajDQNFOC GILLMORNot AvailableStart: 07-12-2024 End: 82-87-2292Zplanhkiy department patient visitLauri Alvarado MD Work Phone: [facility] Emergency DepartmentComment on above: Breakthrough seizure (HCC) (Primary Dx)Start: 06-26-2024 End: 51-42-2213Mpmvzqm encounter procedureAmanda DALY Work Phone: noMS HealthcareStart: 06-26-2024 End: 33-58-5755Tzfmqval preventive med est patient 18-39 yrsAmanda DALY Work Phone: noMS BCP OBComment on above:Well woman exam with routine gynecological examStart: 06-26-2024 End: 66-75-3357fqwufehwinQAC RAMEYNot AvailableStart: 06-26-2024 End: 76-77-0237Cjvwkg flowsDominic DALY Work Phone: [facility] BCP OBStart: 06-26-2024 End: 04-67-6572Ebztwn flowsheetAmanda DALY Work Phone: noMS BCP OBStart: 06-26-2024 End: 95-54-7540Xybvoksjg Result EncounterAmanda DALY Work Phone: noms External Department UnsolicitedStart: 05-29-2024 End: 60-05-5199Xtcqjm flowsheetNicole Rox DO Work Phone: aNA BELLEVUEStart: 05-29-2024 End: 21-75-6501Begajr flowsheetNicole Rox DO Work Phone: ana BELLEVUEStart: 05-29-2024 End: 49-97-2684ieqyypbxmkQBUNEK ROXRee AvailableStart: 04-28-2024 End: 57-25-9849cuprvrfcfaRomtsvuhuC[facility] Work Phone: Start: 04-28-2024 End: 92-13-0620Iponrmb encounter procedureAt[facility] Physician [facility] Work Phone: Start: 74-17-0457Cmk-patient / Non-visitAtrium Health [facility] Physician [facility] Work Phone: Start: 04-12-2024 End: 47-69-9758utdajcfaaeREYPOIQRiverview Health Institute Start: 04-12-2024 End: 39-28-2087Pgvntmnlm for general adult medical examination without abnormal findingsRegional Medical Centertart: 04-12-2024 End: 29-41-9278Njeusobau department patient visitWICARDINAL CUSHING HOSPITALN [facility] [[email or web address]] Facility:[facility]art: 04-03-2024 End: 18-88-6424acaghbxxexAejcqmvjqC[facility] Work Phone: Start: 04-03-2024 End: 69-39-3404Tnqsyyg encounter procedureAt[facility] Health [facility] Physician [facility] Work Phone: Start: 03-13-2024 End: 96-05-9016Fciotom encounter procedureAtrium Health [facility] Physician [facility] Work Phone: Start: 02-03-2024 End: 34-38-6143Umewzuebc Result EncounterAngela Gillmor [employer]NER Other Phone: noms External Department UnsolicitedStart: 02-03-2024 End: 78-20-4708Xodsctghx Result EncounterAngela Gillmor [employer] PL[employer]NER Other Phone: noms External Department UnsolicitedStart: 12-17-2023 End: 87-18-2183Mubzyztug department patient visitGEVALENTÍN Lathamcility:[facility]tart: 12-06-2023 End: 34-72-3189dmlermlzshJrdgusvmnC[facility] Work Phone: Start: 12-06-2023 End: 02-18-1503Kkdlwxw encounter procedureAt[facility] Health [facility] Physician GroupSelect [facility] Work Phone: Start: 11-21-2023 End: 13-44-1787Lvtiwu flowsGilson Maldonado [employer] PL[employer]NER Work Phone: noms [place] STATE R[address]TEStart: 11-21-2023 End: 50-91-7399Urzbgb flowsGilson Maldonado [employer] PL[employer]NER Work Phone: noms [place] [address] R[address]TEStart: 11-21-2023 End: 28-96-4684khgrhvterjTYDIBL GILLMORNot AvailableStart: 11-21-2023 End: 49-28-0022Zpxkcr outpatient visit 25 minutesAngepreet Maldonado [employer]NER Work Phone: noms [place] STATE ROUTEComment on above:Seizure (CMS/HCC) (Primary Dx); Sleep deprivation; Tetrahydrocannabinol (THC) use disorder, mild, abuse; Primary insomnia; Hypersomnia; PAUL (obstructive sleep apnea); Shift work sleep disorderStart: 10-25-2023 End: 88-30-0077nobxpdjlteVXASKO DANNERNot AvailableStart: 10-24-2023 End: 32-20-9203Xfmbkft encounter procedureNicole Rox DO Work Phone: noms [address] [address] R[address]TEComment on above:PAUL (obstructive sleep apnea) (Primary Dx); Seizure (CMS/HCC); Hypersomnia; Class 3 severe obesity due to excess calories with body mass index (BMI) of 50.0 to 59.9 in adult, unspecified whether serious comorbidity present (CMS/HCC) Start: 10-24-2023 End: 97-82-3965hntwormifzJFZOUM DANNERNot AvailableStart: 10-09-2023 End: 02-48-6467umdvltmfzrOPGSWD DANNERNot AvailableStart: 49-51-2438Jjg-patient / Non-visitAtrium Health Carolinas Medical Center Physician Group-[facility] Work Phone: Start: 12-89-1260Lgt-patient / Non-visitFirred oaks [facility] [employer] Work Phone: Start: 09-26-2023 End: 71-61-0088rietvwwjbeCHMFJX ROXRee AvailableStart: 08-27-2023 End: 27-63-0673wglxxanveeKkdlcpzgk [facility] Work Phone: Start: 08-27-2023 End: 06-77-6093Rvdogbs encounter procedureFirretreat doctors' hospital Physician [facility] Work Phone: Start: 51-39-8852Rju-patient / Non-visitAtrium Health [facility] Physician Group-[facility] Work Phone: Start: 31-95-3819Jqg-patient / Non-visitAtrium Health [facility] Work Phone: Start: 02-07-2023 End: 93-37-8828aufecnnfjeDkyaeo Braun Other NoAddThis Other Start: 40-33-5046Ccwjwq outpatient visit 15 minutes Zahra GonzalezRegency Hospital Companytart: 10-18-2022 End: 86-12-4063ccbqwywnsrNtpmnco R NILLFacility:[facility]3]ueStart: 10-10-2022 End: 45-81-7244ykhtdvejtnUnbpao Braun Other [employer] Other Start: 91-45-5667Cpwdtbzle encounterMaresme GonzalezOhioHealth Doctors Hospital ClinicStart: 09-13-2022 End: 96-53-3952sezpaizhjoXuystww R NILLFacility: BellevueStart: 09-13-2022 End: 91-11-4975Mbsvrzl encounter procedureMichael R NILL General Surgery Nill/Said [place] Start: 95-14-5215dxaftwrfvyXZNGQA CARLOSFacility:[facility]3]ueStart: 99-62-4214nnsxjdhxmwYsajmyh Piter NILLFacility: [facility]assyMercy Health Fairfield Hospitaltart: 08-22-2022 End: 43-77-3608ffbrdwaafbSoeyqn Gonzalez Other noAddThis Other Start: 62-22-2070Lqpzhukfa encounterZahra AleLis Referral CoordinatorStart: 08-18-2022 End: 14-28-6146kpojapotcqMiebtp Gonzalez Other noAddThis Other Start: 54-70-0808Lsneakqzf encounterZahra Jose [facility] ClinicStart: 08-16-2022 End: 80-29-5034xsqbzscyqqGdeoil Gonzalez Other noAddThis Other Start: 51-96-5773Hnoubg outpatient visit 15 minutes Zahra Garcia [facility] ClinicStart: 66-03-3059Izbirsldjjqzz examination normalJessieesme Carlos Other noAddThis Other Start: 07-49-8053Awaouyi or child health check Zahra Gonzalez Other noAddThis Other Start: 11-29-2021 End: 36-23-4094aiqpjkhavyVS ZAHRA Anna GONZALEZFacility:A1Xbvxo: 10-31-2021 End: 56-67-8911qgdcsxowkqXF USLEMAN BRADLEYFacility:P8Yngol: 12-28-2018 End: 81-88-3575Suqnhuexc department patient visitPRASHANT [facility] Hospitaltart: 12-28-2018 End: 69-73-9755Ayqhitpwi department patient visitPraant [facility] Phone: [facility] EDComment on above:Abrasion of right index finger, initial encounter (Primary Dx) Procedures DateProcedureProcedure DetailPerforming ClinicianStart: 57-19-1464Ssje tst prsmv instrmnt chem analyzers pr dateMaria Ines Piter Henderson DO Work Phone: Start: 57-89-3689Mwbkquygmw microscopic onlyChlux Henderson DO Work Phone: Start: 09-61-4524Iuqfs dip stick/tablet rgnt auto w/o microscopyChlux Henderson DO Work Phone: Start: 36-42-1058Uocfgadibrore metabolic panel Maria Ines Dumas Henderson DO Work Phone: Start: 10-68-7985Qkw routine ecg w/least 12 lds w/i&r Maria Ines Henderson DO Work Phone: Start: 18-92-7982Fpvzbkitbu microscopic Haylee Alvarado MD Work Phone: Start: 33-24-7161Iukfv test visual color cmprsn methShereen Alvarado MD Work Phone: Start: 63-52-6009Obkzrcjkznhhl metabolic panelLauri Alvarado MD Work Phone: Start: 95-83-0765ATR,APTIMA HPV,AGE GDLNAmy Emilio DALY Work Phone: Start: 64-37-9268OAL HEAD/BRAIN WO/W Rosalino Maldonado [employer]NER Other Phone: Start: 92-82-8711TQLRO CAREPRASHANT FADUMO AppendectomyMichael NILL Contraception care educationMarcia Carlos Other Incision and drainage of abscessMichael NILL Comment on above:left axillaInsertion of subcutaneous contraceptive doneMichael NILL Plan of Treatment DateCare ActivityDetailAuthorStart: 30-32-2524UGvM/Tdap/Td vaccine (2 - Td or Tdap)DTaP/Tdap/Td vaccine (2 - Td or Tdap)[facility]: 02-37-8452Luazklcjo vaccinationFlu vaccine (#1)[facility] Centerart: 10-21-2024 End: 64-77-8677Sekzfbq encounter wzqeqkjmb82/29/2025 10:20 AM EDT Office Visit [place] [address] [facility] [place] [phone] Monique Maldonado NP [address] [place] ALEJO IRIZARRYUEStart: 09-18-2024 End: 66-01-4879Cptbzgxs Krnvgry7609/18/2024 8:15 AM EDT Clinical Support ALEJO BELLO [address] [place] [address] aNA [place] Start: 09-15-2024 End: 78-68-3779Qczvibcq Fgdxdzx5709/15/2024 2:45 PM EDT Clinical Support ALEJO BELLO [address] [facility] [place] [phone] aNA [place] Start: 08-05-2024 End: 99-81-3636Zeqbzlk encounter civllpsbl02/13/2025 9:00 AM EDT Office Visit [address] [phone] Monique Maldonado NP [address] [facility] [address] [place] ALEOJ BUCKLEYtart: 07-30-2024 End: 53-76-6454Vxke EEG 36-84 HoursHome EEG 36-84 Hours Neurology Routine Seizure (CMS/HCC) Expected: 07/30/2024 (Approximate), Expires: 07/30/2025[facility] Work Phone: comment on above:Expected: 07/30/2024 (Approximate), Expires: 07/30/2025Start: 07-30-2024 End: 22-04-7748Xbwvutq encounter blsojofpr36/07/2025 9:00 AM EDT Office Visit ALEJO BELLO [address] [place] [phone] Monique Maldonado NP [address] [place] ArrivedANA BELLJOANNUEComment on above:ArrivedStart: 06-26-2024 End: 92-37-1394Izosxrv encounter procedureNOMS BCP OBComment on above:Arrived Start: 05-29-2024 End: 99-50-7202Ppoketp encounter dawmvnrxx63/06/2025 9:00 AM EST Office Visit ALEJO BELLO [address] [place] [address] Yana Gramajo DO [address] [place] [address] ArrivedANA BELLJOANNUEComment on above:ArrivedStart: 04-15-2024 End: 90-82-5581Sznwjob encounter zpqruugjk04/21/2025 10:00 AM EST Office Visit [facility] [address] [place] [phone] Amanda Jhaveri PA [address] [place] [address] [facility] BCP OBStart: 54-73-9676Ilzlcjc [facility] Work Phone: Start: 43-31-3593MCJAD-19 Vaccine ( season) COVID-19 Vaccine ( season)[facility]Start: 11-21-2023 End: 16-73-0639SI Brain WO and W contrast IVMR brain w and wo contrast routine Imaging Routine Seizure (CMS/HCC) Expected: 11/21/2023 (Approximate), Expires: 11/20/2024[facility] Work Phone: comment on above:Expected: 11/21/2023 (Approximate), Expires: 11/20/2024Start: 74-81-0143Jrsgdmgep for malignant neoplasm of cervix Pap smearVirginia Hospital CenterStart: 10-89-3319Mhnoylzuu vaccinationFlu vaccine (#1)[place], [place]Start: 55-02-9429Agvpplury B vaccine (1 of 3 - 19+ 3-dose series)Hepatitis B vaccine (1 of 3 - 19+ 3-dose series)[facility] CenterStart: 27-07-9962Ndleioswz C screeningHepatitis C screenVirginia Hospital CenterStart: 17-06-1252UED screeningHIV screenVirginia Hospital Center Start: 16-50-2544ZJX vaccine (1 - 3-dose series)HPV vaccine (1 - 3-dose series) [facility] CenterStart: 39-94-8580Bofabyktm vaccine (1 of 2 - 13+ 2-dose series)Varicella vaccine (1 of 2 - 13+ 2-dose series)[facility] Start: 13-02-2266Mnarhhsrzw ScreenDepression [facility] Start: 16-53-7862Xerqdqlvug monitoringCreatinine monitoringSilverhill, [place] Start: 36-07-6659Waokydnyf monitoringPotassium [place] End: 96-16-1035Abdurvq, UrineVirginia Hospital CenterComment on above:Once for 1 Occurrences starting 07/12/2024 until 5Cytology Cervical or vaginal smear or scraping studyPap Smear Pathology and Cytology Routine Well woman exam with routine gynecological exam Ordered: 06/26/2024[facility] Work Phone: comment on above:Ordered: 06/26/2024 End: 54-46-1237Xjfzdibxdrccv LevelVirginia Hospital CenterComment on above:One Time for 1 Occurrences starting 11/04/2024 until 11/04/2024Patient referral [facility] Work Phone: [facility] Immunizations Immunization DateImmunizationNotesCare KfmgcwgzVlbssmhb79-67-0280KNOH-OkJ-4 (COVID-19) mRNAMUL.ORD!a11985Mxvmrca NILL General Surgery Edqloayp45-40-1043GVJG-WsA-1 (COVID-19) mRNAMUL.ORD![id number] NILL General Surgery Lkskilrd00-07-9632IQUB-NlH-8 (COVID-19) mRNA BNT-162b2 vaxMichael NILL General Surgery Wdvbcwoq03-26-0613JEYR-FjE-4 (COVID-19) mRNA BNT-162b2 vaxMichael NILL General Surgery BellevueComment on above:Result Comment: 2022-08-30: ZCPYV33-54-9909SWMC-LrE-1 (COVID-19) mRNA BNT-162b2 vax Napoleon NILL General Surgery BellevueComment on above:Result Comment: 2022-08-30: YPUCA15-83-2063rqodacnwnp, tetanus toxoids and acellular pertussis vaccine, unspecified formulationAvita Health System, [place] 01-14-4081zvmsbrj toxoid, reduced diphtheria toxoid, and acellular pertussis vaccine, adsorbedAvita Health System, [place] Payers DatePayer CategoryPayerPolicy [id number] [id number] BCBS [id number] 2022-Present [phone] [address] [place] [address] [id number]GLKM [facility] xxx-xx-xxxx 2018-Present [phone] [address] [address] [place], [place] [address]adj-ok-rdlv [id number]4-7567Seavslr [id number] BCBS - [place] PPO xxxxxxxxxxxx 2018-Present [address] [place], [place] [address]xdjfjmqecguk 1.2.840.184038.1.13.239.2.7.3.137[id number] 2.16.840.1.392945.3.57[id number] 2.16.840.1.111452.3.579.[id number] 2.16840.1.480751.3.579.2.[id number] 2.16.840.1.321758.3.579.[id number] 2.16.840.1.307181.3.57[id number] 2.16.840.1.861216.3.579.[id number] 2.16.840.1.575887.3.57[id number] 2.16.840.1.246018.3.57[id number] 2.16.840.1.225470.3.579.[id number] 2.16.840.1.838611.3.579.2.113936-36-4812Uemxmuh4074251 2.16.840.1.706780.3.579.2.013501-62-5213Vvfziut1703153 2.16.840.1.363340.3.579.2.179274-71-0041Tzkfsrp3405084 2.16.840.1.003674.3.579.2.703124-75-9375Lnyxeio1632970 2.16.840.1.134807.3.579.2.502597-88-5493Dzofwrp9524283 2..840.1.725045.3.579.2.361639-05-3232Ksqjfrm1557743 2.16.840.1.373962.3.579.[id number] 2.16.840.1.590225.3.57[id number] 2.16.840.1.614429.3.579.2.86983-10-0187LgalheyCBC530K16525Ajkb-qprUuwiviq [id number] 2.16840.1.7[id number] 2.840.1.585601.3.579.2.383 Social History DateTypeDetailFacilityStart: 00-00-5803Wrabytf smoking status NHISUnknown if [place] smokedSilver[place], [place]Start: 12[place]28[place] End: 57-26-1674Zgcnwys intakeNot [facility] Hospitaltart: 66-75-2242Tdw Assigned At BirthNot [facility] [place]: 09-[place]-2022 End: 80-37-2973Vwakjpc smoking statusEx-smoker (finding)[facility] Start: 22-07-8147Vaslpze smoking statusSmokeless tobacco user within last 30 daysGeneral Surgery [facility] Hospitaltart: 77-50-8128Hbk [facility]igned [facility]Fe[facility] Hospitaltart: 09-69-0442Atebkmh smoking status NHIS Smokes tobacco dailyNOMS HealthcareHistory of tobacco useCigarette SmokerNOMS HealthcareStart: 09-26-2023 End: 15-31-9045Hshiwjvbl beverage intakeLifetime non-drinker (finding)[facility] HealthcareStart: 09-26-2023 End: 61-59-3615Zubqnku of Social functionNOMS HealthcareStart: 68-93-6126Sbzmem identityIdentifies as female gender (finding)[facility] HealthcareStart: 05-05-2012 End: 93-25-8225CfbXkyfew (finding)[facility] CenterHistory of tobacco useCurrent smokerNOMS HealthcareStart: 12-98-7037Nwxjlal smoking status NHISNever smoked tobaccoCarilion ClinicSterling Hospice PartnersLifePoint HospitalsHistory of tobacco usePassive smokerCarilion ClinicKolorific [facility] CenterStart: 07-12-2024 End: 02-04-7575Fbupbrnfp beverage intakeEx-drinker (finding)[facility] ClinicVoluntisHow often to you have a drink containing alcohol?[facility] Mechan[facility]burgKolorific [facility] Functional Status [id number] StatusN/AGeneral Surgery [facility] 08-16-2022 to 11-04-2024 Note Date & [id number] Hospital Discharge instructions* Discharge Instructions* Maria Ines Henderson DO - 11/04/2024 11:08 AM EDT Please follow up with neurologist and call to schedule this appointment. Today a new seizure medication was added. You will start taking Briviact 100 mg BID for seizures. After on Briviact for 4 days you can start to decreased your dose of Trileptal to wean off this medications. Every 3 days you can decreased you dose by 300. You can start by decreasing you 900 mg dose down to 600, and then 3 days later decreased your morning dose from 600 down to 300. 3 days after that decreased the night time dose from 600 mg down to 300mg. 3 days after that decreased your nighttime dose from 600 down to 300 mg. Then 3 days after that discontinue your morning dose all together and then 3 days after that discontinue the nighttime dose alltogether. documented in this encounterBon [facility] History of Present illness Narrative* Monique Maldonado NP - 07/30/2024 9:00 AM EDT Images from the original note were not included. Chief Complaint Patient presents with Seizures Sleep Apnea Subjective Patient is here today for follow-up of seizure disorder and PAUL. MARY LOU Mandel was recently seen in [facility] ER due to having a breakthrough seizure on 07/12/2024. This did occur while she was sleeping. She woke up disoriented and had bitten her tongue. She did almost fall down the stairs. She denies incontinence. She is tolerating the increase of trileptal. She denies any missed doses. She states she did have a bad headache and did not feel well for a couple days leading up to the seizure. She is wearing her PAP machine. There was a night where the hose was unhooked. She thinks she pulled the hose out while sleeping or she will take the mask off in the middle of the night. Past Medical History: Diagnosis Date Anxiety and depression (CMS/HCC) Benign essential HTN (CMS/HCC) Elevated fasting blood sugar Hypothyroidism (CMS/HCC) Morbid obesity with BMI of 50.0-59.9, adult (CMS/HCC) Unsatisfactory cervical cytology smear Past Surgical History: Procedure Laterality Date APPENDECTOMY TONSILLECTOMY Family History Problem Relation Name Age of Onset Hypertension Mother Diabetes Maternal Grandmother Social History Tobacco Use Smoking status: Former Types: Cigarettes Smokeless tobacco: Not on file Substance Use Topics Alcohol use: Never Allergies: Patient has no known allergies. General: No fever or chills HEENT: No nasal congestion or runny nose Pulmonary: No shortness of breath or cough Cardiovascular: No chest pain or palpitations GI: No nausea or vomiting : No dysuria or hematuria Musculoskeletal: No new aches or pains or muscle weakness Infectious: no recurrent fevers or infections Dermatologic: No rashes or skin lesions Neurologic: No new headaches or dizziness Vitals: 07/30/24 0902 BP: 122/64 Pulse: 75 SpO2: 98% Body mass index is 49.48 kg/m . Weight: 245 lb (pt reported) Neurologic exam: General: obese, cooperative, pleasant Mental status: Awake, alert to person, place and time. Recent and remote memory are intact. Attention and concentration are normal. Fund of knowledge is appropriate for level of education. HEENT: NC/AT Cranial nerves: CN II: Visual montano full to confrontation. No loss of vision CN III, IV, : pupils equal round and reactive to light. Extraocular movements intact. No ptosis present. CN V: Facial sensation is normal. CN VII: Full and symmetric facial movement. CN VIII: Hearing is normal CN IX and X: Palate elevates symmetrically. CN XI: Shoulder shrug is normal bilaterally. CN XII: Tongue is midline without atrophy or fasciculation. Speech: Clear and fluent no aphasia or dysarthria Pronator drift: Negative bilateral upper extremity Coordination: Intact, no signs of dysmetria Good finger to nose and rapid alternating movements Sensory: Sensation is intact to light, temperature and vibratory touch throughout four extremities. Pinprick intact in all four extremities. Motor: LUE 5/5 RUE 5/5 LLE 5/5 RLE 5/5 Tone: Physiologic, no tremor, bradykinesia or rigidity DTR: Bilateral Biceps 2/4 Bilateral BR 2/4 Bilateral Patellar 2/4 Gait: Normal to casual gait Romberg's Negative Review and summary of old records: Assessment/Plan Diagnoses and all orders for this visit: Seizure (CMS/HCC) - OXcarbazepine (Trileptal) 300 MG tablet; 1 tab added to bedtime dose to equal 900 mg (continue with 600 mg in the am) - Home EEG 36-84 Hours; Future PAUL (obstructive sleep apnea) Hypersomnia Shift work sleep disorder 24 year old female with seizure disorder who continues to have a few breakthrough events. These didstart in February 2023. She did have a breakthrough 07/12/2024. She went to the ER. She woke up and had bitten tongue and was disoriented. She felt how she does after a seizure. She denied missed med. Labwork CBC CMP WBC 11.3 and other slight variations, Mg 2 and lactic acid 1.8. She was not feelingwell and did have a tension type headache for a few days before event. She for the first time did have kaleidoscope vision and photosensitivity. She took 800 mg motrin and this did not help. This could be an aura for seizure or migraine and we will monitor for now. She does not have a history of headaches or migraines. She is continuing with seizure precautions. The ED did not adjust meds and we will increase the dose of her Triletpal to 900 mg at bedtime and continue with 600 mg in the am. May go higher if she has more events. She had a normal routine EEG 09/2023 and never has had Amb EEG and we will order this. She did not tolerate the Keppra due to mood changes. Her MRI was non-acute with no obvious cause for seizure. She should avoid marijuana and minimize alcohol. . She does have some sleep deprivation as she has some sleep onset and sleep maintenance insomnia. She has a mild PAUL with AHI 10 and hypoxia. She is complaint on download ending 07/28/2024 as she did wear the mask > 4 hours 93% of the days, with nightly average usage 7 hours 21 minutes residual AHI0.5. She reports feeling better and less sleepy during the day with the use of the machine and is benefiting. She is overweight would benefit from aggressive diet exercise weight loss. 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 She has an erratic sleep schedule with shift work sleep disorder. She does try and keep same schedule even with days off. She prefers to be up in the night. . . . Plan ER record and labs reviewed as noted above Increase the Trileptal 600 mg in the am, 900 mg at bedtime She remains on seizure precautions until event free for 6 months after June 2024 Order amb EEG to assess for seizure activity, type and location. Avoid any marijuana Minimize any alcohol Seizure precautions x 6 months event free No driving No tub bathing No swimming alone No operating heavy machinery No working at heights No watching her being small children who could not call 911 No events in which she could hurt themselves or someone else while having an event Her compliance download reviewed from [employer] on [employer] for accessories to improve nasal breakout from mask or discuss with DME a different mask The patient was counseled on the risks of stroke, PR, and sudden with PAUL, along with the need for compliance with the CPAP/BiPAP treatment. The patient was counseled on proper sleep hygiene and adequate hours of sleep. The diagnosis was all discussed with the patient. All questions were answered and they agreed with the treatment plan. Patient will call if there are any new issues or questions. Pt has been fully educated on their diagnosis, treatment options, follow up plan, and return instructions Return to clinic: 2-3 months documented in this encounterThree Rivers [id number] History of Present illness Narrative* ADDY Philip - 06/26/2024 3:00 PM EDT Reason for Appointment: Patient ID: Ministerio Botello is a 24 y.o. female who presents for Well Women Visit Patient presents today for Annual Exam. MEDICATIONS Current Outpatient Medications Medication Instructions FLUoxetine (PROZAC) 10 mg, Oral, Daily levothyroxine (SYNTHROID, LEVOXYL) 88 mcg, Oral, Daily lisinopril 20 mg, Oral, Daily Fior 0.25-35 MG-MCG tablet 1 tablet, Oral, Every morning OXcarbazepine (TRILEPTAL) 600 mg, Oral, 2 times daily ALLERGIES No Known Allergies PROBLEMS Active Ambulatory Problems Diagnosis Date Noted Essential hypertension ([facility]) 09/26/2023 Hypothyroidism ([facility]) 09/26/2023 Impaired fasting glucose 09/26/2023 Mixed anxiety and depressive disorder 09/26/2023 Seizure (CMS/HCC) 11/21/2023 Sleep deprivation 11/21/2023 Tetrahydrocannabinol (THC) use disorder, mild, abuse 11/21/2023 Primary insomnia 11/21/2023 Hypersomnia 11/21/2023 PAUL (obstructive sleep apnea) 11/21/2023 Shift work sleep disorder 11/21/2023 Resolved Ambulatory Problems Diagnosis Date Noted No Resolved Ambulatory Problems Past Medical History: Diagnosis Date Anxiety and depression ([facility]) Benign essential HTN ([facility]/HCC) Elevated fasting blood sugar Morbid obesity with BMI of 50.0-59.9, adult ([facility]/HCC) Unsatisfactory cervical cytology smear HISTORY PAST MEDICAL HISTORY SOCIAL HISTORY Past Medical History: Diagnosis Date Anxiety and depression ([facility]/HCC) Benign essential HTN ([facility]/HCC) Elevated fasting blood sugar Hypothyroidism ([facility]/HCC) Morbid obesity with BMI of 50.0-59.9, adult ([facility]) Unsatisfactory cervical cytology smear Social History Tobacco Use Smoking status: Former Types: Cigarettes Smokeless tobacco: Not on file Vaping Use Vaping status: Every Day Substance Use Topics Alcohol use: Never Drug use: Never FAMILY HISTORY Family History Problem Relation Name Age of Onset Hypertension Mother Diabetes Maternal Grandmother SURGICAL HISTORY Past Surgical History: Procedure Laterality Date APPENDECTOMY TONSILLECTOMY REVIEW OF SYSTEMS Review of Systems: Review of Systems Constitutional: Negative. HENT: Negative. Eyes: Negative. Respiratory: Negative. Cardiovascular: Negative. Gastrointestinal: Negative. Genitourinary: Negative. Musculoskeletal: Negative. Skin: Negative. Neurological: Negative. All other systems reviewed and are negative. Hematological: Negative. Endocrine: Negative. Allergic/Immunologic: Negative. OBJECTIVE Objective: Physical Exam Constitutional: Appearance: Normal appearance. She is well-developed. Genitourinary: Vulva normal. Right Adnexa: not tender and no mass present. Left Adnexa: not tender and no mass present. No cervical discharge. Breasts: Breasts are soft. Right: Normal. Left: Normal. HENT: Head: Normocephalic. Nose: Nose normal. Mouth/Throat: Mouth: Mucous membranes are moist. Cardiovascular: Rate and Rhythm: Normal rate and regular rhythm. Pulmonary: Effort: Pulmonary effort is normal. Breath sounds: Normal breath sounds. Abdominal: General: Bowel sounds are normal. There is no distension. Palpations: Abdomen is soft. Tenderness: There is no abdominal tenderness. There is no guarding or rebound. Musculoskeletal: General: No swelling. Normal range of motion. Cervical back: Normal range of motion. Right lower leg: No edema. Left lower leg: No edema. Neurological: General: No focal deficit present. Mental Status: She is alert and oriented to person, place, and time. Skin: General: Skin is warm and dry. Psychiatric: Mood and Affect: Mood normal. Behavior: Behavior normal. Vitals and nursing note reviewed. Exam conducted with a gate attendant present. Vitals: Estimated body mass index is 51.2 kg/m as calculated from the following: Height as of 05/29/24: 4' 11 . Weight as of this encounter: 253 lb 8 oz. BP: 126/80 Patient's last menstrual period was 05/24/2024 (approximate). ASSESSMENT & PLAN ICD-10-CM 1. Well woman exam with routine gynecological exam Z01.419 Pap Smear Annual Exam: Patient presents today for an annual exam. Patient states she is doing well and has no complaints. Pap was obtained without difficulty. No orders of the defined types were placed in this encounter. Follow Up: Patient is to return in one year for annual unless needed otherwise. Documented by Kathryn Reyes MA on behalf of: ADDY Philip documented in this encounterThree Rivers [id number] Evaluation note* Diagnosis Onset Date Resolution Status Admit Date Mixed anxiety and depressive disorder acuteDecemb2023 11:35amHypothyroidismacuteJanuary 2024 1:48pm [facility] Work Phone: 1(842) 395-687012-19-2024 Evaluation note* Diagnosis Onset Date Resolution Status Admit Date Mixed anxiety and depressive disorder acuteDecemb2023 11:35amEssential (primary) hypertensionacuteJan2024 1:48pmHypothyroidismacuteJanuary 2024 1:48pmOSA on CPAPacute April 03, 2024 1:48pmHypothyroidismacuteFebruary 2024 1:00pm [facility] Work Phone: 1(780) 956-668708-28-2024 History of Present illness Narrative* Monique Maldonado NP - 11/21/2023 8:40 AM EDT Images from the original note were not included. Chief Complaint Patient presents with Seizures Subjective Patient is here today for follow-up of seizure disorder and testing. I am following the plan of care established by Dr. Gramajo who is present in the office today and supervising patient care. Patient stated that she has called [facility] multiple times to schedule the MRI and had not gotten a call back. Patient admitted that she had a break through a few days later, face planted, hit the wall, busted your lip, tongue bit, in September after being switched to the Trileptal. Has not had a seizure since then. Patient stated she likes the trileptal a lot better and seems to be doing much better since being on it. Patient denies any evidence of seizures through the night. 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 Patient is accompanied with mom. Mom stated she is constantly complaining of being tired. Patient states when she does sleep during the day she sleeps good. Patient would like the office to call [facility] to get the MRI scheduled. Past Medical History: Diagnosis Date Anxiety and depression (CMS/HCC) Benign essential HTN (CMS/HCC) Elevated fasting blood sugar Hypothyroidism (CMS/HCC) Morbid obesity with BMI of 50.0-59.9, adult ([facility]) Unsatisfactory cervical cytology smear Past Surgical History: Procedure Laterality Date APPENDECTOMY TONSILLECTOMY Family History Problem Relation Name Age of Onset Hypertension Mother Diabetes Maternal Grandmother Social History Tobacco Use Smoking status: Every Day Types: Cigarettes Smokeless tobacco: Not on file Substance Use Topics Alcohol use: Never Allergies: Patient has no known allergies. General: No fever or chills HEENT: No nasal congestion or runny nose Pulmonary: No shortness of breath or cough Cardiovascular: No chest pain or palpitations GI: No nausea or vomiting : No dysuria or hematuria Musculoskeletal: No new aches or pains or muscle weakness Infectious: no recurrent fevers or infections Dermatologic: No rashes or skin lesions Neurologic: No new headaches or dizziness Vitals: 11/21/23 0845 BP: (!) 176/103 Pulse: 83 Body mass index is 50.29 kg/m . weight: 249 lb Neurologic exam: General: obese, cooperative, pleasant Mental status: Awake, alert to person, place and time. Recent and remote memory are intact. Attention and concentration are normal. Fund of knowledge is appropriate for level of education. HEENT: NC/AT Cranial nerves: CN II: Visual montano full to confrontation. No loss of vision CN III, IV, : pupils equal round and reactive to light. Extraocular movements intact. No ptosis present. CN V: Facial sensation is normal. CN VII: Full and symmetric facial movement. CN VIII: Hearing is normal CN IX and X: Palate elevates symmetrically. CN XI: Shoulder shrug is normal bilaterally. CN XII: Tongue is midline without atrophy or fasciculation. Speech: Clear and fluent no aphasia or dysarthria Pronator drift: Negative bilateral upper extremity Coordination: Intact, no signs of dysmetria Good finger to nose and rapid alternating movements Sensory: Sensation is intact to light, temperature and vibratory touch throughout four extremities. Pinprick intact in all four extremities. Motor: LUE 5/5 RUE 5/5 LLE 5/5 RLE 5/5 Tone: Physiologic, no tremor, bradykinesia or rigidity DTR: Bilateral Biceps 2/4 Bilateral BR 2/4 Bilateral Patellar 2/4 Gait: Normal to casual gait Romberg's Negative Review and summary of old records: Assessment/Plan Diagnoses and all orders for this visit: Seizure (CMS/HCC) - MR brain w and wo contrast routine; Future Sleep deprivation Tetrahydrocannabinol (THC) use disorder, mild, abuse Primary insomnia Hypersomnia PAUL (obstructive sleep apnea) - CPAP ORDERS Shift work sleep disorder 23 year old female with new onset seizure. She had an event and was taken to [facility], was treated and released. She then had a 2nd event in late July. She again was taken to [facility]. Both of these events were witnessed. She had admitted to smoking marijuana prior to the 2nd event but not the 1st event therefore it is unclear how it is related. She does get this from a dispensary. She then saw Dr. Gonzalez who put her on Keppra. Unfortunately she was having mood and irritability side effects from the Keppra so she discontinued it. She does need a full seizure workup to look into this further. She did not receive a call to schedule the MRI and this has now and we will resend. EEG normal. Since she has had at least 2 separate events she should be on seizure medications. She was switchedto and titrated onto Trileptal. In the first few days of this she did have a seizure, none since. She should avoid marijuana. She states this helps her sleep. She should minimize any alcohol. . She does have some sleep deprivation as she has some sleep onset and sleep maintenance insomnia. She snores a lot and has hypersomnia. She is obese and has a narrow airway opening therefore risk factors for obstructive sleep apnea. HST did reveal a mild PAUL with an AHI of 10. 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 She has an erratic sleep schedule. . . . Plan Reorder MRI of the brain with and without gadolinium to look for any causes for seizure Reviewed EEG to look for any underlying seizure activity Continue Trileptal 300mg 1 po q am and 2 po q hs Avoid any marijuana Minimize any alcohol Seizure precautions x 6 months event free No driving No tub bathing No swimming alone No operating heavy machinery No working at heights No watching her being small children who could not call 911 No events in which she could hurt themselves or someone else while having an event Reviewed HST to assess for PAUL Get set up on machine with [facility] in [place] She may need a sleep aid but we will treat PAUL and sleep routine first The patient was counseled on proper sleep hygiene and adequate hours of sleep. The diagnosis was all discussed with the patient. All questions were answered and they agreed with the treatment plan. Patient will call if there are any new issues or questions. Pt has been fully educated on their diagnosis, treatment options, follow up plan, and return instructions Return to clinic: 2-3 months documented in this encounterThree Rivers [id number] History of Present illness Narrative* Raghu Raya, ARRT - 10/24/2023 3:45 PM EDT Reason for Appointment: HST Patient: Ministerio Botello : 2000 Reason for Home Sleep Study: Sleep disturbances Ordering Physician: Dr. Yana Gramajo [employer] Supervisor: Raghu Raya RT(R) Pick-up Comments: Procedure was explained to the patient & mother who expressed understanding. Patient was instructed how to use device and informed to return completed questionnaire with device tomorrow morning...... 10/24/23 [employer] Supervisor: Mary Irby CMA Drop-Off Comments: Patient returned HST device. Study data was successfully uploaded and completed questionnaire was imported to patient's chart....... 10/25/23 IMPRESSION: Patient does meet criteria for a mild obstructive sleep apnea with an AHI of 10. Patient may benefit from auto PAP treatment at 5-15 cm of water. Patient does meet criteria for obesity and a body mass index hand would benefit from aggressive weight loss measures. documented in this encounterThree Rivers [id number] Evaluation note* Encounter Date Diagnosis Assessment Notes Treatment Notes Treatment Clinical Notes Jan, Hypothyroidism, unspecified (ICD -10 - E03.9) Overdue for labs. Jan,Moderate major depression (ICD-10 - F32.1)Pt agreed to increase her dose. Consider counseling if needed. Jan,Essential (primary) hypertension (ICD-10 - I10)Check labs, eval renal function. [employer] Other 07-26-2023 NoteHPI Staff 22 year old [...] for 5 day(s), 10 tab(s), Refill(s) 0, [id number], 149, cm, 10/18/22 15:26:00 EDT, Height/Length [...] Mother. Diabetes mellitus type (more content not included)...[facility] Comment on above:Result Comment: Electronically Signed By: KARLA ALCARAZ, Napoleon Smith\Date and Time Signed: 10/18/22 15:46 Evaluation note* Encounter Date Diagnosis Assessment Notes Treatment Notes Treatment Clinical Notes Sep, Hypothyroidism (acquired) (ICD-1 0 - E03.9) [employer] Other 06-21-2023 NoteChief Complaint consultation for axillary abscess HPI Staff 22 year old female presents on consultation from Dr. Gonzalez for left axillary abscess. Presented to [place] ED 08/12 with complaint of 2-3 week [...] pain or drainage. patient works in a [employer]. Review of Systems PHQ Score Initial Depression [...] Immunizations Vaccine Date Status Comments SARS-CoV-2 (COVID-19) [id number] 07/13/2022 Recorded SARS-CoV-2 (COVID-19) [id number] 01/05/2022 Recorded SARS-CoV-2 (COVID-19) mRNA BNT-162b2 vax 05/09/2021 Recorded SARS-CoV-2 (COVID-19) mRNA BNT-162b2 vax 04/02/2020 Recorded 2022-08-30: TPVAL SARS-CoV-2 (COVID-19) mRNA BNT-162b2 vax 03/15/2020 Recorded 2022-08-30: [facility]AL [facility]:Result Comment: Electronically Signed By: KARLA ALCARAZ, Napoleon Smith\Date and Time Signed: 09/13/22 21:07 EDT 08-16-2022 Evaluation note* Encounter Date Diagnosis Assessment Notes Treatment Notes Treatment Clinical Notes July, Abscess, axilla (ICD-10 - L02.41 9) [facility] [address] Other Evaluation + Plan note No data available for this section General Surgery [place] Evaluation noteNo InformationNortUniversity of [facility] Health [facility] [address] Other Evaluation noteNo assessment information available [facility] Work Phone: Evaluation note* Diagnosis Onset Date Resolution Status Maxillary sinusitis acute [facility] Work Phone: Evaluation note* Diagnosis Seizure (CMS/HCC)- Primary Other convulsions Sleep deprivation Problems related to lack of adequate sleep Tetrahydrocannabinol (THC) use disorder, mild, abuse Primary insomnia Persistent disorder of initiating or maintaining sleep Hypersomnia Hypersomnia, unspecified PAUL (obstructive sleep apnea) Obstructive sleep apnea (adult) (pediatric) Shift work sleep disorder Circadian rhythm sleep disorder, shift work type documented in this encounter [facility] HealthcareEvaluation note* Diagnosis PAUL (obstructive sleep apnea)- Primary Obstructive sleep apnea (adult) (pediatric) Seizure (CMS/HCC) Other convulsions Hypersomnia Hypersomnia, unspecified Class 3 severe obesity due to excess calories with body mass index (BMI) of 50.0 to 59.9 in adult, unspecified whether serious comorbidity present (CMS/HCC) documented in this encounter [facility] HealthcareEvaluation note* Diagnosis Well woman exam with routine gynecological exam Routine gynecological examination documented in this encounter [facility] HealthcareEvaluation note* Diagnosis Breakthrough seizure (HCC)- Primary Unspecified epilepsy with intractable epilepsy documented [facility] encounter [facility] [employer] note* Diagnosis Seizure (CMS/HCC)- Primary Other convulsions PAUL (obstructive sleep apnea) Obstructive sleep apnea (adult) (pediatric) Hypersomnia Hypersomnia, unspecified Shift work sleep disorder Circadian rhythm sleep disorder, shift work type documented in this encounter [facility] HealthcareEvaluation note* Diagnosis Seizure (HCC)- Primary Other convulsions Breakthrough seizure (HCC) Unspecified epilepsy with intractable epilepsy [facility] Narrative - Reported* Type Description Date Medical History Hypertension Medical HistoryDepression/anxietyMedical HistoryHypothyroidism NoiseFree Other History general Narrative - Reported* Type Description Date Medical History Hypertension Medical HistoryDepression/anxietyMedical HistoryHypothyroidismSurgical History Problem Title : appendectomy, history of, Problem Description : appendectomy, history of, Problem Comment : yes, Problem Status : Inactive,Surgical History Problem Title : Appendectomy, Problem Status : Active,Surgical HistoryProblem Title : past surgical history reviewed, Problem Description : past surgical history reviewed, Problem Comment : reviewed - no changes required, Problem Status : Inactive,Surgical HistoryProblem Title : surgical procedures, hx of, Problem Description : surgical procedures, hx of, Problem Comment : Appendectomy Tonsillectomy , Problem Status : Inactive,Surgical HistoryProblem Title : Tonsillectomy, Problem Status : Active, NoiseFree Other Hospital Discharge instructions No data available for this section General Surgery [facility] Discharge instructions* Attachments The following attachments cannot be sent through Care Everywhere. * Epilepsy (Namibian) * Seizure ([place]) [facility] No data available for this section General Surgery [place] Reason for referral (narrative)No reason for referral information availableUniversity Hospitals St. [facility] Work Phone: Discharge Instructions * Instructions* Kristie Powell MD - 12/28/2018 Return to the Emergency Department immediately if you develop signs of infection including redness,drainage, or you have any other concerns. Please follow up with your family doctor in 1-2 days. * Attachments The following attachments cannot be sent through Care Everywhere. * Abrasions (Namibian) * Video: Care for a Skin Wound (Namibian) documented in this encounter Assessments Diagnosis Abrasion of right index finger, initial encounter- Primary Advance Directives TypeDate RecordedPatient RepresentativeExplanationAdvance Directives and Living WillPower of Director Of Recruiting Advance Directive Response Recorded Date/ Time Advance Directives No August 26 1:12pm Advance Directive Response Recorded Date/ Time Advance Directives No August 26 12:12pm Date ActivatedDate InactivatedComments07/16/2014 9:29 AM07/17/2014 6:33 PMDate ActivatedDate InactivatedComments07/15/2014 9:58 PM07/16/2014 9:29 AM Summary Purpose Family History No Family History Records FoundNo Family History Records FoundNo Family History Records FoundNo Family History Records FoundNo Family History Records FoundNo Family History Records FoundNo Family History Records FoundNo Family History Records Found Reason for Referral SpecialtyDiagnoses / ProceduresReferred By ContactReferred To ContactRadiology Diagnoses Seizure (CMS/[facility]) Procedures MR brain w and wo contrast routine Monique Maldonado NP [address] [place] [address] Referral IDStatusReasonStart DateExpiration DateVisits RequestedVisits [id number] Review/ Reason *FU 08/29 MRSA - E R visit, culture in chart from L axillary abscess. Diagnosis 1 Abscess, axilla (L02 .419) Referral Organization [facility] junior Referring Provider First Name Zahra Referring Provider Last Name Gonzalez Referring Provider Specialty Family Medi cine Referred Organization Unknown Facility Referred Provider Napoleon Acosta Referred Provider Specialty Surgery Referral Priority Routine General Notes Haylee Briggs 02:00:49 PM >[id number] today, attachments made, waiting for notes to be locked Haylee Briggs 08/22/2022 02:50:28 PM >locked and referral faxedClinical NotesF: [id number] Chief Complaint and Reason for Visit Chief Complaint Amb Documentation [facility] follow up, seizure Chief Complaint cough, sinus pressur e 5 days Reason for Visit Maxillary sinusitis Chief Complaint Admit Date talk about antidepressant meds March 13, 2024 11:35am Discuss CPAP April 03, 2024 1: 48pm Reason for Visit Admit Date Mixed anxiety and depressive disorder 2023 11:35am Hypothyroidism April 03, 2024 1: 48pm Chief Complaint Admit Date talk about antidepressant meds March 13, 2024 11:35am Discuss CPAP April 03, 2024 1: 48pm Amb Documentation April 14, 2024 1 1:24am ER f/u seizure April 28, 2024 1 :00pm Reason for Visit Admit Date Mixed anxiety and depressive disorder 2023 11:35am Essential (primary) hypertension April 03, 2024 1:48pm Hypothyroidism April 03, 2024 1: 48pm PAUL on CPAP April 03, 2024 1: 48pm Hypothyroidism April 28, 2024 1 :00pm Chief Complaint Admit Date Amb Documentation November 05, 2024 9: 17am Amb Documentation December 09, 2024 9:26am [place] [facility] F/U December 15, 2024 10:55am Additional Source Comments Reason for Visit (unrecogniz ed section and content) ReasonCommentsHand Injury pinched right index finger in wheelchair at 4:40 Pt [facility] at [facility] CenterCommentsSeizuresSpecialtyDiagnoses / ProceduresReferred By ContactReferred To ContactOsteopathic Medicine Diagnoses Seizure (CMS/HCC) Hypersomnia Procedures Home sleep test Yana Gramajo DO [address] [place] [address] Referral IDStatusReasonStart DateExpiration DateVisits RequestedVisits [id number] Women VisitReason CommentsSeizuresPT stated had a seizure while sleeping and bit tongue. History of seizures.ReasonCommentsSeizuresSleep ApneaReasonCommentsSeizuresPt states she remembers sitting on the toilet and waking up on the floor by her mom. Denies loss ofbladder/bowel. Currently denies any symptoms. A&Ox4. Reports hx of seizures and has complaint with her medications. INFORMATION SOURCE (unrecogn ized section and content) DATE CREATED AUTHOR 12/30/2018 [facility] DATE CREATED AUTHOR AUTHOR'S ORGANIZ ATION 12/06/2021 [facility] DATE CREATED AUTHOR AUTHOR'S ORGANIZ ATION 10/19/2022 [facility] DATE CREATED AUTHOR AUTHOR'S ORGANIZ ATION 04/14/[address] [facility] DATE CREATED AUTHOR AUTHOR'S ORGANIZ ATION 04/14/2024 [facility] DATE CREATED AUTHOR AUTHOR'S ORGANIZ ATION 07/14/2024 [facility] DATE CREATED AUTHOR AUTHOR'S ORGANIZ ATION 08/01/2024 [facility] DATE CREATED AUTHOR AUTHOR'S ORGANIZ ATION 12/10/2024 [facility] Patient Care team informatio n (unrecognized section and content) Team Status: Active Member Role Status Dates Zahra Gonzalez MD Primary Care Provider Active Team Status: Active Member Role Status Dates Zahra Gonzalez MD Primary Care Provider Active Start: November 05, 2024 Kendra Naranjo CMAAttgianfranco ProviderActiveStart: November 05, 2024 Team Status: Active Member Role Status Dates Zahra Gonzalez MD Primary Care Provider Active Start: December 09, 2024 Kendra Naranjo CMAAttending ProviderActiveStart: December 09, 2024 Team Status: Inactive Member Role Status Dates Zahra Gonzalez MD Primary Care Provider Active Start: December 15, 2024 End: December 15, 2024Zahra Gonzalez MDAttending ProviderActiveStart: December 15, 2024 End: December 15, 2024 Team Status: Inactive Member Role Status Dates Zahra Gonzalez MD Primary Care Provide r, Attending Provider Active Start: March 13, 2024 End: March 13, 2024 Team Status: Inactive Member Role Status Dates Zahra Gonzalez MD Primary Care Provide r, Attending Provider Active Start: April 03, 2024 End: April 03, 2024 Team Status: Active Member Role Status Dates Zahra Gonzalez MD Primary Care Provider Active Start: August 01, 2023 BART FabianAAttenyoly ProviderActiveStart: August 01, 2023 Team Status: Active Member Role Status Dates Zahra Gonzalez MD Primary Care Provider Active Start: August 23, 2023 Manan AlvaradoAttending ProviderActiveStart: August 23, 2023 Team Status: Inactive Member Role Status Dates Zahra Gonzalez MD Primary Care Provide r, Attending Provider Active Start: August 27, 2023 End: August 27, 2023 Team Status: Active Member Role Status Dates Zahra Gonzalez MD Primary Care Provider Active Start: September 29, 2023 Rosa Bhatia MDAttgianfranco ProviderActiveStart: September 29, 2023 Team Status: Active Member Role Status Dates Zahra Gonzalez MD Primary Care Provider Active Start: September 30, 2023 Gabo France DOAttgianfranco ProviderActiveStart: September 30, 2023 Team Status: Inactive Member Role Status Dates Zahra Gonzalez MD Primary Care Provider Active Start: December 06, 2023 End: December 06, 2023Radha Gann APRN [employer]NER-CAttending ProviderActive Start: December 06, 2023 End: December 06, 2023Team MemberRelationshipSpecialtyStart DateEnd Date Zahra Gonzalez MD [address] [place] [address] PCP - [facility] Medicine04/11/23Team MemberRelationshipSpecialtyStart DateEnd Date Zahra Gonzalez MD [address] [place] [address] PCP - [facility] Medicine04/11/23Team MemberRelationshipSpecialtyStart DateEnd Date Zahra Gonzalez MD [address] [place] [address] PCP - GeneralFamily Medicine04/11/23 Team Status: Active Member Role Status Dates Zahra Gonzalez MD Primary Care Provider Active Start: April 14, 2024 Kendra Naranjo CMAAttgianfranco ProviderActiveStart: April 14, 2024 Team Status: Inactive Member Role Status Dates Zahra Gonzalez MD Primary Care Provide r, Attending Provider Active Start: April 28, 2024 End: April 28, 2024Team MemberRelationshipSpecialtyStart DateEnd Date Zahra Gonzalez MD [address] [facility] [place] [phone] PCP - GeneralFamily Medicine04/11/23Team MemberRelationshipSpecialtyStart DateEnd Date Zahra Gonzalez MD [address] [facility] [place] [phone] PCP - GeneralFamily Medicine04/11/23Team MemberRelationshipSpecialtyStart DateEnd Date Zahra Gonzalez MD [address] [facility] [place] [phone] PCP - GeneralFamily Medicine04/11/23Team MemberRelationshipSpecialtyStart DateEnd Date Zahra Gonzalez MD PCP - GeneralFamily Awsnzgcv33/5/19Team MemberRelationshipSpecialtyStart DateEnd Date Zahra Gonzalez MD [address] [facility] [place] [phone] PCP - GeneralFamily Medicine04/11/23Team MemberRelationshipSpecialtyStart DateEnd Date Zahra Gonzalez MD [address] [facility] [place] [phone] PCP - GeneralFamily Medicine04/11/23Team MemberRelationshipSpecialtyStart DateEnd Date Zahra Gonzalez MD PCP - GeneralFamily Njbwnfve40/5/19Team MemberRelationshipSpecialtyStart DateEnd Date Zahra Gonzalez MD [address] [facility] [place] [phone] PCP - GeneralFamily Medicine04/11/23 Goals (unrecognized section and content) Goals may be documented in a n alternate section Scheduled Active and Recently Administ ered Medications (unrecognized section and content) Medication Order/// acetaminophen (TYLENOL) tablet 1,000 mg (COMPLETED) 1,000 mg, Oral, Once, 1 dose, On 07/12/24 at 2000, Maximum dose of acetaminophen is 4000 mg fromall sources in 24 hours. * 2004 (Given - Provider: Kari Hines RN) sodium chloride 0.9 % bolus 500 mL (COMPLETED) 500 mL (4.27 mL/kg), IntraVENous, at 967.7 mL/hr, Administer over 31 Minutes, ONCE, On 07/12/24 at 1945, For 1 dose * 2002 (New Bag - Provider: Kari Hines RN) * 2036 (Stopped - Provider: Gen Nguyễn RN) Medication Order11/02////02/2025 bacitracin zinc ointment (COMPLETED) Topical, Once, On Sun11/04/24 at 1130, For 1 dose, Apply to Right big toe. * 1130 (Given - Provider: Saskia Xavier RN) OXcarbazepine (TRILEPTAL) tablet 300 mg (COMPLETED) 300 mg, Oral, Once, 1 dose, On Sun11/04/24 at 0830 * 0830 (Given - Provider: Donna Luna RN) Ordered Prescriptions (unrec ognized section and content) PrescriptionSigDispense QuantityRefillsLast FilledStart DateEnd Date brivaracetam (BRIVIACT) 100 MG TABS tablet Indications:Seizure (HCC)Take 1 tablet by mouth 2 times daily for 90 days. Max Daily Amount: 200 mg 60 tablet FOR RECORDS PERTAINING TO PATIENTS WHO ARE [...] BE BASED ON THE PRIMARY CLINICAL RECORDS. [facility]. provides no warranty or guarantee of the accuracy or completeness of information in this document.
--- OUTSIDE RECORDS SUMMARY | 2025-02-21 08:20 | XMS_ITS | Clinical Summary ---
Author Organization [facility] Address [address], [address] [place] [address] Care Team Providers Care Data Solutions Architect Name Role Phone Celia Villegas MD Primary Care Provider [phone] Allergies No known active allergies Medications MedicationSigDispense QuantityRefillsLast FilledStart DateEnd DateStatus ibuprofen (ADVIL;MOTRIN) 400 MG tablet Take 1 tablet by mouth every 6 hours as needed for PainActive FLUoxetine (PROZAC) 10 MG capsule Take 1 capsule by mouth dailyActive Norgestimate-Eth Estradiol (SPRINTEC 28 PO) Take by mouth dailyActive levothyroxine (SYNTHROID) 75 MCG tablet Take 75 mcg by mouth DailyActive lisinopril (PRINIVIL;ZESTRIL) 10 MG tablet Take 10 mg by mouth dailyActive brivaracetam (BRIVIACT) 100 MG TABS tablet Indications:Seizure (HCC)Take 1 tablet by mouth 2 times daily for 90 days. Max Daily Amount: 200 mg 60 tablet /ctive OXcarbazepine (TRILEPTAL) 600 MG tablet Take 1 tablet by mouth 2 times dailyDiscontinued(CLEANUP NO RX MSG) OXcarbazepine (TRILEPTAL) 300 MG tablet Take 1 tablet by mouth at bedtime 300mg in addition to her 600mg only at night. 02/02/2025Discontinued(CLEANUP NO RX MSG) brivaracetam (BRIVIACT) 100 MG TABS tablet Indications:Seizure (HCC)Take 1 tablet by mouth 2 times daily for 90 days. Max Daily Amount: 200 mg 60 tablet Discontinued(REORDER) Encounters DateTypeDepartmentCare TqylMyxojbfehpv27/10/2025 1:40 PM ESTOffice Visit [facility] [address] [place] [address] Sheila Alvarado MD Seizure disorder (HCC) (Primary Dx)01/29/2025Refill [facility] [address] Kathy [facility] [place] [address] Sheila Alvarado MD Medication Refill (Briviact)12/25/2024bstract [facility] [address] [place] [address] Sheila Alvarado MD 12/08/2024 8:47 AM EDT - 12/08/2024 12:05 PM EDTEmergenSinging [facility] [address] [place], [place] [id number] Dorothy Garza MD Seizure (HCC) (Primary Dx); Acute cystitis without hematuria Discharge Disposition: Home or Self Care12/08/2024Travelfrom Last 3 Months Immunizations ImmunizationAdministration DatesNext DueTDaP, ADACEL (age 10y-64y), BOOSTRIX (age 10y+), IM, 0.5mL12/28/2018 Family History Medical HistoryRelationNameCommentsOtherMotherBlocked Aorta, Aortic bypass graft RelationNameStatusCommentsFatherAliveMotherAliveSisterAlive Social History Tobacco UseTypesPacks/DayYears UsedDateSmoking Tobacco: FormerCigarettesQuit: 2019Passive Smoke Exposure: YesSmokeless Tobacco: Never Tobacco Cessation:Counseling Given: Not Answered Alcohol UseStandard Drinks/WeekCommentsNot Currently0 (1 standard drink = 0.6 oz pure alcohol)AUDIT-CAnswerDate RecordedQ1: How often do you have a drink containing alcohol?Never07/12/2024Q2: How many drinks containing alcohol do you have on a typical day when you are drinking?Patient does not drink07/12/2024Q3: How often do you have six or more drinks on one occasion?Never07/12/2024UDIT-C AnswerDate RecordedQ1: How often do you have a drink containing alcohol?Never 11/04/2024Q2: How many drinks containing alcohol do you have on a typical day when you are drinking?Patient does not drink11/04/2024Q3: How often do you have six or more drinks on one occasion?Never11/04/2024Interpersonal Safety Domain Source: IP Abuse ScreeningAnswerDate RecordedPhysical sgjyvKuvcnt64/15/2025 Verbal wwzfvDukggq01/15/2025Emotional lzvtyQkrahu46/15/2025Financial abuseDenies 12/08/2024Sexual txrqxRvvsbi30/15/2025CommentsNoSex and Gender InformationValueDate RecordedSex Assigned at BirthNot on fileLegal SexFemale 05/05/2012 5:54 PM ESTGender IdentityNot on fileSexual OrientationNot on file Last Filed Vital Signs Vital SignReadingTime TakenCommentsBlood Jpirhcmi393/8502/02/2025 1:45 PM EST Pabgw526302/02/2025 1:45 PM ZKHJcjcyngkwbk51.6 ??C (97.8 ??F)02/02/2025 1:45 PM ESTRespiratory Jsbc283104/04/2024 1:45 PM ESTOxygen Rusqomafrh13%12/08/2024 12:00 PM EDTInhaled Oxygen Concentration--Tnxhdn283.3 kg (252 lb)02/02/2025 1:45 PM DZGMuhlmo627.9 cm (4' 11 )02/02/2025 1:45 PM ESTBody Mass Index50.9104/04/2024 1:45 PM EST Plan of Treatment DateTypeDepartmentCare Team (Latest Contact Info)Ymjjvzcgqlw62/11/2026 8:20 AM EDTOffice Visit [facility] [address] [place] [address] Sheila Alvarado MD [address] [place] [address] 6 mth f/uHealth MaintenanceDue DateLast DoneCommentsDepression Sebhhc0202/05/2011 HIV qhwagj9002/05/2014Hepatitis C rukpmk9902/05/2017Meningococcal B vaccine (3 of 3 - Trumenba SCDM 3-Dose Series), 11/14/2016Pap smear 02/06/2020Flu vaccine (#1)511/COVID-19 Vaccine ( season)504/, 01/05/2022, 05/09/2021, Additional history exists DTaP/Tdap/Td vaccine (8 - Td or Tdap)/07/2018, 11/03/2011, 11/10/2004, Additional history existsHepatitis B jsqdqxgBvvgzwntp79/21/2001, 1999, 1999, Additional history existsHib ypawhayPjqnojrbw60/21/2001, 1999, 1999, Additional history existsPneumococcal 0-49 years Vaccine Aged Out06/13/2000No longer eligible based on patient's age to complete this topicPolio nuadfnsRgffmmbii42/18/2005, 06/13/2000, 1999, Additional history existsVaricella lmserqzDdwloafrb15/10/2012, 11/10/2004, 11/04/2004 Meningococcal (ACWY) flxyqnzYuidelvlh11/10/2017Hepatitis A vaccineCompleted 11/14/2016, 11/02/2014, 11/03/2011HPV denijyoGjwwdjopr43/01/2018, 02/01/2017, 11/14/2016 Procedures Procedure NamePriorityDate/TimeAssociated DiagnosisCommentsMICROSCOPIC EEFBKGEJOFAcdwani80/15/2025 10:38 AM EDT URINE DRUG MWABOESQZD11/15/2025 10:38 AM EDT , SXTBGYRLF11/15/2025 10:38 AM EDT URINALYSIS WITH REFLEX TO DOOTORYQZUN33/15/2025 10:38 AM EDT CULTURE, URINEAdd-On12/08/2024 10:[address] HEAD WO EEZHHUYXAUJM98/15/2025 10:16 AM EDT EKG 12-RJUVQnsdwur01/15/2025 8:58 AM EDT NEPBLQUAIRZMY08/15/2025 8:54 AM EDT COMPREHENSIVE METABOLIC PIOTNMXSY02/15/2025 8:54 AM EDT CBC WITH AUTO RGYGNUWOHRDPNLKX81/15/2025 8:54 AM EDT from Last 3 Months Results * (ABNORMAL) Urinalysis with Reflex to Culture (12/08/2024 10:38 AM EDT) ComponentValueRef RangeTest MethodAnalysis TimePerformed AtPathologist SignatureColor, SHXhfmqaAvqbqd75/15/2025 10:38 AM [facility] LABTurbidity BYQmcopEfpxt73/15/2025 10:38 AM [facility] LABGlucose, UrNEGATIVENEGATIVE mg/dL12/08/2024 10:38 AM [facility] LABBilirubin, LhogmDADJLRNUAISAIILH35/15/2025 10:38 AM [facility] LABKetones, UrineNEGATIVENEGATIVE mg/dL 12/08/2024 10:38 AM [facility] LABSpecific [place], UA 1.025(H)1.010 - 1.9385012/08/2024 10:38 AM [facility] Urine Hgb2+(A)XUZCWFAK89/15/2025 10:38 AM [facility] pH, Urine6.05.0 - 9.009 10:38 AM [facility] Protein, UATRACE(A)NEGATIVE mg/dL12/08/2024 10:38 AM [facility] LABUrobilinogen, UrineNormal0.0 - 1.0 EU/dL12/08/2024 10:38 AM EDT [facility] LABNitrite, FlhtqUJUZVCRZHSGNYBRH61/15/2025 10:38 AM [facility] LABLeukocyte Esterase, UrineSMALL(A) GYKZDQYD74/15/2025 10:38 AM [facility] LABSpecimen (Source)Anatomical Location / LateralityCollection Method / VolumeCollection TimeReceived MvczBifys45/15/2025 10:38 AM EDT12/08/2024 10:42 AM EDT Narrative Authorizing ProviderResult TypeResult StatusThailisa ROBERSON ORDERABLES Final ResultPerforming OrganizationAddressCity/State/ZIP CodePhone Number [facility] [address] [phone] * (ABNORMAL) Urine Drug Screen (12/08/2024 10:38 AM EDT)ComponentValueRef Range Test MethodAnalysis TimePerformed AtPathologist SignatureAmphetamine Screen, JbCKKMNJCGGKSQPJYI81/15/2025 10:38 AM [facility] Comment:Cutoff: 1000 ng/mLBarbiturate Screen, HhTNJNVXRGNFMUINBS22/15/2025 10:38 AM [facility] LABComment:Cutoff: 200 ng/ml Benzodiazepine Screen, RescyAOSYBOBFVXWTOUXH72/15/2025 10:38 AM [facility] LABComment:Cutoff: 200 ng/mlCocaine Metabolite, Urine RUEKGRHXOIDPCHNJ91/15/2025 10:38 AM [facility] Comment:Cutoff: 300 ng/mlMethadone Screen, AbuipGUTZDICYCHDAESCV10/15/2025 10:38 AM [facility] LABComment:Cutoff: 300 ng/mlOpiates, MjwewFDFUQQVSLOBQRBIR11/15/2025 10:38 AM [facility] Comment: Cutoff: 300 ng/ml Note: The Opiate screen is not intended to detect Oxycodone. Phencyclidine, LhescQYFTDFKFRQGLFDET82/15/2025 10:38 AM [facility] LABComment:Cutoff: 25 ng/mlCannabinoid Scrn, UrPOSITIVE(A)NEGATIVE 12/08/2024 10:38 AM [facility] LABComment:Cutoff: 50 ng/ml Oxycodone Screen, UdYTCLXLAYOIPYKEVL84/15/2025 10:38 AM [facility] LABComment:Cutoff: 100 ng/mlFentanyl, AvUTWYWULZSDFOSOYL71/15/2025 10:38 AM [facility] LABComment:Cutoff: 5 ng/mlTest InformationThis method is a screening test to detect only these drug classes as part of a medical workup. Confirmatory testing by another method should be ordered if clinically indicated.12/08/2024 10:38 AM [facility] LABSpecimen (Source)Anatomical Location / LateralityCollection Method / VolumeCollection TimeReceived TimeUrine (Urine)12/08/2024 10:38 AM EDT12/08/2024 10:42 AM EDT Narrative Authorizing ProviderResult TypeResult StatusThailisa ROBERSON ORDERABLES Final ResultPerforming OrganizationAddressCity/State/ZIP CodePhone Number [facility] [address] [phone] * (ABNORMAL) Microscopic Urinalysis (12/08/2024 10:38 AM EDT)ComponentValueRef RangeTest MethodAnalysis TimePerformed AtPathologist SignatureWBC, UA2 TO 50 - 5 /HPF12/08/2024 10:38 AM [facility] LABRBC, UA0 TO 20 - 2 /HPF12/08/2024 10:38 AM [facility] LABCasts UA0 TO 2 HYALINE/LPF12/08/2024 10:38 AM [facility] LABEpithelial Cells, UA2 TO 50 - 25 /HPF12/08/2024 10:38 AM [facility] LABBacteria, UA2+(A)None12/08/2024 10:38 AM [facility] LABMucus, UA1+(A)None12/08/2024 10:38 AM [facility] Amorphous, UA1+(A)None12/08/2024 10:38 AM [facility] Other Observations UAQuantity not sufficient.(A)NOT REQ.12/08/2024 10:38 AM [facility] LABOther Observations UAMICROSCOPIC PERFORMED ON UNSPUN URINE(A)NOT REQ.12/08/2024 10:38 AM [facility] LABSpecimen (Source)Anatomical Location / LateralityCollection Method / Volume Collection TimeReceived Time12/08/2024 10:38 AM EDT12/08/2024 10:42 AM EDT Narrative Authorizing ProviderResult TypeResult StatusDorothy ROBERSON ORDERABLES Final ResultPerforming OrganizationAddressCity/State/ZIP CodePhone Number [facility] [address] [place] [address] * , Urine (12/08/2024 10:38 AM EDT)ComponentValueRef RangeTest Method Analysis TimePerformed AtPathologist SignaturePregnancy, UrineNEGATIVENEGATIVE 12/08/2024 10:38 AM [facility] LABComment: Specimens with hCG levels near the threshold of the test (25 mIU/mL) may give a negative or indeterminate result. ??In such cases, another test should be performed with a new specimen in 48-72 hours. ??If early is suspected clinically in this setting, correlation with quantitative serum b-hCG level is suggested. Specimen (Source)Anatomical Location / LateralityCollection Method / Volume Collection TimeReceived TimeUrine (Urine)12/08/2024 10:38 AM EDT12/08/2024 10:42 AM EDT Narrative Authorizing ProviderResult TypeResult StatusDorothy ROBERSON ORDERABLES Final ResultPerforming OrganizationAddressCity/State/ZIP CodePhone Number [facility] [address] [place] [address], [facility] [phone] * Culture, Urine (12/08/2024 10:38 AM EDT)ComponentValueRef RangeTest Method Analysis TimePerformed AtPathologist SignatureSpecimen Description.CLEAN CATCH URINE12/08/2024 10:38 AM [facility] LABSpecial Requests Site: Urine12/08/2024 10:38 AM [facility] LABCultureNO SIGNIFICANT OWUIZQ2012/08/2024 10:38 AM [facility] LABORATORIESSpecimen (Source) Anatomical Location / LateralityCollection Method / VolumeCollection Time Received TimeUrineURINE SPECIMEN / Jnwijde7212/08/2024 10:38 AM EDT12/08/2024 12:49 PM EDT Narrative Authorizing ProviderResult TypeResult StatusThais G Cintra MDMICROBIOLOGY - GENERAL ORDERABLESFinal ResultPerforming OrganizationAddressCity/State/ZIP Code Phone Number [facility] [address] [place] [address], [facility] [phone] [phone] * CT HEAD WO CONTRAST (Select for new onset seizures or head trauma) (12/08/2024 10:16 AM EDT)Anatomical RegionLateralityModalityHeadComputed Tomography Specimen (Source)Anatomical Location / LateralityCollection Method / Volume Collection TimeReceived Time12/08/2024 11:02 AM EDT Impressions 12/08/2024 11:04 AM EDT No acute intracranial abnormality. Narrative 12/08/2024 11:04 AM EDT EXAMINATION: CT OF THE HEAD WITHOUT CONTRAST ??12/08/2024 10:10 am TECHNIQUE: CT of the head [...] intracranial hemorrhage, mass effect, or midline shift. ??There is satisfactory overall cespedes-white matter differentiation. ??The ventricular structures are symmetric and unremarkable. The infratentorial structures are unremarkable. ORBITS: The visualized portion of the orbits demonstrate no acute abnormality. SINUSES: There is a polyp versus mucous retention cyst in the right maxillary sinus. ??The mastoid air cells are normally aerated. SOFT TISSUES/SKULL: ??No acute abnormality of the visualized skull or soft tissues. Procedure Note Kurt Mcmullen MD - 12/08/2024 EXAMINATION: CT OF THE HEAD WITHOUT CONTRAST 12/08/2024 10:10 am TECHNIQUE: CT of the head was performed without the administration of intravenous contrast. Automated exposure control, iterative reconstruction, and/orweight based adjustment of the mA/kV was utilized to reduce the radiation dose toas low as reasonably achievable. COMPARISON: None. HISTORY: ORDERING SYSTEM PROVIDED HISTORY: seizure TECHNOLOGIST PROVIDED HISTORY: seizure Decision Support Exception - unselect if not a suspected or confirmed emergency medical condition->Emergency Medical Condition (MA) FINDINGS: BRAIN/VENTRICLES: There is no acute intracranial hemorrhage, mass effect,or midline shift. There is satisfactory overall cespedes-white matter differentiation. The ventricular structures are symmetric andunremarkable. The infratentorial structures are unremarkable. ORBITS: The visualized portion of the orbits demonstrate no acuteabnormality. SINUSES: There is a polyp versus mucous retention cyst in the rightmaxillary sinus. The mastoid air cells are normally aerated. SOFT TISSUES/SKULL: No acute abnormality of the visualized skull orsoft tissues. IMPRESSION: No acute intracranial abnormality. Authorizing ProviderResult TypeResult StatusThailisa Garza [facility] CT ORDERABLES Final Result * EKG 12 Lead (12/08/2024 8:58 AM EDT)ComponentValueRef RangeTest MethodAnalysis TimePerformed AtPathologist SignatureVentricular Gbal99FEAGHZI [facility] Atrial Ikdr18SEOMZYN [facility] RADIOLOGYP-R Wvvfiead028zoRMEE [facility] RADIOLOGYQRS Hruwkixf58vxNVXP [facility] RADIOLOGYQ-T Xhwkmmbk277mkNIFQ [facility] RADIOLOGYQTc Calculation (Bazett)457msMHPN [facility] RADIOLOGYP Pirg53xpkbuevCYNI [facility] RADIOLOGYR Xzil67msyxrnaSFSZ [facility] RADIOLOGYT Yjwi05cwkxuzkFOGG [facility] RADIOLOGYSpecimen (Source)Anatomical Location / LateralityCollection Method / VolumeCollection TimeReceived Time12/08/2024 8:58 AM EDT Narrative [facility] - 12/09/2024 11:58 AM EDT Normal sinus rhythm Normal ECG ECG not diagnostic for Acute Coronary Syndrome; consider clinical findings When compared with ECG of 04-Nov-2024 08:11, No significant change was found Confirmed by Gerson Ray ([id number]) on 12/09/2024 11:58:12 AM Procedure Note Gerson Ray MD - 12/09/2024 Normal sinus rhythm Normal ECG ECG not diagnostic for Acute Coronary Syndrome; consider clinicalfindings When compared with ECG of 04-Nov-2024 08:11, No significant change was found Confirmed by Gerson Ray ([id number]) on 12/09/2024 11:58:12 AM Authorizing ProviderResult TypeResult StatusThailisa Garza MDECG ORDERABLESFinal ResultPerforming OrganizationAddressCity/State/ZIP CodePhone Number [facility] * (ABNORMAL) CBC with Auto Differential (12/08/2024 8:54 AM EDT)ComponentValue Ref RangeTest MethodAnalysis TimePerformed AtPathologist SignatureWBC8.13.5 - 11.3 k/uL12/08/2024 8:54 AM [facility] LABRBC4.373.95 - 5.11 m/uL12/08/2024 8:54 AM [facility] CRXZafjitntxx25.1 11.9 - 15.1 g/dL12/08/2024 8:54 AM [facility] Ioyalcxwyk08.536.3 - 47.1 %12/08/2024 8:54 AM [facility] ZZDICQ59.782.6 - 102.9 fL12/08/2024 8:54 AM [facility] UKDCEB80.325.2 - 33.5 pg12/08/2024 8:54 AM [facility] MCHC34.828.4 - 34.8 g/dL09/ 8:54 AM [facility] RDW12.611.8 - 14.4 %12/08/2024 8:54 AM [facility] PlateletsSee Reflexed IPF Guohmq713 - 453 k/12/08/2024 8:54 AM [facility] LABPlatelet, Zskqrgvcomnc167(L)138 - 453 k/12/08/2024 8:54 AM [facility] LABPlatelet, Immature Nzhzjicx85.7(H) 1.1 - 10.3 %12/08/2024 8:54 AM [facility] LABNRBC Automated0.00.0 per 100 WBC12/08/2024 8:54 AM [facility] LABNeutrophils %6436 - 65 %12/08/2024 8:54 AM [facility] LABLymphocytes %2424 - 43 %12/08/2024 8:54 AM [facility] LABMonocytes %83 - 12 %12/08/2024 8:54 AM [facility] Eosinophils %31 - 4 %12/08/2024 8:54 AM [facility] Immature Granulocytes %1(H)0 %12/08/2024 8:54 AM [facility] LABBasophils %00 - 2 %12/08/2024 8:54 AM [facility] LABNeutrophils Absolute5.191.50 - 8.10 k/12/08/2024 8:54 AM [facility] LABLymphocytes Absolute1.941.10 - 3.70 k/uL 12/08/2024 8:54 AM [facility] LABMonocytes Absolute0.65 0.10 - 1.20 k/uL12/08/2024 8:54 AM [facility] Eosinophils Absolute0.240.00 - 0.44 k/12/08/2024 8:54 AM [facility] LABImmature Granulocytes Absolute0.080.00 - 0.30 k/uL 12/08/2024 8:54 AM [facility] LABBasophils Absolute0.00 0.0 - 0.2 k/uL12/08/2024 8:54 AM [facility] LABMorphology Platelet clumps present, count appears adequate.12/08/2024 8:54 AM [facility] LABSpecimen (Source)Anatomical Location / Laterality Collection Method / VolumeCollection TimeReceived TimeBloodBLOOD SPECIMEN / Qxiamex7712/08/2024 8:54 AM EDT12/08/2024 9:07 AM EDT Narrative Authorizing ProviderResult TypeResult StatusDorothy Garza MDHEMATOLOGY ORDERABLESFinal ResultPerforming OrganizationAddressCity/State/ZIP CodePhone Number [facility] [address] [place] [address] * Magnesium (12/08/2024 8:54 AM EDT)ComponentValueRef RangeTest MethodAnalysis TimePerformed AtPathologist SignatureMagnesium2.01.6 - 2.6 mg/dL12/08/2024 8:54 AM [facility] LABSpecimen (Source)Anatomical Location / LateralityCollection Method / VolumeCollection TimeReceived Time BloodBLOOD SPECIMEN / Ffphkmk4212/08/2024 8:54 AM EDT12/08/2024 9:07 AM EDT Narrative Authorizing ProviderResult TypeResult StatusDorothy Garza MDCHEMISTRY ORDERABLESFinal ResultPerforming OrganizationAddressCity/State/ZIP CodePhone Number [facility] [address] [place] [address] * (ABNORMAL) CMP (12/08/2024 8:54 AM EDT)ComponentValueRef RangeTest Method Analysis TimePerformed AtPathologist KgyevvuseHkubki075325 - 145 mmol/L 12/08/2024 8:54 AM [facility] LABPotassium3.73.7 - 5.3 mmol/L12/08/2024 8:54 AM [facility] BPLGcgwbfgw10534 - 107 mmol/L12/08/2024 8:54 AM [facility] UPGBL13808 - 31 mmol/L12/08/2024 8:54 AM [facility] LABAnion Lbf720 - 16 mmol/L12/08/2024 8:54 AM [facility] DHDKitgsik1058 - 99 mg/dL12/08/2024 8:54 AM [facility] UWQUVH19 - 20 mg/dL 12/08/2024 8:54 AM [facility] LABCreatinine0.60.50 - 0.90 mg/dL12/08/2024 8:54 AM [facility] LABEst, Glom Filt Rate >90>60 mL/min/1.34o93212/08/2024 8:54 AM [facility] Comment: ? These results are not intended for use in patients <18 years of age. ? eGFR results are calculated without a race factor using the 2020 CKD-EPI equation. Careful clinical correlation is recommended, particularly when comparing to results calculated using previous equations. The CKD-EPI equation is less accurate in patients with extremes of muscle mass, extra-renal metabolism of creatine, excessive creatine ingestion, or following therapy that affects renal tubular secretion. BUN/Creatinine Hiwdn793 - 8:54 AM [facility] LABCalcium9.08.6 - 10.4 mg/dL12/08/2024 8:54 AM [facility] LABTotal Protein6.3(L)6.6 - 8.7 g/dL12/08/2024 8:54 AM [facility] LABAlbumin3.93.5 - 5.2 g/dL12/08/2024 8:54 AM [facility] LABAlbumin/Globulin Ratio1.51.0 - 2. 8:54 AM [facility] LABTotal Bilirubin<0.20.00 - 1.20 mg/dL12/08/2024 8:54 AM [facility] LABAlkaline Oohiimrghqq797(H)35 - 104 U/L12/08/2024 8:54 AM [facility] CTAUDL4618 - 35 U/L12/08/2024 8:54 AM [facility] MLXRVO4090 - 35 U/L12/08/2024 8:54 AM [facility] LABSpecimen (Source)Anatomical Location / Laterality Collection Method / VolumeCollection TimeReceived TimeBloodBLOOD SPECIMEN / Hptmlok1212/08/2024 8:54 AM EDT12/08/2024 9:07 AM EDT Narrative Authorizing ProviderResult TypeResult StatusThais G Cintra MDCHEMISTRY ORDERABLESFinal ResultPerforming OrganizationAddressCity/State/ZIP CodePhone Number [facility] [address] [id number], [facility] [phone] from Last 3 Months Insurance Advance Directives * Full Code (Latest Code Status on File) Date ActivatedDate InactivatedComments07/16/2014 9:29 AM07/17/2014 6:33 PM * Full Code Date ActivatedDate InactivatedComments07/15/2014 9:58 PM07/16/2014 9:29 AM Care Teams Team MemberRelationshipSpecialtyStart DateEnd Date Celia Villegas MD PCP - GeneralFamily Aavajmwz88/5/19
--- OUTSIDE RECORDS SUMMARY | 2025-02-21 08:20 | XMS_ITS | Clinical Summary ---
Author Organization [facility] Address [address] [place] [address] Care Team Providers Care Gang Miner Name Role Phone Celia Villegas MD Primary Care Provider [phone] Allergies No known active allergies Medications MedicationSigDispense QuantityRefillsLast FilledStart DateEnd DateStatus levothyroxine (Synthroid, Levoxyl) 88 MCG tablet Take 88 mcg by mouth DailyActive lisinopril 20 MG tablet Take 20 mg by mouth DailyActive FLUoxetine (PROzac) 10 MG capsule Take 10 mg by mouth DailyActive OXcarbazepine (Trileptal) 600 MG tablet Indications:Seizure (HCC)Take 1 tablet (600 mg) by mouth in the morning and 1 tablet (600 mg) before bedtime. 60 tablet 506Active Fior 0.25-35 MG-MCG tablet Indications:Uses controlTAKE 1 TABLET BY MOUTH EVERY DAY IN THE MORNING 84 tablet 5Active OXcarbazepine (Trileptal) 300 MG tablet Indications:Seizure (HCC)1 tab added to bedtime dose to equal 900 mg (continue with 600 mg in the am) 60 tablet 5Active Active Problems ProblemNoted DateDiagnosed NqajHiebbfu84/28/2024Sleep onqvjmdlunq42/28/2024 Tetrahydrocannabinol (THC) use disorder, mild, abuse11/21/2023rimary insomnia 11/21/20232271Bhxkkywajge20/28/2024OSA (obstructive sleep apnea)11/21/2023Shift work sleep kxysrfms05/28/2024Essential zewrotevtgru89/03/8017Yiddrgllpsocjo97/03/2024 Impaired fasting kmusmle6309/26/2023Mixed anxiety and depressive disorder 09/26/2023 Family History Medical HistoryRelationNameCommentsDiabetesMaternal GrandmotherHypertension MotherRelationNameStatusCommentsMaternal GrandmotherMother Social History Tobacco UseTypesPacks/DayYears UsedDateSmoking Tobacco: FormerCigarettes Tobacco Cessation:Counseling Given: Not Answered Alcohol UseStandard Drinks/WeekCommentsNever0 (1 standard drink = 0.6 oz pure alcohol)CommentsUnknownSex and Gender InformationValueDate RecordedSex Assigned at NdeodXdhtnv11/29/2023 9:37 AM EDTLegal CbjRtblfy43/15/2023 7:01 PM EDTGender CcyqraeaBdpnoi51/29/2023 9:37 AM EDTSexual OrientationNot on file Last Filed Vital Signs Vital SignReadingTime TakenCommentsBlood Dhwydcic911/6405 9:02 AM EDT Cfayg8544 9:02 AM EDTTemperature--Respiratory Fawz4304 4:28 PM EDTOxygen Zqbkdaqxzs84%07/30/2024 9:02 AM EDTInhaled Oxygen Concentration-- Lmzttb979 kg (245 lb)07/30/2024 9:02 AM EDTpt jfgwpwrhIjnpvu552.9 cm (4' 11 ) 07/30/2024 9:02 AM EDTBody Mass Index49.4805 9:02 AM EDT Plan of Treatment Not on file Insurance Care Teams Team MemberRelationshipSpecialtyStart DateEnd Date Celia Villegas MD [address] [place] [id number] [facility]
--- OUTSIDE RECORDS SUMMARY | 2025-02-21 08:21 | XMS_ITS | Clinical Summary ---
Author Organization [facility] Address [facility] [id number] [address] 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 Name Role Phone Celia Villegas MD Primary Care Provider [phone] Allergies No known active allergies Medications No known medications Active Problems No known active problems Family History Medical HistoryRelationNameCommentsDiabetesMaternal Aunttype IIHeart disease Maternal GrandfatherDiabetesMaternal Grandmothertype IIAnxiety disorderMother Blood ClotsMotherocclusion IVC emergent grafting-plavixClotting disorderMother occlusion IVC with emergent graftin-heavy smokerDepressionMotherHypertension MotherAlcohol abusePaternal GrandfatherAneurysmPaternal GrandfatherEpistaxis Paternal GrandfatherRelationNameStatusCommentsMaternal AuntMaternal Grandfather Maternal GrandmotherMotherPaternal Grandfather Social History Tobacco UseTypesPacks/DayYears UsedDateSmoking Tobacco: Passive Smoke Exposure - Never Smoker Tobacco Cessation:Counseling Given: Yes Alcohol UseStandard Drinks/WeekCommentsNo0 (1 standard drink = 0.6 oz pure alcohol)ChildcareAnswerDate ObtdiymdZazefbymsYtdabgy68/11/2019EmploymentAnswer Date RffgceruHvkntvoujmXskciex93/11/2019Purpose - LifeAnswerDate RecordedPurpose and direction in lcxxGqfbgxm20/10/2021CommentsNoSex and Gender InformationValueDate RecordedSex Assigned at BirthNot on fileLegal SexFemale 11/20/2017 3:06 PM EDTGender IdentityNot on fileSexual OrientationNot on file 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 End DatestudentNot on fileNot on fileNot on fileelectricianNot on fileNot on fileNot on file Last Filed Vital Signs Vital SignReadingTime TakenCommentsBlood Riyocvqy032/7405/08/2016 1:39 PM EST Agmcq863905/08/2016 1:39 PM ESTTemperature--Respiratory Rate--Oxygen Saturation-- Inhaled Oxygen Concentration--Mpetsi932 kg (222 lb 10.6 oz)05/08/2016 1:39 PM CEHBkaljj362.2 cm (4' 11.53 )05/08/2016 1:39 PM ESTBody Mass Index44.18 05/08/2016 1:39 PM EST Plan of Treatment Health MaintenanceDue DateLast DoneCommentsDepression Ifmhpqntf86/13/2011Tobacco Lnyxyyqmh21/13/2011dult BMI Hahxdstlm12/13/2017DTaP,Tdap and Td Vaccines (1 - Tdap)2018Pap Smear02/06/2020Influenza Sfyrizk8011/24/2024 Medical Devices Not on file Insurance Care Teams Team MemberRelationshipSpecialtyStart DateEnd Date Celia Villegas MD [address] [place] [address] PCP - General05/08/16
[2025-02-21 08:38] LABS: Hematocrit 36.0 % (36.0-48.0); Hemoglobin 12.1 g/dL (12.0-16.0); Immature Granulocytes Abs Auto 0.05 10^3/uL (0.00-0.03); Immature Granulocytes Pct Auto 0.5 % (0.0-0.5); Lymphocytes Absolute Auto 1.7 10^3/uL (1.2-3.8); Mean Corpuscular HGB Conc 33.6 g/dL (29.9-35.2); Mean Corpuscular Hemoglobin 31.9 pg (26.7-34.0); Mean Corpuscular Volume 95.0 fL (81.0-99.0); Platelet Count 255 10^3/uL (150-450); Red Blood Count 3.79 10^6/uL (4.20-5.40); White Blood Count 9.8 10^3/uL (4.0-11.0)
[2025-02-21 09:20] LABS: Anion Gap 3.4; Blood Urea Nitrogen 8.0 mg/dL (7.0-18.0); Calcium 8.6 mg/dL (8.5-10.1); Carbon Dioxide 30.3 mmol/L (21.0-32.0); Chloride 104 mmol/L (98-107); Estimated GFR (African America >60 (>=60 mL/min/1.73m^2); Estimated GFR (Non-African Ame >60 (>=60 mL/min/1.73m^2); Glucose 96 mg/dL (74-106); Potassium 3.7 mmol/L (3.5-5.1); Sodium 134 mmol/L (136-145); Thyroid Stimulating Hormone 2.857 uIU/mL (0.358-3.740)
== END 2025-02-21 08:18 | disposition home or self-care (01) ==
LOC: LAB 08:18
PROVIDERS: PCP Family Medicine; Visit Provider Family Medicine
DX: G47.33 Obstructive sleep apnea (adult) (pediatric) (principal); I10 Essential (primary) hypertension; E03.9 Hypothyroidism, unspecified; R53.83 Other fatigue
CPT/HCPCS: 36415; 80048; 84439; 84443; 85025